=== PATIENT | female | born 1940 | race Caucasian/White ===

== ENCOUNTER → 2023-07-26 13:04 | Outpatient (REF) | payer MEDICARE, OTHER, MEDICAID, SELFPAY ==
[2023-07-26 14:52] LABS: Blood Urea Nitrogen 17 mg/dl (7-17); Carbon Dioxide 27 mmol/L (22-30); Chloride 105 mmol/L (98-107); Glucose 91 mg/dl (70-99); Sodium 137 mmol/L (135-145); eGFR > 60.00
[2023-07-26 15:08] LABS: NT-proBNP 627 pg/ml
== END ==
LOC: OLABN 13:04
PROVIDERS: ATTENDING PHYSICIAN Student in an Organized Health Care Education/Training Program
DX: R60.9 Edema, unspecified (principal)
CPT/HCPCS: 80048; 83880

== ENCOUNTER → 2023-09-15 10:25 | Outpatient (REF) | payer MEDICARE, OTHER, MEDICAID, SELFPAY ==
[2023-09-15 12:04] LABS: ALT (SGPT) 14 U/L (0-35); AST (SGOT) 19 U/L (14-36); Albumin 3.6 g/dl (3.5-5.0); Alkaline Phosphatase 85 U/L (38-126); Blood Urea Nitrogen 17 mg/dl (7-17); Calcium 9.3 mg/dl (8.4-10.2); Carbon Dioxide 33 mmol/L (22-30); Chloride 98 mmol/L (98-107); Glucose 92 mg/dl (70-99); Potassium 4.1 mmol/L (3.5-5.1); Sodium 139 mmol/L (135-145); Total Bilirubin 0.5 mg/dl (0.2-1.3); Total Protein 6.7 g/dl (6.3-8.2); eGFR > 60.00
[2023-09-15 12:12] LABS: NT-proBNP 361 pg/ml
== END ==
LOC: OLABN 10:25
PROVIDERS: ATTENDING PHYSICIAN Student in an Organized Health Care Education/Training Program
DX: J44.9 Chronic obstructive pulmonary disease, unspecified (principal); I10 Essential (primary) hypertension; E11.40 Type 2 diabetes mellitus with diabetic neuropathy, unspecified
CPT/HCPCS: 36415; 80053; 83880

== ENCOUNTER → 2023-09-28 11:20 | Outpatient (REF) | payer MEDICARE, OTHER, MEDICAID, SELFPAY ==
[2023-09-28 11:37] LABS: % Basophils 0.5 % (0-2); % Eosinophils 1.7 % (0-6); % Immature Granulocytes 0.5 % (0-0.5); % Lymphocytes 30.3 % (20.5-51.1); % Monocytes 8.6 % (1.7-9.3); % Neutrophils 58.4 % (42.2-75.2); Absolute Eosinophils 0.1 10^3/uL (0-0.7); Absolute Lymphocytes 2.5 10^3/uL (1.2-3.4); Absolute Monocytes 0.7 10^3/uL (0.1-0.6); Absolute Neutrophils 4.9 10^3/uL (1.4-6.5); Hemoglobin 11.3 g/dL (12.0-16.0); Mean Corp Hgb Conc. 32.3 g/dL (33.0-37.0); Mean Corpuscular Hgb 27.9 pg (27.0-31.0); Mean Corpuscular Volume 86.4 fL (81.0-99.0); Mean Platelet Volume 11.6 fL (7.4-10.4); Nucleated Red Blood Cells % 0 %; Platelet Count 253 10^3/uL (130-400); Red Blood Cell Count 4.05 10^6/uL (4.20-5.40); Red Cell Dist. Width 15.1 % (11.5-14.5); White Blood Cell Count 8.4 10^3/uL (4.8-10.8)
[2023-09-28 12:08] LABS: NT-proBNP 1390 pg/ml
[2023-09-28 12:09] LABS: ALT (SGPT) 15 U/L (0-35); AST (SGOT) 22 U/L (14-36); Albumin 3.4 g/dl (3.5-5.0); Alkaline Phosphatase 55 U/L (38-126); Blood Urea Nitrogen 18 mg/dl (7-17); Calcium 8.8 mg/dl (8.4-10.2); Carbon Dioxide 33 mmol/L (22-30); Chloride 100 mmol/L (98-107); Glucose 85 mg/dl (70-99); Magnesium 2.2 mg/dl (1.6-2.3); Potassium 4.4 mmol/L (3.5-5.1); Sodium 138 mmol/L (135-145); Total Bilirubin 0.3 mg/dl (0.2-1.3); Total Protein 6.1 g/dl (6.3-8.2); eGFR > 60.00
[2023-09-28 13:38] LABS: Urine Albumin Trace (Neg - Trace); Urine Bilirubin 1+ (Negative); Urine Character Very Cloudy (Clear); Urine Color Yellow; Urine Glucose Negative (Negative); Urine Ketone Trace (Negative); Urine Leukocyte 1+ (Negative); Urine Nitrite Negative (Negative); Urine Occult Blood 2+ (Negative); Urine Specific Gravity 1.015 (<1.030); Urine Urobilinogen Negative (Neg - 1+)
[2023-09-28 14:15] LABS: Urine Squamous Cell >30 /LPF (Few)
[2023-09-28 14:19] LABS: Urine Amorphous Seen; Urine Calcium Oxalate Crystals Present
[2023-09-28 14:20] LABS: Urine Bacteria Many (Negative); Urine Red Blood Cell 0-2 /HPF (0-2); Urine White Cell 30-40 /HPF (0-5)
== END ==
LOC: OLABN 11:20
PROVIDERS: ATTENDING PHYSICIAN Student in an Organized Health Care Education/Training Program
DX: J44.9 Chronic obstructive pulmonary disease, unspecified (principal); R35.0 Frequency of micturition
CPT/HCPCS: 36415; 80053; 81003; 81015; 83735; 83880; 85025; 87077; 87086; 87186

== ENCOUNTER → 2023-10-20 14:11 | Outpatient (REF) | payer MEDICARE, OTHER, MEDICAID, SELFPAY | LOC: OLABN 14:11 | PROVIDERS: ATTENDING PHYSICIAN Student in an Organized Health Care Education/Training Program | DX: Z87.01 Personal history of pneumonia (recurrent) (principal) | CPT/HCPCS: 87070; 87205 ==

== ENCOUNTER 2023-12-19 03:50 | Inpatient (IN) | payer MEDICARE, OTHER, SELFPAY ==
[2023-12-19] VITALS (14 sets, daily range): BP systolic 126–177; BP diastolic 61–85; PULSE 86–90; O2SAT 93–94; BMI 32.2; BMI 31.0; BMI 30.6
[2023-12-19 01:04] LABS: % Basophils 0.3 % (0-2); % Eosinophils 0.8 % (0-6); % Immature Granulocytes 0.3 % (0-0.5); % Lymphocytes 15.3 % (20.5-51.1); % Monocytes 9.1 % (1.7-9.3); % Neutrophils 74.2 % (42.2-75.2); Absolute Eosinophils 0.1 10^3/uL (0-0.7); Absolute Lymphocytes 1.2 10^3/uL (1.2-3.4); Absolute Monocytes 0.7 10^3/uL (0.1-0.6); Absolute Neutrophils 5.6 10^3/uL (1.4-6.5); Hematocrit 34.5 % (37.0-47.0); Hemoglobin 11.6 g/dL (12.0-16.0); Mean Corp Hgb Conc. 33.6 g/dL (33.0-37.0); Mean Corpuscular Hgb 28.5 pg (27.0-31.0); Mean Corpuscular Volume 84.8 fL (81.0-99.0); Mean Platelet Volume 10.1 fL (7.4-10.4); Nucleated Red Blood Cells % 0 %; Platelet Count 221 10^3/uL (130-400); Red Blood Cell Count 4.07 10^6/uL (4.20-5.40); Red Cell Dist. Width 15.3 % (11.5-14.5); White Blood Cell Count 7.5 10^3/uL (4.8-10.8)
--- NOTE | 2023-12-19 01:18 | ED.GENMED ---
History of Present Illness
<PRIYANKA Hayden - Last Filed: 12/19/23 03:07>
General
Chief Complaint: Breathing Problem
Time Seen by Provider: 12/19/23 01:17
History of Present Illness
History of Present Illness:
Patient is an 83 year old female with a PMH of COPD presenting to the ED with a productive cough x 2 days. She states the cough started on Wednesday after a nebulizer treatment and the [facility] did an xray on her which showed an apparent large left
pleural effusion. The cough produces a yellow colored mucous. Patient denies any hemoptysis. The cough is worse when laying down or with any sort of movement. Patient denies any sob chest pain palpitations fever headache light headedness nausea
vomiting abdominal pain.
Patient has a history of COPD HTN HLD controlled on medication but denies any history of clots or CHF. She is a former smoker but denies alcohol use.
Past History
<PRIYANKA Hayden - Last Filed: 12/19/23 03:07>
Past History
ED Past Medical History: Asthma, COPD, HTN, Hypercholesterolemia, NIDDM, Hypothyroidism, Psychiatric (anxiety/depression) and Other (frequent UTI)
ED Past Surgical History: Orthopedic
Social History
Tobacco: Former smoker
Alcohol: None
Drug: None
Personal:
Living: assisted living
Review of Systems
<PRIYANKA Hayden - Last Filed: 12/19/23 03:07>
Review of Systems
Constitutional: Reports no symptoms
Respiratory: Reports cough (productive yellow in color)
Cardiac: Reports no symptoms
ABD/GI: Reports no symptoms
Neurological: Reports no symptoms
Phy Exam
<PRIYANKA Hayden - Last Filed: 12/19/23 03:07>
General Physical Exam
General Presentation: mild distress
General age: appears stated age
General Habitus: elderly
General Mental: alert
Cardiovascular Exam
Cardiovascular Exam: regular rate/rhythm, no edema, no gallop, no JVD and no murmur
Pulmonary Exam
Cough: productive cough (yellow sputum)
Breath Sounds: Rhonchi: generalized (throughout lungs b/l)
Skin Exam
Skin Exam: other (pitting edema on lower legs )
Scores
<Mely Garcia DO - Last Filed: 12/19/23 03:10>
Heart Failure Risk
Heart Failure Risk Score: Yes
History of Stroke or TIA: No
History of intubation for respiratory distress: No
Heart rate on ED arrival >/= 110: No
SaO2 <90% on arrival on room air: Yes
HR >/=110 during 3min walk test (or too ill to perform test): Yes
ECG has acute ischemic changes: No
Urea >/=12mmol/L (BUN 33.6mg/dL): No
Serum CO2>/=35mmol/L: No
Troponin I or T elevated to MT Level (0.4mg/dL): No
NT-proBNP >/=5,000ng/L (5,000pg/ml): No
HF Risk Score: 3
Admission Status: HIGH RISK 15.9% Consider SNF treatment or admission to hospital
Course
<PRIYANKA Hayden - Last Filed: 12/19/23 03:07>
Orders/Labs/Results
Orders:
Orders
12/19/23 00:48
EKG [Electrocardiogram (*1)] Urgent
Reason for Study: Tachycardia
12/19/23 00:49
EKG- Treatment ONCE
12/19/23 00:56
Complete Blood Count/With Diff Urgent
Comprehensive Metabolic Panel Urgent
Pro-BNP [NT-proBNP] Urgent
Troponin I Urgent
Comment: ADD ON
12/19/23 01:47
CR Chest - 2 Views Urgent
Comment:
Reason For Exam: cough, SOB
12/19/23 01:50
Add On- LAB Urgent
Tests Added?: troponin
12/19/23 01:54
Ipratropium/Albuterol Sulfate [Duoneb] 3 ml INH R NOW STA
12/19/23 02:18
COVID-19 Antigen Urgent
Source: Nasal Swab
Abnormal Lab Results
12/19/23
00:56
RBC 4.07 L 10^6/uL
(4.20-5.40)
Hgb 11.6 L g/dL
(12.0-16.0)
Hct 34.5 L %
(37.0-47.0)
RDW 15.3 H %
(11.5-14.5)
Absolute Monos (auto) 0.7 H 10^3/uL
(0.1-0.6)
Lymphocytes % 15.3 L %
(20.5-51.1)
Carbon Dioxide 33 H mmol/L
(22-30)
Glucose 116 H mg/dl
(70-99)
12/19/23 00:56
12/19/23 00:56
Vital Signs
Initial and Last Documented VS:
Initial Vital Signs
Temp Pulse Resp BP Pulse Ox
98.2 F 69 19 153/77 98
12/19/23 00:37 12/19/23 00:37 12/19/23 00:37 12/19/23 00:37 12/19/23 00:37
Last Documented Vital Signs
Temp Pulse Resp BP Pulse Ox
98.2 F 70 16 163/78 95
12/19/23 02:54 12/19/23 03:00 12/19/23 03:00 12/19/23 03:00 12/19/23 03:00
<Mely Garcia, DO - Last Filed: 12/19/23 03:10>
Orders/Labs/Results
Orders:
Orders
12/19/23 00:48
EKG [Electrocardiogram (*1)] Urgent
Reason for Study: Tachycardia
12/19/23 00:49
EKG- Treatment ONCE
12/19/23 00:56
Complete Blood Count/With Diff Urgent
Comprehensive Metabolic Panel Urgent
Pro-BNP [NT-proBNP] Urgent
Troponin I Urgent
Comment: ADD ON
12/19/23 01:47
CR Chest - 2 Views Urgent
Comment:
Reason For Exam: cough, SOB
12/19/23 01:50
Add On- LAB Urgent
Tests Added?: troponin
12/19/23 01:54
Ipratropium/Albuterol Sulfate [Duoneb] 3 ml INH R NOW STA
12/19/23 02:18
COVID-19 Antigen Urgent
Source: Nasal Swab
Abnormal Lab Results
12/19/23
00:56
RBC 4.07 L 10^6/uL
(4.20-5.40)
Hgb 11.6 L g/dL
(12.0-16.0)
Hct 34.5 L %
(37.0-47.0)
RDW 15.3 H %
(11.5-14.5)
Absolute Monos (auto) 0.7 H 10^3/uL
(0.1-0.6)
Lymphocytes % 15.3 L %
(20.5-51.1)
Carbon Dioxide 33 H mmol/L
(22-30)
Glucose 116 H mg/dl
(70-99)
12/19/23 00:56
12/19/23 00:56
Vital Signs
Initial and Last Documented VS:
Initial Vital Signs
Temp Pulse Resp BP Pulse Ox
98.2 F 69 19 153/77 98
12/19/23 00:37 12/19/23 00:37 12/19/23 00:37 12/19/23 00:37 12/19/23 00:37
Last Documented Vital Signs
Temp Pulse Resp BP Pulse Ox
98.2 F 70 16 163/78 95
12/19/23 02:54 12/19/23 03:00 12/19/23 03:00 12/19/23 03:00 12/19/23 03:00
<PRIYANKA Hayden - Last Filed: 12/19/23 03:07>
MDM/Problems Addressed
Differential Diagnosis Includes:
CHF, pleural effusion, COPD exacerbation, bronchitis,
MDM/Problems Addressed:
order chest xray order bloodwork monitor 306a update xr shows pleural effusion give steroids and antibiotics, admit
<PRIYANKA Hayden - Last Filed: 12/19/23 03:07>
*Critical Care Note
Total Time (30-74mins, 75-104mins- exclusive of procedures): Not Applicable
<Mely Garcia DO - Last Filed: 12/19/23 03:10>
*Radiology
Radiology exam reviewed: preliminary read by ED provider (Chest x-ray shows a new left lower lobe infiltrate associated with small pleural effusion.)
*Pulse Oximetry
Patient hypoxic: yes
*EKG
Interpreted by ED Provider?: Yes
Comparison EKG: no changes (Unchanged from previous April 2022)
Rate: normal
Rhythm: sinus and PVC's
Industry: normal axis
Interval: normal interval
QRS Pattern: normal QRS
Ischemia: no ischemia
*Meat Loiner Interpretation
Rate: normal
Interpretation: normal
Rhythm: sinus
ED Attending Note
<PRIYANKA Hayden - Last Filed: 12/19/23 03:07>
-
Portions of this chart may have been created with voice recognition software.� Occasional wrong word or��sound alike� substitutions may have occurred due to the inherent limitations of voice recognition software.
<Mely Garcia DO - Last Filed: 12/19/23 03:10>
ED Attending Note
Patient seen and examined by attending physician: Yes
I performed the substantive portion of visit, reviewed & personally made and approve the management plan that is documented in note by myself or MIKE.: Yes
ED Attending Note:
This is an 83-year-old woman who resides at a local [facility]. History of paroxysmal atrial fibrillation, COPD, diet-controlled diabetes, Neuropathy, hypertension, chronic lymphedema who was sent to the ED by [facility] for evaluation of
increased cough over the past 2 days productive of whitish to yellow phlegm. Intermittent shortness of breath, dyspnea on exertion. She was evaluated by [facility] 2 days ago for the symptoms and started on Decadron 2 mg daily as well as Chloraseptic
lozenges. Thus far no improvement and an outpatient chest x-ray performed this evening shows left lower lobe pleural effusion that is new compared to previous.
She does not believe she has had a fever. She does note moderate hoarseness/loss of voice since yesterday but denies sore throat.
Maintained on nasal cannula oxygen 2 to 4 L.
No change in appetite. She denies chest pain. She does note chronic bilateral lower extremity edema, unchanged.
GENERAL: 83-year-old woman appears her stated age, awake and alert, very mild resting tachypnea noted and whispering/hoarse voice but no stridor. Rare dry cough is noted.
EYE: pupils equal and reactive. anicteric
NECK: Supple, nontender, no meningismus, no significant adenopathy.
ENT: posterior pharynx is clear, oral mucosa is moist. No rhinorrhea.
CARDIAC: Regular rate and rhythm. 2/6 holosystolic murmur.
LUNGS: Mild resting tachypnea. Coarse rhonchi throughout bilateral lung hirsch.
ABDOMEN: Soft, nondistended, without focal tenderness
NEUROLOGICAL: Alert and oriented x3, no focal neuro deficits.
SKIN: Warm and dry, normal color, skin intact. No rash.
MUSCULOSKELETAL: Moderately tense lymphedema bilateral lower extremities, nontender. Peripheral pulses are full and equal b/l. No palpable tenderness.
PSYCH: Normal and appropriate interaction.
Concern for exacerbation of COPD, acute CHF, pneumonia, symptomatic pleural effusion.
Labs thus far revealed normal white blood cell count, unremarkable chemistries save for mildly elevated CO2 of 33, stable and unchanged from previous.
Will add BNP, check COVID as well as chest x-ray.
Will give DuoNeb nebulizer.
12/19/2023 0300 AM
BNP is low at 400.
COVID is negative.
Chest x-ray concerning for dense infiltrate left lower lobe as well as left pleural effusion.
Patient reassessed, much more comfortable after nebulizer treatment. Marked improvement in rhonchi, increased air movement.
Due to concern for left lower lobe pneumonia, progressive shortness of breath and cough as well as significant generalized rhonchi concern for pneumonia as well as exacerbation of COPD.
Will initiate IV antibiotics, IV steroids, continue nebulizer treatments and admit to hospitalist service.
Discharge Plan
Departure
Patient Disposition: Admit
Date of Disposition: 12/19/23
Time of Disposition: 03:08
Admit to: Telemetry
Admit to doctor: Ahsan
Presentation/result/management discussed w/ accepting MD/DO: Hospitalist
Condition: Fair
Discharge Problem:
HCAP (healthcare-associated pneumonia), Acute exacerbation of chronic obstructive pulmonary disease
Prescriptions:
No Action
acetaminophen [Tylenol] 325 mg Tablet
650 mg PO Q4HPRN PRN (Reason: mild pain)
oxybutynin chloride 15 mg Tablet Extended Release 24hr
15 mg PO QPM
atorvastatin [Lipitor] 10 mg Tablet
10 mg PO QPM
levothyroxine 25 mcg Tablet
25 mcg PO DAILY
magnesium hydroxide [Milk of Magnesia] 400 mg/5 mL Suspension
2,400 mg PO HSPRN PRN (Reason: constipation)
vitamin B complex Capsule
1 cap PO DAILY
metoprolol tartrate 25 mg Tablet
12.5 mg PO BID
coQ10 (ubiquinol) 200 mg Capsule
200 mg PO DAILY
Eliquis 5 mg Tablet
5 mg PO BID
ergocalciferol (vitamin D2) 1,250 mcg (50,000 unit) Capsule
1,250 mcg PO QMONTH
estradiol 0.01 % (0.1 mg/gram) Cream
2 g VAGINAL TUFR@1830
diclofenac sodium 1 % Gel
2 g TOPICAL Q8H
calcium carbonate [Calcium 600] 600 mg calcium (1,500 mg) Tablet
600 mg PO DAILY
furosemide [Lasix] 20 mg Tablet
10 mg PO DAILY
guaifenesin [Mucinex] 600 mg tablet extended release 12hr
600 mg PO [id number] PRN (Reason: cough)
potassium chloride 10 mEq Capsule, Extended Release
10 meq PO DAILY
sodium chloride 1 gram Tablet
1,000 mg PO DAILY
budesonide 0.5 mg/2 mL Suspension For Nebulization
0.5 mg INHALATION BID
albuterol sulfate 2.5 mg/0.5 mL Solution For Nebulization
2.5 mg inhalation 2XD
pregabalin 50 mg Capsule
50 mg PO HS
pregabalin 75 mg Capsule
75 mg PO DAILY
dexamethasone 2 mg Tablet
2 mg PO DAILY
Chloraseptic (benzocaine) Lozenge
1 marilu 3XD
albuterol sulfate 90 mcg/actuation Aerosol Powdr Breath Activated
2 inh INHALATION 3XD PRN (Reason: atelectasis)
levalbuterol HCl 1.25 mg/3 mL Solution For Nebulization
1.25 mg INHALATION 4XD PRN (Reason: dyspnea)
Referrals:
Archie Mullen DO [Family Provider] -
Interventions
Interventions:
*Risk Screen - Suicide Last Done: 12/19/23 00:37
*General Assessment Last Done: 12/19/23 00:37
*Neglect/Abuse Screening Last Done: 12/19/23 00:37
ED- Fall Risk Assessment Last Done: 12/19/23 00:37
*ED COVID-19 Vaccine History Last Done: 12/19/23 00:37
ED- Cardiac Assessment Last Done: 12/19/23 00:48
ED- Pulmonary Assessment Last Done: 12/19/23 00:49
Discharge Date and Time
Print Language: EMIRATI
[2023-12-19 01:27] LABS: NT-proBNP 437 pg/ml
[2023-12-19 01:28] LABS: ALT (SGPT) 15 U/L (0-35); AST (SGOT) 18 U/L (14-36); Albumin 3.7 g/dl (3.5-5.0); Alkaline Phosphatase 70 U/L (38-126); Blood Urea Nitrogen 16 mg/dl (7-17); Calcium 9.3 mg/dl (8.4-10.2); Carbon Dioxide 33 mmol/L (22-30); Chloride 98 mmol/L (98-107); Estimated Creatinine Clearance 72 ml/min; Glucose 116 mg/dl (70-99); Potassium 4.6 mmol/L (3.5-5.1); Sodium 138 mmol/L (135-145); Total Protein 6.4 g/dl (6.3-8.2); eGFR > 60.00
[2023-12-19 02:11] LABS: Total Bilirubin 0.4 mg/dl (0.2-1.3)
[2023-12-19] MEDS: DUONEB 3 ML INH ×5 (02:21→19:35)
[2023-12-19 02:44] LABS: COVID-19 Antigen Negative (Negative)
[2023-12-19] MEDS: DECADRON 10 MG IV (03:18)
[2023-12-19] MEDS: LEVAQUIN 100 IV (03:19)
--- NOTE | 2023-12-19 03:40 | HPS.HSE ---
Family Physician
-
Family Physician: Archie Mullen DO
Chief Complaint
-
Cough, Hoarseness
History of Present Illness
Patient is an 83y F with PMH significant for A-Fib, COPD and DM-II who presents to ED complaining of loss of voice, cough and fatigue. Patient was evaluated at [facility] on 12/16 for these symptoms. She was started on dexamethasone 2mg daily at that
time and a CXR was ordered. CXR report returned today and showed L base opacity - ? large pleural effusion. Patient continued to complain of loss of voice and cough and was sent to the ED for further evaluation.
Patient denies any headache, sore throat, fevers or chills.
In the ED, she is noted to have weak voice with audible throat / upper airway congestion and weak / ineffectual cough or throat clearing ability.
Medical History
Past Medical History
Past Medical History: Reports Other
Additional Past Medical History:
COPD
Polyneuropathy
Atrial Fibrillation
Hypothyroidism
Dyslipidemia
Diet-Controlled DM-II
Past Surgical History: Reports Other
Social History
Tobacco: Former Smoker (Quit at age 48. Approx 30 pack years total use.)
Alcohol: None
Drug: None
Living: Intermediate
Family History
Family History: Not pertinent
Allergies / Home Medications
Allergies reflects when Allergies were last updated in [employer].
Home Medications with original date entered in [employer]
Allergy/Medication List:
Allergies
Allergy/AdvReac Type Severity Reaction Status Date / Time
cefuroxime Allergy Severe Anaphylaxis Verified 12/19/23 00:50
gabapentin Allergy Intermediate Itching Verified 12/19/23 00:50
Penicillins Allergy Intermediate Nausea / Verified 12/19/23 00:50
Vomiting
Sulfa (Sulfonamide Allergy Intermediate Hives Verified 12/19/23 00:50
Antibiotics)
tetanus toxoid, adsorbed Allergy Intermediate Hives Verified 12/19/23 00:50
meloxicam Allergy Mild Unknown Verified 12/19/23 00:50
Home Medications
acetaminophen 325 mg tablet (Tylenol) 650 mg PO Q4HPRN PRN mild pain 03/24/22
apixaban 5 mg tablet (Eliquis) 5 mg PO BID Blood Clot Prevention/Tx 03/24/22
atorvastatin 10 mg tablet (Lipitor) 10 mg PO QPM High Cholesterol 03/24/22
coQ10 (ubiquinol) 200 mg capsule 200 mg PO DAILY Supplement 03/24/22
diclofenac sodium 1 % topical gel 2 g topical Q8H both knees 03/24/22
ergocalciferol (vitamin D2) 1,250 mcg (50,000 unit) capsule 1,250 mcg PO QMONTH Wednesday of the month 03/24/22
estradiol 0.01% (0.1 mg/gram) vaginal cream 2 g vaginal TUFR@1830 Hormonal Agent 03/24/22
levothyroxine 25 mcg tablet 25 mcg PO DAILY Thyroid 03/24/22
magnesium hydroxide 400 mg/5 mL oral suspension (Milk of Magnesia) 2,400 mg PO HSPRN PRN constipation 03/24/22
metoprolol tartrate 25 mg tablet 12.5 mg PO BID Blood Pressure 03/24/22
oxybutynin chloride 15 mg tablet,extended release 24 hr 15 mg PO QPM Urinary Issue 03/24/22
vitamin B complex 1 cap PO DAILY Supplement 03/24/22
calcium carbonate (Calcium 600) 600 mg PO DAILY Supplement 05/22/22
furosemide 20 mg tablet (Lasix) 10 mg PO DAILY Fluid Retention/Swelling 05/22/22
guaifenesin 600 mg tablet, extended release 12 hr (Mucinex) 600 mg PO [id number] PRN cough 05/22/22
albuterol sulfate 2.5 mg/0.5 mL solution for nebulization 2.5 mg inhalation 2XD 12/19/23
albuterol sulfate 90 mcg/actuation breath activated powder inhaler 2 inh inhalation 3XD PRN atelectasis 12/19/23
benzocaine-menthol lozenges 1 marilu 3XD 12/19/23
budesonide 0.5 mg/2 mL suspension for nebulization 0.5 mg inhalation BID 12/19/23
dexamethasone 2 mg tablet 2 mg PO DAILY 12/19/23
levalbuterol HCl 1.25 mg/3 mL solution for nebulization 1.25 mg inhalation 4XD PRN dyspnea 12/19/23
potassium chloride 10 mEq capsule,extended release 10 meq PO DAILY 12/19/23
pregabalin 50 mg capsule 50 mg PO HS 12/19/23
pregabalin 75 mg capsule 75 mg PO DAILY 12/19/23
sodium chloride 1 gram tablet 1,000 mg PO DAILY 12/19/23
Review of Systems
-
History Source: Patient
A 12 point ROS was completed and negative except as noted: Yes
Constitutional: Reports Fatigue; Denies Fever or Chills
EENT: Reports Other (Hoarse); Denies Sore Throat
Respiratory: Reports Cough and Trouble Breathing; Denies Hemoptysis
Cardiac: Denies Chest Pain or Palpitations
Abdomen/GI: Denies Abdominal Pain, Nausea, Vomiting or Diarrhea
: Denies Dysuria or Frequency
Musculoskeletal: Reports Edema; Denies Joint Pain
Neurological: Denies Dizzy or Headache
Psych: Denies Depression or Anxiety
Physical Exam
Vital Signs
Vital Signs
Temp Pulse Resp BP Pulse Ox
98.2 F 70 16 163/78 95
12/19/23 02:54 12/19/23 03:00 12/19/23 03:00 12/19/23 03:00 12/19/23 03:00
Physical Exam
General: Other (83y F in no acute distress.)
HEENT: Moist mucous membranes, PERRLA and Other (No JVD. Audible throat congestion.)
Respiratory: Other (There are coarse breath sounds appreciated throughout - but likely transmitted from upper airway given apparent throat congestion. No wheezing.)
Cardiac: S1/S2 and Regular Rhythm; No Murmur
GI: Soft, Non Tender, Non Distended and Normal Bowel Sounds
Musculoskeletal: No Clubbing, No Cyanosis and Other (2+ pitting edema b/l LEs.)
Neuro: AO x 3 and Nonfocal/grossly intact
Laboratory Results
-
12/19/23 00:56
12/19/23 00:56
Laboratory Results
Total Bilirubin 0.4 mg/dl (0.2-1.3) 12/19/23 00:56
AST 18 U/L (14-36) 12/19/23 00:56
ALT 15 U/L (0-35) 12/19/23 00:56
Alkaline Phosphatase 70 U/L (38-126) 12/19/23 00:56
Troponin I Cancelled 12/19/23 01:50
Impression/Plan
-
A/P: Patient is an 83y F with PMH significant for COPD, A-Fib and DM-II who presents to ED complaining of cough and hoarseness.
Hoarseness
LLL Pneumonia
- Admit for further evaluation and treatment.
- Patient is afebrile, not toxic appearing with no leukocytosis.
- No change in chronic O2 requirements.
- CXR done shows L basilar opacity compared to prior imaging. ? effusion per outpatient report.
- Continue IV abx for now (Levaquin due to multiple allergies).
- Check procalcitonin and discontinue abx if appropriate.
- ? viral process given loss of voice / laryngitis / etc.
- Speech eval given weak / ineffectual cough and inability to clear throat congestion.
COPD without Acute Exacerbation
Chronic Hypoxemic Respiratory Insufficiency
- No wheezing appreciated during my exam.
- Hold further systemic steroids.
- Continue usual inhaled budesonide, DuoNebs, etc.
- Oxygen saturations acceptable on usual O2 supplementation.
Paroxysmal Atrial Fibrillation
- Stable.
�- Continue current CV med regimen including Eliquis for stroke risk reduction.
Diet-Controlled DM-II
�- Stable.� Recent A1C was 5.9%.
�- Not currently on any DM medications.
�- Cover with SSI as needed.
Polyneuropathy
�- Stable.� Continue Lyrica
DVT Prophylaxis:� On Eliquis
Code Status:� DNR
[2023-12-19 03:42] LABS: Troponin I < 0.012 ng/ml
[2023-12-19 05:02] LABS: Procalcitonin < 0.05 ng/ml (0.0-0.25)
--- NOTE | 2023-12-19 06:16 | PTCARENOTE ---
pt admitted to 324, o2 2 L NC connected on transfer. oriented pt to room, call santiago, TV operation and dietary. admission assessment complete, pt inst on POC all questions addressed.
[2023-12-19] MEDS: PULMICORT 0.5 MG INH ×2 (07:43→19:35)
[2023-12-19 08:12] LABS: Glucose - Point of Care 144 mg/dl (70-99)
[2023-12-19] MEDS: KCL 10 MEQ PO (09:00)
[2023-12-19] MEDS: LASIX 20 MG PO (09:01)
[2023-12-19] MEDS: SYNTHROID 25 MCG PO (09:01)
[2023-12-19] MEDS: LOPRESSOR 12.5 MG PO ×2 (09:02→20:43)
[2023-12-19] MEDS: ELIQUIS 5 MG PO ×2 (09:02→20:44)
[2023-12-19] MEDS: MUCINEX 1200 MG PO ×2 (09:04→20:44)
[2023-12-19] MEDS: SODIUM CHLORIDE 1 GRAM PO (09:04)
[2023-12-19] MEDS: LYRICA 75 MG PO (09:04)
[2023-12-19 09:30] LABS: Hematocrit 35.3 % (37.0-47.0); Hemoglobin 11.9 g/dL (12.0-16.0); Mean Corp Hgb Conc. 33.7 g/dL (33.0-37.0); Mean Corpuscular Hgb 29.4 pg (27.0-31.0); Mean Corpuscular Volume 87.2 fL (81.0-99.0); Mean Platelet Volume 11.1 fL (7.4-10.4); Platelet Count 221 10^3/uL (130-400); Red Blood Cell Count 4.05 10^6/uL (4.20-5.40); Red Cell Dist. Width 14.9 % (11.5-14.5); White Blood Cell Count 6.2 10^3/uL (4.8-10.8)
[2023-12-19 09:33] LABS: Blood Urea Nitrogen 13 mg/dl (7-17); Calcium 9.3 mg/dl (8.4-10.2); Carbon Dioxide 30 mmol/L (22-30); Chloride 96 mmol/L (98-107); Estimated Creatinine Clearance 74 ml/min; Glucose 149 mg/dl (70-99); Sodium 138 mmol/L (135-145); eGFR > 60.00
--- NOTE | 2023-12-19 11:10 | PTOTSP ---
SPEECH THERAPY SWALLOW EVALUATION:
Patient exhibits clinical signs of oropharyngeal dysphagia, likely chronic related to COPD and generalized weakness/deconditioning. Patient exhibiting signs of aspiration at bedside. Currently with Left lower lobe pneumonia. Recommend instrumental
assessment of swallowing (VSE) to further assess swallow physiology. Recommend patient to be NPO except for necessary medications crushed in applesauce and ARHP small single sips of water following oral with aspiration precautions in place until
VSE. Speech therapy to follow and provide further recommendations following VSE results. Discussed with patient, RN, Dr. Diane. Patient in agreement.
RECOMMEND:
1) Videofluoroscopic Swallowing Study
2) NPO until VSE
3) necessary medications crushed in applesauce
4) ARHP small single sips of water following oral with aspiration precautions in place
5) ST to follow
[2023-12-19 12:04] LABS: Glucose - Point of Care 154 mg/dl (70-99)
[2023-12-19 12:59] LABS: Glycohemoglobin (HgbA1c) 5.7 % (4.0-5.6)
[2023-12-19] MEDS: NSS 1000 IV (13:13)
--- NOTE | 2023-12-19 13:52 | W.PN.UPDATE ---
Update Note
Progress Note Update
Nonbillable note
Left-sided pleural effusion versus pneumonia -patient denies of having history of pleural effusion. Does have some lower extremity swelling denies of history of heart failure. Chest ultrasound ordered and possible diagnostic Thora centesis will be
required based on finding. Maintain on empiric levofloxacin.
Vocal cord dysfunction -patient have dysphonia for last few weeks, ENT evaluated and have some minimal vocal cord paresis. Patient have some dysphagia and VSE ordered as well
Chronic hypoxic respiratory failure -on 2 L oxygen through nasal cannula, oxygen requirement stable continue monitoring
[2023-12-19] MEDS: LIPITOR 10 MG PO (16:32)
[2023-12-19 18:20] LABS: Glucose - Point of Care 130 mg/dl (70-99)
[2023-12-19] MEDS: LYRICA 50 MG PO (20:43)
[2023-12-20 00:14] LABS: Glucose - Point of Care 118 mg/dl (70-99)
[2023-12-20] MEDS: LEVAQUIN 100 IV (04:34)
[2023-12-20 06:00] VITALS: BMI 30.4
[2023-12-20 06:26] LABS: Glucose - Point of Care 108 mg/dl (70-99)
[2023-12-20] MEDS: PULMICORT 0.5 MG INH ×2 (07:35→19:45)
[2023-12-20] MEDS: DUONEB 3 ML INH ×4 (07:35→19:45)
[2023-12-20] MEDS: MUCINEX 1200 MG PO ×2 (07:51→20:54)
[2023-12-20] MEDS: SYNTHROID 25 MCG PO (07:51)
[2023-12-20 07:52] VITALS: BP 157/97
[2023-12-20] MEDS: LOPRESSOR 12.5 MG PO ×2 (07:52→20:55)
[2023-12-20] MEDS: KCL 10 MEQ PO (07:52)
[2023-12-20] MEDS: LYRICA 75 MG PO (07:52)
[2023-12-20] MEDS: SODIUM CHLORIDE 1 GRAM PO (07:52)
[2023-12-20] MEDS: ELIQUIS 5 MG PO ×2 (07:52→20:56)
[2023-12-20] MEDS: NSS 1000 IV (10:25)
[2023-12-20 11:31] LABS: Glucose - Point of Care 98 mg/dl (70-99)
--- NOTE | 2023-12-20 12:22 | W.PN.HOSP.TC ---
Today's Communication/Plan
-
monitor off abx.
afebrile
start modified diet
Assessment / Plan
Assessment / Plan
A/P: Patient is an 83y F with PMH significant for COPD, A-Fib and DM-II who presents to ED complaining of cough and hoarseness.
left true vocal fold paresis
LLL Pneumonia likely viral.
Dysphagia
- No change in chronic O2 requirements.
- CXR done shows L basilar opacity compared to prior imaging. ? effusion per outpatient report.
- US chest with minimal left pleural effusion.
- procal negative and monitor off antibiotics.
- ? viral process given loss of voice / laryngitis / etc.
- started on modified diet. Will need to continue to follow with speech and OP ENT f/u.
COPD without Acute Exacerbation
Chronic Hypoxemic Respiratory Insufficiency
- No wheezing appreciated during my exam.
- Hold further systemic steroids.
- Continue usual inhaled budesonide, DuoNebs, etc.
- Oxygen saturations acceptable on usual O2 supplementation.
Paroxysmal Atrial Fibrillation
- Stable.
�- Continue current CV med regimen including Eliquis for stroke risk reduction.
Diet-Controlled DM-II
�- Stable.� Recent A1C was 5.9%.
�- Not currently on any DM medications.
�- Cover with SSI as needed.
Polyneuropathy
�- Stable.� Continue Lyrica
DVT Prophylaxis:� On Eliquis
Code Status:� DNR
PT/OT
Anticipated Discharge: Within 24 hours
Subjective/Interval History
-
Date of Service: December 20, 2023
sitting in chair
underwent VSe earlier today
Objective Data
-
Vital Signs:
Vital Signs
Temp Pulse Resp BP Pulse Ox
97.7 F 78 14 143/73 99
12/20/23 07:52 12/20/23 07:52 12/20/23 07:52 12/20/23 07:52 12/20/23 07:52
I&O
12/19/23 12/20/23 12/21/23
06:59 06:59 06:59
Intake Total 1659
Balance 1659
Physical Exam
-
General: No Apparent Distress
HEENT: Normocephalic, Atraumatic and Oxygen
Respiratory: Wheezes (R>L) and Non Labored Respirations
Cardiac: Regular Rhythm and S1/S2
Breast: Deferred by me
GI: Soft, Nontender and Nondistended
Rectal: Deferred by Provider
Genito-urinary: Deferred by me
Musculoskeletal: No Clubbing, No Cyanosis and No Edema
Skin: Warm
Neuro: Awake
Psych: Calm
Data Reviewed
-
Total Time Spent with Patient (in minutes): 56
--- NOTE | 2023-12-20 13:05 | PTOTSP ---
Addendum entered and electronically signed by ST Zoraida 12/20/23 13:09:
7. Aspiration Risk Hydration Protocol - ice chips/small sparing single cup sips of water
Original Note:
Video Swallow Study
Summary: Oral stage WFL-mild. Pharyngeal stage moderate. Patient aspirated thin (consecutive sips) and mildly thick liquids via straw. Esophageal sweep revealed retention and retrograde flow. See patient care note for details.
Recommend:
1. IDDSI Level 6 Soft/Bite Sized (to avoid granular textures), IDDSI Level 2 Mildly Thick liquids via CUP
2. Medications - whole in puree
3. Strategies: upright to 90 degrees, small single sips by cup, avoid straw, slow rate, stop if coughing as this is concerning for aspiration, reflux precautions
4. Oral care 3x daily
5. Dysphagia therapy at the acute care level.
6. Voice eval after D/C from acute care.
[2023-12-20 14:12] VITALS: BP 151/86
[2023-12-20 15:39] VITALS: BP 149/79
[2023-12-20 16:40] LABS: Glucose - Point of Care 93 mg/dl (70-99)
--- NOTE | 2023-12-20 17:04 | CM ---
Reviewed chart, spoke with Zechariah in admissions at [facility] who confirmed bed hold. Will confirm with family that they are in agreement for patient to return. Sending referral to [facility] so admissions has updated information.
Plan: Case management will continue to follow and assist with discharge planning. Back to [facility] upon medical clearance.
[2023-12-20] MEDS: LIPITOR 10 MG PO (17:55)
[2023-12-20] MEDS: LYRICA 50 MG PO (20:54)
[2023-12-20 21:19] VITALS: BP 146/78
[2023-12-20 22:25] LABS: Glucose - Point of Care 107 mg/dl (70-99)
[2023-12-20 23:27] VITALS: BP 171/89
--- NOTE | 2023-12-20 23:30 | PTCARENOTE ---
Pt complained of cough, requested medication. [employer] made aware, new order provided, see MAR. Will continue to monitor.
[2023-12-21] MEDS: TESSALON PERLES 100 MG PO (00:17)
[2023-12-21] MEDS: NSS 1000 IV (04:11)
[2023-12-21] MEDS: FLUSH (NSS) 1 FLUSH IV (04:12)
[2023-12-21 04:17] VITALS: BMI 30.3
[2023-12-21 07:00] VITALS: BP 150/82
[2023-12-21 07:21] LABS: % Basophils 0.8 % (0-2); % Immature Granulocytes 0.4 % (0-0.5); % Lymphocytes 26.4 % (20.5-51.1); % Monocytes 12.7 % (1.7-9.3); % Neutrophils 56.7 % (42.2-75.2); Absolute Basophils 0.1 10^3/uL (0-0.2); Absolute Eosinophils 0.3 10^3/uL (0-0.7); Absolute Lymphocytes 2.2 10^3/uL (1.2-3.4); Absolute Monocytes 1.1 10^3/uL (0.1-0.6); Absolute Neutrophils 4.7 10^3/uL (1.4-6.5); Hematocrit 35.6 % (37.0-47.0); Hemoglobin 11.6 g/dL (12.0-16.0); Mean Corp Hgb Conc. 32.6 g/dL (33.0-37.0); Mean Platelet Volume 10.3 fL (7.4-10.4); Nucleated Red Blood Cells % 0 %; Platelet Count 260 10^3/uL (130-400); Red Blood Cell Count 4.14 10^6/uL (4.20-5.40); Red Cell Dist. Width 15.1 % (11.5-14.5); White Blood Cell Count 8.3 10^3/uL (4.8-10.8)
[2023-12-21] MEDS: DUONEB 3 ML INH ×4 (07:36→20:16)
[2023-12-21] MEDS: PULMICORT 0.5 MG INH ×2 (07:36→20:16)
[2023-12-21 07:42] LABS: Blood Urea Nitrogen 18 mg/dl (7-17); Calcium 9.2 mg/dl (8.4-10.2); Carbon Dioxide 34 mmol/L (22-30); Chloride 98 mmol/L (98-107); Estimated Creatinine Clearance 55 ml/min; Glucose 85 mg/dl (70-99); Potassium 4.3 mmol/L (3.5-5.1); Sodium 140 mmol/L (135-145); eGFR > 60.00
[2023-12-21 08:23] LABS: Glucose - Point of Care 85 mg/dl (70-99)
[2023-12-21] MEDS: SODIUM CHLORIDE 1 GRAM PO (08:25)
[2023-12-21] MEDS: LYRICA 75 MG PO (08:25)
[2023-12-21] MEDS: MUCINEX 1200 MG PO ×2 (08:25→22:24)
[2023-12-21] MEDS: SYNTHROID 25 MCG PO (08:25)
[2023-12-21] MEDS: KCL 10 MEQ PO (08:25)
[2023-12-21] MEDS: ELIQUIS 5 MG PO ×2 (08:26→22:24)
[2023-12-21] MEDS: LOPRESSOR 12.5 MG PO ×2 (08:26→22:25)
--- NOTE | 2023-12-21 10:40 | W.PN.HOSP.TC ---
Today's Communication/Plan
-
IV steroids
Bronchodilators
monitor resp status
cont modified diet
Assessment / Plan
Assessment / Plan
A/P: Patient is an 83y F with PMH significant for COPD, A-Fib and DM-II who presents to ED complaining of cough and hoarseness.
left true vocal fold paresis
LLL Pneumonia likely viral.
Dysphagia
- No change in chronic O2 requirements.
- CXR done shows L basilar opacity compared to prior imaging.
- US chest with minimal left pleural effusion.
- procal negative and monitor off antibiotics. Remains afebrile.
- ? viral process given loss of voice / laryngitis / etc.
- started on modified diet. Will need to continue to follow with speech and OP ENT f/u.
COPD with mild Acute Exacerbation
Chronic Hypoxemic Respiratory Insufficiency
- started decadron 4mg q12h
- Continue usual inhaled budesonide, DuoNebs, etc.
- Oxygen saturations acceptable on usual O2 supplementation.
Paroxysmal Atrial Fibrillation
- Stable.
�- Continue current CV med regimen including Eliquis for stroke risk reduction.
Diet-Controlled DM-II
�- Stable.� Recent A1C was 5.9%.
�- Not currently on any DM medications.
�- Cover with SSI as needed. Watch sugars with steroids
Polyneuropathy
�- Stable.� Continue Lyrica
DVT Prophylaxis:� On Eliquis
Code Status:� DNR
PT/OT
Anticipated Discharge: Within 24 hours
Subjective/Interval History
-
Date of Service: December 21, 2023
intermittent cough
with mild exp wheezing with cough
Objective Data
-
Labs:
Laboratory Results
12/21/23
06:11
WBC 8.3
Hgb 11.6 L
Hct 35.6 L
Plt Count 260
Sodium 140
Potassium 4.3
Chloride 98
Carbon Dioxide 34 H
BUN 18 H
Creatinine 0.8
Glucose 85
Calcium 9.2
Vital Signs:
Vital Signs
Temp Pulse Resp BP Pulse Ox
97.6 F 73 16 150/82 96
12/21/23 07:00 12/21/23 08:26 12/21/23 07:40 12/21/23 08:26 12/21/23 07:40
I&O
12/20/23 12/21/23 12/22/23
06:59 06:59 06:59
Intake Total 1660 / 1660 1170 / 1170
Balance 1660 / 1660 1170 / 1170
Physical Exam
-
General: No Apparent Distress
HEENT: Normocephalic, Atraumatic and Oxygen
Respiratory: Wheezes and Non Labored Respirations
Cardiac: Regular Rhythm and S1/S2
Breast: Deferred by me
GI: Soft, Nontender and Nondistended
Rectal: Deferred by Provider
Genito-urinary: Deferred by me
Musculoskeletal: No Clubbing, No Cyanosis and No Edema
Skin: Warm
Neuro: Awake
Psych: Calm
Data Reviewed
-
Total Time Spent with Patient (in minutes): 53
[2023-12-21] MEDS: DECADRON 4 MG IV ×2 (11:52→22:28)
[2023-12-21 12:03] LABS: Glucose - Point of Care 136 mg/dl (70-99)
--- NOTE | 2023-12-21 12:41 | PN.CDI ---
CDI
- -
CDI:
Physician Documentation Request
Admit Date: 12/19/23 03:50
Dear Doctor Manan,
Please review the following and provide your response in the progress notes.
Clinical Indicators:
The diagnosis of was documented on 12/18 Update PN but is not consistently noted in subsequent documentation.
- 12/18 Update PN 'Chronic hypoxic respiratory failure -on 2 L oxygen'
- 12/20 PN 'Chronic Hypoxemic Respiratory Insufficiency'
- Documented 1-2L O2, pulse ox > 91%
Please clarify the following:
____ - Chronic hypoxic respiratory failure was present on admission and is now resolved.
____ - Chronic hypoxic respiratory failure was present on admission and is still being monitored, evaluated or treated
____ - Chronic hypoxic respiratory failure was ruled out
____ - Other
Use of terms such as suspected, likely, concern for, or probable (associated with a specific diagnosis that is being evaluated, monitored, or treated as if it exists) are acceptable and can be coded in the inpatient setting, when documented at the
time of discharge.
Thank you,
Allison Peterson RN
CDI Specialist
Please use your independent medical judgment in providing your response.
--- NOTE | 2023-12-21 12:54 | PTCARENOTE ---
patient with intermittent dry cough and expiratory wheezing, +Sob with exertion, tolerating diet, has been sitting oob in chair since this am, vss, will continue to monitor.
[2023-12-21 15:00] VITALS: BP 156/87
[2023-12-21 16:47] LABS: Glucose - Point of Care 131 mg/dl (70-99)
[2023-12-21] MEDS: LIPITOR 10 MG PO (17:11)
[2023-12-21 21:31] LABS: Glucose - Point of Care 154 mg/dl (70-99)
[2023-12-21] MEDS: LYRICA 50 MG PO (22:23)
[2023-12-21] MEDS: FLUSH (NSS) 2 FLUSH IV (22:29)
[2023-12-21 23:05] VITALS: BP 134/76
[2023-12-22 06:00] VITALS: BMI 30.1
[2023-12-22 07:20] LABS: Glucose - Point of Care 126 mg/dl (70-99)
[2023-12-22] MEDS: DUONEB 3 ML INH ×3 (07:29→15:27)
[2023-12-22] MEDS: PULMICORT 0.5 MG INH (07:30)
[2023-12-22 07:46] VITALS: BP 175/90
[2023-12-22] MEDS: LYRICA 75 MG PO (08:11)
[2023-12-22] MEDS: KCL 10 MEQ PO (08:11)
[2023-12-22] MEDS: MUCINEX 1200 MG PO (08:11)
[2023-12-22] MEDS: SODIUM CHLORIDE 1 GRAM PO (08:11)
[2023-12-22] MEDS: ELIQUIS 5 MG PO (08:11)
[2023-12-22] MEDS: LOPRESSOR 12.5 MG PO (08:12)
[2023-12-22] MEDS: SYNTHROID 25 MCG PO (08:12)
[2023-12-22] MEDS: DESENEX/MITRAZOL/ZEASORB 1 APPLIC TOPICAL (08:12)
[2023-12-22 11:36] VITALS: BP 114/73; PULSE 82; O2SAT 95
[2023-12-22 11:49] VITALS: BP 114/73; PULSE 84; O2SAT 95
[2023-12-22] MEDS: DECADRON 4 MG IV (11:52)
--- NOTE | 2023-12-22 11:59 | W.PN.HOSP.TC ---
Today's Communication/Plan
-
po steroids taper
afebrile off abx
modified diet
OP ENT
Assessment / Plan
Assessment / Plan
A/P: Patient is an 83y F with PMH significant for COPD, A-Fib and DM-II who presents to ED complaining of cough and hoarseness.
left true vocal fold paresis
LLL Pneumonia likely viral.
Dysphagia
- No change in chronic O2 requirements.
- CXR done shows L basilar opacity compared to prior imaging.
- US chest with minimal left pleural effusion.
- procal negative and monitor off antibiotics. Remains afebrile.
- ? viral process given loss of voice / laryngitis / etc.
- started on modified diet. Will need to continue to follow with speech and OP ENT f/u.
COPD with mild Acute Exacerbation
Chronic Hypoxemic Respiratory Insufficiency poa.
- started decadron 4mg q12h and switch to po taper regimen
- Continue usual inhaled budesonide, DuoNebs, etc.
- Oxygen saturations acceptable on usual O2 supplementation.
Paroxysmal Atrial Fibrillation
- Stable.
�- Continue current CV med regimen including Eliquis for stroke risk reduction.
Diet-Controlled DM-II
�- Stable.� Recent A1C was 5.9%.
�- Not currently on any DM medications.
�- Cover with SSI as needed. Watch sugars with steroids
Polyneuropathy
�- Stable.� Continue Lyrica
DVT Prophylaxis:� On Eliquis
Code Status:� DNR
PT/OT-back to [facility] on discharge.
More than 30 minutes spent in discharge including
Final examination of the patient
Summarizing hospital stay
Instructions for continuing care to all relevant caregivers
Preparation of discharge records, prescriptions, and referral forms
Total time spent (in minutes): 50
Anticipated Discharge: Today
Subjective/Interval History
-
Date of Service: December 22, 2023
states breathing has improved
Objective Data
-
Vital Signs:
Vital Signs
Temp Pulse Resp BP Pulse Ox
98.4 F 85 18 175/90 95
12/22/23 07:46 12/22/23 11:49 12/22/23 11:49 12/22/23 07:46 12/22/23 11:49
I&O
12/21/23 12/22/23 12/23/23
06:59 06:59 06:59
Intake Total 1170 / 1170 2053
Balance 1170 / 1170 2053
Physical Exam
-
General: No Apparent Distress
HEENT: Normocephalic, Atraumatic and Oxygen
Respiratory: Wheezes (improving ) and Non Labored Respirations
Cardiac: Regular Rhythm and S1/S2
Breast: Deferred by me
GI: Soft, Nontender and Nondistended
Rectal: Deferred by Provider
Genito-urinary: Deferred by me
Musculoskeletal: No Clubbing, No Cyanosis and No Edema
Skin: Warm
Neuro: Awake
Psych: Calm
--- NOTE | 2023-12-22 12:07 | W.DCSUMMARY ---
Discharge Summary
Discharge Data
Date of Admission: 12/19/23
Date of Discharge: 12/22/23
-
Pending Results: No
Hospital Course
83 female past medical history of COPD, atrial fibrillation, diabetes mellitus, polyneuropathy was presenting for of cough and hoarseness. Patient underwent chest x-ray which showed left basilar opacity compared to prior imaging. Ultrasound of the
chest with minimal left pleural effusion. Pro-Kevin was checked was found to be negative and antibiotics were discontinued. Patient was afebrile off antibiotics. Recommend Chest X-ray follow-up to assess for clearing of pneumonia and exclude
underlying mass/neoplasia in 4 weeks via primary doctor. Patient was evaluated by ENT and Flexible laryngoscopy was performed at the
bedside. Per ENT, the following findings were noted on laryngoscopy. The oropharynx and hypopharynx appear normal. The epiglottis is crisp. The left true vocal fold appears sluggish on phonation. There is about a slight 1 mm gap upon phonation.
Left vocal cord paralysis likely secondary to viral cause or could be a longstanding issue. Recommend to continue follow-up with speech as outpatient. The patient was also seen by speech and initially recommended modified diet which was upgraded
to regular food consistency with thick liquid on discharge. Patient also with mild expiratory wheezing and was started on IV steroid which was transitioned to p.o. prednisone taper on discharge.
Discharge Plan
-
Patient Disposition: [facility]
Discharge Diagnosis/Procedures: left true vocal fold paresis
LLL Pneumonia likely viral.
Dysphagia
COPD with mild Acute Exacerbation
Condition: Fair
Diet: Low Cholesterol and Other diet
Additional Diets:
regular food consistency with, mildly thick liquid diet
Others Tests: Recommend Chest X-ray follow-up to assess for clearing of pneumonia and exclude underlying mass/neoplasia in 4 weeks via primary doctor.
Other Services: PT and ST
Referrals:
Archie Mullen DO [Family Provider] - in less than 1 week
Emilie Villagomez MD [Active] - in one to two weeks
Prescriptions:
New
prednisone 10 mg Tablet
See Rx Instructions .ROUTE .COMPLEX Qty: 30 0RF
Rx Instructions:
Take By Mouth:
40 mg daily x3 days, 30 mg daily x3 days,
20 mg daily x3 days, 10 mg daily x3 days.
Continued
acetaminophen [Tylenol] 325 mg Tablet
650 mg PO Q4HPRN PRN (Reason: mild pain)
oxybutynin chloride 15 mg Tablet Extended Release 24hr
15 mg PO QPM
atorvastatin [Lipitor] 10 mg Tablet
10 mg PO QPM
levothyroxine 25 mcg Tablet
25 mcg PO DAILY
magnesium hydroxide [Milk of Magnesia] 400 mg/5 mL Suspension
2,400 mg PO HSPRN PRN (Reason: constipation)
vitamin B complex Capsule
1 cap PO DAILY
metoprolol tartrate 25 mg Tablet
12.5 mg PO BID
coQ10 (ubiquinol) 200 mg Capsule
200 mg PO DAILY
Eliquis 5 mg Tablet
5 mg PO BID
ergocalciferol (vitamin D2) 1,250 mcg (50,000 unit) Capsule
1,250 mcg PO QMONTH
estradiol 0.01 % (0.1 mg/gram) Cream
2 g VAGINAL TUFR@1830
diclofenac sodium 1 % Gel
2 g TOPICAL Q8H
calcium carbonate [Calcium 600] 600 mg calcium (1,500 mg) Tablet
600 mg PO DAILY
furosemide [Lasix] 20 mg Tablet
10 mg PO DAILY
guaifenesin [Mucinex] 600 mg tablet extended release 12hr
600 mg PO [id number] PRN (Reason: cough)
potassium chloride 10 mEq Capsule, Extended Release
10 meq PO DAILY
sodium chloride 1 gram Tablet
1,000 mg PO DAILY
budesonide 0.5 mg/2 mL Suspension For Nebulization
0.5 mg INHALATION BID
albuterol sulfate 2.5 mg/0.5 mL Solution For Nebulization
2.5 mg inhalation 2XD
pregabalin 50 mg Capsule
50 mg PO HS
pregabalin 75 mg Capsule
75 mg PO DAILY
benzocaine-menthol Lozenge
1 marilu PO TIDPRN PRN (Reason: SORE THROAT)
albuterol sulfate 90 mcg/actuation Aerosol Powdr Breath Activated
2 inh INHALATION 3XD PRN (Reason: atelectasis)
levalbuterol HCl 1.25 mg/3 mL Solution For Nebulization
1.25 mg INHALATION 4XD PRN (Reason: dyspnea)
Discontinued
dexamethasone 2 mg Tablet
2 mg PO DAILY
Discharge Orders:
Discharge Patient (As Directed); Ordered 12/22/23
Ordered By: Dashawn Hinkle
Discharge Date and Time
Print Language: TAJIK
[2023-12-22 12:13] LABS: Glucose - Point of Care 97 mg/dl (70-99)
--- NOTE | 2023-12-22 13:49 | CM ---
Reviewed chart, patient has been medically cleared for discharge. Placed a call to Zechariah at [facility] who confirmed bed availability for patient. Patient does not need auth for transfer. # For Report [phone] Met with
patient who was agreeable to discharge. She signed IMM. It was reviewed and is now on chart. Patient stated that she would like for Speech to see her again today before she goes. She was advised that CM will message attending. Patient stated that
her daughter will transport her home.
Placed a call to patient's daughter, Althea who confirmed that she can transport patient home. She also asked for Speech to again see patient. She stated that she did not want patient to leave until she gets another eval and she can be in this
afternoon.
Messaged attending who stated that patient can see speech. Messaged Speech and updated that patient wants to see her before she goes.
Plan: Case management will continue to follow and assist with discharge planning. Back to [facility]. Patient is medically cleared for discharge.
[2023-12-22 15:12] VITALS: BP 129/82
[2023-12-22 16:20] LABS: Glucose - Point of Care 222 mg/dl (70-99)
== END 2023-12-22 17:48 | DRG 194 ==
LOC: 3 WEST ACU 03:50
PROVIDERS: ADMITTING PHYSICIAN Hospitalist; ATTENDING PHYSICIAN Hospitalist; CONSULT PHYSICIAN Otolaryngology; EMERGENCY PHYSICIAN Emergency Medicine; FAMILY PHYSICIAN Student in an Organized Health Care Education/Training Program
DX: J12.9 Viral pneumonia, unspecified (principal); J44.1 Chronic obstructive pulmonary disease with (acute) exacerbation; J44.0 Chronic obstructive pulmonary disease with (acute) lower respiratory infection; J90 Pleural effusion, not elsewhere classified; E11.42 Type 2 diabetes mellitus with diabetic polyneuropathy; E03.9 Hypothyroidism, unspecified; F32.A Depression, unspecified; I10 Essential (primary) hypertension; Z66 Do not resuscitate; J38.01 Paralysis of vocal cords and larynx, unilateral; E78.00 Pure hypercholesterolemia, unspecified; F41.9 Anxiety disorder, unspecified; I48.0 Paroxysmal atrial fibrillation; I89.0 Lymphedema, not elsewhere classified; K59.00 Constipation, unspecified; R13.10 Dysphagia, unspecified; Y95 Nosocomial condition; Z79.01 Long term (current) use of anticoagulants; Z79.890 Hormone replacement therapy; Z87.440 Personal history of urinary (tract) infections; Z87.891 Personal history of nicotine dependence
CPT/HCPCS: 71046; 74230; 76604; 80048; 80053; 82962; 83036; 83880; 84145; 84484; 85025; 85027; 87070; 87811; 92526; 92610; 92611; 93005; 94640; 94667; 96365; 96375; 97163; 97166; 97530; 97535; 99285

== ENCOUNTER → 2024-03-15 10:17 | Outpatient (REF) | payer MEDICARE, OTHER, SELFPAY ==
[2024-03-15 11:28] LABS: Free T3 2.78 pg/ml (2.77-5.27)
[2024-03-15 11:42] LABS: TSH 0.51 uIU/ml (0.47-4.68)
== END ==
LOC: OLABN 10:17
PROVIDERS: ATTENDING PHYSICIAN Student in an Organized Health Care Education/Training Program
DX: E03.9 Hypothyroidism, unspecified (principal)
CPT/HCPCS: 36415; 84443; 84481

== ENCOUNTER → 2024-03-27 11:23 | Outpatient (REF) | payer MEDICARE, OTHER, SELFPAY ==
[2024-03-27 15:28] LABS: HDL Cholesterol 53 mg/dl; LDL Cholesterol, Calculated 75 mg/dl; Total Cholesterol 138 mg/dl (50-199); Triglyceride 52 mg/dl (10-149); Very Low Density Lipoprotein 10 mg/dl (0-30)
[2024-03-27 15:46] LABS: Free T4 0.95 ng/dl (0.78-2.19)
[2024-03-27 16:00] LABS: TSH 1.19 uIU/ml (0.47-4.68)
[2024-03-29 15:59] LABS: Thyroglobulin Antibodies <0.9 IU/mL (0.0-4.0); Thyroid Peroxidase Ab (TPO) <0.3 IU/mL (0.0-9.0)
== END ==
LOC: OLABN 11:23
PROVIDERS: ATTENDING PHYSICIAN Student in an Organized Health Care Education/Training Program
DX: E04.2 Nontoxic multinodular goiter (principal); E03.9 Hypothyroidism, unspecified
CPT/HCPCS: 36415; 80061; 84439; 84443; 86376; 86800

== ENCOUNTER → 2024-04-10 09:43 | Outpatient (REF) | payer MEDICARE, OTHER, SELFPAY ==
[2024-04-10 10:55] LABS: Free T4 0.98 ng/dl (0.78-2.19)
[2024-04-10 11:08] LABS: TSH 0.65 uIU/ml (0.47-4.68)
[2024-04-11 11:52] LABS: Thyroglobulin Antibodies <0.9 IU/mL (0.0-4.0); Thyroid Peroxidase Ab (TPO) <0.3 IU/mL (0.0-9.0)
== END ==
LOC: OLABN 09:43
PROVIDERS: ATTENDING PHYSICIAN Student in an Organized Health Care Education/Training Program
DX: E03.9 Hypothyroidism, unspecified (principal)
CPT/HCPCS: 36415; 84439; 84443; 86376; 86800

== ENCOUNTER → 2024-04-26 09:08 | Outpatient (REF) | payer MEDICARE, OTHER, SELFPAY ==
[2024-04-26 09:25] VITALS: BP 127/75; BP_SYST 69
== END ==
LOC: RADI 09:08
PROVIDERS: ATTENDING PHYSICIAN Physician Assistant; FAMILY PHYSICIAN Student in an Organized Health Care Education/Training Program
DX: E04.1 Nontoxic single thyroid nodule (principal); Z53.8 Procedure and treatment not carried out for other reasons
CPT/HCPCS: 76536

== ENCOUNTER 2024-07-02 13:06 | Inpatient (IN) | payer MEDICARE, OTHER, SELFPAY ==
[2024-07-02] VITALS (26 sets, daily range): BP systolic 66–136; BP diastolic 53–104; BMI 29.5; BMI 29.1
--- NOTE | 2024-07-02 10:02 | ED.GENMED ---
History of Present Illness
General
Chief Complaint: Heart Rate Problem
Time Seen by Provider: 07/02/24 09:46
History of Present Illness
History of Present Illness:
Patient is an 84-year-old female with history of atrial fibrillation on Eliquis who presents to the emergency department with left lower extremity pain. She was due to have a dental procedure a few days ago which was not done for unclear reasons.
She was off of her Eliquis in preparation for this. She reports that she has been taking Eliquis since however she did miss a couple of days. She developed left leg pain over the past day. She was found to be hypotensive for medics and in atrial
fibrillation. She has a history of COPD and is on chronic nasal cannula O2. She denies any shortness of breath or chest pain. She endorses chronic productive cough.
Past History
Past History
ED Past Medical History: Asthma, COPD, HTN, Hypercholesterolemia, NIDDM, Hypothyroidism, Psychiatric (anxiety/depression) and Other (frequent UTI)
ED Past Surgical History: Orthopedic
Social History
Tobacco: Former smoker
Alcohol: None
Drug: None
Personal:
Living: assisted living
Phy Exam
Physical Exam
Physical Exam:
GENERAL APPEARANCE: In distress from pain
EYES lids/conjunctiva normal
EARS/NOSE/THROAT Mucous membranes moist, uvula midline without oral pharyngeal erythema, exudate or swelling
HEAD/NECK normocephalic atraumatic, neck is supple.
RESPIRATORY on nasal cannula oxygen in no respiratory distress intermittent productive.
CARDIAC irregularly irregular, tachycardia
ABDOMINAL Soft, ND/NT. No pulsatile masses on exam, rebound tenderness, Whitmore sign or pain over Mcburney's point.
MUSCLES/EXTREMITIES No abnormal range of motion, no swelling. chronic appearing edema, legs normal in color. palpable strong pedal pulses bilaterally
SKIN Warm, pink and dry. No rashes
NEUROLOGICAL Speech is clear and appropriate. Normal level of consciousness. 5/5 strength in all extremities.
Course
Orders/Labs/Results
Orders:
Orders
07/02/24 09:49
EKG [Electrocardiogram (*1)] Urgent
Reason for Study: Tachycardia
EKG- Treatment ONCE
07/02/24 09:53
EKG [Electrocardiogram (*1)] Urgent
Reason for Study: Atrial Fibrillation
0.9% Sodium Chloride 1000 ml [Nss] 1,000 ml IV BOLUS
07/02/24 10:01
Hip, Left 2-3 Views [CR Hip - LT w/wo Pel 2-3 Vw*] Urgent
Comment:
Reason For Exam: L hip pain
Include a pelvis x-ray?: Yes
US Periph Venous LOWER Ext LT Urgent
Comment:
Reason For Exam: rule out DVT, missed eliquis, L pain
07/02/24 10:05
Complete Blood Count/With Diff Urgent
Comprehensive Metabolic Panel Urgent
Lactate Level [Lactic Acid] Urgent
PTT Urgent
Prothrombin Time Urgent
Troponin I Urgent
Blood Culture Q30M
MERCED Source: Blood/Venous
Specimen Description:
Blood Culture Q30M
MERCED Source: Blood/Venous
Specimen Description:
07/02/24 10:13
Acetaminophen 1000MG/100Ml [Ofirmev] 1,000 mg in 100 ml IV ONCE
Acetaminophen IV Indication:: ED Narcotic Naive Pt-ONCE
07/02/24 10:14
Acetaminophen 1000MG/100Ml [Ofirmev] 1,000 mg in 100 ml .ROUTE .STK-MED
07/02/24 10:54
Hydrocortisone Sod Succinate [Solu-Cortef] 100 mg IV NOW STA
07/02/24 11:01
COVID-19 Antigen Urgent
Source: Nasal Swab
INF RAPID [Influenza A+B Rapid Molecular] Urgent
MERCED Source: Nasal Swab
Specimen Description:
07/02/24 11:06
Chest [CR Chest - 2 Views ] Urgent
Comment:
Reason For Exam: cough
07/02/24 11:56
LevoFLOXacin 750 MG/150 ML [Levaquin] 750 mg in 150 ml IV NOW
07/02/24 12:32
0.9% Sodium Chloride 500 ml [Nss] 500 ml IV BOLUS
Metoprolol [Lopressor] 5 mg IV NOW STA
07/02/24 12:[address] Non Medication Order As Directed
Physician Order: please TT me when med rec complete
Above order entered?: Yes
07/02/24 12:38
Admit/Transfer Patient As Directed
Co-Sign Provider:
Level of Care: Inpatient admission
Assign to:: IMU- Intermediate Care
Physician / Group: Sonam Nur
Diagnosis: sepsis secondary to bilateral pneumonia
Reason for Hospitalization: sepsis secondary to bilateral pneumonia
Expected length of stay greater than two midnights?: Yes
ELOS- Estimated Length of Stay in days: 4
I certify the patient meets the requirements for IP care: Yes
PRN Pain Medication Management As Directed
May give lesser potent ordered pain med per pt: Yes
preference::
Protocol:: Medication orders for pain may be administered in a
manner that supports deferring to patient preference
when the pt is:
- Requesting an ordered lesser potent pain medication.
Least to most potent pain medications are defined
as: acetaminophen < NSAID < tramadol < opioids
(morphine, oxycodone, hydromorphone).
- Requesting a lesser dose of the same medication IF
ORDERED.
- Requesting a less intrusive route of administration
if both routes are prescribed by the provider (PO <
IV).
07/02/24 12:39
Code Status As Directed
Resuscitation Status: Do not resuscitate
Reached after discussion with pt or family/Healthcare POA: Yes
DNR Bracelet Application ONCE
07/02/24 12:58
Apixaban [Eliquis] 5 mg PO NOW STA
07/02/24 13:00
Levalbuterol [Xopenex 0.63 mg Inhalant Solution] 0.63 mg INH R NOW STA
07/02/24 13:01
Vancomycin [Vancocin] 2,000 mg 0.9% Sodium Chloride 500 ml [Nss] 500 ml IV NOW
Xopenex Reason for Use As Directed
Reason for ordering Xopenex instead of Albuterol: tachycardia
07/02/24 13:47
Consult Cardiology [CARDIOLOGY CONSULT] Routine
Consulting Provider: Meng Branch
Was physician already notified: Yes
Abnormal Lab Results
07/02/24
10:05
WBC 12.3 H 10^3/uL
(4.8-10.8)
MCHC 32.8 L g/dL
(33.0-37.0)
Abs Immat Gran (auto) 0.1 H 10^3/uL
(0-0.05)
Absolute Neuts (auto) 9.8 H 10^3/uL
(1.4-6.5)
Absolute Monos (auto) 1.0 H 10^3/uL
(0.1-0.6)
Neutrophils % 79.7 H %
(42.2-75.2)
Lymphocytes % 11.1 L %
(20.5-51.1)
PT 24.5 H Sec
(11.4-14.6)
APTT 44.2 H Sec
(23.4-35.0)
BUN 22 H mg/dl
(7-17)
Glucose 106 H mg/dl
(70-99)
Total Bilirubin 1.5 H mg/dl
(0.2-1.3)
Troponin I 0.071 H* ng/ml
Total Protein 6.1 L g/dl
(6.3-8.2)
Albumin 3.4 L g/dl
(3.5-5.0)
07/02/24 10:05
07/02/24 10:05
Vital Signs
Initial and Last Documented VS:
Initial Vital Signs
Temp Pulse Resp BP Pulse Ox
98 F 148 20 82/62 93
07/02/24 09:42 07/02/24 09:42 07/02/24 09:42 07/02/24 09:42 07/02/24 09:42
Last Documented Vital Signs
Temp Pulse Resp BP Pulse Ox
98.2 F 126 22 96/74 96
07/02/24 13:25 07/02/24 13:39 07/02/24 13:39 07/02/24 13:39 07/02/24 13:39
*Critical Care Note
Total Time (30-74mins, 75-104mins- exclusive of procedures): Not Applicable
ED Attending Note
ED Attending Note
ED Attending Note:
WILFREDO GARCIA. 84F BED 2
hx of copd on chronic prednisone has home O2, afib on eliquis, polyneuropathy
presented from [facility] with left leg pain
she was found to be in rapid afib, 150s-170s, BP was low 80s/60s. Afebrile
she has a normal mental status. Denies chest pain or shortness of breath.
WBC 12.3, lactate 2, troponin 0.071 (suspect demand)
CXR showing multifocal pneumonia
she was given IVF, hydrocortisone 100mg, levaquin (has cephalosporin anaphylaxis)
BP and heart rate have improved currently 100/76, HR around 130s
tachycardia likely compensatory so no rate control at this time
-
Portions of this chart may have been created with voice recognition software.� Occasional wrong word or��sound alike� substitutions may have occurred due to the inherent limitations of voice recognition software.
Discharge Plan
Departure
Patient Disposition: Admit
Date of Disposition: 07/02/24
Time of Disposition: 12:04
Presentation/result/management discussed w/ accepting MD/DO: Hospitalist
Discharge Problem:
Pneumonia, Sepsis, A-fib
Interventions
Interventions:
*Risk Screen - Suicide Last Done: 07/02/24 09:42
*General Assessment Last Done: 07/02/24 10:40
*Neglect/Abuse Screening Last Done: 07/02/24 09:42
*ED- Fall Risk Assessment Last Done: 07/02/24 10:40
*ED COVID-19 Vaccine History Last Done: 07/02/24 10:40
ED- Cardiac Assessment Last Done: 07/02/24 10:40
ED- Pulmonary Assessment Last Done: 07/02/24 10:40
[2024-07-02] MEDS: NSS 1000 IV ×2 (10:12→17:58)
[2024-07-02] MEDS: OFIRMEV 100 IV (10:15)
[2024-07-02 10:16] LABS: % Basophils 0.3 % (0-2); % Eosinophils 0.1 % (0-6); % Immature Granulocytes 0.4 % (0-0.5); % Lymphocytes 11.1 % (20.5-51.1); % Monocytes 8.4 % (1.7-9.3); % Neutrophils 79.7 % (42.2-75.2); Absolute Immature Granulocytes 0.1 10^3/uL (0-0.05); Absolute Lymphocytes 1.4 10^3/uL (1.2-3.4); Absolute Neutrophils 9.8 10^3/uL (1.4-6.5); Hematocrit 38.1 % (37.0-47.0); Hemoglobin 12.5 g/dL (12.0-16.0); Mean Corp Hgb Conc. 32.8 g/dL (33.0-37.0); Mean Corpuscular Hgb 28.9 pg (27.0-31.0); Mean Corpuscular Volume 88.2 fL (81.0-99.0); Mean Platelet Volume 10.2 fL (7.4-10.4); Nucleated Red Blood Cells % 0 %; Platelet Count 296 10^3/uL (130-400); Red Blood Cell Count 4.32 10^6/uL (4.20-5.40); Red Cell Dist. Width 14.3 % (11.5-14.5); White Blood Cell Count 12.3 10^3/uL (4.8-10.8)
[2024-07-02 10:24] LABS: PT 24.5 Sec (11.4-14.6)
[2024-07-02 10:25] LABS: APTT 44.2 Sec (23.4-35.0)
[2024-07-02 10:26] LABS: ALT (SGPT) 14 U/L (0-35); AST (SGOT) 15 U/L (14-36); Albumin 3.4 g/dl (3.5-5.0); Alkaline Phosphatase 93 U/L (38-126); Blood Urea Nitrogen 22 mg/dl (7-17); Calcium 9.5 mg/dl (8.4-10.2); Carbon Dioxide 30 mmol/L (22-30); Chloride 98 mmol/L (98-107); Estimated Creatinine Clearance 44 ml/min; Glucose 106 mg/dl (70-99); Sodium 140 mmol/L (135-145); Total Bilirubin 1.5 mg/dl (0.2-1.3); Total Protein 6.1 g/dl (6.3-8.2); eGFR 54.87
[2024-07-02] MEDS: SOLU-CORTEF 100 MG IV (10:57)
[2024-07-02 11:02] LABS: Troponin I 0.071 ng/ml
[2024-07-02 11:21] LABS: COVID-19 Antigen Negative (Negative)
[2024-07-02] MEDS: LEVAQUIN 150 IV (12:03)
--- NOTE | 2024-07-02 12:11 | HPS.HSE ---
Addendum entered and electronically signed by Sonam Nur MD 07/02/24 23:21:
start GI Ppx while giving stress dose steroids in setting of Eliquis
Original Note:
Family Physician
-
Family Physician: Archie Mullen DO
Chief Complaint
-
left leg pain
History of Present Illness
Ms. Blanca Rome is a 84 yo woman with hx COPD on chronic prednisone, atrial fibrillation on Eliquis, DM, polyneuropathy presents to the ER complaining of left leg pain. Patient was hypotensive for medics on arrival. History obtained from
patient and astrider on arrival. She states her left lateral thigh was aching today bringing her to the ER. She was given Tylenol by ER physician. Currently denies pain and flex and extend knee without issue, no pain on palpation. Per daughter,
she had one of her sons visit her at [facility] on Wednesday. She has had malaise, fatigue. She has a chronic cough but over past several days it has been more productive of darker phlegm.
No reported fevers. No chest pain. No nausea/vomiting/diarrhea. She has been eating and drinking okay but it is on a fluid restricted diet. No increased LE swelling; she wears compression stockings.
She lives at [facility].
She was off Eliquis for several days in preparation for a dental procedure, which was then resumed.
Medical History
Past Medical History
Past Medical History: Reports Other
Additional Past Medical History:
COPD
Polyneuropathy
Atrial Fibrillation
Hypothyroidism
Dyslipidemia
Diet-Controlled DM-II
Past Surgical History: Reports Other
Social History
Tobacco: Former Smoker (Quit at age 48. Approx 30 pack years total use.)
Alcohol: None
Drug: None
Living: [facility]
Family History
Family History: Not pertinent
Allergies / Home Medications
Allergies reflects when Allergies were last updated in [facility].
Home Medications with original date entered in [facility]
Allergy/Medication List:
*awaiting med rec
Review of Systems
-
History Source: Patient
A 12 point ROS was completed and negative except as noted: Yes
Physical Exam
Vital Signs
Vital Signs
Temp Pulse Resp BP Pulse Ox
98 F 136 29 98/70 97
07/02/24 09:42 07/02/24 11:53 07/02/24 11:53 07/02/24 11:56 07/02/24 11:56
Physical Exam
General: No Apparent Distress and Other (appears fatigued )
HEENT: PERRLA
Respiratory: Rhonchi; No Wheezes
Cardiac: Irregular Rhythm and Tachycardia
GI: Soft and Non Tender
Musculoskeletal: Other (trace bilateral edema; full range of motion LLE; no tenderness to palpation, no warmth or erythema )
Skin: Warm and Dry; No Rash
Neuro: AO x 3
Psych: Calm
Laboratory Results
-
07/02/24 10:05
07/02/24 10:05
Laboratory Results
PT 24.5 Sec (11.4-14.6) H 07/02/24 10:05
INR 2.20 07/02/24 10:05
APTT 44.2 Sec (23.4-35.0) H 07/02/24 10:05
Lactic Acid 2.0 mmol/L (0.7-2.0) 07/02/24 10:05
Total Bilirubin 1.5 mg/dl (0.2-1.3) H 07/02/24 10:05
AST 15 U/L (14-36) 07/02/24 10:05
ALT 14 U/L (0-35) 07/02/24 10:05
Alkaline Phosphatase 93 U/L (38-126) 07/02/24 10:05
Troponin I 0.071 ng/ml H* 07/02/24 10:05
Data Reviewed
-
Diagnostic Radiology: Report Reviewed by me
Lab Data: Labs Reviewed by me
Impression/Plan
-
Ms. Blanca Rome is a 84 yo woman with hx COPD on chronic prednisone, atrial fibrillation on Eliquis, DM, polyneuropathy presents to the ER complaining of left leg pain in setting of several days of malaise and increased productive cough. She
was hypotensive with afib with RVR on arrival.
Triage VS: T 98, P 148, RR 20, BP 82/62, SpO2 93%; BP --> 98/70 with fluids
LABS: WBC 12.3, Hg 12.5, PLT 296, Na 140, K+ 4.0, Cl 98, CO2 30, Cr 1.0, Glucose 106, T. Bili 1.5, AST 15, ALT 14, Alk Phos 93, Trop 0.071, Lactate 2.0
flu and covid negative
Hip X-Ray:
IMPRESSION:
1. Mild bilateral osteoarthritis of the hips.
2. Moderate to severe degenerative changes of the pubic symphysis.
3. Mild bilateral osteoarthritis of the sacroiliac joints.
4. Diffuse bone demineralization without radiographic evidence for acute fracture.
5. Diffuse enthesophyte formation throughout the iliac spines and ischial tuberosities.
LE US:
IMPRESSION:
No sonographic evidence for left lower extremity deep venous thrombosis.
CXR
IMPRESSION:
1. Large bilateral lower lobe airspace consolidations most suggestive of SEVERE BILATERAL LOWER LOBE PNEUMONIA. However, this bilateral lower lobe airspace disease could also be a combination of atelectasis and alveolar pulmonary edema.
2. Small bilateral pleural effusions.
3. Mild cardiomegaly.
4. Severe calcific atherosclerotic plaque in the thoracic aorta.
MAR Hydrocortisone 100mg IV x 1
Levaquin 750mg IV x 1
Normal saline bolus
Bilateral lower lobe pneumonia
Sepsis 2/2 Above
Chronic Hypoxic Respiratory Failure - intermittently requires 2L
Acute on chronic hypoxic respiratory insufficiency
Daily steroid use
-admit to IMU
-patient has allergies to penicillin and cephalosporins - will continue treatment with Levaquin (q48 hours for renal adjustment)
-IV Vanc, F/U MRSA screen
-F/U sputum culture, Legionella and Strep Ag
-F/U Blood Cultures
-additional 500cc fluid bolus with gentle fluids overnight, stop after 1L
-continue stress dose steroids - 50mg q 8 hours x 24 hours then reduce with eventual taper back to home steroid dosing (5mg daily)
Chronic COPD
-continue home inhalers
-change to Levalbuterol in setting of RVR
Paroxysmal Atrial Fibrillation
Atrial Fibrillation with RVR
-fluids and treat infection as above
-Metoprolol 5mg IV x 1 now
-awaiting med rec; did not see AV paul blockers on list
-patient did not take AM medications - Eliquis x 1 now then continue home dosing BID
-Cardiology consult
-will repeat Echo as do not see recent one in chart
Non ischemic myocardial injury 2/2 sepsis above and paroxysmal afib with RVR
-Trend Troponins
Chronic lower extremity swelling
-hold [employer] Lasix in setting of sepsis
-close eye on volume status
HLD
-[employer] Statin
Hypothyroidism
-[employer] Synthroid
-F/U TSH
awaiting remainder of med rec
DVT PPx Home Eliquis
DNR - confirmed on admission, in paper work from [place]
Total Critical Care Time 60 minutes. I was immediately available to the patient and staff. I personally examined, reviewed labs, diagnostic images/reports, interpretations, treatment plans, discussed patient care with other providers and family
or caregivers (if patient is unable to make decisions), entered orders as appropriate and documented the medical record.
[2024-07-02] MEDS: NSS 500 IV (12:50)
[2024-07-02] MEDS: LOPRESSOR 5 MG IV ×2 (12:54→14:03)
--- NOTE | 2024-07-02 13:05 | PHA.VAN.IN ---
Assessment
- Assessment
Renal Function: Appears elevated from baseline (1.0 ( baseline appears to be ~ 0.6-0.7))
AUC Dosing Plan
- Dosing Variables
Dosing Weight (kg): 83
Dosing CrCl (ml/min): 44
Vd coefficient (L/kg): 0.7
- Empiric Dosing
Initial / Loading Dose: 2000 mg x 1 dose - adm pending as of this writing
Maintenance Regimen: 1000 mg IV q24h
Estimated AUC (mcg*h/mL): 429
Estimated Peak (mcg*h/mL): 27.5
Estimated Trough (mcg/ml): 10.7
Estimated Half Life (H): 16.9
- Monitoring
No levels ordered at this time: consider levels when pt reaches steady state
Pharmacokinetics Vancomycin I
- -
Patient Age: 84
Patient Sex: Female
Vancomycin Day #: 1
Indication: Pulmonary/Respiratory
Requesting Provider: Boom
Pertinent Antimicrobial Allergies:
cefuroxime(anaphylaxis), penicillins (n/v), sulfa (hives)
Height / Weight:
Height 5 ft 6 in
Actual Weight 83 kg
Pertinent Past Medical History: COPD on chronic prednisone
- Vital Signs / Lab Results
Temp Pulse Resp BP Pulse Ox
98 F 136 29 104/64 97
07/02/24 09:42 07/02/24 11:53 07/02/24 11:53 07/02/24 12:54 07/02/24 11:56
Lab Results - Hematology
07/02/24
10:05
WBC 12.3 H
Lab Results - Chemistry
07/02/24
10:05
BUN 22 H
Creatinine 1.0
Estimated Creat Clear 44
Albumin 3.4 L
07/02/24
10:05
Lactic Acid 2.0
Microbiology Results
07/02/24 11:01 Influenza Types A & B (RU) - Final
Nasal Swab Negative for Influenza A & B, NAAT
Negative results must be combined with clinical observations
and patient history.
Nucleic Acid Amplification test (NAAT)performed on the
[employer] platform.
[2024-07-02] MEDS: XOPENEX 0.63 MG INHALANT SOLUTION INH (13:27)
[2024-07-02] MEDS: ELIQUIS 5 MG PO ×2 (13:27→23:46)
[2024-07-02] MEDS: VANCOCIN 540 MG IV (13:33)
--- NOTE | 2024-07-02 13:37 | CON.CAR ---
Consultation
Consultation Request
Date/Time Consultation Requested: 07/02/24 13: 00
Date/Time Consultation Performed: 07/02/2024 13: 30
Requesting Provider: audi
Performing Provider: augustine
Reason for Consultation: Atrial fibrillation
Medical History
-
Chief Complaint: Left lower extremity pain
History of Present Illness:
Blanca has history of atrial fibrillation on chronic Eliquis, asthma/COPD, GERD, hypertension, hyperglycemia, diabetes, hypothyroidism, anxiety/depression, frequent UTIs. She presented with complaint of left lower extremity pain. Nursing at the
[facility] noted rapid heartbeat. In ER she had rapid A-fib. She denies any palpitations, chest pain, or shortness of breath. Cardiology is consulted for rapid A-fib.
Past Medical History
Past Medical History: Other (See HPI, also spinal stenosis, lymphedema, pseudoarthrosis, hypocalcemia, vitamin D deficiency, recurrent UTI, history of healed traumatic fracture, polyneuropathy, obesity, nontoxic single thyroid nodule)
Past Surgical History: Other (Bilateral vein stripping 50 years ago, carpal tunnel, eye lens replacement)
Social History
Tobacco: Former Smoker
Alcohol: None
Drug: None
Personal:
Living: Assisted Living
Employment: Retired
Family History
Family History: Other (No family history of premature coronary artery disease)
Allergies / Home Medications
Allergy/AdvReac Type Severity Reaction Status Date / Time
cefuroxime Allergy Anaphylaxis Verified 07/02/24 12:02
gabapentin Allergy Itching Verified 07/02/24 12:02
meloxicam Allergy Unknown Verified 07/02/24 12:02
Penicillins Allergy Nausea / Verified 07/02/24 12:02
Vomiting
Sulfa (Sulfonamide Allergy Hives Verified 07/02/24 12:02
Antibiotics)
tetanus toxoid, adsorbed Allergy Hives Verified 07/02/24 12:02
�Medication �Instructions �Recorded �Confirmed �Type
acetaminophen 325 mg tablet 650 mg PO Q4HPRN PRN mild 03/24/22 07/02/24 History
(Tylenol) pain/fever>100.4
apixaban 5 mg tablet (Eliquis) 5 mg PO BID@0830,1830 Blood Clot 03/24/22 07/02/24 History
Prevention/Tx
atorvastatin 10 mg tablet (Lipitor) 10 mg PO QPM High Cholesterol 03/24/22 07/02/24 History
coQ10 (ubiquinol) 200 mg capsule 200 mg PO DAILY Supplement 03/24/22 07/02/24 History
diclofenac sodium 1 % topical gel 2 g topical Q8H both knees 03/24/22 07/02/24 History
estradiol 0.01% (0.1 mg/gram) 2 g vaginal TUFR@1830 Hormonal 03/24/22 07/02/24 History
vaginal cream Agent
levothyroxine 25 mcg tablet 25 mcg PO DAILY Thyroid 03/24/22 07/02/24 History
magnesium hydroxide 400 mg/5 mL 2,400 mg PO HSPRN PRN constipation 03/24/22 07/02/24 History
oral suspension (Milk of Magnesia)
oxybutynin chloride 15 mg 15 mg PO QPM Urinary Issue 03/24/22 07/02/24 History
tablet,extended release 24 hr
furosemide 20 mg tablet (Lasix) 10 mg PO DAILY Fluid 05/22/22 07/02/24 History
Retention/Swelling
guaifenesin 600 mg tablet, 600 mg PO [id number] PRN cough 05/22/22 07/02/24 History
extended release 12 hr (Mucinex)
budesonide 0.5 mg/2 mL suspension 0.5 mg inhalation R BID@0630,2030 12/19/23 07/02/24 History
for nebulization Lung/Breathing Issues
potassium chloride 10 mEq 10 meq PO DAILY Electrolyte 12/19/23 07/02/24 History
capsule,extended release Repletion
pregabalin 50 mg capsule 50 mg PO HS neuro pain 12/19/23 07/02/24 History
pregabalin 75 mg capsule 75 mg PO DAILY neuro pain 12/19/23 07/02/24 History
albuterol sulfate 90 mcg/actuation 2 puff inhalation R TIDPRN PRN sob 07/02/24 07/02/24 History
aerosol inhaler
calcium carbonate 600 mg PO DAILY 07/02/24 07/02/24 History
cholecalciferol (vitamin D3) 1,250 1,250 mcg PO QMONTH 07/02/24 07/02/24 History
mcg (50,000 unit) tablet
ipratropium 0.5 mg-albuterol 3 mg 3 ml inhalation R 07/02/24 07/02/24 History
(2.5 mg base)/3 mL nebulization QID@0830,1230,1630
soln
prednisone 5 mg tablet 5 mg PO DAILY 07/02/24 07/02/24 History
sodium chloride 1,000 mg soluble 1,000 mg PO DAILY 07/02/24 07/02/24 History
tablet
vitamin B complex 1 tab PO DAILY 07/02/24 07/02/24 History
Review of Systems
-
History Source: Patient
All other systems: Negative unless noted
Constitutional: No Symptoms
EENT: No Symptoms
Respiratory: No Symptoms
Cardiac: No Symptoms
Abdomen/GI: No Symptoms
: No Symptoms
Musculoskeletal: Edema (Chronic lower extremity edema) and Other (Left lower extremity pain)
Skin: No Symptoms
Neurological: No Symptoms
Endocrine: No Symptoms
Hematologic/Lymphatic: No Symptoms
Physical Exam
Vital Signs
Temp Pulse Resp BP Pulse Ox
98.2 F 131 24 93/67 97
07/02/24 13:25 07/02/24 13:25 07/02/24 13:25 07/02/24 13:25 07/02/24 13:25
General: Well developed, well nourished in NAD.
Neck: Supple, no JVD, HJR, carotids +2 B/L, no bruits bilaterally.
Heart: Non displaced PMI, irregular, no murmurs, No S3, S4, no rubs.
Lungs: Scattered rhonchi at the bases
Abdomen: Normal bowel sounds, soft, non-tender, non-distended.
Extremities: Mild lower extremity edema bilaterally
Neuro: Grossly nonfocal, awake, alert and oriented x3.
Lab Results
07/02/24 10:05
07/02/24 10:05
Troponin I 0.071 ng/ml H* 07/02/24 10:05
Impression / Plan
-
Impression:
Rapid A-fib with history of paroxysmal atrial fibrillation
Pneumonia
Left lower extremity pain of unclear etiology
History of asthma/COPD
GERD
Hypercholesterolemia
Hypothyroidism
Plan:
Patient presents with rapid A-fib which appears to be asymptomatic. Daughter notes that she has been on Eliquis for A-fib in the past which is occurred during illnesses/hospitalizations.
Heart rate is rapid at present and blood pressure is borderline at 93 systolic
May need to consider adding amiodarone for heart rate control if remains in A-fib with borderline blood pressure and rapid rates
Will check echocardiogram
May opt for rate control as it is likely she is in and out of A-fib at nursing facility and appears to be asymptomatic
Continue to treat for pneumonia
There are small pleural effusions and will check proBNP. She has chronic edema per daughter.
Data Reviewed
-
EKG: Tracing Personally Visualized and interpreted
Radiology: Report Reviewed by me
Medical Tests (Nuc Med, Echo etc): Report Reviewed by me
Labs: Labs Reviewed by me
Old Records: Reviewed
--- NOTE | 2024-07-02 14:05 | CHAP ---
Called by ED staff for Blanca. She was resting, with daughter Airam Bolaños bedside. Blanca asked about receiving Holy Communion, which unfortunately is only distributed Wednesday by [facility] E[facility]. I assured Blanca that
God is always present with her, and we offered prayers asking His special blessing on Blanca and her dear ones. Emotional and spiritual support provided.
--- NOTE | 2024-07-02 15:38 | EDRN ---
Vital signs increased to every 30 minutes as BP low.
--- NOTE | 2024-07-02 15:53 | EDRN ---
Pt c/o buttock pain and was tilteed to the R w/ waffle chair cushion at this time.
--- NOTE | 2024-07-02 16:04 | EDRN ---
Attempting to call report to Ofe GE in IMU at this.
[2024-07-02 17:00] LABS: Troponin I 0.398 ng/ml
--- NOTE | 2024-07-02 17:29 | PTCARENOTE ---
Pt received from ED via stretcher. Admission completed. NSR on tele monitor. Assessment as documented. Awaiting verification of meds by pharmacy.
[2024-07-02 17:43] LABS: Glucose - Point of Care 119 mg/dl (70-99)
[2024-07-02] MEDS: LIPITOR 10 MG PO (17:59)
[2024-07-02] MEDS: DICLOFENAC 1% TOPICAL GEL 2 GRAM TOPICAL ×2 (18:04→22:05)
[2024-07-02] MEDS: NOVOLOG FLEXPEN-LOW RESISTANCE SC (18:06)
[2024-07-02] MEDS: ATROVENT NEBULES INH (18:09)
[2024-07-02] MEDS: PULMICORT 0.5 MG INH (19:08)
[2024-07-02] MEDS: ATROVENT NEBULES 0.5 MG INH (19:08)
[2024-07-02] MEDS: MUCINEX 600 MG PO (21:36)
[2024-07-02] MEDS: DITROPAN 7.5 MG PO (21:36)
[2024-07-02] MEDS: SOLU-CORTEF 50 MG IV (21:40)
[2024-07-02 22:41] LABS: Glucose - Point of Care 113 mg/dl (70-99)
[2024-07-02] MEDS: LYRICA 50 MG PO (23:01)
[2024-07-02 23:09] LABS: Troponin I 0.428 ng/ml
[2024-07-03] VITALS (13 sets, daily range): BP systolic 133–173; BP diastolic 71–94; PULSE 77; O2SAT 97; BMI 29.1
--- NOTE | 2024-07-03 00:17 | PTCARENOTE ---
Pt received from previous RN. Pt awake and alert, using call light as needed. NSR on monitor HR 73. Assessment as documented. Call light in reach.
[2024-07-03] MEDS: SOLU-CORTEF 50 MG IV ×2 (04:15→12:48)
[2024-07-03 04:27] LABS: Hematocrit 33.5 % (37.0-47.0); Hemoglobin 11.6 g/dL (12.0-16.0); Mean Corp Hgb Conc. 34.6 g/dL (33.0-37.0); Mean Corpuscular Volume 83.8 fL (81.0-99.0); Mean Platelet Volume 9.6 fL (7.4-10.4); Platelet Count 256 10^3/uL (130-400); Red Cell Dist. Width 14.2 % (11.5-14.5); White Blood Cell Count 8.7 10^3/uL (4.8-10.8)
[2024-07-03 04:45] LABS: Blood Urea Nitrogen 26 mg/dl (7-17); Calcium 8.8 mg/dl (8.4-10.2); Carbon Dioxide 28 mmol/L (22-30); Chloride 104 mmol/L (98-107); Estimated Creatinine Clearance 62 ml/min; Glucose 120 mg/dl (70-99); Magnesium 2.1 mg/dl (1.6-2.3); Potassium 4.5 mmol/L (3.5-5.1); Sodium 139 mmol/L (135-145); eGFR > 60.00
[2024-07-03] MEDS: SYNTHROID 25 MCG PO (04:55)
[2024-07-03 04:59] LABS: NT-proBNP 3750 pg/ml; Troponin I 0.363 ng/ml
[2024-07-03 05:43] LABS: Free T4 1.29 ng/dl (0.78-2.19)
[2024-07-03 05:51] LABS: % Basophils 0.5 % (0-2); % Eosinophils 0.3 % (0-6); % Immature Granulocytes 0.5 % (0-0.5); % Lymphocytes 7.9 % (20.5-51.1); % Monocytes 4.3 % (1.7-9.3); % Neutrophils 86.5 % (42.2-75.2); Absolute Lymphocytes 0.7 10^3/uL (1.2-3.4); Absolute Monocytes 0.4 10^3/uL (0.1-0.6); Absolute Neutrophils 7.5 10^3/uL (1.4-6.5); Nucleated Red Blood Cells % 0 %
[2024-07-03] MEDS: VANCOCIN 200 IV (05:54)
[2024-07-03] MEDS: PULMICORT 0.5 MG INH ×2 (07:40→20:02)
[2024-07-03] MEDS: ATROVENT NEBULES 0.5 MG INH ×3 (07:40→20:02)
[2024-07-03 07:46] LABS: Glucose - Point of Care 133 mg/dl (70-99)
[2024-07-03] MEDS: DICLOFENAC 1% TOPICAL GEL 2 GRAM TOPICAL ×3 (08:25→21:22)
[2024-07-03] MEDS: NOVOLOG FLEXPEN-LOW RESISTANCE SC ×3 (08:25→18:37)
[2024-07-03] MEDS: SODIUM CHLORIDE 1 GRAM PO (08:26)
[2024-07-03] MEDS: DITROPAN 7.5 MG PO ×2 (08:26→20:31)
[2024-07-03] MEDS: MUCINEX 600 MG PO ×2 (08:26→20:31)
[2024-07-03] MEDS: PROTONIX 40 MG PO (08:26)
[2024-07-03] MEDS: LYRICA 75 MG PO (08:26)
[2024-07-03] MEDS: ELIQUIS 5 MG PO ×2 (08:30→20:31)
--- NOTE | 2024-07-03 09:10 | W.PN.CARDCBS ---
Addendum entered and electronically signed by Adrienne Simpson DO 07/03/24 10:17:
I saw and examined the patient.
The Venture Capital Analyst's note was reviewed and I agree with the note.
Comment: Patient seen and examined with daughter at bedside and reviewed presenting symptoms as well as past medical history and diagnosis of atrial fibrillation. Overall she feels better with resolved leg pain. She denies chest pain or pressure
or palpitations. She continues to have a productive cough on nasal cannula O2.
General: No acute distress, AAOX3
Heart: Regular. Positive S1/S2, No murmur
Lungs: Bronchovesicular breath sounds with coarse rhonchi bilaterally
Abd: Positive BS, NT/ND, neg rebound/rigidity/guarding
Ext: History of lymphedema; trace pedal edema
Neuro: nonfocal
Plan:
Presented 07/02/2024 left leg pain, worsening cough and generalized malaise found to have bilateral lower lobe pneumonia
-Nasal cannula supplementation. Patient uses nc O2 as needed at [facility]
-Started on IV antibiotics as well as steroids
-Wean oxygen as tolerated, encouraged incentive spirometry
Atrial fibrillation with rapid ventricular response on presentation 07/02/2024, currently in sinus rhythm
-Atrial fibrillation was asymptomatic with probable history of prior atrial fibrillation although patient and daughter deny prior cardiac care. She did present on Eliquis
-Per review of telemetry currently in sinus rhythm.
-Check 2D echocardiogram
- TSH 0.2, free T4 1.29 (compensated)
Abnormal troponin, peaked at 0.428.
-Denies chest pain and EKG without ischemic changes in sinus rhythm.
-Suspect nonischemic myocardial injury secondary to pneumonia and atrial fibrillation with rapid ventricular response
-Continue Eliquis
-echocardiogram pending
-Check lipid profile
Elevated proBNP of 3750. Chest x-ray with small bilateral pleural effusions and bilateral pneumonia.
-Patient did receive IV fluid resuscitation secondary to hypotension on arrival.
-Does not appear to be acutely volume overloaded.
-Lasix 40 mg IV x 1; patient on Lasix 10 mg daily per chart as an outpatient
Will attempt to get records from PCP and correction
Will follow with you
Original Note:
Today's Communication / Plan
-
Back in sinus rhythm
Echo today
Consider addition of diltiazem for blood pressure and rate/rhythm control for PAF
Consider gentle diuresis
Continue Eliquis
Continue treatment of pneumonia with IV antibiotics and steroids
Impression / Plan
-
Family Physician: rAchie Mullen,
Insurance Sales Professional: None prior to admission, initial consultation with Dr. Meng Branch
Impression:
Presents 07/02/2024 left leg pain, worsening cough and generalized malaise
Rapid A-fib with history of paroxysmal atrial fibrillation
Acute hypoxic respiratory insufficiency
Bilateral pneumonia
Abnormal troponin, suspect nonischemic myocardial injury secondary to pneumonia and atrial fibrillation with rapid ventricular response
Left lower extremity pain of unclear etiology
Paroxysmal atrial fibrillation
Chronic anticoagulation on Eliquis
History of asthma/COPD
Hypertension
Hyperlipidemia
Type 2 diabetes
History of UTIs
GERD
Hypothyroidism
Spinal stenosis
Lymphedema
Polyneuropathy
Echocardiogram 07/03/2024: Ordered
Plan:
Presented 07/02/2024 left leg pain, worsening cough and generalized malaise
-Chest x-ray concerning for bilateral lower lobe pneumonia
-Started on IV antibiotics as well as steroids
-Wean oxygen as tolerated, encouraged incentive spirometry
Atrial fibrillation with rapid ventricular response on presentation 07/02/2024
-Relatively asymptomatic
-Per review of telemetry currently in sinus rhythm. Appears to have paroxysms of atrial fibrillation. Hopefully this will improve with treatment of her pneumonia
-Continue Eliquis, patient was on prior to admission. (Daughter notes that she has been on Eliquis for A-fib in the past which is occurred during illnesses/hospitalizations).
-Would consider addition of diltiazem to help with rate and rhythm control. Beta-slava not ideal agent as patient has asthma and COPD
-Will check echocardiogram
- TSH 0.2, free T4 1.29 (compensated)
Abnormal troponin, peaked at 0.428. Denies chest pain and EKG without ischemic changes in sinus rhythm. Suspect nonischemic myocardial injury secondary to pneumonia and atrial fibrillation with rapid ventricular response
- Check echo
Elevated proBNP of 3750. Chest x-ray with small bilateral pleural effusions.
-Patient did receive IV fluid resuscitation secondary to hypotension on arrival.
-Does not appear to be acutely volume overloaded.
-Could consider gentle diuresis with Lasix 40 mg orally. Continue to monitor volume status closely
-She has chronic edema per daughter.
Unclear if patient has ever seen cardiology as she does not think she has. Will attempt to get records from PCP and correction
History of Present Illness 07/02/2024:
Blanca has history of atrial fibrillation on chronic Eliquis, asthma/COPD, GERD, hypertension, hyperglycemia, diabetes, hypothyroidism, anxiety/depression, frequent UTIs. She presented with complaint of left lower extremity pain. Nursing at the
[facility] noted rapid heartbeat. In ER she had rapid A-fib. She denies any palpitations, chest pain, or shortness of breath. Cardiology is consulted for rapid A-fib.
Progress Note - Insurance Sales Professional
Subjective
Date of Service: July 03, 2024
Patient seen and examined. Patient resting comfortably in bed with daughter at bedside. Leg pain better.
Objective
Labs:
07/03/24 04:12
07/03/24 04:12
Labs
Hgb 11.6 g/dL (12.0-16.0) L 07/03/24 04:12
Hct 33.5 % (37.0-47.0) L 07/03/24 04:12
Plt Count 256 10^3/uL (130-400) 07/03/24 04:12
PT 24.5 Sec (11.4-14.6) H 07/02/24 10:05
INR 2.20 07/02/24 10:05
APTT 44.2 Sec (23.4-35.0) H 07/02/24 10:05
Sodium 139 mmol/L (135-145) 07/03/24 04:12
Potassium 4.5 mmol/L (3.5-5.1) 07/03/24 04:12
BUN 26 mg/dl (7-17) H 07/03/24 04:12
Creatinine 0.7 mg/dL (0.6-1.0) 07/03/24 04:12
Glucose 120 mg/dl (70-99) H 07/03/24 04:12
Troponins
07/02/24 07/02/24 07/02/24
10:05 16:20 22:30
Troponin I 0.071 H* 0.398 H* D 0.428 H*
07/03/24
04:12
Troponin I 0.363 H*
Vital Signs and I&O:
Vital Signs
Temp Pulse Resp BP Pulse Ox
97.5 F 76 21 173/90 97
07/03/24 07:16 07/03/24 08:00 07/03/24 08:00 07/03/24 08:00 07/03/24 08:00
Vital Signs
Temp Pulse Resp BP Pulse Ox
97.5 F 76 21 173/90 97
07/03/24 07:16 07/03/24 08:00 07/03/24 08:00 07/03/24 08:00 07/03/24 08:00
Physical Exam
Physical Exam
GEN: No distress, awake, Ox3, lying in bed wearing oxygen
HEENT: supple, anicteric, mmm
LUNGS: Decreased breath sounds at bilateral bases right greater than left CTA, few faint expiratory wheezes; wearing oxygen 2 L per nasal cannula
CV: Reg with some ectopy noted, S1/S2, 1/6 syst murmur, no rub or gallop
ABD: soft, BS+, NT/ND
EXT: Trace bilateral lower extremity edema
NEURO: Gross non-focal
SKIN: No rash,, warm, dry, pink
[2024-07-03 09:40] LABS: Glycohemoglobin (HgbA1c) 6.2 % (4.0-5.6)
[2024-07-03] MEDS: LASIX 40 MG IV (10:48)
[2024-07-03 11:01] LABS: Troponin I 0.284 ng/ml
--- NOTE | 2024-07-03 11:10 | PTCARENOTE ---
Acupella using q1 WA
[2024-07-03 12:02] LABS: Glucose - Point of Care 126 mg/dl (70-99)
--- NOTE | 2024-07-03 12:06 | PHA.VAN.FU ---
Vancomycin Assessment / Plan
- Assessment
Renal Function: Stable (0.7)
WBC's are: WNL (8.7)
In the past 24 hrs, patient has been: Afebrile
Concomitant Antimicrobials: Levofloxacin
- Dosing Plan
Continue: Vanco 1000mg Q24H
- Monitoring Plan
No level(s) ordered at this time: Consider in the next few days
- Follow Up
Pharmacy will continue to follow.
Vancomycin Follow UP
- -
Patient Age: 84
Patient Sex: Female
Vancomycin Day #: 2
Indication: Pulmonary/Respiratory
Requesting Provider: Boom
Pertinent Antimicrobial Allergies:
cefuroxime(anaphylaxis), penicillins (n/v), sulfa (hives)
Height / Weight:
Height 5 ft 6 in
Actual Weight 81.7 kg
Pertinent Past Medical History: COPD on chronic prednisone
- Vital Signs / Lab Results
Temp Pulse Resp BP Pulse Ox
97.5 F 75 26 140/71 97
07/03/24 07:16 07/03/24 11:24 07/03/24 11:24 07/03/24 10:00 07/03/24 11:24
Lab Results - Hematology
07/02/24 07/03/24
10:05 04:12
WBC 12.3 H 8.7
Lab Results - Chemistry
07/02/24 07/03/24
10:05 04:12
BUN 22 H 26 H
Creatinine 1.0 0.7
Estimated Creat Clear 44 62
Albumin 3.4 L
07/02/24
10:05
Lactic Acid 2.0
Microbiology Results
07/02/24 10:05 Blood Culture - Preliminary
Blood/Venous No Growth in 24 hours- Final report to follow
07/02/24 10:05 Blood Culture - Preliminary
Blood/Venous Positive culture in progress
Gram Stain - Preliminary
07/02/24 11:01 Influenza Types A & B (RU) - Final
Nasal Swab Negative for Influenza A & B, NAAT
Negative results must be combined with clinical observations
and patient history.
Nucleic Acid Amplification test (NAAT)performed on the
[employer] platform.
--- NOTE | 2024-07-03 15:49 | W.PN.HOSP.TC ---
Today's Communication/Plan
-
wean o2
cont abx
duonebs
back to 5mg pred
repeat blood cultures
Assessment / Plan
Assessment / Plan
Physical Exam
General: No Apparent Distress
HEENT: PERRLA
Respiratory: Rhonchi; No Wheezes
Cardiac: Irregular Rhythm and Tachycardia
GI: Soft and Non Tender
Musculoskeletal: Other (trace bilateral edema; full range of motion LLE; no tenderness to palpation, no warmth or erythema )
Skin: Warm and Dry; No Rash
Neuro: AO x 3
Psych: Calm
Bilateral lower lobe pneumonia
Bacteremia
Sepsis 2/2 Above
Acute on Chronic Hypoxic Respiratory Failure - intermittently requires 2L
Daily steroid use
-admit to IMU
-patient has allergies to penicillin and cephalosporins - will continue treatment with Levaquin (q48 hours for renal adjustment)
-IV Vanc, F/U MRSA screen
-F/U sputum culture, Legionella and Strep Ag
-F/U final Blood Cultures, repeat blood cultures
-IVF PRN
-not hypotensive , switch back to home steroid dosing (5mg daily)
Chronic COPD
-continue home inhalers
-change to Levalbuterol in setting of RVR
Paroxysmal Atrial Fibrillation
-fluids and treat infection as above
-ECHO
-Eliquis
-TFTs ok
-Cardiology consult
Non ischemic myocardial injury 2/2 sepsis above and paroxysmal afib with RVR
-Trend Troponins
-no
Chronic lower extremity swelling
B/l Pleural Effusions
-IV lasix x 1
-resume diuretics
restart po lasix tomorrow
HLD
-FOREST SCIENTIST Statin
Hypothyroidism
-FOREST SCIENTIST Synthroid
DVT PPx Home Eliquis
DNR
Total time spent on today's encounter was 50 minutes which included time spent in counseling the patient/family regarding diagnosis and treatment plan as listed above, goals of care, and symptom management. Case was discussed with nursing staff,
specialists, and care coordinators/case management. All labs and imaging personally reviewed by me. Remainder the time spent in detailed review of previous records, lab data, imaging, and other medical provider documentation.
Anticipated Discharge: > 48 hours
Subjective/Interval History
-
Date of Service: July 03, 2024
feels better
Objective Data
-
Labs:
Laboratory Results
07/03/24
04:12
WBC 8.7
Hgb 11.6 L
Hct 33.5 L
Plt Count 256
Sodium 139
Potassium 4.5
Chloride 104
Carbon Dioxide 28
BUN 26 H
Creatinine 0.7
Glucose 120 H
Calcium 8.8
Vital Signs:
Vital Signs
Temp Pulse Resp BP Pulse Ox
97.5 F 75 26 140/71 97
07/03/24 11:36 07/03/24 11:24 07/03/24 11:24 07/03/24 10:00 07/03/24 11:24
Review of Systems
-
History Source: Patient
All other systems: Not reviewed unless documented
Physical Exam
-
General: No Apparent Distress
HEENT: Normocephalic, Atraumatic and Oxygen
Respiratory: Wheezes (improving ) and Non Labored Respirations
Cardiac: Regular Rhythm and S1/S2
Breast: Deferred by me
GI: Soft, Nontender and Nondistended
Rectal: Deferred by Provider
Genito-urinary: Deferred by me
Musculoskeletal: No Clubbing, No Cyanosis and No Edema
Skin: Warm
Neuro: Awake
Psych: Calm
Data Reviewed
-
Diagnostic Radiology: Report Reviewed by me
Ultrasound: Report Reviewed by me
Labs: Labs Reviewed by me
[2024-07-03 16:29] LABS: Glucose - Point of Care 156 mg/dl (70-99)
--- NOTE | 2024-07-03 17:00 | CM ---
Patient from [facility] with Dx Sepsis, PNA. O2 2L. Receiving IV & PO Abx. PT recommends skilled rehab.
Spoke with [facility];
the patient resides there in LTC on an [place] bed hold.
The ph for report to [address] , fax [phone].
Spoke with Keturah Nurse Unit [address], [facility];
the patient was A/O, required assist of 1 for transfers and was w/c bound.
The patient was receiving PT/OT.
Her within the last 6 months.
The patient has supportive family.
Plan return to [facility] when medically ready.
[2024-07-03] MEDS: LIPITOR 10 MG PO (18:37)
--- NOTE | 2024-07-03 18:45 | PTCARENOTE ---
OOB x 1 hour today- encouraging Acupella device. Family assists and encourages. Urine output 1300 after IV Lasix this am. Remains on 2L NC - states she wears PRN at [place]. Nadirwick in place- exchanged this pm.
[2024-07-03] MEDS: NOVOLOG FLEXPEN-LOW RESISTANCE 1 UNITS SC (19:03)
[2024-07-03 19:17] LABS: Glucose - Point of Care 151 mg/dl (70-99)
[2024-07-03 21:18] LABS: Glucose - Point of Care 225 mg/dl (70-99)
[2024-07-03] MEDS: LYRICA 50 MG PO (21:22)
--- NOTE | 2024-07-03 21:43 | PTCARENOTE ---
Pt received from [facility]. Pt aaox3, daughter at bedside visiting. pt took hs pills whole with water. satting 97% on 2L. dry cough remains. oral care provided. inc of urine, using purwick. Assessment as documented. call light in reach.
[2024-07-04] VITALS (10 sets, daily range): BP systolic 110–149; BP diastolic 63–101; BMI 28.6
[2024-07-04] MEDS: VANCOCIN 200 IV (04:59)
[2024-07-04] MEDS: SYNTHROID 25 MCG PO (04:59)
[2024-07-04 05:28] LABS: Hematocrit 35.8 % (37.0-47.0); Hemoglobin 11.8 g/dL (12.0-16.0); Mean Corpuscular Hgb 28.5 pg (27.0-31.0); Mean Corpuscular Volume 86.5 fL (81.0-99.0); Mean Platelet Volume 9.8 fL (7.4-10.4); Platelet Count 291 10^3/uL (130-400); Red Blood Cell Count 4.14 10^6/uL (4.20-5.40); Red Cell Dist. Width 13.9 % (11.5-14.5); White Blood Cell Count 9.1 10^3/uL (4.8-10.8)
[2024-07-04 05:55] LABS: ALT (SGPT) 19 U/L (0-35); AST (SGOT) 26 U/L (14-36); Albumin 2.7 g/dl (3.5-5.0); Alkaline Phosphatase 80 U/L (38-126); Blood Urea Nitrogen 22 mg/dl (7-17); Calcium 8.6 mg/dl (8.4-10.2); Carbon Dioxide 31 mmol/L (22-30); Chloride 102 mmol/L (98-107); Estimated Creatinine Clearance 72 ml/min; Glucose 96 mg/dl (70-99); HDL Cholesterol 26 mg/dl; LDL Cholesterol, Calculated 57 mg/dl; Potassium 3.8 mmol/L (3.5-5.1); Sodium 139 mmol/L (135-145); Total Bilirubin 0.6 mg/dl (0.2-1.3); Total Cholesterol 101 mg/dl (50-199); Total Protein 5.4 g/dl (6.3-8.2); Triglyceride 94 mg/dl (10-149); Very Low Density Lipoprotein 18 mg/dl (0-30); eGFR > 60.00
[2024-07-04] MEDS: ATROVENT NEBULES 0.5 MG INH ×3 (07:26→19:35)
[2024-07-04] MEDS: PULMICORT 0.5 MG INH ×2 (07:26→19:35)
[2024-07-04 07:46] LABS: Glucose - Point of Care 103 mg/dl (70-99)
[2024-07-04] MEDS: LASIX 10 MG PO (08:01)
[2024-07-04] MEDS: SODIUM CHLORIDE 1 GRAM PO (08:02)
[2024-07-04] MEDS: LEVAQUIN 750 MG PO (08:02)
[2024-07-04] MEDS: MUCINEX 600 MG PO ×2 (08:02→20:14)
[2024-07-04] MEDS: DELTASONE 5 MG PO (08:02)
[2024-07-04] MEDS: PROTONIX 40 MG PO (08:02)
[2024-07-04] MEDS: ELIQUIS 5 MG PO ×2 (08:02→20:14)
[2024-07-04] MEDS: LYRICA 75 MG PO (08:03)
[2024-07-04] MEDS: DICLOFENAC 1% TOPICAL GEL 2 GRAM TOPICAL ×3 (08:03→20:14)
[2024-07-04] MEDS: DITROPAN 7.5 MG PO ×2 (08:03→20:13)
[2024-07-04 09:47] LABS: Glucose - Point of Care 90 mg/dl (70-99)
[2024-07-04] MEDS: NOVOLOG FLEXPEN-LOW RESISTANCE SC ×3 (10:49→19:12)
--- NOTE | 2024-07-04 12:27 | W.PN.CARDCBS ---
Today's Communication / Plan
-
Spontaneously converted to sinus rhythm
Continue treatment for pneumonia might consider IV Lasix if continues to be difficult to get off oxygen but she has had oxygen at home
Impression / Plan
-
Family Physician: Archie Mullen DO
Ceramics Technician: None prior to admission, initial consultation with Dr. Meng Branch
Impression:
Presents 07/02/2024 left leg pain, worsening cough and generalized malaise
Rapid A-fib with history of paroxysmal atrial fibrillation, spontaneously converted to sinus rhythm
Acute hypoxic respiratory insufficiency
Bilateral pneumonia
Nonischemic myocardial injury secondary to pneumonia and atrial fibrillation with rapid ventricular response
Left lower extremity pain of unclear etiology
Paroxysmal atrial fibrillation
Chronic anticoagulation on Eliquis
History of asthma/COPD
Hypertension
Hyperlipidemia
Type 2 diabetes
History of UTIs
GERD
Hypothyroidism
Spinal stenosis
Lymphedema
Polyneuropathy
Echocardiogram 07/03/2024: Ejection fraction 55 to 60%, mild to moderate MR, mild to moderate TR, aortic sclerosis, PA systolic 54 mmHg, pleural effusion
Plan:
She has spontaneously converted to sinus rhythm
Continue Eliquis, patient was on prior to admission. (Daughter notes that she has been on Eliquis for A-fib in the past which is occurred during illnesses/hospitalizations).
Treated for pneumonia rather than CHF at present. Could consider giving IV Lasix if remains on oxygen but she has had oxygen at home. She has chronic lower extremity edema
History of Present Illness 07/02/2024:
Blanca has history of atrial fibrillation on chronic Eliquis, asthma/COPD, GERD, hypertension, hyperglycemia, diabetes, hypothyroidism, anxiety/depression, frequent UTIs. She presented with complaint of left lower extremity pain. Nursing at the
[facility] noted rapid heartbeat. In ER she had rapid A-fib. She denies any palpitations, chest pain, or shortness of breath. Cardiology is consulted for rapid A-fib.
Progress Note - Ceramics Technician
Subjective
Date of Service: July 04, 2024
No complaints
Objective
Labs:
07/04/24 05:10
07/04/24 05:10
Labs
Hgb 11.8 g/dL (12.0-16.0) L 07/04/24 05:10
Hct 35.8 % (37.0-47.0) L 07/04/24 05:10
Plt Count 291 10^3/uL (130-400) 07/04/24 05:10
PT 24.5 Sec (11.4-14.6) H 07/02/24 10:05
INR 2.20 07/02/24 10:05
APTT 44.2 Sec (23.4-35.0) H 07/02/24 10:05
Sodium 139 mmol/L (135-145) 07/04/24 05:10
Potassium 3.8 mmol/L (3.5-5.1) 07/04/24 05:10
BUN 22 mg/dl (7-17) H 07/04/24 05:10
Creatinine 0.6 mg/dL (0.6-1.0) 07/04/24 05:10
Glucose 96 mg/dl (70-99) 07/04/24 05:10
Troponins
07/02/24 07/02/24 07/02/24
10:05 16:20 22:30
Troponin I 0.071 H* 0.398 H* D 0.428 H*
07/03/24 07/03/24
04:12 10:23
Troponin I 0.363 H* 0.284 H*
Vital Signs and I&O:
Vital Signs
Temp Pulse Resp BP Pulse Ox
98.2 F 87 16 149/80 99
07/04/24 07:05 07/04/24 07:28 07/04/24 07:28 07/04/24 06:00 07/04/24 07:28
Vital Signs
Temp Pulse Resp BP Pulse Ox
98.2 F 87 16 149/80 99
07/04/24 07:05 07/04/24 07:28 07/04/24 07:28 07/04/24 06:00 07/04/24 07:28
Intake & Output
07/02/24 07/03/24 07/04/24 07/05/24
06:59 06:59 06:59 06:59
Intake Total 980 / 980
Output Total 1850 / 1850
Balance -870 / -870
Physical Exam
Physical Exam
General: Well developed, well nourished in NAD.
Neck: Supple, no JVD, HJR, carotids +2 B/L, no bruits bilaterally.
Heart: Non displaced PMI, RRR, no murmurs, No S3, S4, no rubs.
Lungs: Scattered rhonchi
Extremities: No clubbing, cyanosis or edema bilaterally.
Neuro: Grossly nonfocal, awake, alert and oriented x3.
[2024-07-04] MEDS: TYLENOL 650 MG PO (12:34)
[2024-07-04] MEDS: TESSALON PERLES 200 MG PO ×2 (12:34→20:13)
[2024-07-04 14:08] LABS: Glucose - Point of Care 100 mg/dl (70-99)
--- NOTE | 2024-07-04 14:14 | W.PN.HOSP.TC ---
Today's Communication/Plan
-
iv abx
incentive flavio
acapella
IV lasix if needed
Assessment / Plan
Assessment / Plan
Physical Exam
General: No Apparent Distress
HEENT: PERRLA
Respiratory: Rhonchi; No Wheezes
Cardiac: Irregular Rhythm and Tachycardia
GI: Soft and Non Tender
Musculoskeletal: Other (trace bilateral edema; full range of motion LLE; no tenderness to palpation, no warmth or erythema )
Skin: Warm and Dry; No Rash
Neuro: AO x 3
Psych: Calm
Bilateral lower lobe pneumonia
Sepsis 2/2 Above
Acute on Chronic Hypoxic Respiratory Failure - intermittently requires 2L
Daily steroid use
-admit to IMU
-patient has allergies to penicillin and cephalosporins - will continue treatment with Levaquin (q48 hours for renal adjustment)
-Discontinue vancomycin, MRSA swab negative
-Wean o2 as tolerated
-F/U sputum culture, Legionella and Strep Ag negative
-F/U final Blood Cultures, repeat blood cultures, coag negative staph, most likely contaminant
-IVF PRN
-not hypotensive , switch back to home steroid dosing (5mg daily)
-Incentive flavio and acapella
�Can consider IV Lasix if remains on oxygen
Chronic COPD
-continue home inhalers
-change to Levalbuterol in setting of RVR
Paroxysmal Atrial Fibrillation
Spontaneously converted to sinus rhythm
-fluids and treat infection as above
-ECHO�EF 55 to 60%, mild to moderate MR, mild to moderate TR, aortic sclerosis, pleural effusion
-Eliquis
-TFTs ok
-Cardiology consult
Non ischemic myocardial injury 2/2 sepsis above and paroxysmal afib with RVR
-Trend Troponins
-no
Chronic lower extremity swelling
B/l Pleural Effusions
-IV lasix x 1
-resume diuretics
restart po lasix tomorrow
HLD
-METAL BONDING PRESS OPERATOR Statin
Hypothyroidism
-METAL BONDING PRESS OPERATOR Synthroid
DVT PPx Home Eliquis
DNR
Anticipated Discharge: 24 - 48 hours
Subjective/Interval History
-
Date of Service: July 04, 2024
In chair, feels better although still coughing
Objective Data
-
Labs:
Laboratory Results
07/04/24
05:10
WBC 9.1
Hgb 11.8 L
Hct 35.8 L
Plt Count 291
Sodium 139
Potassium 3.8
Chloride 102
Carbon Dioxide 31 H
BUN 22 H
Creatinine 0.6
Glucose 96
Calcium 8.6
Total Bilirubin 0.6
AST 26
ALT 19
Alkaline Phosphatase 80
Vital Signs:
Vital Signs
Temp Pulse Resp BP Pulse Ox
97.9 F 77 27 114/64 92
07/04/24 11:05 07/04/24 14:00 07/04/24 14:00 07/04/24 12:00 07/04/24 13:57
I&O
07/03/24 07/04/24 07/05/24
06:59 06:59 06:59
Intake Total 980 / 980
Output Total 1850 / 1850
Balance -870 / -870
Review of Systems
-
History Source: Patient
All other systems: Not reviewed unless documented
Physical Exam
-
General: No Apparent Distress
HEENT: Normocephalic, Atraumatic and Oxygen
Respiratory: Wheezes (improving ) and Non Labored Respirations
Cardiac: Regular Rhythm and S1/S2
Breast: Deferred by me
GI: Soft, Nontender and Nondistended
Rectal: Deferred by Provider
Genito-urinary: Deferred by me
Musculoskeletal: No Clubbing, No Cyanosis and No Edema
Skin: Warm
Neuro: Awake
Psych: Calm
Data Reviewed
-
Diagnostic Radiology: Report Reviewed by me
Ultrasound: Report Reviewed by me
Labs: Labs Reviewed by me
[2024-07-04] MEDS: LIPITOR 10 MG PO (17:40)
[2024-07-04 18:41] LABS: Glucose - Point of Care 122 mg/dl (70-99)
--- NOTE | 2024-07-04 19:43 | PTCARENOTE ---
OOB all day today- ambulated her into the bathroom this pm. O2 at 3L NC. Continues to have very harsh deep persistent cough- wheezing/ rhonchi/ loud/ - tessalon perles given today with some improvement- nebs also given by RT. Using Acupella on
own. Grossly incontinent- utilizes purewick at times.
[2024-07-04] MEDS: LYRICA 50 MG PO (20:14)
[2024-07-04] MEDS: SENOKOT-S 1 TABLET PO (20:14)
--- NOTE | 2024-07-04 21:09 | PTCARENOTE ---
Patient ate dinner up in chair. Took HS meds with applesauce; no s/s of aspiration. Assisted back into bed w/ FWW. Purewick replaced. coccyx red, intact and blanching, encouraged to reposition self while in bed. 3L NC, +DICKSON, coarse non-prod cough.
PRN tessalon perles given. Encouraged acapella. Pt reports chronic pain to left hip/leg and knees. NSR on tele. Bed alarm set for safety. Call santiago and tray table within reach.
[2024-07-04 21:40] LABS: Glucose - Point of Care 125 mg/dl (70-99)
[2024-07-05] VITALS (14 sets, daily range): BP systolic 101–142; BP diastolic 53–106; BMI 28.7
[2024-07-05] MEDS: ProAIR HFA INHALER 2 PUFF INH (02:31)
--- NOTE | 2024-07-05 02:34 | PTCARENOTE ---
Addendum entered by Rissa Gustafson RN 07/05/24 03:56:
DONNA Anthony at bedside to assess as pt is still having trouble with her cough and breathing.
Order for IV Lasix received. Labs drawn and sent.
Original Note:
Patient woke up with coughing episode and SOB. Sp02 88-90% on 3L. Sat up in bed, increased 02 to 4L NC. Encouraged slow breaths. RT at bedside for treatment. Sp02 94-95% on 4L NC. Encouraged pt to use Acapella once able to catch her breath. Suction
at bedside.
[2024-07-05] MEDS: TESSALON PERLES 200 MG PO ×3 (03:05→22:01)
--- NOTE | 2024-07-05 04:01 | W.PN.UPDATE ---
Update Note
Progress Note Update
-Patient is desatting Spo2 86% on 3 L of O2, coughing and complaining of SOB, neb treatment and cough meds received with no relief. Patient still with SOB on 4L of o2.
-Will give one time dose of 20 mg IV lasix now and hold po morning dose.
-Morning dose of prednisone received as well.
-Stat chest x-ray ordered.
-Patient continue to desatting Spo2 80s%, placed non rebreather SPO2 up to 90s around 30 mins later patient SPo2 dropped down to 70s while on NRB.
-Abg ordered and will repeat covid and flu.
-Patient placed on HFNC SPo2 up to 90s
[2024-07-05] MEDS: LASIX 20 MG IV ×2 (04:03→10:00)
[2024-07-05] MEDS: SYNTHROID 25 MCG PO (04:12)
[2024-07-05] MEDS: DELTASONE 5 MG PO (04:12)
[2024-07-05 04:18] LABS: Hemoglobin 12.4 g/dL (12.0-16.0); Mean Corp Hgb Conc. 33.5 g/dL (33.0-37.0); Mean Corpuscular Hgb 28.6 pg (27.0-31.0); Mean Corpuscular Volume 85.5 fL (81.0-99.0); Mean Platelet Volume 9.9 fL (7.4-10.4); Platelet Count 301 10^3/uL (130-400); Red Blood Cell Count 4.33 10^6/uL (4.20-5.40); Red Cell Dist. Width 13.9 % (11.5-14.5); White Blood Cell Count 10.6 10^3/uL (4.8-10.8)
[2024-07-05] MEDS: MORPHINE SULFATE 0.5 MG IV (04:25)
--- NOTE | 2024-07-05 04:36 | PTCARENOTE ---
Patient yelling out 'I can't breathe don't leave me' Pt visibly anxious. Sp02 dropped to 70% on 4L NC. 15L NRB placed. Sp02 95%. CXR done. 20mg IV Lasix and 0.5mg IV morphine administered. DONNA Anthony at bedside. Order to give AM predisone now. Bipap
order PRN if pt needs. Emotional support given.
--- NOTE | 2024-07-05 05:17 | PTCARENOTE ---
Patient yelling out for help again. Sp02 dropping to 70s / RR 30s on 15L NRB. Pt continues to have a difficult time to breathe. Pt stating 'I am dying' DONNA Anthony made aware. STAT Flu/COVID test & ABG. RT Charles at bedside for HFNC. HFNC in place
50L/93% Fi02, Sp02 increased to 95-97%. Work of breathing improved.
[2024-07-05 05:45] LABS: B.E. 10.7 mmol/L; HCO3 36.3 mmol/L (21-28); O2 Saturation % 98.4 % (94-98); PCO2 51 mmHg (32-35); PO2 84 mmHg (83-108); pH 7.46 (7.35-7.45)
[2024-07-05 05:47] LABS: O2 Therapy NRB
[2024-07-05 06:09] LABS: COVID-19 Antigen Negative (Negative)
[2024-07-05 06:15] LABS: ALT (SGPT) 21 U/L (0-35); AST (SGOT) 23 U/L (14-36); Albumin 3.2 g/dl (3.5-5.0); Alkaline Phosphatase 80 U/L (38-126); Blood Urea Nitrogen 16 mg/dl (7-17); Calcium 9.1 mg/dl (8.4-10.2); Carbon Dioxide 31 mmol/L (22-30); Chloride 100 mmol/L (98-107); Estimated Creatinine Clearance 62 ml/min; Glucose 91 mg/dl (70-99); Potassium 3.5 mmol/L (3.5-5.1); Sodium 139 mmol/L (135-145); Total Bilirubin 0.7 mg/dl (0.2-1.3); Total Protein 5.9 g/dl (6.3-8.2); eGFR > 60.00
[2024-07-05] MEDS: PULMICORT 0.5 MG INH ×2 (07:40→19:53)
[2024-07-05] MEDS: ATROVENT NEBULES 0.5 MG INH ×2 (07:40→14:34)
[2024-07-05 07:42] LABS: Glucose - Point of Care 83 mg/dl (70-99)
[2024-07-05] MEDS: DICLOFENAC 1% TOPICAL GEL 2 GRAM TOPICAL ×3 (08:05→22:01)
[2024-07-05] MEDS: DITROPAN 7.5 MG PO ×2 (08:06→22:01)
[2024-07-05] MEDS: SODIUM CHLORIDE 1 GRAM PO (08:06)
[2024-07-05] MEDS: PROTONIX 40 MG PO (08:06)
[2024-07-05] MEDS: LYRICA 75 MG PO (08:06)
[2024-07-05] MEDS: ELIQUIS 5 MG PO ×2 (08:06→22:00)
[2024-07-05] MEDS: MUCINEX 600 MG PO ×2 (08:06→22:01)
[2024-07-05] MEDS: NOVOLOG FLEXPEN-LOW RESISTANCE SC ×3 (08:22→17:51)
[2024-07-05 10:17] LABS: Troponin I 0.124 ng/ml
--- NOTE | 2024-07-05 10:32 | W.PN.CARDCBS ---
Addendum entered and electronically signed by Jorge Mcnair DO 07/05/24 12:18:
I saw and examined the patient.
The Pbx Wire Chief's note was reviewed and I agree with the note.
Comment:
Plan:
Patient was seen this morning complaining of chest discomfort. Urgent EKG done that was unchanged from her last EKG.
Troponin was also checked and continues to trend down.
Cont med tx of nonMI trop
She also received additional Lasix 20 mg IV x 1.
She had received Lasix 20 mg IV at 4 AM and placed on high flow with improvement in symptoms.
She is getting a CT scan of the chest to rule out PE.
Her symptoms may be more related to pulmonary.
Recent echo reviewed and EF is preserved.
Discussed with nursing.
Original Note:
Today's Communication / Plan
-
CT chest pending, might benefit from Lasix IV, will order pending results
Remains in SR on ECG
Impression / Plan
-
Family Physician: Archie Mullen DO
Marketing Program Coordinator: None prior to admission, initial consultation with Dr. Meng Branch
Impression:
Presents left leg pain, worsening cough and generalized malaise 07/02/2024
Afib with RVR
Paroxysmal atrial fibrillation, spontaneously converted to sinus rhythm
Chronic Eliquis OAC
Acute hypoxic respiratory insufficiency
Bilateral pneumonia
Nonischemic myocardial injury secondary to pneumonia and atrial fibrillation with rapid ventricular response
Left lower extremity pain of unclear etiology
History of asthma/COPD
Hypertension
Hyperlipidemia
Type 2 diabetes
History of UTIs
GERD
Hypothyroidism
Spinal stenosis
Lymphedema
Polyneuropathy
Echo 07/03/2024: Ejection fraction 55 to 60%, mild to moderate MR, mild to moderate TR, aortic sclerosis, PA systolic 54 mmHg, pleural effusion
Plan:
-Patient with rapid Afib on admission and then spontaneously converted to SR 07/03/24. Remains in SR on tele review by me 07/05/24. ECG 07/05/24 reviewed by me shows SR with PACs and QTc 449 ms.
-Patient was not taking AV paul blockers prior to admission. EF preserved on echo.
-Outpatient dose of Eliquis 5 mg BID (age 84, Cre 0.7, wt 80.5 kg) has been continued.
-pro-BNP 3750 on admission. Outpatient dose of Lasix 10 mg PO daily has been continued. Continues on high flow oxygen. CT chest pending 07/05/24. Might need a dose of Lasix IV pending CT.
-EF preserved on echo, mild to mod MR
-Patient was not following with cardiology prior to admission although it sounds like patient has had Afib associated with acute illness and hospitalization in the past. Will arrange for outpatient follow up.
-Initial troponin 0.071 and peaked at 0.428. No WMA on echo and no acute ischemic changes on ECG. Will manage as a nonischemic myocardial injury troponin elevation
HPI07/02/2024: Blanca has history of atrial fibrillation on chronic Eliquis, asthma/COPD, GERD, hypertension, hyperglycemia, diabetes, hypothyroidism, anxiety/depression, frequent UTIs. She presented with complaint of left lower extremity pain.
Nursing at the [facility] noted rapid heartbeat. In ER she had rapid A-fib. She denies any palpitations, chest pain, or shortness of breath. Cardiology is consulted for rapid A-fib.
Progress Note - Marketing Program Coordinator
Subjective
Date of Service: July 05, 2024
Still SOB
Objective
Labs:
07/05/24 03:52
07/05/24 05:24
Labs
Hgb 12.4 g/dL (12.0-16.0) 07/05/24 03:52
Hct 37.0 % (37.0-47.0) 07/05/24 03:52
Plt Count 301 10^3/uL (130-400) 07/05/24 03:52
PT 24.5 Sec (11.4-14.6) H 07/02/24 10:05
INR 2.20 07/02/24 10:05
APTT 44.2 Sec (23.4-35.0) H 07/02/24 10:05
Sodium 139 mmol/L (135-145) 07/05/24 05:24
Potassium 3.5 mmol/L (3.5-5.1) 07/05/24 05:24
BUN 16 mg/dl (7-17) 07/05/24 05:24
Creatinine 0.7 mg/dL (0.6-1.0) 07/05/24 05:24
Glucose 91 mg/dl (70-99) 07/05/24 05:24
Troponins
07/02/24 07/02/24 07/02/24
10:05 16:20 22:30
Troponin I 0.071 H* 0.398 H* D 0.428 H*
07/03/24 07/03/24 07/05/24
04:12 10:23 09:32
Troponin I 0.363 H* 0.284 H* 0.124 H*
Vital Signs and I&O:
Vital Signs
Temp Pulse Resp BP Pulse Ox
97.7 F 76 24 123/66 92
07/05/24 07:28 07/05/24 07:45 07/05/24 07:45 07/05/24 07:28 07/05/24 08:08
Vital Signs
Temp Pulse Resp BP Pulse Ox
97.7 F 76 24 123/66 92
07/05/24 07:28 07/05/24 07:45 07/05/24 07:45 07/05/24 07:28 07/05/24 08:08
Intake & Output
07/03/24 07/04/24 07/05/24 07/06/24
06:59 06:59 06:59 06:59
Intake Total 980 / 980 1180 / 1180
Output Total 1850 / 1850 1900 / 1900
Balance -870 / -870 -720 / -720
Physical Exam
Physical Exam
General: NAD.
HEENT: EOMI
Heart: SR on tele
Lungs: High flow oxygen
Extremities: Trace B/L LE edema
[2024-07-05 12:28] LABS: Glucose - Point of Care 105 mg/dl (70-99)
--- NOTE | 2024-07-05 14:26 | PTCARENOTE ---
Pt's assessment as documented. Aox3. NSR on tele monitor. Sating low to mid 90's on HFNC, settings adjusted by RT. To and from CT via stretcher with this RN. Care as documented. Ringing appropriately, call santiago within reach.
[2024-07-05] MEDS: STERILE WATER FOR INJECTION 10 ML IV (14:45)
[2024-07-05] MEDS: AZACTAM 2000 MG IV (14:45)
--- NOTE | 2024-07-05 15:09 | CM ---
Addendum entered by Elza Lopez RN 07/05/24 15:59:
Met with patient and daughter Candida; patient alert and conversant. Daughter says she was updated by nurse on patient's status.
Original Note:
Patient from [facility] with Dx Sepsis, PNA. CT Chest & CXR today. HFNC. Receiving IV Abx, nebulizer Txs.
Phone call to [facility]; left message with clinical update as requested.
[facility]: The ph for report to [address] , fax [phone].
Plan return to [facility] when medically ready.
--- NOTE | 2024-07-05 16:29 | W.PN.HOSP.TC ---
Today's Communication/Plan
-
wean o2
incentive flavio, acapella
solumedrol
duonebs - HR improved
Switch abx to Unasyn and Azithromycin and monitor - if worsening o2 then switch to cefepime
Assessment / Plan
Assessment / Plan
Physical Exam
General: No Apparent Distress
HEENT: PERRLA
Respiratory: Rhonchi; No Wheezes
Cardiac: Irregular Rhythm and Tachycardia
GI: Soft and Non Tender
Musculoskeletal: Other (trace bilateral edema; full range of motion LLE; no tenderness to palpation, no warmth or erythema )
Skin: Warm and Dry; No Rash
Neuro: AO x 3
Psych: Calm
Bilateral lower lobe pneumonia
Sepsis 2/2 Above
Acute on Chronic Hypoxic Respiratory Failure -required HFNC today
Daily steroid use
-admit to IMU
-patient has allergies to penicillin and cephalosporins - will continue treatment with Levaquin (q48 hours for renal adjustment)
-Discontinue vancomycin, MRSA swab negative
-Switch to Unasyn, stop Levaquin; start azithromycin
-Start IV steroids
-Wean o2 as tolerated
-F/U sputum culture, Legionella and Strep Ag negative
-F/U final Blood Cultures, repeat blood cultures, coag negative staph, most likely contaminant
-IVF PRN
-Incentive flavio and acapella
Acute on Chronic COPD
-continue home inhalers
-change to Levalbuterol in setting of RVR
-start solumedrol
Paroxysmal Atrial Fibrillation
Spontaneously converted to sinus rhythm
-fluids and treat infection as above
-ECHO�EF 55 to 60%, mild to moderate MR, mild to moderate TR, aortic sclerosis, pleural effusion
-Eliquis
-TFTs ok
-Cardiology consult
Non ischemic myocardial injury 2/2 sepsis above and paroxysmal afib with RVR
-Trend Troponins
-no chest pain
Chronic lower extremity swelling
B/l Pleural Effusions
-IV lasix x 2
-resume diuretics
-resume po lasix
# 1.7 cm hypodense nodule within the right hemithyroid.
-f/u outpt
HLD
-HEADING UP MACHINE OPERATOR Statin
Hypothyroidism
-HEADING UP MACHINE OPERATOR Synthroid
DVT PPx Home Eliquis
DNR
Total time spent on today's encounter was 50 minutes which included time spent in counseling the patient/family regarding diagnosis and treatment plan as listed above, goals of care, and symptom management. Case was discussed with nursing staff,
specialists, and care coordinators/case management. All labs and imaging personally reviewed by me. Remainder the time spent in detailed review of previous records, lab data, imaging, and other medical provider documentation.
Anticipated Discharge: > 48 hours
Subjective/Interval History
-
Date of Service: July 05, 2024
worsening o2, requiring HFNC
Objective Data
-
Labs:
Laboratory Results
07/05/24 07/05/24 07/05/24
03:52 05:24 05:36
HCO3 36.3 H
Sodium Cancelled 139
Potassium Cancelled 3.5
Chloride Cancelled 100
Carbon Dioxide Cancelled 31 H
BUN Cancelled 16
Creatinine Cancelled 0.7
Glucose Cancelled 91
Calcium Cancelled 9.1
Total Bilirubin Cancelled 0.7
AST Cancelled 23
ALT Cancelled 21
Alkaline Phosphatase Cancelled 80
Vital Signs:
Vital Signs
Temp Pulse Resp BP Pulse Ox
98 F 83 20 117/98 97
07/05/24 15:15 07/05/24 14:36 07/05/24 15:15 07/05/24 14:00 07/05/24 15:58
I&O
07/04/24 07/05/24 07/06/24
06:59 06:59 06:59
Intake Total 980 / 980 1180 / 1180
Output Total 1850 / 1850 1900 / 1900 1600 / 1600
Balance -870 / -870 -720 / -720 -1600 / -1600
Review of Systems
-
History Source: Patient
All other systems: Not reviewed unless documented
Data Reviewed
-
Diagnostic Radiology: Report Reviewed by me
Ultrasound: Report Reviewed by me
Labs: Labs Reviewed by me
[2024-07-05] MEDS: ZITHROMAX INFUSION 250 IV (17:07)
[2024-07-05] MEDS: LIPITOR 10 MG PO (17:16)
[2024-07-05] MEDS: SOLU-MEDROL PF 60 MG IV (17:16)
[2024-07-05 17:49] LABS: Glucose - Point of Care 135 mg/dl (70-99)
[2024-07-05] MEDS: UNASYN IV (18:24)
[2024-07-05] MEDS: DUONEB 3 ML INH (19:52)
[2024-07-05] MEDS: MELATONIN 5 MG PO (22:00)
[2024-07-05] MEDS: LYRICA 50 MG PO (22:01)
[2024-07-05 23:33] LABS: Glucose - Point of Care 198 mg/dl (70-99)
[2024-07-06] VITALS (14 sets, daily range): BP systolic 97–149; BP diastolic 49–90; PULSE 78; O2SAT 95; BMI 28.4
[2024-07-06] MEDS: UNASYN IV ×5 (00:16→23:41)
[2024-07-06] MEDS: SOLU-MEDROL PF 60 MG IV ×5 (00:17→23:41)
[2024-07-06] MEDS: SYNTHROID 25 MCG PO (05:29)
[2024-07-06 06:37] LABS: Hematocrit 36.4 % (37.0-47.0); Hemoglobin 11.9 g/dL (12.0-16.0); Mean Corp Hgb Conc. 32.7 g/dL (33.0-37.0); Mean Corpuscular Hgb 28.5 pg (27.0-31.0); Mean Corpuscular Volume 87.3 fL (81.0-99.0); Platelet Count 322 10^3/uL (130-400); Red Blood Cell Count 4.17 10^6/uL (4.20-5.40); Red Cell Dist. Width 13.9 % (11.5-14.5); White Blood Cell Count 9.5 10^3/uL (4.8-10.8)
--- NOTE | 2024-07-06 06:41 | PTCARENOTE ---
Patient was able to sleep overnight. Less anxious. HFNC remains in place. Sp02 WNL. Denies any pain or SOB. Coughing has decreased significantly. Swallowing pillows whole w/ applesauce w/o issues. Repositioned throughout the night. Purewick in
place. Melatonin provided for sleep aid. NSR/SB on tele. Pt hoping to get out of bed today. Call santiago and tray table within reach. Pt calls appropriately for assistance.
[2024-07-06 06:46] LABS: ALT (SGPT) 18 U/L (0-35); AST (SGOT) 15 U/L (14-36); Albumin 2.9 g/dl (3.5-5.0); Alkaline Phosphatase 69 U/L (38-126); Blood Urea Nitrogen 13 mg/dl (7-17); Calcium 8.6 mg/dl (8.4-10.2); Carbon Dioxide 36 mmol/L (22-30); Chloride 98 mmol/L (98-107); Estimated Creatinine Clearance 72 ml/min; Glucose 177 mg/dl (70-99); Sodium 140 mmol/L (135-145); Total Bilirubin 0.5 mg/dl (0.2-1.3); Total Protein 5.5 g/dl (6.3-8.2); eGFR > 60.00
[2024-07-06] MEDS: DUONEB 3 ML INH ×4 (07:17→20:26)
[2024-07-06] MEDS: PULMICORT 0.5 MG INH (07:17)
[2024-07-06] MEDS: NOVOLOG FLEXPEN-LOW RESISTANCE SC (08:00)
[2024-07-06 08:03] LABS: Glucose - Point of Care 146 mg/dl (70-99)
[2024-07-06] MEDS: DICLOFENAC 1% TOPICAL GEL 2 GRAM TOPICAL ×3 (08:59→21:31)
[2024-07-06] MEDS: LYRICA 75 MG PO (09:00)
[2024-07-06] MEDS: DITROPAN 7.5 MG PO ×2 (09:00→21:28)
[2024-07-06] MEDS: LASIX 10 MG PO (09:02)
[2024-07-06] MEDS: MUCINEX 600 MG PO ×2 (09:02→21:28)
[2024-07-06] MEDS: PROTONIX 40 MG PO (09:02)
[2024-07-06] MEDS: ELIQUIS 5 MG PO ×2 (09:03→21:30)
[2024-07-06] MEDS: TESSALON PERLES 200 MG PO ×3 (09:03→21:29)
[2024-07-06] MEDS: MIRALAX 17 GRAMS PO (09:03)
[2024-07-06] MEDS: SODIUM CHLORIDE 1 GRAM PO (09:03)
--- NOTE | 2024-07-06 10:15 | PN.CDI ---
CDI
- -
CDI:
Physician Documentation Request
Admit Date: 07/02/24 13:06
Dear Doctor Derek,
Please review the following and provide your response in the progress notes.
Clinical Indicators:
Pt admitted with Sepsis 2/2 PNA /Acute on Chronic Hypoxic Respiratory Failure
Chest CT 07/05, ' There is partial opacification of the right middle and lower lobe bronchi with associated right middle and lower lobe consolidation and a likely trace effusion. Additionally there is a left basilar consolidation with air
bronchograms and surrounding nodular opacities. Findings likely represent multifocal pneumonia with a small right parapneumonic effusion, possibly the setting of aspiration.'
Progress note 07/05, ' -Bilateral lower lobe pneumonia ...Switch to Unasyn, stop Levaquin; start azithromycin...'
Based on the above, could you clarify in the Progress Notes further specificity regarding the known, suspected or likely type of pneumonia you are treating (recognizing the specific organism may not be known)?
Aspiration Pneumonia - indicate substance such as food or vomitus, oils or other solids or liquids
Gram negative Pneumonia - indicate if Pseudomonas, Klebsiella or other
Other organism - specify known or suspected type
Other type ( please specify)
Use of terms such as suspected, likely, concern for, or probable (associated with a specific diagnosis that is being evaluated, monitored, or treated as if it exists) are acceptable and can be coded in the inpatient setting, when documented at the
time of discharge.
Thank you,
Liz Vicente RN
CDI Specialist
[place] [facility]
Please use your independent medical judgment in providing your response.
--- NOTE | 2024-07-06 10:19 | PN.CDI ---
CDI
- -
CDI:
Physician Documentation Request
Admit Date: 07/02/24 13:06
Dear Doctor Derek,
Please review the following and provide your response in the progress notes.
Clinical Indicators:
Pt admitted with Sepsis 2/2 PNA /Acute on Chronic Hypoxic Respiratory Failure
Progress notes 07/05, ' B/l Pleural Effusions -IV lasix x 2...'
Cardiology progress note 07/05, ' She also received additional Lasix 20 mg IV x 1.She had received Lasix 20 mg IV at 4 AM and placed on high flow with improvement in symptoms....Recent echo reviewed and EF is preserved....Echo 07/03/2024: Ejection
fraction 55 to 60%.....-pro-BNP 3750 on admission. Outpatient dose of Lasix 10 mg PO daily has been continued. Continues on high flow oxygen. CT chest pending 07/05/24. Might need a dose of Lasix IV pending CT.....'
CXR 07/02 , ' Large bilateral lower lobe airspace consolidations most suggestive of SEVERE BILATERAL LOWER LOBE PNEUMONIA. However, this bilateral lower lobe airspace disease could also be a combination of atelectasis and alveolar pulmonary edema.'
Per MAR did get IV Lasix 20 mg IV x 2 on 07/05 and 40 mg IV 07/03
Please provide a diagnosis for the above findings /IV Lasix use :
Acute noncardiogenic pulmonary edema
Acute diastolic CHF
Other ( please specify)
Use of terms such as suspected, likely, concern for, or probable (associated with a specific diagnosis that is being evaluated, monitored, or treated as if it exists) are acceptable and can be coded in the inpatient setting, when documented at the
time of discharge.
Thank you,
Liz Vicente RN
CDI Specialist
[place] [facility]
Please use your independent medical judgment in providing your response.
[2024-07-06 12:25] LABS: Glucose - Point of Care 189 mg/dl (70-99)
[2024-07-06] MEDS: NOVOLOG FLEXPEN-LOW RESISTANCE 1 UNITS SC (12:28)
--- NOTE | 2024-07-06 13:49 | W.PN.HOSP.TC ---
Today's Communication/Plan
-
wean o2 as tolerated
duonebs
IC and acapella
Abx
Steroids
Assessment / Plan
Assessment / Plan
Physical Exam
General: No Apparent Distress
HEENT: PERRLA
Respiratory: Rhonchi; No Wheezes
Cardiac: Irregular Rhythm and Tachycardia
GI: Soft and Non Tender
Musculoskeletal: Other (trace bilateral edema; full range of motion LLE; no tenderness to palpation, no warmth or erythema )
Skin: Warm and Dry; No Rash
Neuro: AO x 3
Psych: Calm
Bilateral lower lobe pneumonia
Sepsis 2/2 Above
Acute on Chronic Hypoxic Respiratory Failure -required HFNC - wean as tolerated
Daily steroid use - started IV steroids 07/05
-admit to IMU
-patient has allergies to penicillin and cephalosporins - will continue treatment with Levaquin (q48 hours for renal adjustment)
-Discontinue vancomycin, MRSA swab negative
-Switch to Unasyn, stop Levaquin; start azithromycin
-Start IV steroids - 07/05
-Wean o2 as tolerated
-F/U sputum culture, Legionella and Strep Ag negative
-F/U final Blood Cultures, repeat blood cultures, coag negative staph, most likely contaminant
-IVF PRN
-Incentive flavio and acapella
Acute on Chronic COPD
-continue home inhalers
-Duonebs
-start solumedrol 07/05 - start weaning tomorrow if can wean off HFNC
Paroxysmal Atrial Fibrillation
Spontaneously converted to sinus rhythm
-fluids and treat infection as above
-ECHO�EF 55 to 60%, mild to moderate MR, mild to moderate TR, aortic sclerosis, pleural effusion
-Eliquis
-TFTs ok
-Cardiology consult
Non ischemic myocardial injury 2/2 sepsis above and paroxysmal afib with RVR
-Trend Troponins
-no chest pain
#Chronic lower extremity swelling
B/l Pleural Effusions
-IV lasix x 2
-resume diuretics
-resume po lasix
# 1.7 cm hypodense nodule within the right hemithyroid.
-f/u outpt
HLD
-STAGE BUILDER Statin
Hypothyroidism
-STAGE BUILDER Synthroid
DVT PPx Home Eliquis
DNR
Total time spent on today's encounter was 51 minutes which included time spent in counseling the patient/family regarding diagnosis and treatment plan as listed above, goals of care, and symptom management. Case was discussed with nursing staff,
specialists, and care coordinators/case management. All labs and imaging personally reviewed by me. Remainder the time spent in detailed review of previous records, lab data, imaging, and other medical provider documentation.
Anticipated Discharge: > 48 hours
Subjective/Interval History
-
Date of Service: July 06, 2024
coughing has decreased
Objective Data
-
Labs:
Laboratory Results
07/06/24
05:40
WBC 9.5
Hgb 11.9 L
Hct 36.4 L
Plt Count 322
Sodium 140
Potassium 4.0
Chloride 98
Carbon Dioxide 36 H
BUN 13
Creatinine 0.6
Glucose 177 H
Calcium 8.6
Total Bilirubin 0.5
AST 15
ALT 18
Alkaline Phosphatase 69
Vital Signs:
Vital Signs
Temp Pulse Resp BP Pulse Ox
98.4 F 68 26 133/63 93
07/06/24 11:57 07/06/24 10:58 07/06/24 10:58 07/06/24 10:00 07/06/24 11:57
I&O
07/05/24 07/06/24 07/07/24
06:59 06:59 06:59
Intake Total 1180 / 1180
Output Total 1899 / 1899
Balance -720 / -720 -1999
Review of Systems
-
History Source: Patient
All other systems: Not reviewed unless documented
Physical Exam
-
General: No Apparent Distress
HEENT: Normocephalic, Atraumatic and Oxygen
Respiratory: Wheezes (improving ) and Non Labored Respirations
Cardiac: Regular Rhythm and S1/S2
Breast: Deferred by me
GI: Soft, Nontender and Nondistended
Rectal: Deferred by Provider
Genito-urinary: Deferred by me
Musculoskeletal: No Clubbing, No Cyanosis and No Edema
Skin: Warm
Neuro: Awake
Psych: Calm
Data Reviewed
-
Diagnostic Radiology: Report Reviewed by me
Ultrasound: Report Reviewed by me
Labs: Labs Reviewed by me
--- NOTE | 2024-07-06 14:35 | W.PN.CARDCBS ---
Addendum entered and electronically signed by Eric Asif MD 07/06/24 15:26:
I saw and examined the patient.
The Splicer Apprentice's note was reviewed and I agree with the note.
Comment:
GEN: No distress, awake, Ox3
HEENT: supple, anicteric, mmm
LUNGS: CTA, no wheezes/rales
CV: Reg, S1/S2, 1/6 syst LSB, no gallop
ABD: soft, BS+, NT/ND
EXT: No edema
NEURO: Gross non-focal
SKIN: No rash
Plan:
Remains hypoxic but slowly improving. Will continue low-dose diuresis. Remains in sinus rhythm.
Cont Eliquis. Blood pressure remains marginal. If it improves would consider low-dose diltiazem to help maintain sinus rhythm.
Cont Abx/SoluMedrol and Nebs
Original Note:
Today's Communication / Plan
-
Cont Lasix 10 mg PO daily
Impression / Plan
-
Family Physician: Archie Mullen DO at [facility]
Network Relations Consultant: None prior to admission, initial consultation with Dr. Meng Branch
Impression:
Presents left leg pain, worsening cough and generalized malaise 07/02/2024
Afib with RVR, spontaneously converted to sinus rhythm
Paroxysmal atrial fibrillation
Chronic Eliquis OAC
Acute hypoxic respiratory insufficiency
Bilateral pneumonia
Nonischemic myocardial injury secondary to pneumonia and atrial fibrillation with rapid ventricular response
Left lower extremity pain of unclear etiology
History of asthma/COPD
Hypertension
Hyperlipidemia
Type 2 diabetes
History of UTIs
GERD
Hypothyroidism
Spinal stenosis
Lymphedema
Polyneuropathy
Echo 07/03/24: Ejection fraction 55 to 60%, mild to moderate MR, mild to moderate TR, aortic sclerosis, PA systolic 54 mmHg, pleural effusion
Plan:
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
-Remains on high flow at 40 L on 07/06/2024
-Patient was given Lasix 40 mg IV on 07/03/2024, 20 mg IV x2 on 07/05/24 and then restarted on her outpatient dose of Lasix 10 mg PO daily on 07/06/2024, but no appreciable improvement and would not consider this to be acute HF.
-EF preserved on echo, mild to mod MR
-Tele reviewed by me 07/06/24, remains in SR. Patient with rapid Afib on admission and then spontaneously converted to SR 07/03/24.
-Patient was not taking AV paul blockers prior to admission. EF preserved on echo.
-Outpatient dose of Eliquis 5 mg BID (age 84, Cre 0.7, wt 80.5 kg) has been continued.
-Patient was not following with cardiology prior to admission although it sounds like patient has had Afib associated with acute illness and hospitalization in the past. Will arrange for outpatient follow up.
-Initial troponin 0.071 and peaked at 0.428. No WMA on echo and no acute ischemic changes on ECG. Will manage as a nonischemic myocardial injury troponin elevation
-Will arrange for cardiology f/u appt. Patient lives at [facility].
HPI07/02/2024: Blanca has history of atrial fibrillation on chronic Eliquis, asthma/COPD, GERD, hypertension, hyperglycemia, diabetes, hypothyroidism, anxiety/depression, frequent UTIs. She presented with complaint of left lower extremity pain.
Nursing at the [facility] noted rapid heartbeat. In ER she had rapid A-fib. She denies any palpitations, chest pain, or shortness of breath. Cardiology is consulted for rapid A-fib.
Progress Note - Network Relations Consultant
Subjective
Date of Service: July 06, 2024
Tired, coughing less
Objective
Labs:
07/06/24 05:40
07/06/24 05:40
Labs
Hgb 11.9 g/dL (12.0-16.0) L 07/06/24 05:40
Hct 36.4 % (37.0-47.0) L 07/06/24 05:40
Plt Count 322 10^3/uL (130-400) 07/06/24 05:40
PT 24.5 Sec (11.4-14.6) H 07/02/24 10:05
INR 2.20 07/02/24 10:05
APTT 44.2 Sec (23.4-35.0) H 07/02/24 10:05
Sodium 140 mmol/L (135-145) 07/06/24 05:40
Potassium 4.0 mmol/L (3.5-5.1) 07/06/24 05:40
BUN 13 mg/dl (7-17) 07/06/24 05:40
Creatinine 0.6 mg/dL (0.6-1.0) 07/06/24 05:40
Glucose 177 mg/dl (70-99) H 07/06/24 05:40
Troponins
07/05/24
09:32
Troponin I 0.124 H*
Vital Signs and I&O:
Vital Signs
Temp Pulse Resp BP Pulse Ox
98.4 F 75 18 133/63 97
07/06/24 11:57 07/06/24 14:22 07/06/24 14:22 07/06/24 10:00 07/06/24 14:22
Vital Signs
Temp Pulse Resp BP Pulse Ox
98.4 F 75 18 133/63 97
07/06/24 11:57 07/06/24 14:22 07/06/24 14:22 07/06/24 10:00 07/06/24 14:22
Intake & Output
07/04/24 07/05/24 07/06/24 07/07/24
06:59 06:59 06:59 06:59
Intake Total 980 / 980 1180 / 1180
Output Total 1850 / 1850 1900 / 1900 1999
Balance -870 / -870 -720 / -720 -1999
Physical Exam
Physical Exam
General: NAD.
HEENT: EOMI
Heart: SR on tele
Lungs: High flow oxygen
Extremities: Trace B/L LE edema
--- NOTE | 2024-07-06 15:28 | PTCARENOTE ---
Patient was found to have stage 1 pressure injury to sacrum approx 1145. Foam applied and patient placed on waffle cushion. Since then, patient was pulled up and turned for lunch and patient now up in the chair with waffle cushion and chair alarm
under her. Pt still remains on high flow, RT weaning patient as able. Assessment, care and VS as charted. Daughter at the bedside.
[2024-07-06] MEDS: OCEAN, SALINE MIST 1 SPRAYS NASAL (16:25)
[2024-07-06 16:34] LABS: Glucose - Point of Care 211 mg/dl (70-99)
[2024-07-06] MEDS: LIPITOR 10 MG PO (17:20)
[2024-07-06] MEDS: NOVOLOG FLEXPEN-LOW RESISTANCE 2 UNITS SC (17:21)
[2024-07-06] MEDS: TYLENOL 650 MG PO ×2 (17:25→23:48)
[2024-07-06] MEDS: ZITHROMAX INFUSION 250 IV (19:12)
[2024-07-06 20:46] LABS: Glucose - Point of Care 210 mg/dl (70-99)
[2024-07-06] MEDS: SENOKOT-S 1 TABLET PO (21:29)
[2024-07-06] MEDS: MELATONIN 5 MG PO (21:29)
[2024-07-06] MEDS: LYRICA 50 MG PO (21:30)
[2024-07-07] VITALS (12 sets, daily range): BP systolic 116–152; BP diastolic 61–101; PULSE 87; O2SAT 94; BMI 28.9
[2024-07-07] MEDS: SYNTHROID 25 MCG PO (06:09)
[2024-07-07] MEDS: UNASYN IV ×4 (06:10→23:45)
[2024-07-07] MEDS: SOLU-MEDROL PF 60 MG IV ×3 (06:11→21:12)
[2024-07-07 06:33] LABS: Hematocrit 33.8 % (37.0-47.0); Hemoglobin 11.3 g/dL (12.0-16.0); Mean Corp Hgb Conc. 33.4 g/dL (33.0-37.0); Mean Corpuscular Hgb 28.9 pg (27.0-31.0); Mean Corpuscular Volume 86.4 fL (81.0-99.0); Mean Platelet Volume 9.7 fL (7.4-10.4); Platelet Count 331 10^3/uL (130-400); Red Blood Cell Count 3.91 10^6/uL (4.20-5.40); Red Cell Dist. Width 13.9 % (11.5-14.5); White Blood Cell Count 14.2 10^3/uL (4.8-10.8)
--- NOTE | 2024-07-07 06:36 | PTCARENOTE ---
Assisted from chair to bed for sleep w/ FWW; slow and steady gait. PRN Tylenol / melatonin / Tessalon Perles given for bedtime. Pt able to sleep. HFNC remain in place; 40L/40%. Sp02 94-98%. NSR/SB on compliance monitor. Repositioning throughout the
night; pt cannot turn on left hip d/t pain. Foam in place to sacrum. Voiding via purewick. No BM. Able to swallow pills with applesauce w/o issues. Call santiago within reach.
[2024-07-07 06:49] LABS: ALT (SGPT) 19 U/L (0-35); AST (SGOT) 16 U/L (14-36); Albumin 3.3 g/dl (3.5-5.0); Alkaline Phosphatase 63 U/L (38-126); Blood Urea Nitrogen 17 mg/dl (7-17); Calcium 8.7 mg/dl (8.4-10.2); Carbon Dioxide 35 mmol/L (22-30); Chloride 98 mmol/L (98-107); Estimated Creatinine Clearance 72 ml/min; Glucose 163 mg/dl (70-99); Potassium 3.9 mmol/L (3.5-5.1); Sodium 139 mmol/L (135-145); Total Bilirubin 0.5 mg/dl (0.2-1.3); eGFR > 60.00
[2024-07-07] MEDS: DUONEB 3 ML INH ×4 (07:27→20:52)
[2024-07-07] MEDS: TESSALON PERLES 200 MG PO ×2 (07:55→14:32)
[2024-07-07 07:56] LABS: Glucose - Point of Care 162 mg/dl (70-99)
[2024-07-07] MEDS: ELIQUIS 5 MG PO ×2 (07:56→21:10)
[2024-07-07] MEDS: OCEAN, SALINE MIST 1 SPRAYS NASAL (07:56)
[2024-07-07] MEDS: DITROPAN 7.5 MG PO ×2 (07:56→21:10)
[2024-07-07] MEDS: DICLOFENAC 1% TOPICAL GEL 2 GRAM TOPICAL (07:56)
[2024-07-07] MEDS: MUCINEX 600 MG PO ×2 (07:57→21:10)
[2024-07-07] MEDS: SODIUM CHLORIDE 1 GRAM PO (07:58)
[2024-07-07] MEDS: LYRICA 75 MG PO (07:58)
[2024-07-07] MEDS: PROTONIX 40 MG PO (07:58)
[2024-07-07] MEDS: NOVOLOG FLEXPEN-LOW RESISTANCE 1 UNITS SC ×2 (07:58→12:18)
[2024-07-07] MEDS: LASIX 10 MG PO (07:59)
--- NOTE | 2024-07-07 08:56 | CM ---
Addendum entered by Elza Lopez RN 07/07/24 12:35:
[facility] [place] [facility].
Original Note:
Patient from [facility] with Dx Sepsis, PNA. HFNC. Receiving IV Abx, IV Solumedrol, nebulizer Txs. Per nursing 07/06, flat affect, withdrawn, OOB chair. PT recommends skilled rehab.
[facility]: The ph for report to [address] , fax [phone].
Plan return to [facility] when medically ready.
[2024-07-07 12:03] LABS: Glucose - Point of Care 166 mg/dl (70-99)
[2024-07-07] MEDS: TYLENOL 650 MG PO (12:19)
--- NOTE | 2024-07-07 14:40 | W.PN.CARDCBS ---
Addendum entered and electronically signed by Eric Asif MD 07/07/24 15:19:
I saw and examined the patient.
The Motor Overhauler's note was reviewed and I agree with the note.
Comment:
GEN: No distress, awake, Ox3
HEENT: supple, anicteric, mmm
LUNGS: bilat rhonchi
CV: Reg, S1/S2, 04/03 syst LSB, no gallop
ABD: soft, BS+, NT/ND
EXT: No edema
NEURO: Gross non-focal
SKIN: No rash
Plan:
Lungs remain rhonchorous requiring high flow oxygen.
Remains in sinus rhythm. Will start Cardizem 120 mg daily. Continue Eliquis.
Continue treatment of COPD and pneumonia.
Would repeat proBNP. Weight is creeping up and may need to increase Lasix.
I suspect most of her symptoms though are from her lung issues.
Original Note:
Today's Communication / Plan
-
add cardizem cd 120mg daily
eliquis 5mg BID
lasix 10mg daily
continue treatment of PNA
will arrange OP cardiac follow up
Impression / Plan
-
Family Physician: Archie Mullen, at [facility]
Sys Dir: None prior to admission, initial consultation with Dr. Meng Branch
Impression:
Presents left leg pain, worsening cough and generalized malaise 07/02/2024
Afib with RVR, spontaneously converted to sinus rhythm
Paroxysmal atrial fibrillation
Chronic Eliquis OAC
Acute hypoxic respiratory insufficiency
Bilateral pneumonia
Nonischemic myocardial injury secondary to pneumonia and atrial fibrillation with rapid ventricular response
Left lower extremity pain of unclear etiology
History of asthma/COPD
Hypertension
Hyperlipidemia
Type 2 diabetes
History of UTIs
GERD
Hypothyroidism with thyroid nodule by imaging
Spinal stenosis
Lymphedema
Polyneuropathy
Echo 07/03/24: Ejection fraction 55 to 60%, mild to moderate MR, mild to moderate TR, aortic sclerosis, PA systolic 54 mmHg, pleural effusion
Plan:
-continue treatment of PNA, possible aspiration as etiology of hypoxia.
-remains on high flow at 40L, wean as able
-Patient was given Lasix 40 mg IV on 07/03/2024, 20 mg IV x2 on 07/05/24 and then restarted on her outpatient dose of Lasix 10 mg PO daily on 07/06/2024. due to no appreciable improvement, would not consider this to be acute HF.
-echo with preserved EF, mild to mod MR
-Tele reviewed by me 07/06/24, remains in SR with PVCs at times in pattern of bigeminy. Patient with rapid Afib on admission s/p spontaneous conversion to SR 07/03/24.
-Outpatient dose of Eliquis 5 mg BID (age 84, Cre 0.7, wt 80.5 kg) has been continued.
-as BPs improved, will add cardizem cd 120mg daily.
-Initial troponin 0.071 and peaked at 0.428. no acute ischemic changes on ECG. suspected nonischemic myocardial injury
-Will arrange OP cardiology f/u appt. Patient lives at [facility].
HPI07/02/2024: Blanca has history of atrial fibrillation on chronic Eliquis, asthma/COPD, GERD, hypertension, hyperglycemia, diabetes, hypothyroidism, anxiety/depression, frequent UTIs. She presented with complaint of left lower extremity pain.
Nursing at the [facility] noted rapid heartbeat. In ER she had rapid A-fib. She denies any palpitations, chest pain, or shortness of breath. Cardiology is consulted for rapid A-fib.
Progress Note - Sys Dir
Subjective
Date of Service: July 07, 2024
c/o L hip pain
Objective
Labs:
07/07/24 06:27
07/07/24 06:27
Labs
Hgb 11.3 g/dL (12.0-16.0) L 07/07/24 06:27
Hct 33.8 % (37.0-47.0) L 07/07/24 06:27
Plt Count 331 10^3/uL (130-400) 07/07/24 06:27
PT 24.5 Sec (11.4-14.6) H 07/02/24 10:05
INR 2.20 07/02/24 10:05
APTT 44.2 Sec (23.4-35.0) H 07/02/24 10:05
Sodium 139 mmol/L (135-145) 07/07/24 06:27
Potassium 3.9 mmol/L (3.5-5.1) 07/07/24 06:27
BUN 17 mg/dl (7-17) 07/07/24 06:27
Creatinine 0.6 mg/dL (0.6-1.0) 07/07/24 06:27
Glucose 163 mg/dl (70-99) H 07/07/24 06:27
Troponins
07/05/24
09:32
Troponin I 0.124 H*
Vital Signs and I&O:
Vital Signs
Temp Pulse Resp BP Pulse Ox
97.3 F 76 18 140/68 96
07/07/24 07:46 07/07/24 11:20 07/07/24 11:20 07/07/24 07:59 07/07/24 11:20
Vital Signs
Temp Pulse Resp BP Pulse Ox
97.3 F 76 18 140/68 96
07/07/24 07:46 07/07/24 11:20 07/07/24 11:20 07/07/24 07:59 07/07/24 11:20
Intake & Output
07/05/24 07/06/24 07/07/24 07/08/24
07:59 07:59 07:59 07:59
Intake Total 1180 / 1180 970 / 970
Output Total 1900 / 1900 1999 1200 / 1200
Balance -720 / -720 -1999 / -1999 -230 / -230
--- NOTE | 2024-07-07 14:49 | PTCARENOTE ---
Assumed care of patient this morning. Patient c/o of her cough and asking for PRN tessalon Perles, see MAR. Patient up into the chair approx 10:30. RT able to wean HF to midflow, currently on 7L. Pt has tubigrips on LE's. Daughter at bedside and
updated. Pt given Tylenol for L hip pain, see MAY. Assessment, care and VS as charted.
--- NOTE | 2024-07-07 15:45 | W.PN.HOSP.TC ---
Addendum entered and electronically signed by Get Reed MD 07/07/24 16:04:
Acute noncardiogenic pulmonary edema
Multifocal Pneumonia; on evidence of aspiration here - although will get speech eval
Original Note:
Today's Communication/Plan
-
Wean steroids
Wean O2
Continue antibiotics
Gentle diuresis as needed
Assessment / Plan
Assessment / Plan
Physical Exam
General: No Apparent Distress
HEENT: PERRLA
Respiratory: Rhonchi; No Wheezes
Cardiac: Irregular Rhythm and Tachycardia
GI: Soft and Non Tender
Musculoskeletal: Other (trace bilateral edema; full range of motion LLE; no tenderness to palpation, no warmth or erythema )
Skin: Warm and Dry; No Rash
Neuro: AO x 3
Psych: Calm
Bilateral lower lobe pneumonia
Sepsis 2/2 Above
Acute on Chronic Hypoxic Respiratory Failure -required HFNC - wean as tolerated, now mid flow
Daily steroid use - started IV steroids 07/05�wean to 60 mg every 8h
-admit to IMU
-patient has allergies to penicillin and cephalosporins - will continue treatment with Levaquin (q48 hours for renal adjustment)
-Discontinue vancomycin, MRSA swab negative
-Switch to Unasyn, stop Levaquin; start azithromycin
-Wean o2 as tolerated
-F/U sputum culture, Legionella and Strep Ag negative
-F/U final Blood Cultures, repeat blood cultures, coag negative staph, most likely contaminant
-IVF PRN
-Incentive flavio and acapella
Acute on Chronic COPD
-continue home inhalers
-Duonebs
-start solumedrol 07/05�weaning initiated to 60 mg Q8h today
�Off high flow today, now on nasal cannula
Paroxysmal Atrial Fibrillation
Spontaneously converted to sinus rhythm
-fluids and treat infection as above
-ECHO�EF 55 to 60%, mild to moderate MR, mild to moderate TR, aortic sclerosis, pleural effusion
-Eliquis
-TFTs ok
-Cardiology consult
#Leukocytosis
� Likely secondary steroids
� Monitor fever curve, white count
� Broad antibiotics if becomes hemodynamically unstable
Non ischemic myocardial injury 2/2 sepsis above and paroxysmal afib with RVR
-Trend Troponins
-no chest pain
#Chronic lower extremity swelling
B/l Pleural Effusions
-IV lasix x 2
-resume diuretics
-resume po lasix
# 1.7 cm hypodense nodule within the right hemithyroid.
-f/u outpt
HLD
-LICENSED PRACTICAL NURSE INSTRUCTOR Statin
Hypothyroidism
-LICENSED PRACTICAL NURSE INSTRUCTOR Synthroid
DVT PPx Home Eliquis
DNR
Total time spent on today's encounter was 55 minutes which included time spent in counseling the patient/family regarding diagnosis and treatment plan as listed above, goals of care, and symptom management. Case was discussed with nursing staff,
specialists, and care coordinators/case management. All labs and imaging personally reviewed by me. Remainder the time spent in detailed review of previous records, lab data, imaging, and other medical provider documentation.
Anticipated Discharge: > 48 hours
Subjective/Interval History
-
Date of Service: July 07, 2024
Resp status improving, now on mid flow
Objective Data
-
Labs:
Laboratory Results
07/07/24
06:27
WBC 14.2 H
Hgb 11.3 L
Hct 33.8 L
Plt Count 331
Sodium 139
Potassium 3.9
Chloride 98
Carbon Dioxide 35 H
BUN 17
Creatinine 0.6
Glucose 163 H
Calcium 8.7
Total Bilirubin 0.5
AST 16
ALT 19
Alkaline Phosphatase 63
Vital Signs:
Vital Signs
Temp Pulse Resp BP Pulse Ox
97.3 F 73 18 124/81 96
07/07/24 07:46 07/07/24 15:23 07/07/24 15:23 07/07/24 14:04 07/07/24 15:23
I&O
07/06/24 07/07/24 07/08/24
06:59 06:59 06:59
Intake Total 970 / 970
Output Total 1999 1200 / 1200
Balance -2000 / -2000 -230 / -230
Review of Systems
-
History Source: Patient
All other systems: Not reviewed unless documented
Data Reviewed
-
Diagnostic Radiology: Report Reviewed by me
Ultrasound: Report Reviewed by me
Labs: Labs Reviewed by me
[2024-07-07] MEDS: DICLOFENAC 1% TOPICAL GEL TOPICAL ×2 (15:49→23:46)
[2024-07-07] MEDS: CARDIZEM CD 120 MG PO (15:49)
[2024-07-07 16:17] LABS: NT-proBNP 3240 pg/ml
--- NOTE | 2024-07-07 16:48 | PN.CDI ---
CDI
- -
CDI:
Physician Documentation Request
Admit Date: 07/02/24 13:06
Dear Doctor Derek,
Please review the following and provide your response in the progress notes.
Clinical Indicators:
Pt admitted with Sepsis 2/2 PNA /Acute on Chronic Hypoxic Respiratory Failure
Progress note 07/05-07/07.' Acute on Chronic COPD continue home inhaler-Duonebs start solumedrol 07/05 ...'
Progress note 07/07,' -start solumedrol 07/05�weaning initiated to 60 mg Q8h today Off high flow today, now on nasal cannula...'
Please provide a diagnosis for the above use of IV steriods:
COPD exacerbation
COPD - stable chronic disease
Other ( please specify)
Use of terms such as suspected, likely, concern for, or probable (associated with a specific diagnosis that is being evaluated, monitored, or treated as if it exists) are acceptable and can be coded in the inpatient setting, when documented at the
time of discharge.
Thank you,
Liz Vicente RN
CDI Specialist
[place] [facility]
Please use your independent medical judgment in providing your response.
[2024-07-07] MEDS: LIPITOR 10 MG PO (17:25)
[2024-07-07] MEDS: ZITHROMAX INFUSION 250 IV (17:26)
[2024-07-07] MEDS: NOVOLOG FLEXPEN-LOW RESISTANCE SC (17:30)
[2024-07-07 17:40] LABS: Glucose - Point of Care 145 mg/dl (70-99)
[2024-07-07] MEDS: MELATONIN 5 MG PO (21:10)
[2024-07-07] MEDS: LYRICA 50 MG PO (21:11)
[2024-07-07 21:50] LABS: Glucose - Point of Care 191 mg/dl (70-99)
[2024-07-07] MEDS: FLUSH (NSS) 2 FLUSH IV (23:46)
[2024-07-08] VITALS (10 sets, daily range): BP systolic 119–154; BP diastolic 59–102
--- NOTE | 2024-07-08 03:07 | PTCARENOTE ---
Pt AAOx3, flat affect at times. SR to SB on CM, PVC bigeminy seen briefly. Pt continues with harsh TIN ASSORTER cough. O2 weaned to 3L. Call santiago within reach.
[2024-07-08] MEDS: UNASYN IV ×3 (05:04→18:04)
[2024-07-08] MEDS: SYNTHROID 25 MCG PO (05:05)
[2024-07-08] MEDS: SOLU-MEDROL PF 60 MG IV ×2 (05:05→19:02)
[2024-07-08 05:40] LABS: Hematocrit 34.3 % (37.0-47.0); Hemoglobin 11.5 g/dL (12.0-16.0); Mean Corp Hgb Conc. 33.5 g/dL (33.0-37.0); Mean Corpuscular Hgb 28.7 pg (27.0-31.0); Mean Corpuscular Volume 85.5 fL (81.0-99.0); Mean Platelet Volume 9.4 fL (7.4-10.4); Platelet Count 348 10^3/uL (130-400); Red Blood Cell Count 4.01 10^6/uL (4.20-5.40); Red Cell Dist. Width 13.9 % (11.5-14.5); White Blood Cell Count 11.8 10^3/uL (4.8-10.8)
[2024-07-08 05:59] LABS: ALT (SGPT) 19 U/L (0-35); AST (SGOT) 17 U/L (14-36); Albumin 3.1 g/dl (3.5-5.0); Alkaline Phosphatase 60 U/L (38-126); Blood Urea Nitrogen 18 mg/dl (7-17); Calcium 8.7 mg/dl (8.4-10.2); Carbon Dioxide 31 mmol/L (22-30); Chloride 99 mmol/L (98-107); Estimated Creatinine Clearance 72 ml/min; Glucose 169 mg/dl (70-99); Potassium 3.7 mmol/L (3.5-5.1); Sodium 139 mmol/L (135-145); Total Bilirubin 0.5 mg/dl (0.2-1.3); Total Protein 5.7 g/dl (6.3-8.2); eGFR > 60.00
[2024-07-08] MEDS: DUONEB 3 ML INH ×4 (07:22→19:35)
[2024-07-08 07:58] LABS: Glucose - Point of Care 149 mg/dl (70-99)
[2024-07-08] MEDS: NOVOLOG FLEXPEN-LOW RESISTANCE SC ×2 (08:07→18:02)
[2024-07-08] MEDS: LASIX 10 MG PO (08:08)
[2024-07-08] MEDS: CARDIZEM CD 120 MG PO (08:11)
[2024-07-08] MEDS: MUCINEX 600 MG PO ×2 (08:13→19:02)
[2024-07-08] MEDS: PROTONIX 40 MG PO (08:13)
[2024-07-08] MEDS: DITROPAN 7.5 MG PO ×2 (08:13→19:02)
[2024-07-08] MEDS: SODIUM CHLORIDE 1 GRAM PO (08:14)
[2024-07-08] MEDS: LYRICA 75 MG PO (08:14)
[2024-07-08] MEDS: DICLOFENAC 1% TOPICAL GEL 2 GRAM TOPICAL ×3 (08:14→21:00)
[2024-07-08] MEDS: ELIQUIS 5 MG PO ×2 (08:14→19:02)
--- NOTE | 2024-07-08 10:33 | PTOTSP ---
Speech Therapy
Presentation: Patient was oriented and followed commands. Patient's vocal quality appeared to be weak (hx of vocal diffculty and treated for voice complaints in past). Patient's speech and language was WNL during conversation.
12/20/23 VSE: recommended L6 and mildly thick liquids (see note)
12/22/23 FREIGHT AGENT recommended upgrade to regular consistency solids and mildly thick diet from L6 and mildly thick liquids
Swallowing complaints: Patient stated that she has been drinking thin liquids and has been coughing. Per chart, patient has been on regular solids and mildly thick liquids. Patient mixed thin liquids with mildly thick liquids during breakfast this
AM which resulted in coughing.
Swallowing Function: FREIGHT AGENT observed patient with ice chips, thin liquids (cup), mildly thick liquid (cup), and regular consistency solids in which patient appeared to tolerate ice chips, mildly thick liquids and regular consistency solids (with small,
single bites and sips) as she did not exhibit any overt clinical s/sx of aspiration. Noted prolonged mastication of regular consistency solids which addtional time and thin liquid wash assisted with manipulation. Patient did demonstrate immediate
wet, harsh coughing with thin liquid trial which resulted in FREIGHT AGENT oral suctioning and cuing to use compensatory strategies (cough, throat clear, re-swallow) to manage overt aspiration s/sx. Patient verbalized that she felt as though the thin liquid
'went down the wrong pipe'.
FREIGHT AGENT reviewed recommendations and stressed the importance of implementing mildly thick liquids at this time with regular consistency solids and ARHP of ice chips to assist with swallowing maintenance
Recommendations:
1) Regular consistency solids and mildly thick liquids
2) PO only when alert
3) ARHP of ice chips after oral care
4) Consideration of VSE
5) Medications as tolerated (adrienne GE, in adrienne)
Plan: FREIGHT AGENT will continue to follow to ensure tolerance of PO; pending hospitalization. and hydration.
--- NOTE | 2024-07-08 11:11 | W.PN.CARDCBS ---
Addendum entered and electronically signed by Ghanshyam Kang MD 07/08/24 11:45:
Patient seen, interviewed and examined by me.
Well-appearing, no acute distress
Regular rate and rhythm with normal S1 and S2, no S3 no S4. There is a grade 1/6 apical holosystolic murmur and no rubs. PMI is normally placed.
Lungs are clear to auscultation bilaterally without wheezes rales or rhonchi.
Abdomen soft nontender nondistended with normoactive bowel sounds
Extremities show trace pretibial edema bilaterally no clubbing or cyanosis.
Neurologic exam is grossly nonfocal.
Symptomatically/clinically improved.
Stop IV Lasix, initiate oral Lasix at 20 mg daily which should be her outpatient dose.
Maintaining sinus rhythm. Continue Cardizem CD which provides rate control for paroxysmal atrial fibrillation.
Maintain Eliquis 5 mg twice daily for atrial fibrillation related thromboembolic risk reduction
Management of pneumonia as per primary service.
Not adding much else from a cardiology standpoint. Will sign off.
Original Note:
Today's Communication / Plan
-
po lasix 20mg daily
K repleted
cardizem cd 120mg daily
eliquis 5mg BID
wean supp O2 as able
continue treatment of pna, possibly aspiration
OP cardiac follow up arranged
Impression / Plan
-
Family Physician: Archie Mullen DO at [facility]
Solar Sales Advisor: None prior to admission, initial consultation with Dr. Meng Branch
Impression:
Presents left leg pain, worsening cough and generalized malaise 07/02/2024
Afib with RVR, spontaneously converted to sinus rhythm
Paroxysmal atrial fibrillation
Chronic Eliquis OAC
Acute hypoxic respiratory insufficiency
Bilateral pneumonia
Nonischemic myocardial injury secondary to pneumonia and atrial fibrillation with rapid ventricular response
Left lower extremity pain of unclear etiology
History of asthma/COPD
Hypertension
Hyperlipidemia
Type 2 diabetes
History of UTIs
GERD
Hypothyroidism with thyroid nodule by imaging
Spinal stenosis
Lymphedema
Polyneuropathy
Echo 07/03/24: Ejection fraction 55 to 60%, mild to moderate MR, mild to moderate TR, aortic sclerosis, PA systolic 54 mmHg, pleural effusion
Plan:
- Continue treatment of pneumonia. Able to be weaned to 3 L nasal cannula overnight, continue to wean as able
- She was given several doses of IV Lasix without significant improvement. Would not consider this to be acute heart failure. She was on 10 mg of p.o. Lasix prior to admission, have increased to 20 mg p.o. daily to continue at this time
- echo with preserved EF, mild to mod MR
- She presented in rapid A-fib on admission and spontaneously converted to sinus rhythm 07/03. Remains in sinus rhythm on review of telemetry overnight with PVCs at times in pattern of bigeminy. don Ceja cardizem cd 120mg daily added this admission
- continue OP eliquis 5mg BID
- Initial troponin 0.071 and peaked at 0.428. no acute ischemic changes on ECG. suspected nonischemic myocardial injury
- OP cardiology f/u arranged. Patient lives at [facility].
HPI07/02/2024: Blanca has history of atrial fibrillation on chronic Eliquis, asthma/COPD, GERD, hypertension, hyperglycemia, diabetes, hypothyroidism, anxiety/depression, frequent UTIs. She presented with complaint of left lower extremity pain.
Nursing at the [facility] noted rapid heartbeat. In ER she had rapid A-fib. She denies any palpitations, chest pain, or shortness of breath. Cardiology is consulted for rapid A-fib.
Progress Note - Solar Sales Advisor
Subjective
Date of Service: July 08, 2024
reports 'rattling' in her chest.
Objective
Labs:
07/08/24 05:13
07/08/24 05:13
Labs
Hgb 11.5 g/dL (12.0-16.0) L 07/08/24 05:13
Hct 34.3 % (37.0-47.0) L 07/08/24 05:13
Plt Count 348 10^3/uL (130-400) 07/08/24 05:13
PT 24.5 Sec (11.4-14.6) H 07/02/24 10:05
INR 2.20 07/02/24 10:05
APTT 44.2 Sec (23.4-35.0) H 07/02/24 10:05
Sodium 139 mmol/L (135-145) 07/08/24 05:13
Potassium 3.7 mmol/L (3.5-5.1) 07/08/24 05:13
BUN 18 mg/dl (7-17) H 07/08/24 05:13
Creatinine 0.5 mg/dL (0.6-1.0) L 07/08/24 05:13
Glucose 169 mg/dl (70-99) H 07/08/24 05:13
Vital Signs and I&O:
Vital Signs
Temp Pulse Resp BP Pulse Ox
97.6 F 69 16 154/75 98
07/08/24 07:00 07/08/24 08:08 07/08/24 07:23 07/08/24 04:00 07/08/24 10:51
Vital Signs
Temp Pulse Resp BP Pulse Ox
97.6 F 69 16 154/75 98
07/08/24 07:00 07/08/24 08:08 07/08/24 07:23 07/08/24 04:00 07/08/24 10:51
Intake & Output
07/06/24 07/07/24 07/08/24 07/09/24
07:59 07:59 07:59 07:59
Intake Total 970 / 970 1450 / 1450
Output Total 1999 / 1999 1200 / 1200 600 / 600
Balance -2000 / -2000 -230 / -230 850 / 850
Physical Exam
Physical Exam
GEN: No distress, awake, alert, oriented x3. on supp O2
HEENT: supple, anicteric, mmm, eomi
LUNGS: rhonchorous B/L, no wheezes
CV: Reg, S1/S2, 1/6 apical murmur
ABD: soft, BS+, NT/ND
EXT: No cyanosis, clubbing, edema
NEURO: Gross non-focal
SKIN: Warm, pink, dry. No rash
[2024-07-08] MEDS: KCL 20 MEQ PO (12:01)
[2024-07-08 12:33] LABS: Glucose - Point of Care 153 mg/dl (70-99)
[2024-07-08] MEDS: NOVOLOG FLEXPEN-LOW RESISTANCE 1 UNITS SC (12:44)
--- NOTE | 2024-07-08 14:05 | W.PN.HOSP.TC ---
Today's Communication/Plan
-
wean steroids
cont abx
wean o2
PT/OT
DG to tele
Assessment / Plan
Assessment / Plan
Physical Exam
General: No Apparent Distress
HEENT: PERRLA
Respiratory: Rhonchi�improved; No Wheezes
Cardiac: Irregular Rhythm and Tachycardia
GI: Soft and Non Tender
Musculoskeletal: Other (trace bilateral edema; full range of motion LLE; no tenderness to palpation, no warmth or erythema )
Skin: Warm and Dry; No Rash
Neuro: AO x 3
Psych: Calm
Bilateral lower lobe pneumonia
Sepsis 2/2 Above
Acute on Chronic Hypoxic Respiratory Failure -
-suspect aspiration, was taking thin liquids and [place]
� Continue regular diet, thick liquids; obvious patient aspirates on thin liquids
� Required HFNC - wean as tolerated, now mid flow
Daily steroid use - started IV steroids 07/05�wean to 60 mg every q12h
-patient has allergies to penicillin and cephalosporins - will continue treatment with Levaquin (q48 hours for renal adjustment)
-Discontinue vancomycin, MRSA swab negative
-Switch to Unasyn, stop Levaquin; start azithromycin - complete 10 day course
-Wean o2 as tolerated
-F/U sputum culture, Legionella and Strep Ag negative
-F/U final Blood Cultures, repeat blood cultures, coag negative staph, most likely contaminant
-IVF PRN
-Incentive flavio and acapella
Acute on Chronic COPD
-worsened with penumonia
-continue home inhalers
-Duonebs
-start solumedrol 07/05�weaning initiated to 60 mg Q12h today
-on 3L, is on o2 (unknown requirement) at home
- Abx
Paroxysmal Atrial Fibrillation
Spontaneously converted to sinus rhythm
-fluids and treat infection as above
-ECHO�EF 55 to 60%, mild to moderate MR, mild to moderate TR, aortic sclerosis, pleural effusion
-Eliquis
-TFTs ok
-Cardiology consult
#Leukocytosis
� Likely secondary steroids +sepsis
� Monitor fever curve, white count
� Broad antibiotics if becomes hemodynamically unstable
Non ischemic myocardial injury 2/2 sepsis above and paroxysmal afib with RVR
-Trend Troponins
-no chest pain
#B/l Pleural Effusions
#Chronic lower extremity swelling
-IV lasix x 2
-resume diuretics
-resume po lasix - 20mg daily
# 1.7 cm hypodense nodule within the right hemithyroid.
-f/u outpt
HLD
-STILL RUNNER Statin
Hypothyroidism
-STILL RUNNER Synthroid
DVT PPx Home Eliquis
DNR
Anticipated Discharge: 24 - 48 hours
Subjective/Interval History
-
Date of Service: July 08, 2024
On 3 L today, respiratory status improved
Objective Data
-
Labs:
Laboratory Results
07/08/24
05:13
WBC 11.8 H
Hgb 11.5 L
Hct 34.3 L
Plt Count 348
Sodium 139
Potassium 3.7
Chloride 99
Carbon Dioxide 31 H
BUN 18 H
Creatinine 0.5 L
Glucose 169 H
Calcium 8.7
Total Bilirubin 0.5
AST 17
ALT 19
Alkaline Phosphatase 60
Vital Signs:
Vital Signs
Temp Pulse Resp BP Pulse Ox
98.2 F 75 16 154/75 95
07/08/24 11:00 07/08/24 11:36 07/08/24 11:36 07/08/24 04:00 07/08/24 11:36
I&O
07/07/24 07/08/24 07/09/24
06:59 06:59 06:59
Intake Total 970 / 970 1450 / 1450
Output Total 1200 / 1200 600 / 600 1000 / 1000
Balance -230 / -230 850 / 850 -1000 / -1000
Review of Systems
-
History Source: Patient
All other systems: Not reviewed unless documented
Data Reviewed
-
Diagnostic Radiology: Report Reviewed by me
Ultrasound: Report Reviewed by me
Labs: Labs Reviewed by me
[2024-07-08] MEDS: SOLU-MEDROL PF IV (15:46)
[2024-07-08] MEDS: LIPITOR 10 MG PO (18:02)
[2024-07-08] MEDS: ZITHROMAX 500 MG PO (18:03)
[2024-07-08 18:13] LABS: Glucose - Point of Care 140 mg/dl (70-99)
[2024-07-08] MEDS: TESSALON PERLES 200 MG PO (19:02)
--- NOTE | 2024-07-08 19:39 | PTCARENOTE ---
This RN cannot verify accuracy of VS taken prior to 19:00. Pt AAOx3, PRN tessalon perles given per MAR for persistent cough. Pt denies additional complaints at this time. Call santiago within reach.
[2024-07-08] MEDS: MELATONIN 5 MG PO (21:00)
[2024-07-08] MEDS: LYRICA 50 MG PO (21:00)
[2024-07-08 21:44] LABS: Glucose - Point of Care 195 mg/dl (70-99)
[2024-07-09] VITALS (8 sets, daily range): BP systolic 126–151; BP diastolic 65–125; BMI 29.6
[2024-07-09] MEDS: UNASYN IV ×4 (00:05→18:41)
[2024-07-09 04:23] LABS: Hematocrit 34.6 % (37.0-47.0); Hemoglobin 11.4 g/dL (12.0-16.0); Mean Corp Hgb Conc. 32.9 g/dL (33.0-37.0); Mean Corpuscular Hgb 28.4 pg (27.0-31.0); Mean Corpuscular Volume 86.3 fL (81.0-99.0); Mean Platelet Volume 9.9 fL (7.4-10.4); Platelet Count 364 10^3/uL (130-400); Red Blood Cell Count 4.01 10^6/uL (4.20-5.40); Red Cell Dist. Width 14.1 % (11.5-14.5); White Blood Cell Count 11.2 10^3/uL (4.8-10.8)
[2024-07-09 04:37] LABS: ALT (SGPT) 22 U/L (0-35); AST (SGOT) 17 U/L (14-36); Albumin 3.3 g/dl (3.5-5.0); Alkaline Phosphatase 57 U/L (38-126); Blood Urea Nitrogen 19 mg/dl (7-17); Calcium 8.9 mg/dl (8.4-10.2); Carbon Dioxide 35 mmol/L (22-30); Chloride 97 mmol/L (98-107); Estimated Creatinine Clearance 73 ml/min; Glucose 174 mg/dl (70-99); Potassium 3.9 mmol/L (3.5-5.1); Sodium 140 mmol/L (135-145); Total Bilirubin 0.4 mg/dl (0.2-1.3); Total Protein 5.8 g/dl (6.3-8.2); eGFR > 60.00
[2024-07-09] MEDS: SYNTHROID 25 MCG PO (05:03)
[2024-07-09] MEDS: DUONEB 3 ML INH ×2 (07:29→11:09)
[2024-07-09 08:06] LABS: Glucose - Point of Care 149 mg/dl (70-99)
[2024-07-09] MEDS: NOVOLOG FLEXPEN-LOW RESISTANCE SC ×2 (08:27→13:16)
[2024-07-09] MEDS: LASIX 20 MG PO (08:27)
[2024-07-09] MEDS: LYRICA 75 MG PO (08:28)
[2024-07-09] MEDS: DITROPAN 7.5 MG PO ×2 (08:28→19:39)
[2024-07-09] MEDS: ELIQUIS 5 MG PO ×2 (08:28→19:39)
[2024-07-09] MEDS: SODIUM CHLORIDE 1 GRAM PO (08:28)
[2024-07-09] MEDS: CARDIZEM CD 120 MG PO (08:28)
[2024-07-09] MEDS: PROTONIX 40 MG PO (08:28)
[2024-07-09] MEDS: MUCINEX 600 MG PO ×2 (08:28→19:39)
[2024-07-09] MEDS: SOLU-MEDROL PF 60 MG IV (08:30)
[2024-07-09] MEDS: DICLOFENAC 1% TOPICAL GEL 2 GRAM TOPICAL ×2 (08:31→17:58)
--- NOTE | 2024-07-09 12:20 | W.PN.HOSP.TC ---
Addendum entered and electronically signed by Get Reed MD 07/09/24 16:12:
[id number]
Original Note:
Today's Communication/Plan
-
complete abx course
steroid taper until back on home dose prednisone
lasix 20mg daily
cbc and bmp outpt
f/u pulmonary, cardiology, pcp outpt
repeat chest imaging in 4-6 weeks
thyroid US
Assessment / Plan
Assessment / Plan
Physical Exam
General: No Apparent Distress
HEENT: PERRLA
Respiratory: Rhonchi�improved; No Wheezes
Cardiac: Irregular Rhythm and Tachycardia
GI: Soft and Non Tender
Musculoskeletal: Other (trace bilateral edema; full range of motion LLE; no tenderness to palpation, no warmth or erythema )
Skin: Warm and Dry; No Rash
Neuro: AO x 3
Psych: Calm
Bilateral lower lobe pneumonia
Sepsis 2/2 Above
Acute on Chronic Hypoxic Respiratory Failure -
-suspect aspiration, was taking thin liquids and Neshaminy [place]
� Continue regular diet, thick liquids; obvious patient aspirates on thin liquids
� Required HFNC - wean as tolerated, now mid flow
Daily steroid use - started IV steroids 07/05�wean to 60 mg every q12h
-patient has allergies to penicillin and cephalosporins - will continue treatment with Levaquin (q48 hours for renal adjustment)
-Discontinue vancomycin, MRSA swab negative
-Switch to Unasyn, stop Levaquin; start azithromycin - complete 10 day course; Can dc on augmentin to complete total 10 day course along; 5 day course of azithro
-Wean o2 as tolerated
-F/U sputum culture, Legionella and Strep Ag negative
-F/U final Blood Cultures, repeat blood cultures, coag negative staph, most likely contaminant
-IVF PRN
-Incentive flavio and acapella
-F/u repeat imaging outpt for resolution
Acute on Chronic COPD
-worsened with penumonia
-continue home inhalers
-Duonebs
-start solumedrol 07/05�weaning initiated to 60 mg Q12h - transition to prednisone; taper by 10mg every 72 hours, until back on 5mg daily; 40mg x 3 days, then 30mg x 3 days, then 20mg x 3 days, then 10 mg x 3 days, then back on 5mg daily as home dose
-on 3L, is on o2 (unknown requirement) at home- is intermittently using at home;
- Abx
Paroxysmal Atrial Fibrillation
Spontaneously converted to sinus rhythm
-fluids and treat infection as above
-ECHO�EF 55 to 60%, mild to moderate MR, mild to moderate TR, aortic sclerosis, pleural effusion
-Eliquis
-TFTs ok
-Cardiology consulted -
#Leukocytosis
� Likely secondary steroids +sepsis
� Monitor fever curve, white count
� Broad antibiotics if becomes hemodynamically unstable
- f/u cbc outpt
Non ischemic myocardial injury 2/2 sepsis above and paroxysmal afib with RVR
-Trend Troponins
-no chest pain
#There is a possible 1.7 cm hypodense nodule within the right hemithyroid.
-f/u outpt
#B/l Pleural Effusions
#Chronic lower extremity swelling
-IV lasix x 2
-resume diuretics
-resume po lasix - 20mg daily
# 1.7 cm hypodense nodule within the right hemithyroid.
-f/u outpt
HLD
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
Hypothyroidism
-PHOTOGRAPHER APPRENTICE Synthroid
DVT PPx Home Eliquis
DNR
More than 30 minutes spent in discharge including
Final examination of the patient
Summarizing hospital stay
Instructions for continuing care to all relevant caregivers
Preparation of discharge records, prescriptions, and referral forms
Total time spent (36 in minutes):
Anticipated Discharge: Today
Subjective/Interval History
-
Date of Service: July 09, 2024
doing much better
Objective Data
-
Labs:
Laboratory Results
07/09/24
04:08
WBC 11.2 H
Hgb 11.4 L
Hct 34.6 L
Plt Count 364
Sodium 140
Potassium 3.9
Chloride 97 L
Carbon Dioxide 35 H
BUN 19 H
Creatinine 0.6
Glucose 174 H
Calcium 8.9
Total Bilirubin 0.4
AST 17
ALT 22
Alkaline Phosphatase 57
Vital Signs:
Vital Signs
Temp Pulse Resp BP Pulse Ox
98.3 F 78 18 149/125 87
07/09/24 07:25 07/09/24 11:10 07/09/24 11:10 07/09/24 10:00 07/09/24 11:21
I&O
07/08/24 07/09/24 07/10/24
06:59 06:59 06:59
Intake Total 1450 / 1450
Output Total 600 / 600 1300 / 1300 950 / 950
Balance 850 / 850 -1300 / -1300 -950 / -950
Review of Systems
-
History Source: Patient
All other systems: Not reviewed unless documented
Physical Exam
-
General: No Apparent Distress
HEENT: Normocephalic, Atraumatic and Oxygen
Respiratory: Wheezes (improving ) and Non Labored Respirations
Cardiac: Regular Rhythm and S1/S2
Breast: Deferred by me
GI: Soft, Nontender and Nondistended
Rectal: Deferred by Provider
Genito-urinary: Deferred by me
Musculoskeletal: No Clubbing, No Cyanosis and No Edema
Skin: Warm
Neuro: Awake
Psych: Calm
--- NOTE | 2024-07-09 12:31 | CHAP ---
Blanca was in good spirits. She shared thoughts and feelings about the situation she is facing. Emotional and spiritual support provided.
[2024-07-09 12:34] LABS: Glucose - Point of Care 177 mg/dl (70-99)
--- NOTE | 2024-07-09 13:15 | W.DS.TRANS ---
DC Summary - [employer]
-
Discharge Instructions:
Discharge Diagnosis/Procedures Pneumonia
COPD exacerbation
#B/l Pleural Effusions
#Chronic lower extremity swelling
Diet Restrict fluids to 48 oz
Activity As tolerated
Blood Work cbc and cmp in 1 week with pcp
Others Tests repeat chest imaging in 4-6 weeks
1.7 cm hypodense nodule within the right
hemithyroid. - thyroid US outpatient
Instructions:
Stand-Alone Forms:
Changes to Home Medications: Yes
Discharge Medications:
DC Medications w/original date entered in spotflux
acetaminophen 325 mg tablet (Tylenol) 650 mg PO Q4HPRN PRN mild pain/fever>100.4 03/24/22
apixaban 5 mg tablet (Eliquis) 5 mg PO BID@0830,1830 Blood Clot Prevention/Tx 03/24/22
atorvastatin 10 mg tablet (Lipitor) 10 mg PO QPM High Cholesterol 03/24/22
coQ10 (ubiquinol) 200 mg capsule 200 mg PO DAILY Supplement 03/24/22
diclofenac sodium 1 % topical gel 2 g topical Q8H both knees 03/24/22
estradiol 0.01% (0.1 mg/gram) vaginal cream 2 g vaginal TUFR@1830 Hormonal Agent 03/24/22
levothyroxine 25 mcg tablet 25 mcg PO DAILY Thyroid 03/24/22
magnesium hydroxide 400 mg/5 mL oral suspension (Milk of Magnesia) 2,400 mg PO HSPRN PRN constipation 03/24/22
guaifenesin 600 mg tablet, extended release 12 hr (Mucinex) 600 mg PO [id number] PRN cough 05/22/22
budesonide 0.5 mg/2 mL suspension for nebulization 0.5 mg inhalation R BID@0630,2030 Lung/Breathing Issues 12/19/23
potassium chloride 10 mEq capsule,extended release 10 meq PO DAILY Electrolyte Repletion 12/19/23
pregabalin 50 mg capsule 50 mg PO HS neuro pain 12/19/23
pregabalin 75 mg capsule 75 mg PO DAILY neuro pain 12/19/23
albuterol sulfate 90 mcg/actuation aerosol inhaler 2 puff inhalation R TIDPRN PRN sob 07/02/24
calcium carbonate 600 mg PO DAILY Supplement 07/02/24
cholecalciferol (vitamin D3) 1,250 mcg (50,000 unit) tablet 1,250 mcg PO QMONTH Supplement 07/02/24
ipratropium 0.5 mg-albuterol 3 mg (2.5 mg base)/3 mL nebulization soln 3 ml inhalation R QID@0830,1230,1630 Lung/Breathing Issues 07/02/24
prednisone 5 mg tablet 5 mg PO DAILY Anti-Inflammatory 07/02/24
sodium chloride 1,000 mg soluble tablet 1,000 mg PO DAILY Electrolyte Repletion 07/02/24
vitamin B complex 1 tab PO DAILY Supplement 07/02/24
amoxicillin 875 mg-potassium clavulanate 125 mg tablet 1 tab PO Q12H 5 days #10 tabs 07/09/24
azithromycin 500 mg tablet 500 mg PO DAILY 1 day #1 tab 07/09/24
diltiazem HCl 120 mg capsule,extended release 24 hr 120 mg PO DAILY #0 caps 07/09/24
furosemide 20 mg tablet 20 mg PO DAILY #0 tabs 07/09/24
oxybutynin chloride 5 mg tablet 7.5 mg (1.5 x 5 mg) PO BID #0 tabs 07/09/24
prednisone 10 mg tablet See Rx Instructions .Route .COMPLEX #30 tabs 07/09/24
Home Medication Changes
amoxicillin 875 mg-potassium clavulanate 125 mg tablet 1 tab PO Q12H 5 days #10 tabs 07/09/24
azithromycin 500 mg tablet 500 mg PO DAILY 1 day #1 tab 07/09/24
diltiazem HCl 120 mg capsule,extended release 24 hr 120 mg PO DAILY #0 caps 07/09/24
furosemide 20 mg tablet 20 mg PO DAILY #0 tabs 07/09/24
oxybutynin chloride 5 mg tablet 7.5 mg (1.5 x 5 mg) PO BID #0 tabs 04/13/25
prednisone 10 mg tablet See Rx Instructions .Route .COMPLEX #30 tabs 07/09/24
Pending Results: No
[2024-07-09] MEDS: NOVOLOG FLEXPEN-LOW RESISTANCE 1 UNITS SC ×2 (14:03→18:02)
--- NOTE | 2024-07-09 14:04 | CM ---
DC to [facility] Today
6:30 transport
IMM issued verbally to son, Willy. Daughter at bedside and also aware of dc plans.
Report to [facility]
fax [phone].
[2024-07-09] MEDS: DUONEB INH (15:04)
[2024-07-09 15:22] LABS: Glucose - Point of Care 185 mg/dl (70-99)
--- NOTE | 2024-07-09 16:31 | PTCARENOTE ---
Rec'd pt from IMU. Pt requesting purewick despite education regarding same, pt insistent. Pt placed on tele running nsr. Pt call santiago placed within reach, pt instructed to ring for assistance. will cont to monitor.
[2024-07-09] MEDS: ZITHROMAX 500 MG PO (18:02)
[2024-07-09] MEDS: LIPITOR 10 MG PO (18:03)
--- NOTE | 2024-07-09 18:25 | PTCARENOTE ---
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 Report called to Stephane.
== END 2024-07-09 21:56 | DRG 871 ==
LOC: 4 WEST ACU 13:06
PROVIDERS: Internal Medicine Cardiovascular Disease; Nurse Practitioner Family; Physician Assistant; ADMITTING PHYSICIAN Student in an Organized Health Care Education/Training Program; ATTENDING PHYSICIAN Internal Medicine; CONSULT PHYSICIAN Internal Medicine Cardiovascular Disease; EMERGENCY PHYSICIAN Emergency Medicine; FAMILY PHYSICIAN Student in an Organized Health Care Education/Training Program
DX: A41.9 Sepsis, unspecified organism (principal); J18.9 Pneumonia, unspecified organism; J96.21 Acute and chronic respiratory failure with hypoxia; J81.0 Acute pulmonary edema; J90 Pleural effusion, not elsewhere classified; J44.1 Chronic obstructive pulmonary disease with (acute) exacerbation; J44.0 Chronic obstructive pulmonary disease with (acute) lower respiratory infection; I5A Non-ischemic myocardial injury (non-traumatic); I48.0 Paroxysmal atrial fibrillation; I10 Essential (primary) hypertension
CPT/HCPCS: 36600; 71045; 71046; 71275; 73502; 80048; 80053; 80061; 82805; 82962; 83036; 83605; 83735; 83880; 84439; 84443; 84484; 85025; 85027; 85610; 85730; 87040; 87070; 87147; 87150; 87205; 87449; 87502; 87641; 87811; 87899; 92610; 93005; 93306; 93971; 94640; 96361; 96365; 96375; 97163; 97530; 99285; Q9967

== ENCOUNTER → 2024-07-17 09:39 | Outpatient (REF) | payer OTHER, SELFPAY ==
[2024-07-17 10:14] LABS: % Basophils 0.1 % (0-2); % Immature Granulocytes 0.8 % (0-0.5); % Lymphocytes 20.9 % (20.5-51.1); % Neutrophils 68.2 % (42.2-75.2); Absolute Eosinophils 0.1 10^3/uL (0-0.7); Absolute Immature Granulocytes 0.1 10^3/uL (0-0.05); Absolute Lymphocytes 2.3 10^3/uL (1.2-3.4); Absolute Neutrophils 7.5 10^3/uL (1.4-6.5); Hematocrit 35.4 % (37.0-47.0); Hemoglobin 11.5 g/dL (12.0-16.0); Mean Corp Hgb Conc. 32.5 g/dL (33.0-37.0); Mean Corpuscular Volume 89.2 fL (81.0-99.0); Mean Platelet Volume 10.9 fL (7.4-10.4); Nucleated Red Blood Cells % 0 %; Platelet Count 297 10^3/uL (130-400); Red Blood Cell Count 3.97 10^6/uL (4.20-5.40)
[2024-07-17 10:25] LABS: ALT (SGPT) 23 U/L (0-35); AST (SGOT) 16 U/L (14-36); Albumin 3.2 g/dl (3.5-5.0); Alkaline Phosphatase 59 U/L (38-126); Blood Urea Nitrogen 18 mg/dl (7-17); Calcium 9.1 mg/dl (8.4-10.2); Carbon Dioxide 33 mmol/L (22-30); Chloride 99 mmol/L (98-107); Glucose 99 mg/dl (70-99); Potassium 4.2 mmol/L (3.5-5.1); Sodium 139 mmol/L (135-145); Total Bilirubin 0.5 mg/dl (0.2-1.3); Total Protein 5.4 g/dl (6.3-8.2); eGFR > 60.00
== END ==
LOC: OLABN 09:39
PROVIDERS: ATTENDING PHYSICIAN Student in an Organized Health Care Education/Training Program
DX: J44.9 Chronic obstructive pulmonary disease, unspecified (principal)
CPT/HCPCS: 36415; 80053; 85025

== ENCOUNTER 2024-10-02 08:28 | Inpatient (IN) | payer MEDICARE, OTHER, SELFPAY ==
[2024-10-02] VITALS (15 sets, daily range): BP systolic 117–164; BP diastolic 66–101; BMI 28.7
[2024-10-02] MEDS: TYLENOL 650 MG PO (05:44)
[2024-10-02] MEDS: DUONEB 3 ML INH ×3 (05:45→16:02)
[2024-10-02 05:47] LABS: Hematocrit 40.4 % (37.0-47.0); Hemoglobin 12.9 g/dL (12.0-16.0); Mean Corp Hgb Conc. 31.9 g/dL (33.0-37.0); Mean Corpuscular Volume 92.4 fL (81.0-99.0); Nucleated Red Blood Cells % 0 %; Platelet Count 221 10^3/uL (130-400); Red Cell Dist. Width 15.1 % (11.5-14.5)
[2024-10-02 06:04] LABS: COVID-19 Antigen Negative (Negative)
[2024-10-02 06:07] LABS: ALT (SGPT) 27 U/L (0-35); AST (SGOT) 30 U/L (14-36); Albumin 4.0 g/dl (3.5-5.0); Alkaline Phosphatase 67 U/L (38-126); Blood Urea Nitrogen 16 mg/dl (7-17); Calcium 9.0 mg/dl (8.4-10.2); Carbon Dioxide 30 mmol/L (22-30); Chloride 102 mmol/L (98-107); Estimated Creatinine Clearance 54 ml/min; Glucose 105 mg/dl (70-99); Potassium 4.2 mmol/L (3.5-5.1); Sodium 139 mmol/L (135-145); Total Protein 6.5 g/dl (6.3-8.2); eGFR > 60.00
[2024-10-02] MEDS: DECADRON 6 MG IV (06:13)
[2024-10-02] MEDS: LASIX 20 MG IV (06:13)
[2024-10-02 06:20] LABS: Troponin I 0.055 ng/ml
--- NOTE | 2024-10-02 06:42 | ED.GENMED ---
History of Present Illness
General
Chief Complaint: Breathing Problem
Source: patient
Exam Limitations: none
Time Seen by Provider: 10/02/24 06:10
Nursing documentation reviewed up to this point in time: agreed with
History of Present Illness
History of Present Illness:
Patient with history of COPD on oxygen (2 L via nasal cannula), atrial fibrillation on Eliquis, and congestive heart failure on Lasix, presents to ED from half-way secondary to hypoxia along with increased work of breathing, which started 3 to 4
days ago. Pt does report coughing. Upon arrival, patient is found to be febrile, which she was unaware of. Denies headache. Denies chest pain. Denies abdominal pain. Denies vomiting or diarrhea. Denies loss of appetite. Patient has chronic
leg swelling. Patient at baseline, utilizes wheelchair. Denies recent change in medications or diet.
Past History
Past History
ED Past Medical History: Asthma, COPD, HTN, Hypercholesterolemia, NIDDM, Hypothyroidism, Psychiatric (anxiety/depression) and Other (frequent UTI)
ED Past Surgical History: Orthopedic
Social History
Tobacco: Former smoker
Alcohol: None
Drug: None
Personal:
Living: assisted living
Review of Systems
Review of Systems
Allergies reviewed?: Yes
All Other Systems: ROS reviewed and negative except as documented in HPI and ROS
Constitutional: Reports no symptoms; Denies fever or chills
EENT: Reports no symptoms
Respiratory: Reports cough and trouble breathing
Cardiac: Reports no symptoms; Denies chest pain
ABD/GI: Reports no symptoms; Denies vomiting or diarrhea
Musculoskeletal: Reports edema
Skin: Reports no symptoms
Neurological: Reports no symptoms
Phy Exam
Physical Exam
Physical Exam:
Physical Exam
General: moderate respiratory distress, acutely ill. febrile.
Head: nc/at. eomi
Neck: supple. no meningeal signs.
Heart: s1/s2 regular rate and rhythm
Lungs: mild respiratory distress. crackles/rhonchi bilaterally
Abdomen: normal bowel sounds. not tender.
Neuro: alert and oriented x 3. no focal neurological deficits
Skin: no rash
Psychiatric: well kept. interactive and cooperative
Extremities: no edema. no calf tenderness.
Scores
Heart Failure Risk
Heart Failure Risk Score: Yes
History of Stroke or TIA: No
History of intubation for respiratory distress: No
Heart rate on ED arrival >/= 110: No
SaO2 <90% on arrival on room air: Yes
HR >/=110 during 3min walk test (or too ill to perform test): No
ECG has acute ischemic changes: No
Urea >/=12mmol/L (BUN 33.6mg/dL): No
Serum CO2>/=35mmol/L: No
Troponin I or T elevated to UT Level (0.4mg/dL): No
NT-proBNP >/=5,000ng/L (5,000pg/ml): No
HF Risk Score: 1
Admission Status: MEDIUM RISK 5.1% Consider observation or discharge to home with homecare & f/u visit to PCP/Curriculum And Assessment Coordinator, or SNF for treatment
Sepsis
Sepsis Screening
Sepsis Assessment: Sepsis Ruled Out
Sepsis Screen
Sepsis Screen: Sepsis Ruled Out
Date: 10/02/24
Time: 14:30
Course
Orders/Labs/Results
Orders:
Orders
10/02/24 05:25
Electrocardiogram (*1) Urgent
Reason for Study: Other
Other Reason for Exam: Possible Sepsis
Cardiac Monitoring- Treatment ONCE
EKG- Treatment ONCE
IV Insert/Care/Rem.- Treatment PRN
CR Chest Portable - 1 View Urgent
Comment:
Reason For Exam: shortness of breath
Reason Study Needs to be Portable: Patient Unstable
O2 Therapy [RESP] Urgent
Titrate/Wean O2 to maintain O2 sat greater than (%): 93
Special Instructions: TO MAINTAIN CONTINUOUS O2 SATS > OR = 93%
Pulse Ox/cont/shift [RESP] Urgent
Quantity: 1
Special Instructions: CONTINUOUS
10/02/24 05:31
Complete Blood Count/With Diff Urgent
Comprehensive Metabolic Panel Urgent
Glycohemoglobin (HgbA1c) Urgent
Lactic Acid Q4H
Comment: ON ICE, CANCEL 2ND ORDER IF FIRST LACTIC ACID LEVEL <2
NT-proBNP Urgent
Troponin I Urgent
Blood Culture Q20M
MERCED Source: Blood/Venous
Specimen Description:
Comment: Urgent from separate sites. If patient screens positive for possible sepsis
10/02/24 05:38
COVID-19 Antigen Urgent
Source: Nasal Swab
Blood Culture Q20M
MERCED Source: Blood/Venous
Specimen Description:
Comment: Urgent from separate sites. If patient screens positive for possible sepsis
INF RAPID [Influenza A+B Rapid Molecular] Urgent
MERCED Source: Nasal Swab
Specimen Description:
10/02/24 05:41
Acetaminophen [Tylenol] 650 mg PO NOW STA
10/02/24 05:42
Ipratropium/Albuterol Sulfate [Duoneb] 3 ml INH R NOW ONE
10/02/24 Breakfast
Regular
At Your Request: Limited, Launch Leader Required
10/02/24 06:07
Dexamethasone Sod Phosphate [Decadron] 6 mg IV NOW STA
10/02/24 06:08
Furosemide [Lasix] 20 mg IV NOW STA
10/02/24 07:36
LevoFLOXacin 500 MG/100 ML [Levaquin] 500 mg in 100 ml IV NOW
MetroNIDAZOLE 500 MG/100 ML [Flagyl 500 mg] 100 ml IV NOW
10/02/24 08:13
Admit/Transfer Patient As Directed
Co-Sign Provider:
Level of Care: Inpatient admission
Assign to:: Telemetry
Physician / Group: Hospitalist
Diagnosis: Fever, Hypoxia
Reason for Telemetry: Other
Other Reason for Telemetry: trop
Date to Stop Telemetry: 10/04/24
Time to Stop Telemetry: 11:00
Reason for Hospitalization: Fever, Hypoxia
Expected length of stay greater than two midnights?: Yes
ELOS- Estimated Length of Stay in days: 3
I certify the patient meets the requirements for IP care: Yes
Respiratory Culture/Gram Stain Urgent
MERCED Source: Sputum
Specimen Description:
10/02/24 08:14
PRN Pain Medication Management As Directed
May give lesser potent ordered pain med per pt: Yes
preference::
Protocol:: Medication orders for pain may be administered in a
manner that supports deferring to patient preference
when the pt is:
- Requesting an ordered lesser potent pain medication.
Least to most potent pain medications are defined
as: acetaminophen < NSAID < tramadol < opioids
(morphine, oxycodone, hydromorphone).
- Requesting a lesser dose of the same medication IF
ORDERED.
- Requesting a less intrusive route of administration
if both routes are prescribed by the provider (PO <
IV).
10/02/24 08:25
Apixaban [Eliquis] 5 mg PO NOW STA
10/02/24 08:26
Diltiazem Extended Release [Cardizem Cd] 120 mg PO NOW STA
Guaifenesin [Mucinex] 600 mg PO NOW STA
10/02/24 08:27
Levothyroxine [Synthroid] 25 mcg PO NOW STA
10/02/24 08:28
Pregabalin [Lyrica] 75 mg PO NOW STA
10/02/24 08:29
Pantoprazole [Protonix IV] 40 mg IV NOW STA
10/02/24 09:49
Troponin I Q6H
10/02/24 11:24
Rx Pep / Acapela [RESP] Routine
Speech Therapy Eval & Treat Routine
10/02/24 12:00
Dexamethasone Sod Phosphate [Decadron] 4 mg IV Q6H
10/02/24 12:47
Albuterol [ProAIR HFA INHALER] 2 puff INH R TIDPRN PRN sob
Atorvastatin [Lipitor] 10 mg PO QPM
Diclofenac 1% Topical Gel 2 gram TOPICAL Q8H
Apply 2 or 4 grams as per protocol to the following joints:: Left Knee
Right Knee
Ipratropium/Albuterol Sulfate [Duoneb] 3 ml INH R QID@0830,1230,1630
10/02/24 12:47
Add On- LAB Routine
Tests Added?: HbA1C
Activity As Directed
Activity Level: Encourage Progressive Amb
Intake/ Output As Directed
Frequency: Per unit guidelines
Vital Signs As Directed
Frequency: Per unit guidelines
Copd Education [RESP] Routine
10/02/24 16:00
Troponin I Q6H
10/02/24 18:30
Apixaban [Eliquis] 5 mg PO BID@0830,1830
10/02/24 20:00
Guaifenesin [Mucinex] 600 mg PO Q12
Oxybutynin Chloride [Ditropan] 7.5 mg PO BID
10/02/24 20:30
Budesonide [Pulmicort] 0.5 mg INH R BID@0630,2029
10/02/24 22:00
Pregabalin [Lyrica] 50 mg PO HS
10/03/24 06:00
Basic Metabolic Panel IN AM
10/03/24 08:00
Diltiazem Extended Release [Cardizem Cd] 120 mg PO DAILY
Levothyroxine [Synthroid] 25 mcg PO DAILY
Pantoprazole [Protonix] 40 mg PO DAILY
Pregabalin [Lyrica] 75 mg PO DAILY
Sodium Chloride 1 gram PO DAILY
10/03/24 18:30
Estradiol Vaginal [Estrace 0.01% Vaginal Cream] DOSE applic VAG TUFR@1830
10/04/24 11:00
DC Protocol for Telemetry ONCE
Abnormal Lab Results
10/02/24
05:31
MCHC 31.9 L g/dL
(33.0-37.0)
RDW 15.1 H %
(11.5-14.5)
Absolute Monos (auto) 1.1 H 10^3/uL
(0.1-0.6)
Lymphocytes % 17.2 L %
(20.5-51.1)
Monocytes % 13.5 H %
(1.7-9.3)
Glucose 105 H mg/dl
(70-99)
Hemoglobin A1c 5.8 H %
(4.0-5.6)
Troponin I 0.055 H* ng/ml
10/02/24 05:31
10/02/24 05:31
Vital Signs
Initial and Last Documented VS:
Initial Vital Signs
Temp Pulse Resp BP Pulse Ox
101.8 F H 84 25 164/91 85
10/02/24 05:17 10/02/24 05:17 10/02/24 05:17 10/02/24 05:17 10/02/24 05:17
Last Documented Vital Signs
Temp Pulse Resp BP Pulse Ox
98.8 F 62 21 131/86 89
10/02/24 07:04 10/02/24 13:00 10/02/24 13:00 10/02/24 13:00 10/02/24 13:00
MDM/Problems Addressed
MDM/Problems Addressed:
History and exam concerning for hypoxia, likely secondary to aspiration pneumonia versus bronchitis, along with component of congestive heart failure. As such, patient will be admitted for further evaluation and treatment, as she is requiring
increased oxygen support. Patient will be started on empiric antibiotics along with Decadron and nebulizer treatment.
*Pulse Oximetry
SaO2: 97
Nasal Cannula flow liters per minute: 6
Oxygen Mode of Delivery: Aerosol mask
Patient hypoxic: yes
*Critical Care Note
Total Time (30-74mins, 75-104mins- exclusive of procedures): Not Applicable
ED Attending Note
-
Portions of this chart may have been created with voice recognition software.� Occasional wrong word or��sound alike� substitutions may have occurred due to the inherent limitations of voice recognition software.
Discharge Plan
Departure
Patient Disposition: Admit
Date of Disposition: 10/02/24
Time of Disposition: 07:38
Admit to: Telemetry
Presentation/result/management discussed w/ accepting MD/DO: Hospitalist
Discharge Problem:
Fever, Hypoxia
Interventions
Interventions:
*Risk Screen - Suicide Last Done: 10/02/24 05:17
*General Assessment Last Done: 10/02/24 05:17
*Neglect/Abuse Screening Last Done: 10/02/24 05:17
*ED- Fall Risk Assessment Last Done: 10/02/24 05:17
*ED COVID-19 Vaccine History Last Done: 10/02/24 05:17
ED- Cardiac Assessment Last Done: 10/02/24 07:06
ED- Pulmonary Assessment Last Done: 10/02/24 07:06
[2024-10-02] MEDS: LEVAQUIN 100 IV (07:48)
--- NOTE | 2024-10-02 07:53 | HPS.HSE ---
Family Physician
-
Family Physician: Archie Mullen DO
Chief Complaint
-
84-year-old female with shortness of breath
History of Present Illness
84-year-old female presented to the hospital with shortness of breath. She also had cough. She was found to be febrile in the ER patient was not aware of this.
Medical History
Past Medical History
Past Medical History: Reports Other
Additional Past Medical History:
Chronic back pain, polyneuropathy neuropathy, asthma, COPD, atrial fibrillation, hypertension, hyperlipidemia, chronic dysphagia, spinal stenosis, hypothyroidism, diabetes, anxiety and depression, lymphedema, peripheral vascular
Past Surgical History: Reports Other
Additional Past Surgical History:
Surgery for varicose veins , carpal tunnel, cataracts, appendectomy, tonsillectomy
Social History
Tobacco: Former Smoker
Alcohol: None
Drug: None
Living: [facility]
Family History
Family History: Not pertinent
Allergies / Home Medications
Allergies reflects when Allergies were last updated in [facility].
Home Medications with original date entered in [facility]
Allergy/Medication List:
Allergies
Allergy/AdvReac Type Severity Reaction Status Date / Time
cefuroxime Allergy Anaphylaxis Verified 10/02/24 05:16
gabapentin Allergy Itching Verified 10/02/24 05:16
meloxicam Allergy Unknown Verified 10/02/24 05:16
Penicillins Allergy Nausea / Verified 10/02/24 05:16
Vomiting
Sulfa (Sulfonamide Allergy Hives Verified 10/02/24 05:16
Antibiotics)
tetanus toxoid, adsorbed Allergy Hives Verified 10/02/24 05:16
Home Medications
acetaminophen 325 mg tablet (Tylenol) 650 mg PO Q4HPRN PRN mild pain/fever>100.4 03/24/22
apixaban 5 mg tablet (Eliquis) 5 mg PO BID@0830,1830 Blood Clot Prevention/Tx 03/24/22
atorvastatin 10 mg tablet (Lipitor) 10 mg PO QPM High Cholesterol 03/24/22
coQ10 (ubiquinol) 200 mg capsule 200 mg PO DAILY Supplement 03/24/22
diclofenac sodium 1 % topical gel 2 g topical Q8H both knees 03/24/22
estradiol 0.01% (0.1 mg/gram) vaginal cream 2 g vaginal TUFR@1830 Hormonal Agent 03/24/22
levothyroxine 25 mcg tablet 25 mcg PO DAILY Thyroid 03/24/22
magnesium hydroxide 400 mg/5 mL oral suspension (Milk of Magnesia) 2,400 mg PO HSPRN PRN constipation 03/24/22
guaifenesin 600 mg tablet, extended release 12 hr (Mucinex) 600 mg PO [id number] PRN cough 05/22/22
budesonide 0.5 mg/2 mL suspension for nebulization 0.5 mg inhalation R BID@0630,2030 Lung/Breathing Issues 12/19/23
potassium chloride 10 mEq capsule,extended release 10 meq PO DAILY Electrolyte Repletion 12/19/23
pregabalin 50 mg capsule 50 mg PO HS neuro pain 12/19/23
pregabalin 75 mg capsule 75 mg PO DAILY neuro pain 12/19/23
albuterol sulfate 90 mcg/actuation aerosol inhaler 2 puff inhalation R TIDPRN PRN sob 07/02/24
calcium carbonate 600 mg PO DAILY Supplement 07/02/24
cholecalciferol (vitamin D3) 1,250 mcg (50,000 unit) tablet 1,250 mcg PO QMONTH Supplement 07/02/24
ipratropium 0.5 mg-albuterol 3 mg (2.5 mg base)/3 mL nebulization soln 3 ml inhalation R QID@0830,1230,1630 Lung/Breathing Issues 07/02/24
prednisone 5 mg tablet 5 mg PO DAILY Anti-Inflammatory 07/02/24
Held on 07/09/24. Instructions: Resume on 07/26/24. hold until steroid taper completed
sodium chloride 1,000 mg soluble tablet 1,000 mg PO DAILY Electrolyte Repletion 07/02/24
vitamin B complex 1 tab PO DAILY Supplement 07/02/24
diltiazem HCl 120 mg capsule,extended release 24 hr 120 mg PO DAILY #0 caps 07/09/24
oxybutynin chloride 5 mg tablet 7.5 mg (1.5 x 5 mg) PO BID #0 tabs 07/09/24
furosemide 20 mg tablet 20 mg PO DAILY 10/02/24
furosemide 20 mg tablet (Lasix) 20 mg PO DAILY PRN edema 10/02/24
Review of Systems
-
A 12 point ROS was completed and negative except as noted: Yes
Respiratory: Reports Cough and Trouble Breathing
Abdomen/GI: Reports Abdominal Pain (Patient had abdominal pain yesterday none today.)
Physical Exam
Vital Signs
Vital Signs
Temp Pulse Resp BP Pulse Ox
98.8 F 78 22 127/66 94
10/02/24 07:04 10/02/24 07:04 10/02/24 07:04 10/02/24 07:04 10/02/24 07:04
Physical Exam
General: Conversant and Respiratory Distress (mild)
Respiratory: Wheezes and Rhonchi
Cardiac: S1/S2 and Regular Rhythm
GI: Soft, Non Tender and Normal Bowel Sounds
Musculoskeletal: Other (trace edema)
Skin: Warm
Neuro: Awake, Alert, No Motor Deficits and Nonfocal/grossly intact
Psych: Calm
Laboratory Results
-
10/02/24 05:31
10/02/24 05:31
Laboratory Results
Lactic Acid Cancelled 10/02/24 09:30
Total Bilirubin 0.7 mg/dl (0.2-1.3) 10/02/24 05:31
AST 30 U/L (14-36) 10/02/24 05:31
ALT 27 U/L (0-35) 10/02/24 05:31
Alkaline Phosphatase 67 U/L (38-126) 10/02/24 05:31
Troponin I 0.055 ng/ml H* 10/02/24 05:31
Impression/Plan
-
IMPRESSION/PLAN:
Chest [id number] by me- mild left lower lobe infiltrate
EKG reviewed by me-sinus rhythm with PACs, nonspecific ST-T changes
# Acute hypoxic respiratory failure
Likely secondary to COPD exacerbation and pneumonia
Chronic steroid-dependent COPD
X-ray as above
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
Started on Levaquin and Flagyl-continue
Decadron 4 mg every 6 hours for COPD exacerbation
DuoNebs 4 times daily and as needed
Mucolytic's
Acapella
# Abdominal discomfort-poor p.o. intake likely secondary to fever. Patient does not have eminently abdominal pain or tenderness on exam today. Advised to let me know if she has more symptoms coming up. Add PPI as patient is on chronic steroids
and also on Eliquis.
# Atrial obwyduqscsrj-dudosibrwm-dqkwinwh diltiazem and Eliquis
# Hypertension-continue diltiazem
# Hypothyroidism-continue levothyroxine patient has COPD
# Hyperlipidemia-continue atorvastatin
# Prediabetes with hemoglobin A1c 6.2 on 07/03/2024. Need to watch sugars while on steroids
# Spinal stenosis polyneuropathy-continue Lyrica
# 1.7 cm hypodense nodule in the right hemithyroid-Needs outpatient workup
# Chronic lymphedema lower extremity bilaterally on Lasix
# History of hyponatremia on sodium chloride tablets
# Ex-smoker quit at age 48
# DVT Prophylaxis- Eliquis
# DNR per D/W daughter at bed side
75 min
Part of this note was created using voice recognition system. Occasional wrong word or��sound alike� substitutions may have inadvertently occurred due to the inherent limitations of voice recognition software. If noted kindly bring it to my
attention for correction.
[2024-10-02] MEDS: LYRICA 75 MG PO (08:34)
[2024-10-02] MEDS: CARDIZEM CD 120 MG PO (08:34)
[2024-10-02] MEDS: ELIQUIS 5 MG PO ×2 (08:34→18:19)
[2024-10-02] MEDS: SYNTHROID 25 MCG PO (08:35)
[2024-10-02] MEDS: MUCINEX 600 MG PO ×2 (08:35→22:15)
[2024-10-02] MEDS: FLAGYL 500 MG 100 IV (08:38)
[2024-10-02] MEDS: PROTONIX IV 40 MG IV (08:44)
[2024-10-02] MEDS: NSS (PRESERVATIVE FREE) 10 ML IV (08:44)
[2024-10-02 10:33] LABS: Troponin I 0.072 ng/ml
--- NOTE | 2024-10-02 10:39 | CM ---
CM reviewed chart and met pt and daughter bedside in ED.
Pt is LTC resident at [facility], [place] bed hold.
Is wheelchair bound, needs assistance with ADLs and personal care.
Over past several days has needed O2 2L NC continuously, previously using O2 PRN.
PCP: Archie Mullen
Discharge plan: Return to [facility], watch for needs
[2024-10-02] MEDS: DECADRON 4 MG IV ×3 (11:47→23:57)
--- NOTE | 2024-10-02 12:43 | PTOTSP ---
Dysphagia Evaluation
Patient with a known history of moderate pharyngeal dysphagia with variable sensory response to aspiration of thin liquids and a cough response to aspiration of mildly thick liquids via straw (see videofluoroscopic swallow study note 12/20/2023).
She is currently admitted with acute respiratory failure due to COPD exacerbation and PNA, which elevates acute dysphagia/aspiration risk and raises concern for possible aspiration complications. Chronic dysphagia risk factors include COPD and left
vocal fold paresis. Patient has had recurrent admissions with PNA (11/2023, 06/2024, and now 09/2024).
Repeat video swallow study and temporary diet modifications recommended. Patient declined both, but appeared confused during evaluation. Physician to discuss with family further.
Recommend:
1. IDDSI 4 (Puree), IDDSI 2 Mildly Thick liquids via cup - pending further discussions with family
2. Medications: in puree
3. Strategies: 1:1 supervision/assist, small single sips/bites, slow rate, reflux precautions, stop if coughing noted
4. Oral care 3x daily
5. Videofluoroscopic swallow study pending patient/family goals of care
[2024-10-02] MEDS: LIPITOR PO (13:24)
[2024-10-02 13:33] LABS: Glycohemoglobin (HgbA1c) 5.8 % (4.0-5.6)
--- NOTE | 2024-10-02 16:33 | EDRN ---
Troponin hemolyzed: 1600 troponin giorgio by ED RN. Patient transported to floor bed in 317 by [employer]. Lab called to report troponin specimen hemolyzed after patient left ED. ED RN called floor of bed 317-02 and spoke to floor staff, Zechariah, to notify
of hemolyzed troponin. Troponin re-ordered
[2024-10-02] MEDS: LIPITOR 10 MG PO (18:19)
[2024-10-02 18:28] LABS: Troponin I 0.052 ng/ml
[2024-10-02] MEDS: PULMICORT 0.5 MG INH (19:08)
[2024-10-02] MEDS: LYRICA 50 MG PO (21:59)
[2024-10-02] MEDS: DICLOFENAC 1% TOPICAL GEL 2 GRAM TOPICAL (22:13)
[2024-10-02] MEDS: DITROPAN 7.5 MG PO (22:15)
[2024-10-03 03:05] VITALS: BP 167/93
[2024-10-03] MEDS: SYNTHROID 25 MCG PO (05:45)
[2024-10-03] MEDS: DECADRON 4 MG IV ×3 (05:45→20:07)
[2024-10-03] MEDS: DICLOFENAC 1% TOPICAL GEL 2 GRAM TOPICAL ×3 (05:47→20:15)
[2024-10-03 07:20] VITALS: BP 148/84
[2024-10-03] MEDS: PULMICORT 0.5 MG INH ×2 (07:51→19:30)
[2024-10-03] MEDS: DUONEB 3 ML INH ×3 (07:52→15:19)
[2024-10-03 08:42] LABS: Blood Urea Nitrogen 20 mg/dl (7-17); Calcium 8.6 mg/dl (8.4-10.2); Carbon Dioxide 28 mmol/L (22-30); Chloride 102 mmol/L (98-107); Estimated Creatinine Clearance 72 ml/min; Glucose 130 mg/dl (70-99); Potassium 4.4 mmol/L (3.5-5.1); Sodium 137 mmol/L (135-145); eGFR > 60.00
[2024-10-03] MEDS: DITROPAN 7.5 MG PO ×2 (08:45→20:14)
[2024-10-03] MEDS: CARDIZEM CD 120 MG PO (08:45)
[2024-10-03] MEDS: ELIQUIS 5 MG PO ×2 (08:46→17:16)
[2024-10-03] MEDS: MUCINEX 600 MG PO ×2 (08:46→20:06)
[2024-10-03] MEDS: SODIUM CHLORIDE 1 GRAM PO (08:47)
[2024-10-03] MEDS: PROTONIX 40 MG PO (08:47)
[2024-10-03] MEDS: LEVAQUIN 150 IV (09:27)
[2024-10-03] MEDS: LYRICA 75 MG PO (09:28)
[2024-10-03 11:18] VITALS: BP 138/73
--- NOTE | 2024-10-03 12:33 | CM ---
Patient chart reviewed
spoke with Faye at [facility]
Pt is LTC resident at [facility], [place]
Referral entered in [facility] to return when stable
PLAN: [facility] LTC when stable
Report #: [phone]
Fax #: [phone]
--- NOTE | 2024-10-03 13:36 | W.PN.HOSP.TC ---
Today's Communication/Plan
-
Patient wants to think about diet
Diet changed back to regular diet
Wean steroids
Wean oxygen as tolerated
Encourage out of bed
Assessment / Plan
Assessment / Plan
Chest n-zzf-iqqtsgxx by me- mild left lower lobe infiltrate
EKG reviewed by me-sinus rhythm with PACs, nonspecific ST-T changes
Awake alert and oriented not in any acute distress
Cardiovascular system S1-S2 appreciated
Chest no wheezes today.
Abdomen soft and nontender
No pedal edema
# Acute hypoxic respiratory failure
She is down to 4 L from 6 L yesterday
Likely secondary to COPD exacerbation and pneumonia ,likely aspiration pneumonia
Chronic steroid-dependent COPD
X-ray as above
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
Speech therapy evaluated the patient. Recommended pur�ed diet with mildly thickened liquids.
Patient does not want to have this diet. Reviewed extensively regarding risks of aspiration and it could lead up to pneumonias and recurrent hospitalizations.
Patient wants to think about it further and let me know. Daughter was at bedside for this discussion.
If she does want to follow speech directions we will get video swallow test.
Started on Levaquin -continue
Decadron 4 mg every 6 hours for COPD exacerbation-changed to every 8
DuoNebs 4 times daily and as needed
Mucolytic's
Acapella
# Abdominal discomfort-poor p.o. intake likely secondary to fever. Patient does not have eminently abdominal pain or tenderness on exam today. Advised to let me know if she has more symptoms coming up. Added PPI as patient is on chronic steroids
and also on Eliquis.
# Atrial tzdbexqwaznh-fyuqiunhas-jaquasmj diltiazem and Eliquis
# Hypertension-continue diltiazem
# Hypothyroidism-continue levothyroxine patient has COPD
# Hyperlipidemia-continue atorvastatin
# Prediabetes with hemoglobin A1c 6.2 on 07/03/2024. Need to watch sugars while on steroids
# Spinal stenosis polyneuropathy-continue Lyrica
# 1.7 cm hypodense nodule in the right hemithyroid-Needs outpatient workup
# Chronic lymphedema lower extremity bilaterally -on Lasix
# History of hyponatremia on sodium chloride tablets
# Ex-smoker quit at age 48
# DVT Prophylaxis- Eliquis
# DNR per D/W daughter at bed side
Discussed with nursing
Discussed with daughter at bedside
Discussed with speech therapy
Part of this note was created using voice recognition system. Occasional wrong word or��sound alike� substitutions may have inadvertently occurred due to the inherent limitations of voice recognition software. If noted kindly bring it to my
attention for correction.
Anticipated Discharge: 24 - 48 hours
Subjective/Interval History
-
Date of Service: October 03, 2024
Objective Data
-
Labs:
Laboratory Results
10/03/24
06:45
Sodium 137
Potassium 4.4
Chloride 102
Carbon Dioxide 28
BUN 20 H
Creatinine 0.6
Glucose 130 H
Calcium 8.6
Vital Signs:
Vital Signs
Temp Pulse Resp BP Pulse Ox
98.7 F 77 18 138/73 97
10/03/24 11:18 10/03/24 11:18 10/03/24 11:18 10/03/24 11:18 10/03/24 11:18
I&O
10/02/24 10/03/24 10/04/24
06:59 06:59 06:59
Intake Total 960 / 960
Balance 960 / 960
[2024-10-03 15:00] VITALS: BP 120/69
[2024-10-03] MEDS: KCL 10 MEQ PO (15:26)
[2024-10-03] MEDS: LASIX 20 MG PO (15:26)
[2024-10-03] MEDS: LIPITOR 10 MG PO (17:16)
[2024-10-03] MEDS: ESTRACE 0.01% VAGINAL CREAM 1 APPLIC VAG (17:16)
[2024-10-03 19:00] VITALS: BP 136/74
[2024-10-03] MEDS: LYRICA 50 MG PO (20:07)
[2024-10-03 23:00] VITALS: BP 143/81
[2024-10-04 03:00] VITALS: BP 102/54
[2024-10-04] MEDS: SYNTHROID 25 MCG PO (03:34)
[2024-10-04] MEDS: DECADRON 4 MG IV ×2 (03:35→12:38)
[2024-10-04] MEDS: DICLOFENAC 1% TOPICAL GEL 2 GRAM TOPICAL ×3 (03:36→21:05)
[2024-10-04] MEDS: PULMICORT 0.5 MG INH ×2 (06:26→19:12)
[2024-10-04] MEDS: DUONEB 3 ML INH ×2 (06:26→16:30)
[2024-10-04 08:11] VITALS: BP 139/66
[2024-10-04] MEDS: SODIUM CHLORIDE 1 GRAM PO (08:12)
[2024-10-04] MEDS: DITROPAN 7.5 MG PO ×2 (08:12→21:44)
[2024-10-04] MEDS: PROTONIX 40 MG PO (08:12)
[2024-10-04] MEDS: KCL 10 MEQ PO (08:13)
[2024-10-04] MEDS: MUCINEX 600 MG PO ×2 (08:13→21:04)
[2024-10-04] MEDS: LYRICA 75 MG PO (08:13)
[2024-10-04] MEDS: CARDIZEM CD 120 MG PO (08:13)
[2024-10-04] MEDS: LEVAQUIN 150 IV (08:13)
[2024-10-04] MEDS: ELIQUIS 5 MG PO ×2 (08:13→17:47)
[2024-10-04] MEDS: LASIX 20 MG PO (08:13)
--- NOTE | 2024-10-04 08:34 | PN.CDI ---
CDI
- -
CDI:
Physician Documentation Request
Admit Date: 10/02/24 08:28
Dear Doctor,
Please review the following and provide your response in the progress notes.
Clinical Indicators:
Pt admitted with Acute hypoxic respiratory failure Likely secondary to COPD exacerbation and pneumonia ,likely aspiration pneumonia.
ER Note: ' Patient with history of COPD on oxygen (2 L via nasal cannula)..'
Clarify which of the following accurately represents the patient's respiratory status:
Acute on chronic respiratory failure
Acute respiratory failure Only
Other
Use of terms such as suspected, likely, concern for, or probable (associated with a specific diagnosis that is being evaluated, monitored, or treated as if it exists) are acceptable and can be coded in the inpatient setting, when documented at the
time of discharge.
Thank you,
Kathy Atkinson RN, BSN
CDI Specialist
[employer]
Please use your independent medical judgment in providing your response.
[2024-10-04 08:55] VITALS: BMI 28.7
[2024-10-04 10:10] LABS: Blood Urea Nitrogen 21 mg/dl (7-17); Calcium 8.6 mg/dl (8.4-10.2); Carbon Dioxide 30 mmol/L (22-30); Chloride 102 mmol/L (98-107); Estimated Creatinine Clearance 62 ml/min; Glucose 243 mg/dl (70-99); Potassium 3.8 mmol/L (3.5-5.1); Sodium 137 mmol/L (135-145); eGFR > 60.00
[2024-10-04 10:30] VITALS: BP 123/69; PULSE 78; O2SAT 97
[2024-10-04] MEDS: DUONEB INH (11:30)
--- NOTE | 2024-10-04 12:13 | PTOTSP ---
Videofluoroscopic swallow study
Patient presents with WFL-mild oral/pharyngeal dysphagia. Esophageal sweep with retrograde flow of conrast between the pharyngoesophageal segment and bottom up aspiration risk may be elevated.
Recommend:
1. IDDSI Level 7 Regular, Thin liquids
2. Medications as best tolerated
3. Strategies: upright to 90 degrees, no straws, alternate bites with sips of liquid to assist with pharyngeal clearance, remain upright for 30 minutes after PO intake as a reflux precaution
4. Oral care 3x daily
5. GI consult as appropriate
6. Brief dysphagia f/u for education re: compensations.
[2024-10-04 12:22] VITALS: BP 124/103
[2024-10-04] MEDS: FLUSH (NSS) 2 FLUSH IV (12:39)
--- NOTE | 2024-10-04 13:10 | CM ---
chart reviewed
spoke with Zechariah at [facility]
PT rec therapy when she returns to facility
PLAN: [facility] LTC when stable
Report #: [phone]
Fax #: [phone]
--- NOTE | 2024-10-04 16:07 | W.PN.HOSP.TC ---
Today's Communication/Plan
-
Wean steroids
Wean oxygen as tolerated
Encourage out of bed and mobility
Possible discharge in the next 48 hours.
Assessment / Plan
Assessment / Plan
Chest e-ppj-hmhzmnvf by me- mild left lower lobe infiltrate
EKG reviewed by me-sinus rhythm with PACs, nonspecific ST-T changes
Awake alert and oriented not in any acute distress
Cardiovascular system S1-S2 appreciated
Chest no wheezes today.
Abdomen soft and nontender
No pedal edema
# Acute hypoxic respiratory failure
She is down to 3 L from 6 L on admission
Likely secondary to COPD exacerbation and pneumonia ,likely aspiration pneumonia
Chronic steroid-dependent COPD
X-ray as above
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
Speech therapy evaluated the patient. Video swallow noted. Patient is okay for regular diet
Started on Levaquin -continue
Decadron 2 mg every 8 hours for COPD exacerbation
DuoNebs 4 times daily and as needed
Mucolytic's
Acapella
Outpatient GI consult
# Abdominal discomfort-None since admission
# Atrial cjzgwqlkggrm-iyvervfwfj-jcnpwiok diltiazem and Eliquis
# Hypertension-continue diltiazem
# Hypothyroidism-continue levothyroxine patient has COPD
# Hyperlipidemia-continue atorvastatin
# Prediabetes with hemoglobin A1c 6.2 on 07/03/2024. Added SSI
# Spinal stenosis polyneuropathy-continue Lyrica
# 1.7 cm hypodense nodule in the right hemithyroid-Needs outpatient workup
# Chronic lymphedema lower extremity bilaterally -on Lasix
# History of hyponatremia on sodium chloride tablets
# Ex-smoker quit at age 48
# DVT Prophylaxis- Eliquis
# DNR per D/W daughter at bed side
Discussed with nursing
Discussed with speech therapy, video swallow noted
Part of this note was created using voice recognition system. Occasional wrong word or��sound alike� substitutions may have inadvertently occurred due to the inherent limitations of voice recognition software. If noted kindly bring it to my
attention for correction.
Anticipated Discharge: 24 - 48 hours
Subjective/Interval History
-
Date of Service: October 04, 2024
Objective Data
-
Labs:
Laboratory Results
10/04/24
09:08
Sodium 137
Potassium 3.8
Chloride 102
Carbon Dioxide 30
BUN 21 H
Creatinine 0.7
Glucose 243 H
Calcium 8.6
Vital Signs:
Vital Signs
Temp Pulse Resp BP Pulse Ox
97.5 F 75 14 124/103 92
10/04/24 12:22 10/04/24 12:22 10/04/24 12:22 10/04/24 12:22 10/04/24 12:36
I&O
10/03/24 10/04/24 10/05/24
06:59 06:59 06:59
Intake Total 960 / 960 240 / 240
Output Total 500 / 500
Balance 960 / 960 -260 / -260
[2024-10-04 16:38] VITALS: BP 133/79
[2024-10-04 17:40] LABS: Glucose - Point of Care 202 mg/dl (70-99)
[2024-10-04] MEDS: NOVOLOG FLEXPEN-LOW RESISTANCE 2 UNITS SC (17:45)
[2024-10-04] MEDS: LIPITOR 10 MG PO (17:47)
[2024-10-04] MEDS: DECADRON 2 MG IV (21:03)
[2024-10-04] MEDS: LYRICA 50 MG PO (21:08)
[2024-10-04 23:35] VITALS: BP 147/93
[2024-10-05] MEDS: DECADRON 2 MG IV ×3 (05:47→21:37)
[2024-10-05] MEDS: SYNTHROID 25 MCG PO (05:48)
[2024-10-05] MEDS: DICLOFENAC 1% TOPICAL GEL TOPICAL (05:48)
[2024-10-05 07:30] VITALS: BP 147/79
[2024-10-05] MEDS: DUONEB 3 ML INH ×3 (07:33→15:00)
[2024-10-05] MEDS: PULMICORT 0.5 MG INH ×2 (07:33→19:39)
[2024-10-05 08:10] LABS: Glucose - Point of Care 146 mg/dl (70-99)
[2024-10-05] MEDS: NOVOLOG FLEXPEN-LOW RESISTANCE SC (08:22)
[2024-10-05] MEDS: CARDIZEM CD 120 MG PO (08:35)
[2024-10-05] MEDS: PROTONIX 40 MG PO (08:35)
[2024-10-05] MEDS: LEVAQUIN 150 IV (08:35)
[2024-10-05] MEDS: MUCINEX 600 MG PO ×2 (08:36→21:38)
[2024-10-05] MEDS: DITROPAN 7.5 MG PO ×2 (08:36→21:57)
[2024-10-05] MEDS: KCL 10 MEQ PO (08:36)
[2024-10-05] MEDS: LASIX 20 MG PO (08:36)
[2024-10-05] MEDS: ELIQUIS 5 MG PO ×2 (08:36→18:03)
[2024-10-05] MEDS: LYRICA 75 MG PO (08:36)
[2024-10-05] MEDS: SODIUM CHLORIDE 1 GRAM PO (08:36)
--- NOTE | 2024-10-05 10:36 | CM ---
Patient seen at bedside with daughter Yoselin
Patient from [facility]
PT rec skilled rehab once she returns
PLAN: [facility] when stable
Report #: [phone]
Fax #: [phone]
--- NOTE | 2024-10-05 11:03 | W.PN.HOSP.TC ---
Today's Communication/Plan
-
Decadron to be changed to Prednisone
Levaquin to change to oral
Assessment / Plan
Assessment / Plan
Chest x-ray-Mild left lower lobe retrocardiac parenchymal opacity noted, which has been seen previously. This could represent chronic parenchymal scarring versus persistent and/or recurrent parenchymal consolidation.
EKG -SINUS RHYTHM WITH PREMATURE ATRIAL COMPLEXES
NONSPECIFIC ST ABNORMALITY
ABNORMAL ECG
WHEN COMPARED WITH ECG OF 05-JUL-2024 09:24,
NO SIGNIFICANT CHANGE WAS FOUND
# Acute hypoxic respiratory failure
She is down to room air from 6 L on admission, with SaO2 of 92%
Likely secondary to COPD exacerbation and pneumonia ,likely aspiration pneumonia
Chronic steroid-dependent COPD
X-ray as above
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
Speech therapy evaluated the patient. Video swallow noted. Patient is okay for regular diet
Started on Levaquin -continue. but change to oral
Decadron has been 2 mg every 8 hours for COPD exacerbation, with change to Prednisone
DuoNebs 4 times daily and as needed
Mucolytic's
Acapella
Outpatient GI consult
# Abdominal discomfort-None since admission
# Atrial zdcepbcaiqav-qmasfvrlct-lgyeudwg diltiazem and Eliquis
# Hypertension-continue diltiazem
# Hypothyroidism-continue levothyroxine patient has COPD
# Hyperlipidemia-continue atorvastatin
# Prediabetes with hemoglobin A1c 6.2 on 07/03/2024. Added SSI
# Spinal stenosis polyneuropathy-continue Lyrica
# 1.7 cm hypodense nodule in the right hemithyroid-Needs outpatient workup
was noted on dc instructions from last hospitalization, unclear if this was followed up. Dgt will check with her sister and will discuss further
# Chronic lymphedema lower extremity bilaterally -on Lasix
# History of hyponatremia on sodium chloride tablets
# Ex-smoker quit at age 48
# DVT Prophylaxis- Eliquis
# DNR per D/W daughter at bed side
Discussed with nursing
Discussed with speech therapy, video swallow noted
Anticipated Discharge: 24 - 48 hours
Subjective/Interval History
-
Date of Service: October 05, 2024
believes she is breathing better
Objective Data
-
Vital Signs:
Vital Signs
Temp Pulse Resp BP Pulse Ox
98.0 F 57 18 147/93 92
10/05/24 07:30 10/05/24 08:35 10/05/24 07:36 10/05/24 08:35 10/05/24 07:36
I&O
10/04/24 10/05/24 10/06/24
06:59 06:59 06:59
Intake Total 240 / 240 1480 / 1480
Output Total 500 / 500
Balance -260 / -260 1480 / 1480
Review of Systems
-
History Source: Patient and Family (dgt)
Constitutional: Denies Fever
EENT: Reports No Symptoms Reported
Respiratory: Reports Cough and Trouble Breathing (better)
Cardiac: Reports No Symptoms
Abdomen/GI: Reports No Symptoms
Genitourinary: Reports No Symptoms
Neuro: Reports No Symptoms
Physical Exam
-
General: Well Developed and Well Nourished
HEENT: Normocephalic, Atraumatic and Moist Mucous Membranes
Respiratory: Wheezes (coarse wheeze on forced expiration, with good air movement); Negative Rhonchi
Cardiac: Regular Rhythm and S1/S2
GI: Soft, Nontender and Nondistended
Musculoskeletal: No Clubbing, No Cyanosis and No Edema
Neuro: Awake, Alert and Oriented
[2024-10-05 12:15] LABS: Glucose - Point of Care 169 mg/dl (70-99)
[2024-10-05] MEDS: DICLOFENAC 1% TOPICAL GEL 2 GRAM TOPICAL ×2 (12:23→21:38)
[2024-10-05] MEDS: NOVOLOG FLEXPEN-LOW RESISTANCE 1 UNITS SC ×2 (12:23→18:01)
[2024-10-05] MEDS: FLUSH (NSS) 2 FLUSH IV (12:26)
--- NOTE | 2024-10-05 12:51 | PN.CDI ---
CDI
- -
CDI:
Physician Documentation Request
Admit Date: 10/02/24 08:28
Dear Doctor,
Please review the following and provide your response in the progress notes.
Clinical Indicators:
Pt admitted for Acute hypoxic respiratory failure Likely secondary to COPD exacerbation and pneumonia ,likely aspiration pneumonia.
Laboratory Tests
10/02/24 10/02/24 10/02/24
05:31 09:49 17:53
Troponin I 0.055 H* 0.072 H* D 0.052 H*
Based on the above, could you clarify in the progress notes, the appropriate diagnosis, if significant, that supports the above Lab abnormalities and additional evaluation, monitoring and/or treatment rendered:
Non-ischemic myocardial injury
Insignificant abnormal lab values
Other
Use of terms such as suspected, likely, concern for, or probable (associated with a specific diagnosis that is being evaluated, monitored, or treated as if it exists) are acceptable and can be coded in the inpatient setting, when documented at the
time of discharge.
Thank you,
Kathy Atkinson RN, BSN
CDI Specialist
[place] [facility]
Please use your independent medical judgment in providing your response.
[2024-10-05 16:00] VITALS: BP 112/69
[2024-10-05 17:59] LABS: Glucose - Point of Care 156 mg/dl (70-99)
[2024-10-05] MEDS: LIPITOR 10 MG PO (18:08)
[2024-10-05 20:31] LABS: Glucose - Point of Care 230 mg/dl (70-99)
[2024-10-05] MEDS: LYRICA 50 MG PO (21:46)
[2024-10-05 23:42] VITALS: BP 141/90
[2024-10-06] MEDS: SYNTHROID 25 MCG PO (05:57)
[2024-10-06] MEDS: DICLOFENAC 1% TOPICAL GEL 2 GRAM TOPICAL ×3 (05:58→21:48)
[2024-10-06] MEDS: PULMICORT 0.5 MG INH ×2 (07:12→19:28)
[2024-10-06] MEDS: DUONEB 3 ML INH ×3 (07:12→15:28)
[2024-10-06 07:30] VITALS: BP 139/82
[2024-10-06] MEDS: SODIUM CHLORIDE 1 GRAM PO (08:16)
[2024-10-06] MEDS: DITROPAN 7.5 MG PO ×2 (08:16→21:46)
[2024-10-06] MEDS: ELIQUIS 5 MG PO ×2 (08:16→18:11)
[2024-10-06] MEDS: PROTONIX 40 MG PO (08:16)
[2024-10-06] MEDS: MUCINEX 600 MG PO ×2 (08:16→21:46)
[2024-10-06] MEDS: DELTASONE 40 MG PO (08:16)
[2024-10-06] MEDS: CARDIZEM CD 120 MG PO (08:17)
[2024-10-06] MEDS: LASIX 20 MG PO (08:17)
[2024-10-06] MEDS: LEVAQUIN 500 MG PO (08:17)
[2024-10-06] MEDS: LYRICA 75 MG PO (08:17)
[2024-10-06] MEDS: KCL 10 MEQ PO (08:17)
[2024-10-06 08:18] LABS: Glucose - Point of Care 199 mg/dl (70-99)
[2024-10-06] MEDS: NOVOLOG FLEXPEN-LOW RESISTANCE 300 UNITS SC (08:18)
--- NOTE | 2024-10-06 10:45 | CM ---
Patient seen at bedside
IMM explained & signed. In chart
Spoke with Zechariah & updated, tentative dc Sat
PLAN: [facility] when stable
Report #: [phone]
Fax #: [phone]
[2024-10-06 12:27] LABS: Glucose - Point of Care 120 mg/dl (70-99)
[2024-10-06] MEDS: NOVOLOG FLEXPEN-LOW RESISTANCE SC ×2 (13:34→18:57)
[2024-10-06 16:00] VITALS: BP 130/69
--- NOTE | 2024-10-06 17:22 | W.PN.HOSP.TC ---
Today's Communication/Plan
-
Would dc on chopped diet
Assessment / Plan
Assessment / Plan
Chest x-ray-Mild left lower lobe retrocardiac parenchymal opacity noted, which has been seen previously. This could represent chronic parenchymal scarring versus persistent and/or recurrent parenchymal consolidation.
EKG -SINUS RHYTHM WITH PREMATURE ATRIAL COMPLEXES
NONSPECIFIC ST ABNORMALITY
ABNORMAL ECG
WHEN COMPARED WITH ECG OF 05-JUL-2024 09:24,
NO SIGNIFICANT CHANGE WAS FOUND
# Acute hypoxic respiratory failure
She is down to room air from 6 L on admission, with SaO2 of 92-95%
Acute process most likely secondary to aspiration PNA on top of baseline COPD, pt has definitely improved and is probably back to baseline status
Chronic steroid-dependent COPD, currently on 40 mg Prednisone daily. Was on 5 mg daily prior to her acute episode, would cautiously taper back to baseline
X-ray as above
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
Speech therapy evaluated the patient. Nursing believes patient is aspirating at times, especially when not paying attention to eating. This was reviewed with pt and dgts at bedside.
We discussed consideration for PEG feeding tube, which pt and dgts do not want. At this point in time patient should be discharged on a chopped diet to [facility], hopefully tomorrow
Started on Levaquin -continue. but change to oral
Decadron has been 2 mg every 8 hours for COPD exacerbation, with change to Prednisone 40 mg as of today
DuoNebs 4 times daily and as needed
Mucolytic's
Acapella
Mild Troponin elevation, peaked at 0.072
consistent with Non-ischemic myocardial injury
# Abdominal discomfort-None since admission
# Atrial qcrtrouvzbji-ungduisosy-yanesyhm diltiazem and Eliquis
# Hypertension-continue diltiazem
# Hypothyroidism-continue levothyroxine patient has COPD
# Hyperlipidemia-continue atorvastatin
# Prediabetes with hemoglobin A1c 6.2 on 07/03/2024. Added SSI
# Spinal stenosis polyneuropathy-continue Lyrica
# 1.7 cm hypodense nodule in the right hemithyroid-Needs outpatient workup
was noted on dc instructions from last hospitalization, unclear if this was followed up. As per dgt, pt was seen by Dr. Boothe (?ENT) in March and was told the small nodule had not changed in over 2 yrs and should not affect her
# Chronic lymphedema lower extremity bilaterally -on Lasix
# History of hyponatremia on sodium chloride tablets
# Ex-smoker quit at age 48
# DVT Prophylaxis- Eliquis
# DNR per D/W daughter at bed side
Discussed with nursing
Discussed with dgts, Candida and Cary in room
Anticipated Discharge: Within 24 hours
Subjective/Interval History
-
Date of Service: October 06, 2024
Awake, alert, sitting in chair
Objective Data
-
Vital Signs:
Vital Signs
Temp Pulse Resp BP Pulse Ox
98.1 F 90 18 130/69 92
10/06/24 16:00 10/06/24 16:00 10/06/24 16:00 10/06/24 16:00 10/06/24 16:00
I&O
10/05/24 10/06/24 10/07/24
06:59 06:59 06:59
Intake Total 1480 / 1480 1350 / 1350
Balance 1480 / 1480 1350 / 1350
Review of Systems
-
History Source: Patient and Family (2 daughters in room)
Constitutional: Reports No Symptoms; Denies Fever
EENT: Reports No Symptoms Reported
Respiratory: Reports Cough; Denies Trouble Breathing (much better)
Cardiac: Reports No Symptoms
Abdomen/GI: Reports No Symptoms
Skin: Reports No Symptoms
Neuro: Reports No Symptoms
Physical Exam
-
General: Well Developed and Well Nourished
HEENT: Normocephalic, Atraumatic and Moist Mucous Membranes
Respiratory: Wheezes (coarse upper airway wheeze on forced expiration, with good air movement); Negative Rhonchi
Cardiac: Regular Rhythm and S1/S2
GI: Soft, Nontender and Nondistended
Musculoskeletal: No Clubbing, No Cyanosis and No Edema
Neuro: Awake, Alert and Oriented
[2024-10-06] MEDS: LIPITOR 10 MG PO (18:11)
[2024-10-06] MEDS: ESTRACE 0.01% VAGINAL CREAM 1 APPLIC VAG (18:11)
[2024-10-06 18:56] LABS: Glucose - Point of Care 142 mg/dl (70-99)
[2024-10-06] MEDS: LYRICA 50 MG PO (21:50)
[2024-10-06 22:10] LABS: Glucose - Point of Care 156 mg/dl (70-99)
[2024-10-06 22:50] VITALS: BMI 28.7
[2024-10-06 23:16] VITALS: BP 133/80
[2024-10-07] MEDS: SYNTHROID 25 MCG PO (05:58)
[2024-10-07] MEDS: DICLOFENAC 1% TOPICAL GEL 2 GRAM TOPICAL (05:58)
[2024-10-07 07:46] LABS: Glucose - Point of Care 97 mg/dl (70-99)
[2024-10-07 07:47] VITALS: BP 106/73
[2024-10-07] MEDS: DUONEB INH (08:12)
[2024-10-07] MEDS: PULMICORT INH (08:12)
[2024-10-07] MEDS: NOVOLOG FLEXPEN-LOW RESISTANCE SC ×2 (08:58→11:30)
[2024-10-07] MEDS: LYRICA 75 MG PO (09:06)
[2024-10-07] MEDS: ELIQUIS 5 MG PO (09:06)
[2024-10-07] MEDS: DELTASONE 40 MG PO (09:06)
[2024-10-07] MEDS: PROTONIX 40 MG PO (09:06)
[2024-10-07] MEDS: CARDIZEM CD 120 MG PO (09:06)
[2024-10-07] MEDS: MUCINEX 600 MG PO (09:06)
[2024-10-07] MEDS: LASIX 20 MG PO (09:06)
[2024-10-07] MEDS: SODIUM CHLORIDE 1 GRAM PO (09:07)
[2024-10-07] MEDS: DITROPAN 7.5 MG PO (09:09)
[2024-10-07] MEDS: KCL 10 MEQ PO (09:10)
[2024-10-07] MEDS: LEVAQUIN 500 MG PO (09:10)
--- NOTE | 2024-10-07 10:31 | W.PN.HOSP.TC ---
Today's Communication/Plan
-
DC
Assessment / Plan
Assessment / Plan
84yo F with PMHx of COPD on chronic prednisone, hypothyroidism, neuropathy, hyponatremia, urinary urgency, afib on eliquis came with SOB and fever, found hypoxic and with concern for LLL pneumonia. Weanerd off O2 improved on steroids. Patient with
Hx of dysphagia and concern for recurrent aspiration - attending discussed with LOOPING MACHINE OPERATOR, family and patient on 10/06/24 for possible PEG - they declined. Recommended chopped diet. Levaquin started with patient allergy to cephalosporin. QTC WNL. Medcially
stable for d/c back to [facility]
A/P:
#LLL pneumonia with unspecified organism
#COPD exacerbation
#Iatrogenic adrenal insufficiency
#Acute hypoxic respiratory failure on admission
Weaned off O2
COVID-19 and Influenza neg
Levaquin and taper down sterodis
cont bronchodilators
#Non-ischemic myocardial injury
2/2 hypoxia
no chest pain
no further trop elevation and no sign of ACS on EKG
#Dysphagia
chopped diet
declined PEG eval
#Paroxysmal Afib
#Essential HTN
#Spinal stenosis with neuropathy
#Known R thyroid nodule
#Chronic hyponatremia
#HLD
#GERD
#Urinary urgency
#Hypothyroidism
cont home meds
DVT ppx Eliquis
DNR/DNI
I have spent at least 56min reviewing chart, test results, and providing direct patient care
Anticipated Discharge: Today
Subjective/Interval History
-
Date of Service: October 07, 2024
Objective Data
-
Vital Signs:
Vital Signs
Temp Pulse Resp BP Pulse Ox
97.7 F 92 18 106/73 91
10/07/24 07:47 10/07/24 07:47 10/07/24 07:47 10/07/24 07:47 10/07/24 07:47
I&O
10/06/24 10/07/24 10/08/24
06:59 06:59 06:59
Intake Total 1350 / 1350 1200 / 1200
Balance 1350 / 1350 1200 / 1200
Review of Systems
-
History Source: Patient
All other systems: Reviewed and negative
Physical Exam
-
General: No Apparent Distress
HEENT: Normocephalic and Atraumatic
Respiratory: Wheezes and Rales
Cardiac: Regular Rhythm
GI: Soft, Nontender and Nondistended
Musculoskeletal: No Clubbing and No Cyanosis
Neuro: Awake, Alert, Oriented and AO x 3
Psych: Calm
--- NOTE | 2024-10-07 10:36 | W.DCSUMMARY ---
Discharge Summary
Discharge Data
Date of Admission: 10/02/24
Date of Discharge: 10/07/24
-
Pending Results: No
Hospital Course
84yo F with PMHx of COPD on chronic prednisone, hypothyroidism, neuropathy, hyponatremia, urinary urgency, afib on eliquis came with SOB and fever, found hypoxic and with concern for LLL pneumonia. Weanerd off O2 improved on steroids. Patient with
Hx of dysphagia and concern for recurrent aspiration - attending discussed with COTTON STOMPER, family and patient on 10/06/24 for possible PEG - they declined. Recommended chopped diet. Levaquin started with patient allergy to cephalosporin. QTC WNL. Medcially
stable for d/c back to [facility]
I have spent at least 56min reviewing chart, test results, and providing direct patient care
Patient was mnaged for:
#LLL pneumonia with unspecified organism
#COPD exacerbation
#Iatrogenic adrenal insufficiency
#Acute hypoxic respiratory failure on admission
#Non-ischemic myocardial injury
#Dysphagia
#Paroxysmal Afib
#Essential HTN
#Spinal stenosis with neuropathy
#Known R thyroid nodule
#Chronic hyponatremia
#HLD
#GERD
#Urinary urgency
#Hypothyroidism
Discharge Plan
-
Patient Disposition: Senior Care/SNF
Discharge Diagnosis/Procedures: COPD exacerbation
Diet: Other diet
Additional Diets: CHopped food
Activity: As tolerated
Referrals:
Archie Mullen DO [Family Provider, Family Practice]
Prescriptions:
New
prednisone 10 mg Tablet
See Rx Instructions .ROUTE .COMPLEX Qty: 30 0RF
Rx Instructions:
Take By Mouth:
40 mg daily x3 days, 30 mg daily x3 days,
20 mg daily x3 days, 10 mg daily x3 days.
levofloxacin 750 mg Tablet
750 mg PO DAILY Qty: 4 0RF
Continued
acetaminophen [Tylenol] 325 mg Tablet
650 mg PO Q4HPRN PRN (Reason: mild pain/fever>100.4)
atorvastatin [Lipitor] 10 mg Tablet
10 mg PO GENAO@1829
levothyroxine 25 mcg Tablet
25 mcg PO DAILY
magnesium hydroxide [Milk of Magnesia] 400 mg/5 mL Suspension
2,400 mg PO HSPRN PRN (Reason: constipation)
coQ10 (ubiquinol) 200 mg Capsule
200 mg PO DAILY
Eliquis 5 mg Tablet
5 mg PO BID
estradiol 0.01 % (0.1 mg/gram) Cream
2 g VAGINAL TUFR@1829
diclofenac sodium 1 % Gel
2 g TOPICAL Q8H
guaifenesin [Mucinex] 600 mg tablet extended release 12hr
600 mg PO [id number] PRN (Reason: cough)
potassium chloride 10 mEq Capsule, Extended Release
10 meq PO DAILY
budesonide 0.5 mg/2 mL Suspension For Nebulization
0.5 mg INHALATION R BID
pregabalin 50 mg Capsule
50 mg PO HS
pregabalin 75 mg Capsule
75 mg PO DAILY
cholecalciferol (vitamin D3) 1,250 mcg (50,000 unit) Tablet
1,250 mcg PO QMONTH
Rx Instructions:
Wednesday of each month
vitamin B complex Tablet
1 tab PO DAILY
ipratropium-albuterol 0.5 mg-3 mg(2.5 mg base)/3 mL Solution For Nebulization
3 ml INHALATION R QID
albuterol sulfate 90 mcg/actuation Hfa Aerosol Inhaler
2 puff INHALATION R TIDPRN PRN (Reason: sob)
calcium carbonate 600 mg calcium (1,500 mg) Tablet
600 mg PO DAILY
sodium chloride 1,000 mg Tablet,Soluble
1,000 mg PO DAILY
diltiazem HCl 120 mg Capsule,Extended Release 24hr
120 mg PO DAILY Qty: 0 0RF
oxybutynin chloride 5 mg Tablet
7.5 mg PO BID Qty: 0 0RF
furosemide [Lasix] 20 mg Tablet
20 mg PO DAILY
furosemide 20 mg tablet
20 mg PO DAILYPRN PRN (Reason: weight gain greater then 5pds)
Held
prednisone 5 mg Tablet
5 mg PO DAILY
Hold Instructions: restart after completing prednisone titration
Discharge Orders:
Discharge Patient (As Directed); Ordered 10/07/24
Ordered By: López Villegas
Discharge Date and Time
Print Language: UPPER SORBIAN
[2024-10-07] MEDS: DUONEB 3 ML INH (11:09)
[2024-10-07 11:23] LABS: Glucose - Point of Care 95 mg/dl (70-99)
--- NOTE | 2024-10-07 12:57 | CM ---
Addendum entered by Dona Gross 10/07/24 14:20:
CM spoke with Faye at [facility] who advised that pt can return today. Family plans to transport back.
IMM signed by daughter and placed in chart.
Report: [phone]

Original Note:
Pt cleared for discharge today, returning to [facility]. ERNIE left for Zechariah at [facility] to coordinate transport time.
[2024-10-07 14:25] VITALS: BP 103/63
== END 2024-10-07 14:48 | DRG 177 ==
LOC: 3 WEST ACU 08:28
PROVIDERS: Student in an Organized Health Care Education/Training Program; ADMITTING PHYSICIAN Hospitalist; ATTENDING PHYSICIAN Internal Medicine; EMERGENCY PHYSICIAN Emergency Medicine; FAMILY PHYSICIAN Student in an Organized Health Care Education/Training Program
DX: J69.0 Pneumonitis due to inhalation of food and vomit (principal); J96.01 Acute respiratory failure with hypoxia; J44.1 Chronic obstructive pulmonary disease with (acute) exacerbation; I5A Non-ischemic myocardial injury (non-traumatic); E27.3 Drug-induced adrenocortical insufficiency; E87.1 Hypo-osmolality and hyponatremia; J44.0 Chronic obstructive pulmonary disease with (acute) lower respiratory infection; Z87.891 Personal history of nicotine dependence; I48.0 Paroxysmal atrial fibrillation; I50.9 Heart failure, unspecified; I11.0 Hypertensive heart disease with heart failure; E03.9 Hypothyroidism, unspecified; Z66 Do not resuscitate; Z11.52 Encounter for screening for COVID-19; Z79.01 Long term (current) use of anticoagulants; Z79.899 Other long term (current) drug therapy
CPT/HCPCS: 71045; 74230; 80048; 80053; 82962; 83036; 83605; 83880; 84484; 85025; 87040; 87502; 87811; 92526; 92610; 92611; 93005; 94640; 96365; 96375; 97116; 97162; 97530; 99285

== ENCOUNTER 2024-10-10 13:34 | Inpatient (IN) | payer MEDICARE, OTHER, SELFPAY ==
[2024-10-10] VITALS (21 sets, daily range): BP systolic 75–107; BP diastolic 49–85; BMI 31.3; BMI 27.8
--- NOTE | 2024-10-10 10:42 | ED.GENMED ---
History of Present Illness
General
Chief Complaint: Abdominal Symptoms
Source: patient
Exam Limitations: none
Time Seen by Provider: 10/10/24 10:35
History of Present Illness
History of Present Illness:
See MDM
Past History
Past History
ED Past Medical History: Asthma, COPD, HTN, Hypercholesterolemia, NIDDM, Hypothyroidism, Psychiatric (anxiety/depression) and Other (frequent UTI)
ED Past Surgical History: Orthopedic
Social History
Tobacco: Former smoker
Alcohol: None
Drug: None
Personal:
Living: assisted living
Phy Exam
Physical Exam
Physical Exam:
See MDM
Course
Orders/Labs/Results
Orders:
Orders
10/10/24 10:39
CT Abd/pelvis W Iv Cont Urgent
Comment:
Reason For Exam: general abd pain and diarrhea
Urinalysis Reflex To Culture Urgent
10/10/24 10:53
EKG [Electrocardiogram (*1)] Urgent
Reason for Study: Tachycardia
EKG- Treatment ONCE
10/10/24 11:07
Complete Blood Count/With Diff Urgent
Comprehensive Metabolic Panel Urgent
Lactic Acid Q4H
Comment: CANCEL 2nd LACTIC ACID IF 1st LACTIC ACID IS LESS THAN 2
0.9% Sodium Chloride 1000 ml [Nss] 1,000 ml IV BOLUS
10/10/24 11:11
Blood Culture Q30M
MERCED Source: Blood/Venous
Specimen Description:
Blood Culture Q30M
MERCED Source: Blood/Venous
Specimen Description:
STOOL [C difficile Antigen & Toxins] Urgent
MERCED Source: Feces/Stool
Specimen Description:
Date Specimen was Collected: 10/10/24
Time Specimen was Collected: 11:09
Stool Culture Urgent
MERCED Source: Feces/Stool
Specimen Description:
Date Specimen was Collected: 10/10/24
Time Specimen was Collected: 11:09
10/10/24 11:54
Diltiazem HCl [Cardizem] 10 mg IV NOW STA
10/10/24 11:58
Vancomycin HCl [Firvanq] 125 mg PO NOW STA
Abnormal Lab Results
10/10/24
11:07
WBC 17.6 H 10^3/uL
(4.8-10.8)
RDW 14.8 H %
(11.5-14.5)
MPV 11.0 H fL
(7.4-10.4)
Abs Immat Gran (auto) 0.2 H 10^3/uL
(0-0.05)
Absolute Neuts (auto) 15.1 H 10^3/uL
(1.4-6.5)
Absolute Lymphs (auto) 1.0 L 10^3/uL
(1.2-3.4)
Absolute Monos (auto) 1.2 H 10^3/uL
(0.1-0.6)
Immature Gran % 1.1 H %
(0-0.5)
Neutrophils % 85.6 H %
(42.2-75.2)
Lymphocytes % 5.6 L %
(20.5-51.1)
10/10/24 11:07
Vital Signs
Initial and Last Documented VS:
Initial Vital Signs
Temp Pulse Resp Pulse Ox
98.4 F 140 20 93
10/10/24 10:56 10/10/24 10:56 10/10/24 10:56 10/10/24 10:56
Last Documented Vital Signs
Temp Pulse Resp BP Pulse Ox
98.4 F 140 9 99/85 93
10/10/24 10:56 10/10/24 11:45 10/10/24 11:45 10/10/24 11:45 10/10/24 11:15
MDM/Problems Addressed
Differential Diagnosis Includes:
HPI and MDM Narrative:
84-year-old female presenting for evaluation of diarrhea and abdominal pain. Patient was recently admitted for pneumonia and prescribed Levaquin. On arrival, patient tachycardic and hypotensive. Patient found to be in A-fib. Concerned that this
could be sepsis. Patient started on IV fluids. Given recent antibiotics and diarrhea, will obtain stool with concern for C. difficile. Will obtain CT abdomen/pelvis. Patient will ultimately require admission
Physical exam
General: Uncomfortable
HEENT: protecting airway. Dry mucous membranes
Neck: appears supple
CV: No evidence of cyanosis. Tachycardic and irregular
Resp: No accessory muscle use
Abd: Diffuse tenderness throughout without rebound
Extremities: No deformities
Neuro: alert
Psych: Normal affect
Skin: Intact
Problems Addressed including Acute and Chronic Conditions affecting care:
1. Abdominal pain and diarrhea
Acuity: acute
Prognosis: stable
Details: Given recent antibiotic use, will obtain stool with concern for C. difficile. Will obtain CT abdomen/pelvis
2. Hypotension
Acuity: acute
Prognosis: unstable
Details: Concern for sepsis. Patient started on IV fluids. This could be A-fib related. Will consider Cardizem
3. [ ]
Acuity: acute
Prognosis: stable
Details:
4. [ ]
Acuity: acute
Prognosis: stable
Details:
5. [ ]
Acuity:
Prognosis:
Details:
Updates
11:54 AM blood pressure improving somewhat with IV fluids but heart rate consistently in the 130s. Will give dose of IV Cardizem and attempt to rate control and increase cardiac preload
12 PM patient found to be C. difficile positive. Will give dose of oral vancomycin
Differential Diagnosis (but not limited to): C. difficile colitis, sepsis, colitis
Testing considered: Repeat chest x-ray
Drug therapy (if applicable): OTC meds, please see d/c instruction regarding Rx drugs
Amount and/or Complexity of Data Reviewed
Clinical info obtained from: Patient
External data reviewed: Recent admission where she was treated with IV antibiotics for pneumonia
Labs I independently reviewed (but not limited to): Leukocytosis, C. difficile positive
Radiology: N/A
Pulse Ox: not hypoxic
EKG independently reviewed: A-fib with RVR, normal axis, no STEMI, ST depressions laterally
Solutions Development Analyst: A-fib
Critical Care: N/A
Risk of Complication:
Social Determinants of health: Good social support
Discussed with other providers: Hospitalist
Escalation of Care includes Admit/Obs: Given the C. difficile colitis and her dehydration and A-fib, will admit
Occasional wrong word or 'sound a like' substitutions may have occurred due to the inherent limitations of voice recognition software. Read the chart carefully and recognize, using context, where substitutions have occurred.
*Pulse Oximetry
Patient hypoxic: no
*Critical Care Note
Total Time (30-74mins, 75-104mins- exclusive of procedures): Not Applicable
ED Attending Note
-
Portions of this chart may have been created with voice recognition software.� Occasional wrong word or��sound alike� substitutions may have occurred due to the inherent limitations of voice recognition software.
Discharge Plan
Departure
Patient Disposition: Admit
Date of Disposition: 10/10/24
Time of Disposition: 12:05
Admit to: Med/Surg
Presentation/result/management discussed w/ accepting MD/DO: Hospitalist
Discharge Problem:
A-fib, C. difficile colitis, Dehydration
Prescriptions:
No Action
acetaminophen [Tylenol] 325 mg Tablet
650 mg PO Q4HPRN PRN (Reason: mild pain/fever>100.4)
atorvastatin [Lipitor] 10 mg Tablet
10 mg PO GENAO@1830
levothyroxine 25 mcg Tablet
25 mcg PO DAILY
magnesium hydroxide [Milk of Magnesia] 400 mg/5 mL Suspension
2,400 mg PO HSPRN PRN (Reason: constipation)
coQ10 (ubiquinol) 200 mg Capsule
200 mg PO DAILY
Eliquis 5 mg Tablet
5 mg PO BID
estradiol 0.01 % (0.1 mg/gram) Cream
2 g VAGINAL TUFR@1830
diclofenac sodium 1 % Gel
2 g TOPICAL Q8H
guaifenesin [Mucinex] 600 mg tablet extended release 12hr
600 mg PO [id number] PRN (Reason: cough)
potassium chloride 10 mEq Capsule, Extended Release
10 meq PO DAILY
budesonide 0.5 mg/2 mL Suspension For Nebulization
0.5 mg INHALATION R BID
pregabalin 50 mg Capsule
50 mg PO HS
pregabalin 75 mg Capsule
75 mg PO DAILY
cholecalciferol (vitamin D3) 1,250 mcg (50,000 unit) Tablet
1,250 mcg PO QMONTH
Rx Instructions:
Wednesday of each month
vitamin B complex Tablet
1 tab PO DAILY
ipratropium-albuterol 0.5 mg-3 mg(2.5 mg base)/3 mL Solution For Nebulization
3 ml INHALATION R QID
albuterol sulfate 90 mcg/actuation Hfa Aerosol Inhaler
2 puff INHALATION R TIDPRN PRN (Reason: sob)
calcium carbonate 600 mg calcium (1,500 mg) Tablet
600 mg PO DAILY
sodium chloride 1,000 mg Tablet,Soluble
1,000 mg PO DAILY
diltiazem HCl 120 mg Capsule,Extended Release 24hr
120 mg PO DAILY Qty: 0 0RF
oxybutynin chloride 5 mg Tablet
7.5 mg PO BID Qty: 0 0RF
furosemide [Lasix] 20 mg Tablet
20 mg PO DAILY
furosemide 20 mg tablet
20 mg PO DAILYPRN PRN (Reason: weight gain greater then 5pds)
prednisone 5 mg Tablet
5 mg PO DAILY
prednisone 10 mg Tablet
See Rx Instructions .ROUTE .COMPLEX Qty: 30 0RF
Rx Instructions:
Take By Mouth:
40 mg daily x3 days, 30 mg daily x3 days,
20 mg daily x3 days, 10 mg daily x3 days.
levofloxacin 750 mg Tablet
750 mg PO DAILY Qty: 4 0RF
Referrals:
Archie Mullen DO [Family Provider, Family Practice]
Interventions
Interventions:
*Risk Screen - Suicide Last Done: 10/10/24 10:56
*General Assessment Last Done: 10/10/24 10:56
*Neglect/Abuse Screening Last Done: 10/10/24 10:56
*ED- Fall Risk Assessment Last Done: 10/10/24 10:56
*ED COVID-19 Vaccine History Last Done: 10/10/24 10:56
BJ-Tsaqyv-Tjjlxkxpup Assessment Last Done: 10/10/24 11:00
Discharge Date and Time
Print Language: CAY[place] ISLANDER
[2024-10-10] MEDS: NSS 1000 IV ×3 (11:10→23:10)
[2024-10-10 11:23] LABS: Hematocrit 39.6 % (37.0-47.0); Hemoglobin 13.1 g/dL (12.0-16.0); Mean Corp Hgb Conc. 33.1 g/dL (33.0-37.0); Mean Corpuscular Volume 88.4 fL (81.0-99.0); Platelet Count 287 10^3/uL (130-400); Red Cell Dist. Width 14.8 % (11.5-14.5)
[2024-10-10 11:50] LABS: Nucleated Red Blood Cells % 0 %
[2024-10-10 12:03] LABS: ALT (SGPT) 20 U/L (0-35); AST (SGOT) 17 U/L (14-36); Albumin 3.0 g/dl (3.5-5.0); Alkaline Phosphatase 78 U/L (38-126); Blood Urea Nitrogen 26 mg/dl (7-17); Calcium 8.9 mg/dl (8.4-10.2); Carbon Dioxide 27 mmol/L (22-30); Chloride 104 mmol/L (98-107); Estimated Creatinine Clearance 51 ml/min; Glucose 102 mg/dl (70-99); Potassium 3.8 mmol/L (3.5-5.1); Sodium 137 mmol/L (135-145); Total Protein 5.4 g/dl (6.3-8.2); eGFR > 60.00
--- NOTE | 2024-10-10 12:49 | HPS.HSE ---
Family Physician
-
Family Physician: Archie Mullen DO
Chief Complaint
-
Watery diarrhea current pneumonia
History of Present Illness
84-year-old female from [facility] complaining of watery diarrhea along with abdominal pain she recently starting Levaquin for left lower lobe pneumonia pneumonia on 10/02/2024. She had low-grade temperature of 100 F yesterday per daughter at
half-way. Her stool was positive for C. difficile in the ER today. On arrival she was noted to be in rapid A-fib with hypotension. She presented with heart rate 140s and hypotensive. Initial IV Cardizem bolus was planned but patient systolic
93. Will give 1 L IV NSS then IV NSS 80 cc an hour monitor heart rate along with oral vancomycin was started. She denies fever, chills, chest pain, palpitations, cough, shortness of breath, nausea, vomiting, urinary symptoms. She has past medical
history of A-fib, hypothyroidism/chronic right thyroid nodule, HLD, COPD, dysphagia with concern for recurrent aspiration with PEG tube declined. GERD, DM2 diet-controlled, spinal stenosis/polyneuropathy, former smoker quit age 48 prior
[id number] total use, adrenal insufficiency, chronic hyponatremia, urinary urgency
Medical History
Past Medical History
Past Medical History: Reports Other
Additional Past Medical History:
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
lymphedema, peripheral vascular
Past Surgical History: Reports Other
Additional Past Surgical History:
Surgery for varicose veins , carpal tunnel, cataracts, appendectomy, tonsillectomy
Social History
Tobacco: Former Smoker
Alcohol: None
Drug: None
Personal: Single
Living: [facility]
Employment: Retired
Family History
Family History: Not pertinent
Allergies / Home Medications
Allergies reflects when Allergies were last updated in [facility]
Home Medications with original date entered in [facility]
Allergy/Medication List:
Allergies
Allergy/AdvReac Type Severity Reaction Status Date / Time
cefuroxime Allergy Anaphylaxis Verified 10/10/24 11:02
gabapentin Allergy Itching Verified 10/10/24 11:02
meloxicam Allergy Unknown Verified 10/10/24 11:02
Penicillins Allergy Nausea / Verified 10/10/24 11:02
Vomiting
Sulfa (Sulfonamide Allergy Hives Verified 10/10/24 11:02
Antibiotics)
tetanus toxoid, adsorbed Allergy Hives Verified 10/10/24 11:02
Home Medications
acetaminophen 325 mg tablet (Tylenol) 650 mg PO Q4HPRN PRN mild pain/fever>100.4 03/24/22
apixaban 5 mg tablet (Eliquis) 5 mg PO BID Blood Clot Prevention/Tx 03/24/22
atorvastatin 10 mg tablet (Lipitor) 10 mg PO GENAO@1830 High Cholesterol 03/24/22
coQ10 (ubiquinol) 200 mg capsule 200 mg PO DAILY Supplement 03/24/22
diclofenac sodium 1 % topical gel 2 g topical Q8H both knees 03/24/22
levothyroxine 25 mcg tablet 25 mcg PO DAILY Thyroid 03/24/22
magnesium hydroxide 400 mg/5 mL oral suspension (Milk of Magnesia) 2,400 mg PO HSPRN PRN constipation 03/24/22
guaifenesin 600 mg tablet, extended release 12 hr (Mucinex) 600 mg PO [id number] PRN cough 05/22/22
budesonide 0.5 mg/2 mL suspension for nebulization 0.5 mg inhalation R BID Lung/Breathing Issues 12/19/23
potassium chloride 10 mEq capsule,extended release 10 meq PO DAILY Electrolyte Repletion 12/19/23
pregabalin 50 mg capsule 50 mg PO HS neuropathic pain 12/19/23
pregabalin 75 mg capsule 75 mg PO DAILY neuropathic pain 12/19/23
albuterol sulfate 90 mcg/actuation aerosol inhaler 2 puff inhalation R TIDPRN PRN sob 07/02/24
calcium carbonate 600 mg PO DAILY Supplement 07/02/24
cholecalciferol (vitamin D3) 1,250 mcg (50,000 unit) tablet 1,250 mcg PO QMONTH Supplement 07/02/24
ipratropium 0.5 mg-albuterol 3 mg (2.5 mg base)/3 mL nebulization soln 3 ml inhalation R QID Lung/Breathing Issues 07/02/24
sodium chloride 1,000 mg soluble tablet 1,000 mg PO DAILY Electrolyte Repletion 07/02/24
vitamin B complex 1 tab PO DAILY Supplement 07/02/24
diltiazem HCl 120 mg capsule,extended release 24 hr 120 mg PO DAILY #0 caps 07/09/24
oxybutynin chloride 5 mg tablet 7.5 mg (1.5 x 5 mg) PO BID #0 tabs 07/09/24
furosemide 20 mg tablet 20 mg PO DAILYPRN PRN weight gain greater then 5pds 10/02/24
furosemide 20 mg tablet (Lasix) 20 mg PO DAILY edema 10/02/24
levofloxacin 750 mg tablet 750 mg PO DAILY #4 tabs 10/07/24
prednisone 10 mg tablet See Rx Instructions .Route .COMPLEX #30 tabs 10/07/24
bisacodyl 10 mg rectal suppository (Dulcolax (bisacodyl)) 10 mg SC [id number] PRN IF NO BM AFTR MOM 10/10/24
Review of Systems
-
History Source: Patient and Family (Daughter at bedside)
A 12 point ROS was completed and negative except as noted: Yes
Constitutional: Reports Fever (100 F yesterday); Denies Fatigue
EENT: Denies Sore Throat or Runny Nose
Respiratory: Reports Cough and Trouble Breathing (Rhonchi/Rales throughout both lung hirsch)
Cardiac: Denies Chest Pain, Diaphoresis, Palpitations or Syncope
Abdomen/GI: Reports Abdominal Pain (Generalized) and Diarrhea (Watery); Denies Nausea or Vomiting
: Denies Dysuria, Frequency, Flank Pain, Incontinence or Difficulty Voiding
Musculoskeletal: Denies Joint Pain or Edema
Skin: Denies Itching or Rash
Neurological: Denies Dizzy, Headache or Weakness
Endocrine: Reports No Symptoms
Hematologic/Lymphatic: Reports No Symptoms
Psych: Reports Calm
Physical Exam
Vital Signs
Vital Signs
Temp Pulse Resp BP Pulse Ox
98.4 F 124 22 91/63 96
10/10/24 10:56 10/10/24 12:30 10/10/24 12:30 10/10/24 12:30 10/10/24 12:30
Physical Exam
General: Comfortable and Conversant; No Fever or Chills
HEENT: NormoCephalic, Anicteric, Moist mucous membranes, PERRLA, Hagerman Conjunctivae, No Ptosis and Oxygen (4 L nasal cannula)
Respiratory: Rales (Throughout both upper lung hirsch) and Rhonchi (Throughout both upper lung hirsch)
Cardiac: S1/S2 and Irregular Rhythm (A-fib 111-126 bpm currently on monitor); No Murmur, Rub, Gallop or Peripheral Edema
Breast: Deferred by me
GI: Soft, Non Tender, Non Distended and Normal Bowel Sounds
Rectal: Other (Watery foul-smelling diarrhea changed by nurses in room)
Genito-urinary: Deferred by me
Musculoskeletal: No Clubbing, No Cyanosis and No Edema
Skin: Warm and Dry; No Rash
Neuro: AO x 3, No Motor Deficits, Nonfocal/grossly intact, Cranial Nerves Intact and No Sensory Deficits; No Slurred Speech, Facial Droop, Tremors or Sedated
Psych: Calm
Laboratory Results
-
10/10/24 11:07
10/10/24 11:07
Laboratory Results
Lactic Acid Cancelled 10/10/24 14:45
Total Bilirubin 1.1 mg/dl (0.2-1.3) 10/10/24 11:07
AST 17 U/L (14-36) 10/10/24 11:07
ALT 20 U/L (0-35) 10/10/24 11:07
Alkaline Phosphatase 78 U/L (38-126) 10/10/24 11:07
Data Reviewed
-
CT Scan: Report Reviewed by me
Lab Data: Labs Reviewed by me
Impression/Plan
-
Impression/plan:
Admit to IMU
#Sepsis 2/2 C. difficile pancolitis
Recent antibiotics-Levaquin for left lower lobe pneumonia starting 10/02/2024
WBC 17.6 with left shift, HR 140 A-fib, 99/85, 98.4F
-Oral vancomycin 125 mg p.o. every 6 hours
- C. difficile precautions
- IV NSS 60 cc/h
- Follow CBC, CMP, blood cultures x 2, UA CHIP WASHER
- Brat diet
CT abdomen pelvis with IV contrast:
1. Findings consistent with severe reese colitis. No evidence of pneumatosis intestinalis or extraluminal air.
2. Bibasilar airspace consolidation with air bronchograms, which may represent subsegmental atelectasis or pneumonia.
3. 5 mm cystic lesion within the body/tail of the pancreas, nonaggressive appearance. Consider evaluation with elective outpatient contrast enhanced
MRI of the abdomen.
#Rapid A-fib with RVR/ Atrial fibrillation-paroxysmal
Patient heart rate 140 likely secondary to sepsis from C. difficile
BP 99/85 will hold current Cardizem as heart rate is 115�126
-IV Cardizem 5 mg as needed HR>140 with SBP> 100
-Hold diltiazem 120 mg p.o. daily
-Continue Eliquis
-IV NSS bolus
#Hypotension secondary to volume depletion/sepsis
BP 99/85 hold current IV Cardizem bolus due to hypotension
-IV NSS 1 L continue IV NSS 80 cc an hour
#Recent left lower lobe pneumonia with hypoxia treated with oral Levaquin and oxygen
#Chronic steroid-dependent COPD chronic 4 L nasal cannula dependent
-Completed 8 out of 10-day course of Levaquin will hold further Levaquin given pancolitis C. difficile
-- Check CXR
-Continue nebulizers
- Continue chronic 4 L nasal cannula
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
Speech therapy evaluated the patient recent admission. Video swallow noted. Patient is okay for regular diet she has been eating regular diet at [facility] sitting upright for 30 minutes after chewing slowly
-Brat diet
# Hypothyroidism-continue levothyroxine
# Hyperlipidemia-continue atorvastatin
# Prediabetes with hemoglobin A1c 6.2 on 07/03/2024.
# Spinal stenosis polyneuropathy-continue Lyrica
# 1.7 cm hypodense nodule in the right hemithyroid-Needs outpatient workup
was noted on dc instructions from last hospitalization, unclear if this was followed up. Dgt will check with her sister and will discuss further
# Chronic lymphedema lower extremity bilaterally
No current edema to lower legs
HOLd Lasix
# History of hyponatremia on sodium chloride tablets
NA 137 stable
# Ex-smoker quit at age 48
# DVT Prophylaxis- Eliquis
# DNR per D/W daughter at bed side
[2024-10-10] MEDS: FIRVANQ 125 MG PO ×3 (13:08→23:10)
--- NOTE | 2024-10-10 14:30 | PTCARENOTE ---
Cannot verify VS captured from prior to 14:30.
--- NOTE | 2024-10-10 14:31 | W.PN.UPDATE ---
Update Note
Progress Note Update
Seen and examined and discussed with nurse practitioner in detail I am in agreement with plan and management mentioned by nurse practitioner.
Daughter at the bedside, patient recently discharged from the hospital for pneumonia the [facility] presented complaining of generalized weakness and recurrent diarrhea and workup showed see definite acute sepsis.
Admit poor appetite and nausea but no vomit
Vital signs reviewed
Physical exam:
General: Awake, alert and oriented x3, lethargic but not in distress and holds appropriate conversation.
HEENT: No active discharge, ecchymosis or bruising, moist lips, tongue and mucous membrane.
Eyes: No discharge or red conjunctiva, no nystagmus, pupils are reactive and equal
Neck:Supple, no JVD no bruit no goiter.
Respiratory: Normal AP contour and diameter, normal chest wall movement, normal respiratory effort, no respiratory distress,
Lungs: Good air entry bilaterally, no wheezing or rhonchi, no rales or crackles
Heart: S1, S2 regular, normal rate, no added sound.
Gastrointestinal: Positive bowel sounds, soft, nontender, no guarding or rigidity or organomegaly
Musculoskeletal: , no chest wall abnormality or tenderness. All joints and extremities have good range of motion, no muscle tenderness or any joint swelling or tenderness.
Extremities: No pitting edema, good peripheral pulses, good range of motion
Workup including labs, imaging, EKG and archive reviewed.
Assessment and plan:
Acute sepsis, with tachycardia, white cell count 17.6 blood pressure 99/85 likely secondary to C. difficile colitis.
Start vancomycin orally
Probiotic
Avoid sugary drink
P.o. oral hydration.
C. difficile: Manage as above.
A-fib with RVR, with known history of A-fib
Heart rate is improving likely secondary to dehydration
Continue home medication.
Continue Eliquis.
Monitor vital sign.
The rest of the assessment and management according to history and physical
All discussed with the patient and the family
Discussed with nurse practitioner
[2024-10-10] MEDS: DUONEB 3 ML INH ×2 (15:28→19:47)
--- NOTE | 2024-10-10 16:03 | PTCARENOTE ---
Pt received from ED via stretcher. Aox3, drowsy and flat. Pt in afib on tele monitor with rates in the 130's and bp in the 80's-90's systolic. Maps over 65. Dr. Rivera notified, awaiting further orders.
--- NOTE | 2024-10-10 16:20 | W.PN.UPDATE ---
Update Note
Progress Note Update
Rapid A-fib with RVR
Received message from nurse taking care of patient heart rate 130-140s sustained with systolic BP 80s post IV fluid
- Will give amiodarone bolus 150 then amiodarone drip
- Consult [facility] cardiology Dr. Barrios made aware
- Stop as needed Cardizem
- Continue IV NSS
--- NOTE | 2024-10-10 16:26 | CON.CAR ---
Addendum entered and electronically signed by Alton James MD 10/10/24 17:15:
patient seen and examined
seen in ICU with presence of daughter
rates are rapid but asymptomatic largely. she appears volume deplete and has fever, hypotension and weight is as noted
had AF in June in setting of fever
severe pancolitis noted
echo from 06/2024 noted
exam:
heent ncat
jvp 6
cor irregularly irregular
lungs ctab
abd soft nt nd
no ext edema
aao x3
non focal neurologically
ecg reviewed and as noted
cxr/abd/pelvis CT as noted.
Assessment:
Presents 10/10/2024 with abdominal pain, diarrhea, low-grade fever and tachycardia
Diarrhea
C diff positive 10/10/2024 in ED
Sepsis
Afib with RVR
Hypotension
Recent admission to [facility] for PNA 10/02-10/07/24
Admission in June 2024 for aspiration pneumonia
Paroxysmal atrial fibrillation
Chronic Eliquis OAC
History of asthma/COPD
Hypertension
Hyperlipidemia
Type 2 diabetes
History of UTIs
GERD
Hypothyroidism with thyroid nodule by imaging
Spinal stenosis
Lymphedema
Polyneuropathy
Echo 07/03/2024: TDS, EF 55 to 60%, mild concentric LVH, MAC, mild to moderate MR, mild to moderate TR, aortic sclerosis, PAP 54 mmHg, IVC dilated and does not collapse, pleural effusion present
Plan:
- Patient presents back to [facility] after recent admission for pneumonia 10/02 - 10/07/2024 now with low-grade fever, diarrhea, lethargy and testing C. difficile positive. In the setting of this, noted to be in A-fib with RVR with associated hypotension.
Suspected component of dehydration contributing in setting of C. difficile.
-She was given IV fluid, however remained hypotensive and tachycardic therefore ordered IV Amio bolus followed by drip. Hopefully heart rates and hypotension will improve with amiodarone
-Follow daily EKGs for QT monitoring while on amiodarone drip. She cantolerate more hydration
-Patient's weight is down at least 5 pounds since admission 1 week ago. Okay with ongoing gentle IV hydration/fluid resuscitation
- On p.o. Cardizem 120 mg daily as an outpatient, would hold for now with ongoing hypotension.
- Recent echo with results as above, EF preserved. No need to repeat at this time while patient is in A-fib with rapid ventricular response
- Continue Eliquis 5mg BID
- Follow electrolytes and replete as needed, would keep K greater than 4, mag greater than 2
- Continue treatment of C. difficile per primary service. On antibiotics
- Chest x-ray does show bibasilar pneumonia. Also seen on CT. Patient previously found to have concern for aspiration and patient/family has declined PEG tube on prior admission. May need to readdress.
Plan was discussed with patient's daughter who was at bedside, nursing
Original Note:
Consultation
Consultation Request
Date/Time Consultation Requested: 10/10/2024
Date/Time Consultation Performed: 10/10/2024
Requesting Provider: DONNA Gomez
Performing Provider: Desiree Potts PA-C for Dr. James
Reason for Consultation: Atrial fibrillation with rapid ventricular response
Medical History
-
Chief Complaint: Atrial fibrillation with rapid ventricular response
History of Present Illness:
Blanca has history of atrial fibrillation on chronic Eliquis, asthma/COPD, GERD, hypertension, hyperglycemia, diabetes, hypothyroidism, anxiety/depression, frequent UTIs. She who was hospitalized in June 2024 with respiratory failure secondary
to bilateral pneumonia and developed atrial fibrillation with rapid ventricular response. Recent admission 10/02/2024 to 10/07/2024 with shortness of breath and fever and found to be hypoxic with concern for left lower lobe pneumonia and once again
treated with antibiotics. There was concern for aspiration but family and patient declined PEG tube. She now presents back from [facility] with watery diarrhea, abdominal pain and low-grade fever. She was noted to be in atrial
fibrillation with rapid ventricular response and hypotensive on arrival. She was provided IV diltiazem bolus as well as IV fluid bolus. Patient hypotensive and heart rate virginia elevated. Of note she was C. difficile positive in emergency
department today and has been started on vancomycin.
PMH:
Recent admission to [facility] for PNA 10/02-10/07/24
Paroxysmal atrial fibrillation
Chronic Eliquis OAC
History of asthma/COPD
Hypertension
Hyperlipidemia
Type 2 diabetes
History of UTIs
GERD
Hypothyroidism with thyroid nodule by imaging
Spinal stenosis
Lymphedema
Polyneuropathy
Past Medical History
Past Medical History: Other (see hpi)
Past Surgical History: Other (Bilateral vein stripping 50 years ago, carpal tunnel, eye lens replacement)
Social History
Tobacco: Former Smoker
Alcohol: None
Drug: None
Personal:
Living: Assisted Living
Employment: Retired
Family History
Family History: Other (No family history of premature coronary artery disease)
Allergies / Home Medications
Allergy/AdvReac Type Severity Reaction Status Date / Time
cefuroxime Allergy Anaphylaxis Verified 10/10/24 11:02
gabapentin Allergy Itching Verified 10/10/24 11:02
meloxicam Allergy Unknown Verified 10/10/24 11:02
Penicillins Allergy Nausea / Verified 10/10/24 11:02
Vomiting
Sulfa (Sulfonamide Allergy Hives Verified 10/10/24 11:02
Antibiotics)
tetanus toxoid, adsorbed Allergy Hives Verified 10/10/24 11:02
�Medication �Instructions �Recorded �Confirmed �Type
acetaminophen 325 mg tablet 650 mg PO Q4HPRN PRN mild 03/24/22 10/10/24 History
(Tylenol) pain/fever>100.4
apixaban 5 mg tablet (Eliquis) 5 mg PO BID Blood Clot 03/24/22 10/10/24 History
Prevention/Tx
atorvastatin 10 mg tablet (Lipitor) 10 mg PO [id number]@1830 High Cholesterol 03/24/22 10/10/24 History
coQ10 (ubiquinol) 200 mg capsule 200 mg PO DAILY Supplement 03/24/22 10/10/24 History
diclofenac sodium 1 % topical gel 2 g topical Q8H both knees 03/24/22 10/10/24 History
levothyroxine 25 mcg tablet 25 mcg PO DAILY Thyroid 03/24/22 10/10/24 History
magnesium hydroxide 400 mg/5 mL 2,400 mg PO HSPRN PRN constipation 03/24/22 10/10/24 History
oral suspension (Milk of Magnesia)
guaifenesin 600 mg tablet, 600 mg PO [id number] PRN cough 05/22/22 10/10/24 History
extended release 12 hr (Mucinex)
budesonide 0.5 mg/2 mL suspension 0.5 mg inhalation R BID 12/19/23 10/10/24 History
for nebulization Lung/Breathing Issues
potassium chloride 10 mEq 10 meq PO DAILY Electrolyte 12/19/23 10/10/24 History
capsule,extended release Repletion
pregabalin 50 mg capsule 50 mg PO HS neuropathic pain 12/19/23 10/10/24 History
pregabalin 75 mg capsule 75 mg PO DAILY neuropathic pain 12/19/23 10/10/24 History
albuterol sulfate 90 mcg/actuation 2 puff inhalation R TIDPRN PRN sob 07/02/24 10/10/24 History
aerosol inhaler
calcium carbonate 600 mg PO DAILY Supplement 07/02/24 10/10/24 History
cholecalciferol (vitamin D3) 1,250 1,250 mcg PO QMONTH Supplement 07/02/24 10/10/24 History
mcg (50,000 unit) tablet
ipratropium 0.5 mg-albuterol 3 mg 3 ml inhalation R QID 07/02/24 10/10/24 History
(2.5 mg base)/3 mL nebulization Lung/Breathing Issues
soln
sodium chloride 1,000 mg soluble 1,000 mg PO DAILY Electrolyte 07/02/24 10/10/24 History
tablet Repletion
vitamin B complex 1 tab PO DAILY Supplement 07/02/24 10/10/24 History
diltiazem HCl 120 mg 120 mg PO DAILY #0 caps 07/09/24 10/10/24 Rx
capsule,extended release 24 hr
oxybutynin chloride 5 mg tablet 7.5 mg (1.5 x 5 mg) PO BID #0 tabs 07/09/24 10/10/24 Rx
furosemide 20 mg tablet 20 mg PO DAILYPRN PRN weight gain 10/02/24 10/10/24 History
greater then 5pds
furosemide 20 mg tablet (Lasix) 20 mg PO DAILY edema 10/02/24 10/10/24 History
levofloxacin 750 mg tablet 750 mg PO DAILY #4 tabs 10/07/24 10/10/24 Rx
prednisone 10 mg tablet See Rx Instructions .Route 10/07/24 10/10/24 Rx
.COMPLEX #30 tabs
bisacodyl 10 mg rectal suppository 10 mg MA [id number] PRN IF NO BM AFTR 10/10/24 10/10/24 History
(Dulcolax (bisacodyl)) MOM
Review of Systems
-
History Source: Patient and Family (Daughter who is at bedside)
All other systems: Negative unless noted
Physical Exam
Vital Signs
Temp Pulse Resp BP Pulse Ox
98.3 F 136 24 93/69 95
10/10/24 14:33 10/10/24 16:00 10/10/24 16:00 10/10/24 15:05 10/10/24 16:00
GEN: Patient appears lethargic lying in bed on oxygen
HEENT: supple, anicteric, mmm
LUNGS: Crackles bilaterally with reduced breath sounds bilaterally
CV: Irregularly irregular, tachycardic, S1/S2, 1/6 syst murmur, no rub or gallop
ABD: soft, BS+, mild abdominal tenderness, nondistended
EXT: No edema, clubbing or cyanosis
NEURO: Gross non-focal
SKIN: No rash, warm, dry, pink
Lab Results
10/10/24 11:07
10/10/24 11:07
Impression / Plan
-
Family Physician: Archie Mullen, DO
Primary Appeals Analyst: Dr. Branch
Assessment:
Presents 10/10/2024 with abdominal pain, diarrhea, low-grade fever and tachycardia
Diarrhea
C diff positive 10/10/2024 in ED
Sepsis
Afib with RVR
Hypotension
Recent admission to [facility] for PNA 10/02-10/07/24
Admission in June 2024 for aspiration pneumonia
Paroxysmal atrial fibrillation
Chronic Eliquis OAC
History of asthma/COPD
Hypertension
Hyperlipidemia
Type 2 diabetes
History of UTIs
GERD
Hypothyroidism with thyroid nodule by imaging
Spinal stenosis
Lymphedema
Polyneuropathy
Echo 07/03/2024: TDS, EF 55 to 60%, mild concentric LVH, MAC, mild to moderate MR, mild to moderate TR, aortic sclerosis, PAP 54 mmHg, IVC dilated and does not collapse, pleural effusion present
Plan:
- Patient presents back to [facility] after recent admission for pneumonia 10/02 - 10/07/2024 now with low-grade fever, diarrhea, lethargy and testing C. difficile positive. In the setting of this, noted to be in A-fib with RVR with associated hypotension.
Suspected component of dehydration contributing in setting of C. difficile.
- She was given IV fluid, however remained hypotensive and tachycardic therefore ordered IV Amio bolus followed by drip. Hopefully heart rates and hypotension will improve with amiodarone
-Follow daily EKGs for QT monitoring while on amiodarone drip
-Patient's weight is down at least 5 pounds since admission 1 week ago. Okay with ongoing gentle IV hydration/fluid resuscitation
- On p.o. Cardizem 120 mg daily as an outpatient, would hold for now with ongoing hypotension.
- Recent echo with results as above, EF preserved. No need to repeat at this time while patient is in A-fib with rapid ventricular response
- Continue Eliquis 5mg BID
- Follow electrolytes and replete as needed, would keep K greater than 4, mag greater than 2
- Continue treatment of C. difficile per primary service. On antibiotics
- Chest x-ray does show bibasilar pneumonia. Also seen on CT. Patient previously found to have concern for aspiration and patient/family has declined PEG tube on prior admission. May need to readdress.
Plan was discussed with patient's daughter who was at bedside, nursing
HPI 10/10/2024:
Blanca has history of atrial fibrillation on chronic Eliquis, asthma/COPD, GERD, hypertension, hyperglycemia, diabetes, hypothyroidism, anxiety/depression, frequent UTIs. She who was hospitalized in June 2024 with respiratory failure secondary
to bilateral pneumonia and developed atrial fibrillation with rapid ventricular response. Recent admission 10/02/2024 to 10/07/2024 with shortness of breath and fever and found to be hypoxic with concern for left lower lobe pneumonia and once again
treated with antibiotics. There was concern for aspiration but family and patient declined PEG tube. She now presents back from [facility] with watery diarrhea, abdominal pain and low-grade fever. She was noted to be in atrial
fibrillation with rapid ventricular response and hypotensive on arrival. She was provided IV diltiazem bolus as well as IV fluid bolus. Patient hypotensive and heart rate virginia elevated. Of note she was C. difficile positive in emergency
department today and has been started on vancomycin.
Data Reviewed
-
EKG: Report Reviewed by me, Discussed with Physician, Discussed with Nurse, Discussed with Patient and Discussed with Family
Radiology: Report Reviewed by me, Discussed with Physician, Discussed with Nurse, Discussed with Patient and Discussed with Family
Labs: Labs Reviewed by me, Discussed with Physician, Discussed with Nurse, Discussed with Patient and Discussed with Family
Old Records: Reviewed
[2024-10-10] MEDS: CORDARONE 103 MG IV (16:50)
--- NOTE | 2024-10-10 17:08 | PTCARENOTE ---
Order for IV amio bolus and gtt received. Initiated per orders, see MAY.
[2024-10-10] MEDS: CORDARONE 518 MG IV (17:14)
[2024-10-10] MEDS: TYLENOL 650 MG PO ×2 (17:16→23:11)
[2024-10-10] MEDS: PULMICORT 0.5 MG INH (19:50)
[2024-10-10] MEDS: DITROPAN 7.5 MG PO (20:37)
[2024-10-10] MEDS: FLORASTOR 250 MG PO (20:38)
[2024-10-10] MEDS: LYRICA 50 MG PO (20:38)
[2024-10-10] MEDS: ELIQUIS 5 MG PO (20:38)
--- NOTE | 2024-10-10 22:21 | PTCARENOTE ---
Received patient at start of shift. Patient lethargic, aao x3, dtr at bedside. Verbalizes discomfort however unable to rate on scale. PM Lyrica administered per order, patient asleep at this time. Dtr at bedside, RN reviewed hygiene and educated on
C. diff and instructed on hand washing, limiting physical contact with patient, and use of bleach on objects to clean. Understanding verbalized. Patient continues on Amio gtt at 1mg/hr, will decreased to 0.5mg at 6 hours per order. Continues with NS
at 80ml/hr. B/L heels boggy, blanchable. B/L heel foams applied, heels elevated off bed with pillow. Patient repositioned for pressure relief and comfort. Call santiago within reach, will continue to monitor patient closely.
[2024-10-11] VITALS (14 sets, daily range): BP systolic 99–111; BP diastolic 43–86; PULSE 113; O2SAT 96; BMI 28.0
[2024-10-11] MEDS: FIRVANQ 125 MG PO ×2 (05:03→11:51)
[2024-10-11 05:42] LABS: Hematocrit 36.4 % (37.0-47.0); Hemoglobin 12.0 g/dL (12.0-16.0); Mean Corp Hgb Conc. 33.0 g/dL (33.0-37.0); Mean Corpuscular Volume 87.7 fL (81.0-99.0); Platelet Count 271 10^3/uL (130-400); Red Cell Dist. Width 14.9 % (11.5-14.5)
[2024-10-11 06:04] LABS: ALT (SGPT) 18 U/L (0-35); AST (SGOT) 16 U/L (14-36); Albumin 2.7 g/dl (3.5-5.0); Alkaline Phosphatase 70 U/L (38-126); Blood Urea Nitrogen 25 mg/dl (7-17); Calcium 8.2 mg/dl (8.4-10.2); Carbon Dioxide 28 mmol/L (22-30); Chloride 106 mmol/L (98-107); Estimated Creatinine Clearance 61 ml/min; Glucose 97 mg/dl (70-99); Potassium 4.1 mmol/L (3.5-5.1); Sodium 138 mmol/L (135-145); Total Protein 4.9 g/dl (6.3-8.2); eGFR > 60.00
[2024-10-11 06:09] LABS: Absolute Neutrophils -Man Diff 16.7 10^3/uL (1.4-6.5); Anisocytosis 1+; Normal RBC Morphology No; Platelets Checked Yes; Total Cells Counted 100
[2024-10-11] MEDS: DUONEB 3 ML INH ×4 (07:40→19:45)
[2024-10-11] MEDS: PULMICORT 0.5 MG INH ×2 (07:40→19:45)
[2024-10-11] MEDS: LYRICA 75 MG PO (08:15)
[2024-10-11] MEDS: ELIQUIS 5 MG PO ×2 (08:15→21:32)
[2024-10-11] MEDS: SYNTHROID 25 MCG PO (08:16)
[2024-10-11] MEDS: OSCAL CAL 500 500 MG PO (08:16)
[2024-10-11] MEDS: DELTASONE 30 MG PO (08:16)
[2024-10-11] MEDS: DITROPAN 7.5 MG PO ×2 (08:16→21:32)
[2024-10-11] MEDS: FLORASTOR 250 MG PO ×2 (08:16→21:32)
[2024-10-11] MEDS: B COMPLEX w/VITAMIN C 1 CAPLET PO (08:16)
[2024-10-11] MEDS: SODIUM CHLORIDE 1 GRAM PO (08:16)
--- NOTE | 2024-10-11 09:40 | CM ---
Patient readmitted from [facility] with Dx Sepsis, C-diff pancolitis, Rapid A-fib w RVR, recent PNA. O2 2L. BRAT diet. Receiving IVF, IV Amio, PO Abx. Per nurse; A/O. PT held today.
Spoke with [facility];
the patient resides there in LTC on an [place] bed hold.
the patient was A/O, goes to [employer].
She required assist for ADLs, was ambulatory with her RW, and self propels her w/c for longer distances.
The patient was receiving PT/OT.
The patient has supportive family.
PCP - Archie Mullen
Pharmacy - [facility]
The ph for report to [address] , fax [phone].
Plan return to [facility] when medically ready.
--- NOTE | 2024-10-11 09:45 | W.PN.CARDCBS ---
Addendum entered and electronically signed by Eric Asif MD 10/11/24 09:50:
EKG reviewed today with A-fib with stable QT interval
Original Note:
Today's Communication / Plan
-
Remains in A-fib with modestly controlled rates. Start amiodarone 200 mg p.o. 3 times daily.
Continue Eliquis.
Continue vancomycin for C. difficile.
Recent echo with preserved LVEF.
Impression / Plan
-
Family Physician: Archie Mullen DO
Primary Assembly Line Brazer: Dr. Branch
Assessment:
Presents 10/10/2024 with abdominal pain, diarrhea, low-grade fever and tachycardia
Diarrhea
C diff positive 10/10/2024 in ED
Sepsis
Afib with RVR
Hypotension
Recent admission to [facility] for PNA 10/02-10/07/24
Admission in June 2024 for aspiration pneumonia
Paroxysmal atrial fibrillation
Chronic Eliquis OAC
History of asthma/COPD
Hypertension
Hyperlipidemia
Type 2 diabetes
History of UTIs
GERD
Hypothyroidism with thyroid nodule by imaging
Spinal stenosis
Lymphedema
Polyneuropathy
Echo 07/03/2024: TDS, EF 55 to 60%, mild concentric LVH, MAC, mild to moderate MR, mild to moderate TR, aortic sclerosis, PAP 54 mmHg, IVC dilated and does not collapse, pleural effusion present
Plan:
- Patient presents back to [facility] after recent admission for pneumonia 10/02 - 10/07/2024 now with low-grade fever, diarrhea, lethargy and testing C. difficile positive. In the setting of this, noted to be in A-fib with RVR with associated hypotension.
Suspected component of dehydration contributing in setting of C. difficile.
-Ventricular rates are stable for now. Will switch over to oral amiodarone 400 mg p.o. 3 times daily.
- On p.o. Cardizem 120 mg daily as an outpatient, would hold for now with ongoing hypotension. Would consider restarting over next 24 hours.
- Recent echo with results as above, EF preserved. No need to repeat at this time while patient is in A-fib with rapid ventricular response
- Continue Eliquis 5mg BID
- Follow electrolytes and replete as needed, would keep K greater than 4, mag greater than 2
- Continue treatment of C. difficile per primary service. On antibiotics
- Chest x-ray does show bibasilar pneumonia. Also seen on CT. Patient previously found to have concern for aspiration and patient/family has declined PEG tube on prior admission.
Plan was discussed with patient's daughter who was at bedside, nursing
[facility] 10/10/2024:
Blanca has history of atrial fibrillation on chronic Eliquis, asthma/COPD, GERD, hypertension, hyperglycemia, diabetes, hypothyroidism, anxiety/depression, frequent UTIs. She who was hospitalized in June 2024 with respiratory failure secondary
to bilateral pneumonia and developed atrial fibrillation with rapid ventricular response. Recent admission 10/02/2024 to 10/07/2024 with shortness of breath and fever and found to be hypoxic with concern for left lower lobe pneumonia and once again
treated with antibiotics. There was concern for aspiration but family and patient declined PEG tube. She now presents back from [facility] with watery diarrhea, abdominal pain and low-grade fever. She was noted to be in atrial
fibrillation with rapid ventricular response and hypotensive on arrival. She was provided IV diltiazem bolus as well as IV fluid bolus. Patient hypotensive and heart rate virginia elevated. Of note she was C. difficile positive in emergency
department today and has been started on vancomycin.
Progress Note - Assembly Line Brazer
Subjective
Date of Service: October 11, 2024
Remains in A-fib with ventricular rates are modestly controlled. She denies any dizziness or lightheadedness. She is tolerating her diet. Denies chest pain
Objective
Labs:
10/11/24 05:13
10/11/24 05:13
Labs
Hgb 12.0 g/dL (12.0-16.0) 10/11/24 05:13
Hct 36.4 % (37.0-47.0) L 10/11/24 05:13
Plt Count 271 10^3/uL (130-400) 10/11/24 05:13
Sodium 138 mmol/L (135-145) 10/11/24 05:13
Potassium 4.1 mmol/L (3.5-5.1) 10/11/24 05:13
BUN 25 mg/dl (7-17) H 10/11/24 05:13
Creatinine 0.7 mg/dL (0.6-1.0) 10/11/24 05:13
Glucose 97 mg/dl (70-99) 10/11/24 05:13
Vital Signs and I&O:
Vital Signs
Temp Pulse Resp BP Pulse Ox
97.8 F 112 24 107/67 95
10/11/24 07:10 10/11/24 07:42 10/11/24 07:42 10/11/24 06:00 10/11/24 07:42
Vital Signs
Temp Pulse Resp BP Pulse Ox
97.8 F 112 24 107/67 95
10/11/24 07:10 10/11/24 07:42 10/11/24 07:42 10/11/24 06:00 10/11/24 07:42
Intake & Output
10/09/24 10/10/24 10/11/24 10/12/24
06:59 06:59 06:59 06:59
Intake Total 1600 / 1600
Balance 1600 / 1600
Physical Exam
Physical Exam
GEN: No distress, awake, Ox3
HEENT: supple, anicteric, mmm
LUNGS: scatt rhonchi
CV: Irreg, S1/S2, 1/6 syst LSB, no gallop
ABD: soft, BS+, NT/ND
EXT: No edema
NEURO: Gross non-focal
SKIN: No rash
[2024-10-11] MEDS: PACERONE 200 MG PO ×3 (11:51→21:32)
--- NOTE | 2024-10-11 12:11 | W.PN.HOSP.TC ---
Today's Communication/Plan
-
See plan
Assessment / Plan
Assessment / Plan
Impression
Severe C. difficile colitis/pancolitis
Sepsis present on admission.
Septic shock with hypotension responding to IV fluids
Atrial fibrillation with rapid ventricular response
Protein calorie malnutrition with mild hypoalbuminemia
Conditions prior to admission
Aspiration syndrome
Recent hospitalization with recurrent aspiration pneumonia 10/02 - 10/07/2024
Paroxysmal atrial fibrillation
Anticoagulation with Eliquis
History of asthma/COPD
Hypertension
Dyslipidemia
Steroid-induced diabetes
Hypothyroidism on replacement
Iatrogenic adrenal insufficiency on steroid maintenance prednisone 5 mg
Polyneuropathy, chronic pain
Lymphedema
Plan
C. difficile pancolitis.
Sepsis present on admission
CT scan confirming pancolitis
intermediate resident with recent hospitalization and treatment for recurrent aspiration pneumonia
Initiated on oral vancomycin.
Transition to [facility] to complete 10-day course of therapy (first episode)
Continue brat diet
Add Ensure
Hold Lasix
Monitor for recurrent hypotension
Atrial fibrillation with rapid ventricular response.
Echo 07/03/2024: TDS, EF 55 to 60%, mild concentric LVH, MAC, mild to moderate MR, mild to moderate TR, aortic sclerosis, PAP 54 mmHg, IVC dilated and does not collapse, pleural effusion present
Resume preadmission diltiazem ER 120 mg
Initiated on oral amiodarone by cardiology
Continue Eliquis
Aspiration syndrome
Recurrent aspiration pneumonia. On levofloxacin [employer] BR[employer]ER
Stable respiratory status
Imaging reviewed with bibasilar consolidation likely atelectasis.
Observe off systemic antibiotics.
Speech and swallow evaluation
Iatrogenic adrenal insufficiency.
Steroid maintenance prednisone 5 mg daily
Dose increased to 30 mg on admission. Will monitor hemodynamics and electrolytes. Started taper when appropriate
Neuropathy pain/chronic pain.
Continue Lyrica
Anticipated Discharge: > 48 hours
Subjective/Interval History
-
Date of Service: October 11, 2024
Objective Data
-
Labs:
Laboratory Results
10/11/24
05:13
WBC 19.5 H
Hgb 12.0
Hct 36.4 L
Plt Count 271
Sodium 138
Potassium 4.1
Chloride 106
Carbon Dioxide 28
BUN 25 H
Creatinine 0.7
Glucose 97
Calcium 8.2 L
Total Bilirubin 0.8
AST 16
ALT 18
Alkaline Phosphatase 70
Vital Signs:
Vital Signs
Temp Pulse Resp BP Pulse Ox
97.8 F 124 20 99/86 94
10/11/24 07:10 10/11/24 11:51 10/11/24 11:05 10/11/24 11:51 10/11/24 11:29
I&O
10/10/24 10/11/24 10/12/24
06:59 06:59 06:59
Intake Total 1600 / 1600
Balance 1600 / 1600
Physical Exam
-
General: Well Developed and No Apparent Distress
HEENT: Normocephalic, Atraumatic and Moist Mucous Membranes
Respiratory: Clear to Auscultation
Cardiac: Regular Rhythm and S1/S2; Negative Murmur, Rub or Gallop
GI: Soft, Nontender, Nondistended and Normal Bowel Sounds; Negative Organomegaly
Rectal: Deferred by Provider
Musculoskeletal: No Clubbing, No Cyanosis and No Edema
Skin: Negative Rash
Neuro: Nonfocal/Grossly Intact
--- NOTE | 2024-10-11 13:05 | PTCARENOTE ---
Assumed care of patient this morning. Pt is aaox3 but flat. Daughter stayed overnight and was in room. Pt remain in A-fib, HR elevated, up to 130s at times. BP stable. Amio gtt discontinued and started on PO. Patient unhappy with diet, voiced to
today, to remain on diet at least for today, ensure added for nutrition. Patient still incontinent of bowel and having diarrhea. Pt has MASD to perianal. Pt's daughter requesting speech eval so patient feels more confident with
swallowing, consult put in by . PT worked with patient and she is sitting in the chair. She is an assist x2 with RW. Pt fatigues very quickly. Assessment, care and VS as charted.
[2024-10-11] MEDS: DIFICID 200 MG PO ×2 (14:12→21:32)
[2024-10-11] MEDS: CARDIZEM CD 120 MG PO (14:13)
[2024-10-11] MEDS: NSS 1000 IV (14:13)
--- NOTE | 2024-10-11 15:45 | PTOTSP ---
Dysphagia Evaluation
Patient with history of WFL-mild oral/pharyngeal dysphagia per video swallow study 10/04/2024. Suspect patient is at her current baseline level of function. Continue plan of care outlined below:
Recommend:
1. IDDSI Level 7 Regular, Thin liquids
2. Medications in puree
3. Strategies: upright to 90 degrees, no straws, alternate bites with sips of liquid to assist with pharyngeal clearance, remain upright for 30 minutes after PO intake as a reflux precaution
4. Oral care 3x daily
5. Brief f/u at the acute care level given risk for fluctuation in dysphagia severity with acute illness
[2024-10-11] MEDS: DICLOFENAC 1% TOPICAL GEL 2 GRAM TOPICAL (17:10)
[2024-10-11] MEDS: LYRICA 50 MG PO (21:32)
[2024-10-11] MEDS: DICLOFENAC 1% TOPICAL GEL TOPICAL (23:29)
[2024-10-12] VITALS (11 sets, daily range): BP systolic 104–136; BP diastolic 53–79; BMI 28.3; BMI 28.8
[2024-10-12] MEDS: SYNTHROID 25 MCG PO (05:31)
[2024-10-12 05:45] LABS: Hematocrit 35.3 % (37.0-47.0); Hemoglobin 11.7 g/dL (12.0-16.0); Mean Corp Hgb Conc. 33.1 g/dL (33.0-37.0); Mean Corpuscular Volume 87.4 fL (81.0-99.0); Nucleated Red Blood Cells % 0 %; Platelet Count 275 10^3/uL (130-400); Red Cell Dist. Width 15.0 % (11.5-14.5)
[2024-10-12 06:08] LABS: ALT (SGPT) 23 U/L (0-35); AST (SGOT) 24 U/L (14-36); Albumin 2.7 g/dl (3.5-5.0); Alkaline Phosphatase 64 U/L (38-126); Blood Urea Nitrogen 22 mg/dl (7-17); Calcium 8.5 mg/dl (8.4-10.2); Carbon Dioxide 26 mmol/L (22-30); Chloride 108 mmol/L (98-107); Estimated Creatinine Clearance 72 ml/min; Glucose 93 mg/dl (70-99); Potassium 4.2 mmol/L (3.5-5.1); Sodium 138 mmol/L (135-145); Total Protein 5.0 g/dl (6.3-8.2); eGFR > 60.00
--- NOTE | 2024-10-12 06:25 | PTCARENOTE ---
Patient with flat affect. Heavy assist from the chair into bed for sleep. Gait unsteady. Pt swallows large pills in applesauce, small pills whole with water. HR controlled. Incont of B&B. Barrier cream applied generously. Sacrum red and intact;
excoriated from incontinence. Encouraged pt to reposition self while in bed. Heels floated on pillows. Pt with harsh cough present. Encouraged slow controlled breathing during coughing episodes. C.Diff precautions in place. Call santiago within reach.
Calls appropriately for assistance.
[2024-10-12] MEDS: DUONEB 3 ML INH ×4 (07:39→19:56)
[2024-10-12] MEDS: PULMICORT 0.5 MG INH ×2 (07:39→19:56)
[2024-10-12] MEDS: DELTASONE 30 MG PO (08:45)
[2024-10-12] MEDS: SODIUM CHLORIDE 1 GRAM PO (08:46)
[2024-10-12] MEDS: LYRICA 75 MG PO (08:46)
[2024-10-12] MEDS: OSCAL CAL 500 500 MG PO (08:46)
[2024-10-12] MEDS: DITROPAN 7.5 MG PO ×2 (08:46→19:51)
[2024-10-12] MEDS: PACERONE 200 MG PO ×3 (08:46→21:19)
[2024-10-12] MEDS: ELIQUIS 5 MG PO ×2 (08:46→19:52)
[2024-10-12] MEDS: CARDIZEM CD 120 MG PO (08:47)
[2024-10-12] MEDS: DIFICID 200 MG PO ×2 (08:48→20:06)
[2024-10-12] MEDS: B COMPLEX w/VITAMIN C 1 CAPLET PO (08:48)
[2024-10-12] MEDS: FLORASTOR 250 MG PO ×2 (08:48→19:53)
[2024-10-12] MEDS: DICLOFENAC 1% TOPICAL GEL 2 GRAM TOPICAL (08:48)
--- NOTE | 2024-10-12 12:46 | W.PN.HOSP.TC ---
Today's Communication/Plan
-
Advance diet.
Continue antibiotics
Continue rate control with amiodarone and Cardizem
Continue Eliquis
Physical therapy assessment
Assessment / Plan
Assessment / Plan
Impression
Severe C. difficile colitis/pancolitis
Sepsis present on admission.
Septic shock with hypotension responding to IV fluids
Atrial fibrillation with rapid ventricular response
Protein calorie malnutrition with mild hypoalbuminemia
Conditions prior to admission
Aspiration syndrome
Recent hospitalization with recurrent aspiration pneumonia 10/02 - 10/07/2024
Paroxysmal atrial fibrillation
Anticoagulation with Eliquis
History of asthma/COPD
Hypertension
Dyslipidemia
Steroid-induced diabetes
Hypothyroidism on replacement
Iatrogenic adrenal insufficiency on steroid maintenance prednisone 5 mg
Polyneuropathy, chronic pain
Lymphedema
Plan
C. difficile pancolitis.
Sepsis present on admission
CT scan confirming pancolitis
snf resident with recent hospitalization and treatment for recurrent aspiration pneumonia
Initiated on oral vancomycin.
Transition to Dificid to complete 10-day course of therapy (first episode)
Abdominal pain and diarrhea improved
Advance to low residue diet
Add Ensure
Hold Lasix
Monitor for recurrent hypotension
Atrial fibrillation with rapid ventricular response.
Echo 07/03/2024: TDS, EF 55 to 60%, mild concentric LVH, MAC, mild to moderate MR, mild to moderate TR, aortic sclerosis, PAP 54 mmHg, IVC dilated and does not collapse, pleural effusion present
Resume preadmission diltiazem ER 120 mg
Initiated on oral amiodarone by cardiology
Continue Eliquis
Aspiration syndrome
Recurrent aspiration pneumonia. 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
Stable respiratory status
Imaging reviewed with bibasilar consolidation likely atelectasis.
Observe off systemic antibiotics.
Speech and swallow evaluation
Iatrogenic adrenal insufficiency.
Steroid maintenance prednisone 5 mg daily
Dose increased to 30 mg on admission. Will monitor hemodynamics and electrolytes. Start taper.
Neuropathy pain/chronic pain.
Continue Lyrica
Anticipated Discharge: 24 - 48 hours
Subjective/Interval History
-
Date of Service: October 12, 2024
Objective Data
-
Labs:
Laboratory Results
10/12/24
05:29
WBC 14.0 H
Hgb 11.7 L
Hct 35.3 L
Plt Count 275
Sodium 138
Potassium 4.2
Chloride 108 H
Carbon Dioxide 26
BUN 22 H
Creatinine 0.6
Glucose 93
Calcium 8.5
Total Bilirubin 0.7
AST 24
ALT 23
Alkaline Phosphatase 64
Vital Signs:
Vital Signs
Temp Pulse Resp BP Pulse Ox
98.5 F 75 20 104/72 93
10/12/24 11:00 10/12/24 11:45 10/12/24 11:45 10/12/24 08:47 10/12/24 11:45
I&O
10/11/24 10/12/24 10/13/24
06:59 06:59 06:59
Intake Total 1600 / 1600 1440 / 1440
Balance 1600 / 1600 1440 / 1440
Physical Exam
-
General: Well Developed and No Apparent Distress
HEENT: Normocephalic, Atraumatic and Moist Mucous Membranes
Respiratory: Clear to Auscultation
Cardiac: Regular Rhythm and S1/S2; Negative Murmur, Rub or Gallop
GI: Soft, Nontender, Nondistended and Normal Bowel Sounds; Negative Organomegaly
Rectal: Deferred by Provider
Musculoskeletal: No Clubbing, No Cyanosis and No Edema
Skin: Negative Rash
Neuro: Nonfocal/Grossly Intact
--- NOTE | 2024-10-12 13:09 | PN.CDI ---
CDI
- -
CDI:
Physician Documentation Request
Admit Date: 10/10/24 13:34
Dear Doctor Usha,
10/11 hospitalist progress note includes a diagnosis of Protein calorie malnutrition
To ensure the quality of the medical record, based on the above information and the recognized standards for malnutrition , could you please verify in your progress notes which of the following responses best reflects the patient's nutritional
status:
(Specify severity) Malnutrition is/was present and is a clinical diagnosis (please provide additional support in the medical record)
No nutritional deficiency
Other (please specify)
Bitely Criteria ([facility] Hospitalist 2017)
2 or more criteria must be present for either
non severe or severe malnutrition
Note that the criteria differs related to the
presence of an acute or chronic illness
Acute Illness Chronic Illness
Energy Intake Non Severe: <75% for >7 days Non Severe: <75% for >1 month
Severe: <50% for >5 days Severe: <75% for >1 month
Weight Loss Non Severe: 1-2% over 1 week Non Severe: 5% over 1 month
5% over 1 month 7.5% over 3 months
7.5% over 3 months 10% over 6 months
1 year N/A 20% over 1 year
Severe: >2% over 1 week Severe: >5% over 1 month
>5% over 1 month >7.5% over 3 months
>7.5% over 3 months >10% over 6 months
1 year N/A >20% over 1 year
Body Fat Non Severe: Mild Decrease Non Severe: Mild Loss
Severe: Moderate Decrease Severe: Severe Loss
Muscle Mass Non Severe: Mild Decrease Non Severe: Mild Loss
Severe: Moderate Decrease Severe: Severe Loss
Fluid Accumulation Non Severe: Mild Accumulation Non Severe: Mild Accumulation
Severe: Moderate to severe Severe: Moderate to severe
accumulation accumulation
Reduced Swimmer Strength Non Severe: N/A Non Severe: N/A
Severe: Measurably reduced Severe: Measurably reduced
Use of terms such as suspected, likely, concern for, or probable (associated with a specific diagnosis that is being evaluated, monitored, or treated as if it exists) are acceptable and can be coded in the inpatient setting, when documented at the
time of discharge.
Thank you,
Keturah Sparks RN, BSN
CDI Specialist
tiger text
Please use your independent medical judgment in providing your response.
--- NOTE | 2024-10-12 13:11 | PN.CDI ---
CDI
- -
CDI:
Physician Documentation Request
Admit Date: 10/10/24 13:34
Dear Doctor Usha,
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
Please clarify which of the following accurately represents the patient's respiratory status:
Chronic respiratory failure- please indicate type
Hypoxia
Other
Additional information for Respiratory Failure:
Recognized criteria for Respiratory Failure (Source: Renetta Santana. 2019 February 15.
Documentation tips: Acute Respiratory Failure, The Hospitalist.)
Please indicate type if known
Hypoxic
Hypercapnic
Hypoxic and Hypercapnic
Use of terms such as suspected, likely, concern for, or probable (associated with a specific diagnosis that is being evaluated, monitored, or treated as if it exists) are acceptable and can be coded in the inpatient setting, when documented at the
time of discharge.
Thank you,
Keturah Sparks RN, BSN
CDI Specialist
tiger text
Please use your independent medical judgment in providing your response.
--- NOTE | 2024-10-12 15:41 | W.PN.CARDCBS ---
Today's Communication / Plan
-
Remains in sinus rhythm
Continue amiodarone 200 mg p.o. 3 times daily started on 10/11
QT interval okay on ECG
Continue Eliquis
Kidney changes amiodarone 200 mg p.o. twice daily at any time if patient is to be discharged
Remains on 1 L of oxygen likely due to pneumonia, pro BNP was 559 on 10/02
Impression / Plan
-
Family Physician: Archie Mullen, DO
Primary Household Appliances Salesperson: Dr. Branch
Assessment:
Presents 10/10/2024 with abdominal pain, diarrhea, low-grade fever and tachycardia
Diarrhea
C diff positive 10/10/2024 in ED
Sepsis
Afib with RVR
Hypotension
Recent admission to [facility] for PNA 10/02-10/07/24
Admission in June 2024 for aspiration pneumonia
Paroxysmal atrial fibrillation
Chronic Eliquis OAC
History of asthma/COPD
Hypertension
Hyperlipidemia
Type 2 diabetes
History of UTIs
GERD
Hypothyroidism with thyroid nodule by imaging
Spinal stenosis
Lymphedema
Polyneuropathy
Echo 07/03/2024: TDS, EF 55 to 60%, mild concentric LVH, MAC, mild to moderate MR, mild to moderate TR, aortic sclerosis, PAP 54 mmHg, IVC dilated and does not collapse, pleural effusion present
Plan:
She is in sinus rhythm at present. Amiodarone 200 mg p.o. 3 times daily load was started on 10/11. QT interval okay on ECG today.
Will load with amiodarone while admitted but can be changed to p.o. twice daily and anytime if patient to be discharged
Continue Eliquis
Continue treatment of C. difficile per primary service. On antibiotics
Chest x-ray does show bibasilar pneumonia. Also seen on CT. Patient previously found to have concern for aspiration and patient/family has declined PEG tube on prior admission. Remains on 1 L of oxygen which is thought to be due to pneumonia.
Pro BNP was 559 on 10/02
HPI 10/10/2024:
Blanca has history of atrial fibrillation on chronic Eliquis, asthma/COPD, GERD, hypertension, hyperglycemia, diabetes, hypothyroidism, anxiety/depression, frequent UTIs. She who was hospitalized in June 2024 with respiratory failure secondary
to bilateral pneumonia and developed atrial fibrillation with rapid ventricular response. Recent admission 10/02/2024 to 10/07/2024 with shortness of breath and fever and found to be hypoxic with concern for left lower lobe pneumonia and once again
treated with antibiotics. There was concern for aspiration but family and patient declined PEG tube. She now presents back from [facility] with watery diarrhea, abdominal pain and low-grade fever. She was noted to be in atrial
fibrillation with rapid ventricular response and hypotensive on arrival. She was provided IV diltiazem bolus as well as IV fluid bolus. Patient hypotensive and heart rate [place] elevated. Of note she was C. difficile positive in emergency
department today and has been started on vancomycin.
Progress Note - Household Appliances Salesperson
Subjective
Date of Service: October 12, 2024
No complaints. In sinus rhythm.
Objective
Labs:
10/12/24 05:29
10/12/24 05:29
Labs
Hgb 11.7 g/dL (12.0-16.0) L 10/12/24 05:29
Hct 35.3 % (37.0-47.0) L 10/12/24 05:29
Plt Count 275 10^3/uL (130-400) 10/12/24 05:29
Sodium 138 mmol/L (135-145) 10/12/24 05:
Potassium 4.2 mmol/L (3.5-5.1) 10/12/24 05:29
BUN 22 mg/dl (7-17) H 10/12/24 05:
Creatinine 0.6 mg/dL (0.6-1.0) 10/12/24 05:29
Glucose 93 mg/dl (70-99) 10/12/24 05:29
Vital Signs and I&O:
Vital Signs
Temp Pulse Resp BP Pulse Ox
97.9 F 72 16 109/53 93
10/12/24 15:35 10/12/24 15:35 10/12/24 15:35 10/12/24 15:35 10/12/24 15:35
Vital Signs
Temp Pulse Resp BP Pulse Ox
97.9 F 72 16 109/53 93
10/12/24 15:35 10/12/24 15:35 10/12/24 15:35 10/12/24 15:35 10/12/24 15:35
Intake & Output
10/10/24 10/11/24 10/12/24 10/13/24
06:59 06:59 06:59 06:59
Intake Total 1600 / 1600 1440 / 1440
Balance 1600 / 1600 1440 / 1440
Physical Exam
Physical Exam
General: Well developed, well nourished in NAD.
Neck: Supple, no JVD, HJR, carotids +2 B/L, no bruits bilaterally.
Heart: Non displaced PMI, RRR, no murmurs, No S3, S4, no rubs.
Lungs: Scattered rhonchi
Extremities: No clubbing, cyanosis or edema bilaterally.
Neuro: Grossly nonfocal, awake, alert and oriented x3.
[2024-10-12] MEDS: DICLOFENAC 1% TOPICAL GEL TOPICAL ×2 (17:04→21:30)
[2024-10-12] MEDS: LYRICA 50 MG PO (21:18)
[2024-10-13 03:58] VITALS: BP 136/73
[2024-10-13] MEDS: SYNTHROID 25 MCG PO (05:41)
[2024-10-13 06:33] VITALS: BMI 29.1
[2024-10-13 07:05] VITALS: BP 151/71
[2024-10-13] MEDS: DUONEB 3 ML INH ×3 (07:51→15:00)
[2024-10-13] MEDS: PULMICORT 0.5 MG INH (07:51)
[2024-10-13 08:38] LABS: Hematocrit 34.6 % (37.0-47.0); Hemoglobin 11.5 g/dL (12.0-16.0); Mean Corp Hgb Conc. 33.2 g/dL (33.0-37.0); Mean Corpuscular Volume 87.8 fL (81.0-99.0); Nucleated Red Blood Cells % 0 %; Platelet Count 289 10^3/uL (130-400); Red Cell Dist. Width 14.9 % (11.5-14.5)
[2024-10-13 09:10] LABS: ALT (SGPT) 22 U/L (0-35); AST (SGOT) 15 U/L (14-36); Albumin 2.8 g/dl (3.5-5.0); Alkaline Phosphatase 58 U/L (38-126); Blood Urea Nitrogen 19 mg/dl (7-17); Calcium 8.9 mg/dl (8.4-10.2); Carbon Dioxide 28 mmol/L (22-30); Chloride 110 mmol/L (98-107); Estimated Creatinine Clearance 62 ml/min; Glucose 79 mg/dl (70-99); Potassium 3.8 mmol/L (3.5-5.1); Sodium 138 mmol/L (135-145); Total Protein 5.0 g/dl (6.3-8.2); eGFR > 60.00
[2024-10-13] MEDS: OSCAL CAL 500 500 MG PO (10:11)
[2024-10-13] MEDS: ELIQUIS 5 MG PO (10:11)
[2024-10-13] MEDS: DITROPAN 7.5 MG PO (10:18)
[2024-10-13] MEDS: DIFICID 200 MG PO (10:19)
[2024-10-13] MEDS: DELTASONE 20 MG PO (10:20)
[2024-10-13] MEDS: SODIUM CHLORIDE 1 GRAM PO (10:20)
[2024-10-13] MEDS: CARDIZEM CD 120 MG PO (10:20)
[2024-10-13] MEDS: PACERONE 200 MG PO ×2 (10:20→17:23)
[2024-10-13] MEDS: LYRICA 75 MG PO (10:21)
[2024-10-13] MEDS: B COMPLEX w/VITAMIN C 1 CAPLET PO (10:21)
[2024-10-13] MEDS: FLORASTOR 250 MG PO (10:21)
[2024-10-13 11:44] VITALS: BP 114/76; O2SAT 91
--- NOTE | 2024-10-13 12:39 | CM ---
Chart reviewed. Patient is LTC resident at [facility].
Therapy rec skilled rehab at d/c, [facility] admissions made aware, agreeable to accept today
Per hospitalist, patient can d/c today
Updated patient bedside, agreeable to d/c
Left message w/ daughter
Ambulance transport forms on chart
IMM verbally reviewed, copy provided, copy on chart
[facility]
Report: [phone]

Plan: D/c to [facility] today
[2024-10-13] MEDS: DICLOFENAC 1% TOPICAL GEL TOPICAL ×2 (14:23→17:01)
[2024-10-13 15:10] VITALS: BP 112/64
--- NOTE | 2024-10-13 15:44 | W.PN.CARDCBS ---
Addendum entered and electronically signed by Isaac Rubio MD 10/13/24 17:03:
I saw and examined the patient.
The Building Services Technician's note was reviewed and I agree with the note.
Comment: Briefly, 84-year-old woman presenting with sepsis secondary to C. difficile colitis and developed rapid atrial fibrillation for which cardiology was consulted
Maintaining sinus rhythm today by my review of telemetry
Continue amiodarone 200 mg twice daily for 2 weeks and then decrease to 200 mg once daily
New to Eliquis for risk reduction of cardioembolic stroke
Stable cardiac status, we will sign off
Outpatient follow-up has been arranged
Original Note:
Today's Communication / Plan
-
Check EKG in a.m. for QT monitoring if not discharged home
Replete potassium
Continue amiodarone 200 mg twice a day x 2 weeks at discharge then once a day thereafter
Continue Eliquis
Outpatient cardiology follow-up has been arranged
Impression / Plan
-
Family Physician: Archie Mullen DO
Primary Oral And Maxillofacial Surgeon: Dr. Branch
Assessment:
Presents 10/10/2024 with abdominal pain, diarrhea, low-grade fever and tachycardia
Diarrhea
C diff positive 10/10/2024 in ED
Sepsis
Afib with RVR
Hypotension
Recent admission to [facility] for PNA 10/02-10/07/24
Admission in June 2024 for aspiration pneumonia
Paroxysmal atrial fibrillation
Chronic Eliquis OAC
History of asthma/COPD
Hypertension
Hyperlipidemia
Type 2 diabetes
History of UTIs
GERD
Hypothyroidism with thyroid nodule by imaging
Spinal stenosis
Lymphedema
Polyneuropathy
Echo 07/03/2024: TDS, EF 55 to 60%, mild concentric LVH, MAC, mild to moderate MR, mild to moderate TR, aortic sclerosis, PAP 54 mmHg, IVC dilated and does not collapse, pleural effusion present
Plan:
Patient presented back to [facility] 10/10/2024 after recent admission for pneumonia (10/02 - 10/07/2024) now with low-grade fever, diarrhea, lethargy and testing C. difficile positive. In the setting of this, noted to be in A-fib with RVR with associated
hypotension. Suspected component of dehydration contributing in setting of C. difficile.
Patient was started on Amiodarone 200 mg p.o. 3 times daily load was started on 10/11.
Patient spontaneously converted to sinus rhythm with stable QT interval 462 ms on 10/12/2024. Patient has received 1400 mg load as of 10/13/2024. Would discharge home on amiodarone 200 mg twice a day x 2 weeks then once a day thereafter.
Check EKG in am for QTc monitoring.
Continue Eliquis 5 mg twice a day, hemoglobin stable at 11.5
Continue diltiazem 120 mg daily which patient was taken prior to admission. However if patient should have hypotension would discontinue diltiazem.
Continue treatment of C. difficile per primary service. On antibiotics
Pleat potassium with 40 mEq x 1
Chest x-ray does show bibasilar pneumonia. Also seen on CT. Patient previously found to have concern for aspiration and patient/family has declined PEG tube on prior admission. Remains on 1-2 L of oxygen which is thought to be due to pneumonia
but daughter reports patient does have oxygen in her room at [facility]. Pro BNP was 559 on 10/02
Outpatient cardiology follow-up has been arranged
HPI 10/10/2024:
Blanca has history of atrial fibrillation on chronic Eliquis, asthma/COPD, GERD, hypertension, hyperglycemia, diabetes, hypothyroidism, anxiety/depression, frequent UTIs. She who was hospitalized in June 2024 with respiratory failure secondary
to bilateral pneumonia and developed atrial fibrillation with rapid ventricular response. Recent admission 10/02/2024 to 10/07/2024 with shortness of breath and fever and found to be hypoxic with concern for left lower lobe pneumonia and once again
treated with antibiotics. There was concern for aspiration but family and patient declined PEG tube. She now presents back from [facility] with watery diarrhea, abdominal pain and low-grade fever. She was noted to be in atrial
fibrillation with rapid ventricular response and hypotensive on arrival. She was provided IV diltiazem bolus as well as IV fluid bolus. Patient hypotensive and heart rate [place] elevated. Of note she was C. difficile positive in emergency
department today and has been started on vancomycin.
Progress Note - Oral And Maxillofacial Surgeon
Subjective
Date of Service: October 13, 2024
Patient seen and examined. Patient's daughter at bedside. Patient reports she is feeling better. Still having some diarrhea but significantly improved. Denies palpitations, chest pain, dizziness or lightheadedness, still on some oxygen via nasal
cannula
Objective
Labs:
10/13/24 08:10
10/13/24 08:10
Labs
Hgb 11.5 g/dL (12.0-16.0) L 10/13/24 08:10
Hct 34.6 % (37.0-47.0) L 10/13/24 08:10
Plt Count 289 10^3/uL (130-400) 10/13/24 08:10
Sodium 138 mmol/L (135-145) 10/13/24 08:10
Potassium 3.8 mmol/L (3.5-5.1) 10/13/24 08:10
BUN 19 mg/dl (7-17) H 10/13/24 08:10
Creatinine 0.7 mg/dL (0.6-1.0) 10/13/24 08:10
Glucose 79 mg/dl (70-99) 10/13/24 08:10
Vital Signs and I&O:
Vital Signs
Temp Pulse Resp BP Pulse Ox
97.8 F 70 15 125/66 95
10/13/24 11:15 10/13/24 15:03 10/13/24 15:03 10/13/24 10:20 10/13/24 15:03
Vital Signs
Temp Pulse Resp BP Pulse Ox
97.8 F 70 15 125/66 95
10/13/24 11:15 10/13/24 15:03 10/13/24 15:03 10/13/24 10:20 10/13/24 15:03
Intake & Output
10/11/24 10/12/24 10/13/24 10/14/24
06:59 06:59 06:59 06:59
Intake Total 1600 / 1600 1440 / 1440 240 / 240
Output Total 0 / 0
Balance 1600 / 1600 1440 / 1440 240 / 240
Physical Exam
Physical Exam
GEN: No distress, awake, Ox3, sitting in chair
HEENT: supple, anicteric, mmm
LUNGS: Faint squeak at bases otherwise CTA, no wheezes/rales, still on 2 L oxygen via nasal cannula
CV: Reg, S1/S2, 1/6 syst murmur, no rub or gallop
ABD: Obese, soft, BS+, NT/ND
EXT: No edema, clubbing or cyanosis
NEURO: Gross non-focal
SKIN: No rash, warm, dry, pink
--- NOTE | 2024-10-13 17:15 | W.DS.TRANS ---
DC Summary - Nitro Man
-
Discharge Instructions:
Discharge Diagnosis/Procedures Impression
Severe C. difficile colitis/pancolitis
Sepsis present on admission.
Septic shock with hypotension responding to IV
fluids
Atrial fibrillation with rapid ventricular
response
Protein calorie malnutrition with mild
hypoalbuminemia, mild
Conditions prior to admission
Aspiration syndrome
Recent hospitalization with recurrent aspiration
pneumonia 10/02 - 10/07/2024
Paroxysmal atrial fibrillation
Anticoagulation with Eliquis
History of asthma/COPD. Chronic hypoxic
respiratory insufficiency intermittently on
Home O2 at 1-2L
Hypertension
Dyslipidemia
Steroid-induced diabetes
Hypothyroidism on replacement
Iatrogenic adrenal insufficiency on steroid
maintenance prednisone 5 mg
Polyneuropathy, chronic pain
Lymphedema
Diet Regular
Instructions:
Stand-Alone Forms:
Changes to Home Medications: Yes
Discharge Medications:
DC Medications w/original date entered in [facility]
acetaminophen 325 mg tablet (Tylenol) 650 mg PO Q4HPRN PRN mild pain/fever>100.4 03/24/22
apixaban 5 mg tablet (Eliquis) 5 mg PO BID Blood Clot Prevention/Tx 03/24/22
atorvastatin 10 mg tablet (Lipitor) 10 mg PO [id number]@1830 High Cholesterol 03/24/22
coQ10 (ubiquinol) 200 mg capsule 200 mg PO DAILY Supplement 03/24/22
diclofenac sodium 1 % topical gel 2 g topical Q8H both knees 03/24/22
levothyroxine 25 mcg tablet 25 mcg PO DAILY Thyroid 03/24/22
magnesium hydroxide 400 mg/5 mL oral suspension (Milk of Magnesia) 2,400 mg PO HSPRN PRN constipation 03/24/22
guaifenesin 600 mg tablet, extended release 12 hr (Mucinex) 600 mg PO [id number] PRN cough 05/22/22
budesonide 0.5 mg/2 mL suspension for nebulization 0.5 mg inhalation R BID Lung/Breathing Issues 12/19/23
potassium chloride 10 mEq capsule,extended release 10 meq PO DAILY Electrolyte Repletion 12/19/23
pregabalin 50 mg capsule 50 mg PO HS neuropathic pain 12/19/23
pregabalin 75 mg capsule 75 mg PO DAILY neuropathic pain 12/19/23
albuterol sulfate 90 mcg/actuation aerosol inhaler 2 puff inhalation R TIDPRN PRN sob 07/02/24
calcium carbonate 600 mg PO DAILY Supplement 07/02/24
cholecalciferol (vitamin D3) 1,250 mcg (50,000 unit) tablet 1,250 mcg PO QMONTH Supplement 07/02/24
ipratropium 0.5 mg-albuterol 3 mg (2.5 mg base)/3 mL nebulization soln 3 ml inhalation R QID Lung/Breathing Issues 07/02/24
sodium chloride 1,000 mg soluble tablet 1,000 mg PO DAILY Electrolyte Repletion 07/02/24
vitamin B complex 1 tab PO DAILY Supplement 07/02/24
diltiazem HCl 120 mg capsule,extended release 24 hr 120 mg PO DAILY #0 caps 07/09/24
oxybutynin chloride 5 mg tablet 7.5 mg (1.5 x 5 mg) PO BID #0 tabs 07/09/24
furosemide 20 mg tablet 20 mg PO DAILYPRN PRN weight gain greater then 5pds 10/02/24
furosemide 20 mg tablet (Lasix) 20 mg PO DAILY edema 10/02/24
bisacodyl 10 mg rectal suppository (Dulcolax (bisacodyl)) 10 mg VA [id number] PRN IF NO BM AFTR MOM 10/10/24
Saccharomyces boulardii 250 mg capsule 250 mg PO BID #60 caps 10/13/24
amiodarone 200 mg tablet 200 mg PO BID #60 tabs 10/13/24
fidaxomicin 200 mg tablet (Dificid) 200 mg PO BID #14 tabs 10/13/24
prednisone 5 mg tablet 5 mg PO DAILY #30 tabs 10/13/24
Home Medication Changes
Dificid to complete total of 10-day course of therapy
Amiodarone added for poorly controlled A-fib rate
Prednisone tapered down to maintenance dose of 5 mg
Pending Results: No
[2024-10-13] MEDS: KCL 40 MEQ PO (17:23)
== END 2024-10-13 18:42 | DRG 871 ==
LOC: 4 WEST ACU 13:34
PROVIDERS: Clinical Nurse Specialist Family Health; ADMITTING PHYSICIAN Internal Medicine; ATTENDING PHYSICIAN Internal Medicine; EMERGENCY PHYSICIAN Student in an Organized Health Care Education/Training Program; FAMILY PHYSICIAN Student in an Organized Health Care Education/Training Program; OTHER PHYSICIAN Internal Medicine Cardiovascular Disease
DX: A41.4 Sepsis due to anaerobes (principal); R65.21 Severe sepsis with septic shock; A04.72 Enterocolitis due to Clostridium difficile, not specified as recurrent; E44.0 Moderate protein-calorie malnutrition; E27.3 Drug-induced adrenocortical insufficiency; J98.11 Atelectasis; I48.0 Paroxysmal atrial fibrillation; Z68.29 Body mass index [BMI] 29.0-29.9, adult; J44.9 Chronic obstructive pulmonary disease, unspecified; E09.9 Drug or chemical induced diabetes mellitus without complications; T38.0X5A Adverse effect of glucocorticoids and synthetic analogues, initial encounter; E03.9 Hypothyroidism, unspecified; Z79.52 Long term (current) use of systemic steroids; G89.29 Other chronic pain; I89.0 Lymphedema, not elsewhere classified; I10 Essential (primary) hypertension; E88.09 Other disorders of plasma-protein metabolism, not elsewhere classified; Z87.891 Personal history of nicotine dependence; Z88.0 Allergy status to penicillin; Z88.2 Allergy status to sulfonamides; Z87.01 Personal history of pneumonia (recurrent); Z87.440 Personal history of urinary (tract) infections; Z79.01 Long term (current) use of anticoagulants; Z79.890 Hormone replacement therapy; Z79.51 Long term (current) use of inhaled steroids; Z79.899 Other long term (current) drug therapy; Z79.84 Long term (current) use of oral hypoglycemic drugs; Z66 Do not resuscitate; E04.1 Nontoxic single thyroid nodule; E78.00 Pure hypercholesterolemia, unspecified; E86.0 Dehydration; F32.A Depression, unspecified; F41.9 Anxiety disorder, unspecified; I95.89 Other hypotension; K21.9 Gastro-esophageal reflux disease without esophagitis; M48.00 Spinal stenosis, site unspecified; R13.10 Dysphagia, unspecified; E09.42 Drug or chemical induced diabetes mellitus with neurological complications with diabetic polyneuropathy
CPT/HCPCS: 71045; 74177; 80053; 83605; 85025; 87040; 87045; 87046; 87070; 87077; 87147; 87324; 87427; 87449; 92526; 92610; 93005; 94640; 96361; 96374; 97163; 97530; 99285; Q9967

== ENCOUNTER → 2024-10-16 12:30 | Outpatient (REF) | payer OTHER, MEDICARE, SELFPAY ==
[2024-10-16 13:03] LABS: Hematocrit 33.9 % (37.0-47.0); Hemoglobin 11.1 g/dL (12.0-16.0); Mean Corp Hgb Conc. 32.7 g/dL (33.0-37.0); Mean Corpuscular Volume 89.2 fL (81.0-99.0); Nucleated Red Blood Cells % 0 %; Platelet Count 324 10^3/uL (130-400); Red Cell Dist. Width 14.8 % (11.5-14.5)
[2024-10-16 13:30] LABS: ALT (SGPT) 19 U/L (0-35); AST (SGOT) 16 U/L (14-36); Albumin 2.6 g/dl (3.5-5.0); Alkaline Phosphatase 48 U/L (38-126); Blood Urea Nitrogen 14 mg/dl (7-17); Calcium 8.6 mg/dl (8.4-10.2); Carbon Dioxide 30 mmol/L (22-30); Chloride 104 mmol/L (98-107); Glucose 86 mg/dl (70-99); Magnesium 2.2 mg/dl (1.6-2.3); Potassium 4.3 mmol/L (3.5-5.1); Sodium 135 mmol/L (135-145); Total Protein 4.8 g/dl (6.3-8.2); eGFR > 60.00
== END ==
LOC: OLABN 12:30
PROVIDERS: ATTENDING PHYSICIAN Student in an Organized Health Care Education/Training Program
DX: J44.9 Chronic obstructive pulmonary disease, unspecified (principal)
CPT/HCPCS: 36415; 80053; 83735; 85025

== ENCOUNTER → 2024-11-02 11:40 | Outpatient (REF) | payer OTHER, MEDICARE, SELFPAY ==
[2024-11-02 13:18] LABS: HDL Cholesterol 53 mg/dl; LDL Cholesterol, Calculated 53 mg/dl; Very Low Density Lipoprotein 10 mg/dl (0-30)
== END ==
LOC: OLABN 11:40
PROVIDERS: ATTENDING PHYSICIAN Student in an Organized Health Care Education/Training Program
DX: E78.5 Hyperlipidemia, unspecified (principal)
CPT/HCPCS: 36415; 80061

== ENCOUNTER → 2024-11-07 11:06 | Outpatient (REF) | payer OTHER, MEDICARE, SELFPAY ==
[2024-11-07 12:41] LABS: TSH 0.58 uIU/ml (0.47-4.68)
== END ==
LOC: OLABN 11:06
PROVIDERS: ATTENDING PHYSICIAN Student in an Organized Health Care Education/Training Program
DX: E03.9 Hypothyroidism, unspecified (principal)
CPT/HCPCS: 36415; 84436; 84443; 86376

== ENCOUNTER → 2024-11-10 09:55 | Outpatient (REF) | payer OTHER, MEDICARE, SELFPAY ==
[2024-11-10 12:28] LABS: Blood Urea Nitrogen 15 mg/dl (7-17); Calcium 8.1 mg/dl (8.4-10.2); Carbon Dioxide 31 mmol/L (22-30); Chloride 104 mmol/L (98-107); Glucose 66 mg/dl (70-99); Potassium 3.9 mmol/L (3.5-5.1); Sodium 136 mmol/L (135-145); eGFR > 60.00
== END ==
LOC: OLABN 09:55
PROVIDERS: ATTENDING PHYSICIAN Student in an Organized Health Care Education/Training Program
DX: I10 Essential (primary) hypertension (principal); I50.32 Chronic diastolic (congestive) heart failure
CPT/HCPCS: 36415; 80048

== ENCOUNTER 2024-11-21 17:31 | Emergency (ER) | payer MEDICARE, OTHER, SELFPAY ==
[2024-11-21 17:34] VITALS: BP 138/74
[2024-11-21 17:50] VITALS: BMI 28.1
[2024-11-21 18:40] LABS: Hematocrit 33.9 % (37.0-47.0); Hemoglobin 11.2 g/dL (12.0-16.0); Mean Corp Hgb Conc. 33.0 g/dL (33.0-37.0); Mean Corpuscular Volume 85.8 fL (81.0-99.0); Nucleated Red Blood Cells % 0 %; Platelet Count 336 10^3/uL (130-400); Red Cell Dist. Width 15.2 % (11.5-14.5)
[2024-11-21 18:47] LABS: Urine Character Slightly Cloudy (Clear)
--- NOTE | 2024-11-21 18:56 | ED.MUSCINJ ---
HPI-Injury
General
Chief Complaint: Fall
Source: patient, ambulance crew and detention records
Exam Limitations: none
Time Seen by Provider: 11/21/24 18:04
Nursing documentation reviewed up to this point in time: agreed with
History of Present Illness-Injury
Initial Injury comments:
84-year-old female presents from [facility] via EMS after a fall in her bathroom. She states she was standing at the commode holding onto a rail when her hand slipped and she fell onto her left side. She denies hitting her head. She denies
any injury. She denies pain in her arms or legs or back or neck. She reportedly had a fall last week also and staff at the detention are requesting a head CT. She is not anticoagulated, she denies headache. She is typically nonambulatory and
is supposed to have assistance for transfer from wheelchair to bed or wheelchair to toilet and this time she did not have any assistance.
Past History
Past History
ED Past Medical History: Asthma, COPD, HTN, Hypercholesterolemia, NIDDM, Hypothyroidism, Psychiatric (anxiety/depression) and Other (frequent UTI)
ED Past Surgical History: Orthopedic
Social History
Tobacco: Former smoker
Alcohol: None
Drug: None
Personal:
Living: assisted living
Review of Systems
Review of Systems
Allergies reviewed?: Yes
All Other Systems: ROS reviewed and negative except as documented in HPI and ROS
Constitutional: Denies fever
Cardiac: Denies syncope
Musculoskeletal: Reports edema; Denies neck pain or back pain
Skin: Reports no symptoms
Neurological: Denies headache
Phy Exam
Physical Exam
Physical Exam:
GENERAL: No acute distress. A&Ox3.
CONSTITUTIONAL: Afebrile.
EYES: clear, conjunctivae normal
ENMT: moist mucus membranes, Pharynx nl
RESPIRATORY: Regular respirations, nonlabored, lungs clear.
CARDIOVASCULAR: Regular rate and rhythm, no murmurs, no rubs.
GI: Soft, nontender, normal BS
MUSCULOSKELETAL: No spinal bony tenderness. Moves with ease. Well perfused.
SKIN: Warm, dry, pink. Redness and two 5 mm areas of mild skin breakdown sacrum.
PSYCH: Normal mood and affect. Well kept, interactive and appropriate
NEUROLOGIC: Awake, alert and oriented. Speech clear. No focal neurological deficits. Strength equal throughout.
Injury Course
Orders/Labs/Results
Orders:
Orders
11/21/24 18:05
CT Head W/o Iv Contrast Urgent
Comment:
Reason For Exam: falls, on eliquis
11/21/24 18:33
Complete Blood Count/With Diff Urgent
Comprehensive Metabolic Panel Urgent
11/21/24 18:41
Urinalysis Reflex To Culture Urgent
Date Specimen was Collected: 11/21/24
Time Specimen was Collected: 18:40
Urine Microscopic Reflex Cult Urgent
Urine Culture Urgent
MERCED Source: U
Specimen Description:
Date Specimen was Collected: 11/21/24
Time Specimen was Collected: 18:40
11/21/24 19:43
Fosfomycin [Monurol] 3 gm PO ONCE ONE
Abnormal Lab Results
11/21/24 11/21/24
18:33 18:41
RBC 3.95 L 10^6/uL
(4.20-5.40)
Hgb 11.2 L g/dL
(12.0-16.0)
Hct 33.9 L %
(37.0-47.0)
RDW 15.2 H %
(11.5-14.5)
Abs Immat Gran (auto) 0.1 H 10^3/uL
(0-0.05)
Absolute Neuts (auto) 7.0 H 10^3/uL
(1.4-6.5)
Neutrophils % 76.4 H %
(42.2-75.2)
Lymphocytes % 16.0 L %
(20.5-51.1)
Sodium 134 L mmol/L
(135-145)
Carbon Dioxide 31 H mmol/L
(22-30)
Calcium 8.2 L mg/dl
(8.4-10.2)
Total Protein 5.2 L g/dl
(6.3-8.2)
Albumin 2.6 L g/dl
(3.5-5.0)
Ur Occult Blood Reflex 2+ A
(Negative)
Urine Nitrite (Reflex) Positive A
(Negative)
Leukocyte Esterase Rfl 2+ A
(Negative)
Urine WBC (Reflex) 26-30 A /HPF
(0-5)
Urine Bacteria (Reflex) Many A
(Negative)
Urine Albumin (Reflex) 1+ A
(Neg - Trace)
11/21/24 18:33
11/21/24 18:33
MDM/Problems Addressed
Differential Diagnosis Includes:
Dehydration, UTI
MDM/Problems Addressed:
84-year-old female presents from [facility] falls via EMS after a fall in her bathroom. She states she was standing at the commode holding onto a rail when her hand slipped and she fell onto her left side. She denies hitting her head. She denies
any injury. She denies pain in her arms or legs or back or neck. She reportedly had a fall last week also and staff at the detention are requesting a head CT. She is not anticoagulated, she denies headache. She is typically nonambulatory and
is supposed to have assistance for transfer from wheelchair to bed or wheelchair to toilet and this time she did not have any assistance.
No bony tenderness, no imaging indicated
CT Head neg
CBC with no clinically significant abnormality
CMP with no clinically significant abnormality
U/A: 2+ occult blood, positive nitrites, positive leukocytes, 26-30 WBC, many bacteria
Treat with Monurol. Urine culture pending.
*Pulse Oximetry
SaO2: 96
Oxygen Mode of Delivery: Room air
Patient hypoxic: not evaluated
*Critical Care Note
Total Time (30-74mins, 75-104mins- exclusive of procedures): Not Applicable
ED Attending Note
-
Portions of this chart may have been created with voice recognition software.� Occasional wrong word or��sound alike� substitutions may have occurred due to the inherent limitations of voice recognition software.
Discharge Plan
Departure
Patient Disposition: Home (Routine Discharge)
Date of Disposition: 11/21/24
Time of Disposition: 19:55
Patient with high blood pressure during this ER visit?: No
Condition: Good
Discharge Problem:
Fall from slip, trip, or stumble, Acute UTI
Instructions: Preventing falls in adults, Urinary tract infection (DC)
Prescriptions:
No Action
acetaminophen [Tylenol] 325 mg Tablet
650 mg PO Q4HPRN PRN (Reason: mild pain/fever>100.4)
atorvastatin [Lipitor] 10 mg Tablet
10 mg PO GENAO@1830
levothyroxine 25 mcg Tablet
25 mcg PO DAILY
magnesium hydroxide [Milk of Magnesia] 400 mg/5 mL Suspension
2,400 mg PO HSPRN PRN (Reason: constipation)
coQ10 (ubiquinol) 200 mg Capsule
200 mg PO DAILY
Eliquis 5 mg Tablet
5 mg PO BID
diclofenac sodium 1 % Gel
2 g TOPICAL Q8H
guaifenesin [Mucinex] 600 mg tablet extended release 12hr
600 mg PO [id number] PRN (Reason: cough)
potassium chloride 10 mEq Capsule, Extended Release
10 meq PO DAILY
budesonide 0.5 mg/2 mL Suspension For Nebulization
0.5 mg INHALATION R BID
pregabalin 50 mg Capsule
50 mg PO HS
pregabalin 75 mg Capsule
75 mg PO DAILY
cholecalciferol (vitamin D3) 1,250 mcg (50,000 unit) Tablet
1,250 mcg PO QMONTH
Rx Instructions:
Wednesday of each month
vitamin B complex Tablet
1 tab PO DAILY
ipratropium-albuterol 0.5 mg-3 mg(2.5 mg base)/3 mL Solution For Nebulization
3 ml INHALATION R QID
albuterol sulfate 90 mcg/actuation Hfa Aerosol Inhaler
2 puff INHALATION R TIDPRN PRN (Reason: sob)
calcium carbonate 600 mg calcium (1,500 mg) Tablet
600 mg PO DAILY
sodium chloride 1,000 mg Tablet,Soluble
1,000 mg PO DAILY
diltiazem HCl 120 mg Capsule,Extended Release 24hr
120 mg PO DAILY Qty: 0 0RF
oxybutynin chloride 5 mg Tablet
7.5 mg PO BID Qty: 0 0RF
furosemide [Lasix] 20 mg Tablet
20 mg PO DAILY
furosemide 20 mg tablet
20 mg PO DAILYPRN PRN (Reason: weight gain greater then 5pds)
bisacodyl [Dulcolax (bisacodyl)] 10 mg Suppository
10 mg ME [id number] PRN (Reason: IF NO BM AFTR MOM)
Saccharomyces boulardii 250 mg Capsule
250 mg PO BID Qty: 60 0RF
Dificid 200 mg Tablet
200 mg PO BID Qty: 14 0RF
amiodarone 200 mg Tablet
200 mg PO BID Qty: 60 0RF
prednisone 5 mg tablet
5 mg PO DAILY Qty: 30 0RF
Referrals:
Archie Mullen DO [Family Provider, Family Practice] - As needed
Activity Restrictions/Additional Instructions:
Ms. Rome was evaluated here, her head CT is negative her blood work shows nothing significant
Her urine shows she has an early urinary tract infection; her urine cultures are pending
She was given a dose of Monurol here for her urinary tract infection.
Interventions
Interventions:
*Risk Screen - Suicide Last Done: 11/21/24 17:41
*General Assessment Last Done: 11/21/24 17:41
*Neglect/Abuse Screening Last Done: 11/21/24 17:41
*ED- Fall Risk Assessment Last Done: 11/21/24 17:41
*ED COVID-19 Vaccine History Last Done: 11/21/24 17:41
ED-Musculoskeletal Assessment Last Done: 11/21/24 17:41
ED- Neurological Assessment Last Done: 11/21/24 17:41
ED-Skin Assessment Last Done: 11/21/24 17:41
Discharge Date and Time
Print Language: OCCITAN
[2024-11-21 18:57] LABS: Urine Red Blood Cell 0-2 /HPF (0-2); Urine White Cell 26-30 /HPF (0-5)
[2024-11-21 19:44] LABS: ALT (SGPT) 23 U/L (0-35); AST (SGOT) 22 U/L (14-36); Albumin 2.6 g/dl (3.5-5.0); Alkaline Phosphatase 83 U/L (38-126); Blood Urea Nitrogen 15 mg/dl (7-17); Calcium 8.2 mg/dl (8.4-10.2); Carbon Dioxide 31 mmol/L (22-30); Chloride 103 mmol/L (98-107); Estimated Creatinine Clearance 54 ml/min; Glucose 97 mg/dl (70-99); Potassium 4.2 mmol/L (3.5-5.1); Sodium 134 mmol/L (135-145); Total Protein 5.2 g/dl (6.3-8.2); eGFR > 60.00
[2024-11-21] MEDS: MONUROL 3 GM PO (19:56)
[2024-11-21 20:29] VITALS: BP 105/75
== END 2024-11-21 21:55 ==
LOC: EMR 17:31
PROVIDERS: Registered Nurse; EMERGENCY PHYSICIAN Emergency Medicine; FAMILY PHYSICIAN Student in an Organized Health Care Education/Training Program
DX: N39.0 Urinary tract infection, site not specified (principal); E11.9 Type 2 diabetes mellitus without complications; I10 Essential (primary) hypertension; E78.00 Pure hypercholesterolemia, unspecified; J44.89 Other specified chronic obstructive pulmonary disease; E03.9 Hypothyroidism, unspecified; F41.9 Anxiety disorder, unspecified; F32.A Depression, unspecified; Z79.01 Long term (current) use of anticoagulants; Z87.440 Personal history of urinary (tract) infections; Z87.891 Personal history of nicotine dependence; W01.0XXA Fall on same level from slipping, tripping and stumbling without subsequent striking against object, initial encounter; Y92.121 Bathroom in nursing home as the place of occurrence of the external cause
CPT/HCPCS: 99284; 70450; 80053; 81003; 81015; 85025; 87086

== ENCOUNTER → 2024-12-26 08:43 | Outpatient (REF) | payer MEDICARE, OTHER, SELFPAY ==
[2024-12-26 09:48] LABS: Hematocrit 31.8 % (37.0-47.0); Hemoglobin 10.4 g/dL (12.0-16.0); Mean Corp Hgb Conc. 32.7 g/dL (33.0-37.0); Mean Corpuscular Volume 88.6 fL (81.0-99.0); Platelet Count 232 10^3/uL (130-400); Red Cell Dist. Width 16.8 % (11.5-14.5)
[2024-12-26 10:04] LABS: Blood Urea Nitrogen 21 mg/dl (7-17); Calcium 8.1 mg/dl (8.4-10.2); Carbon Dioxide 28 mmol/L (22-30); Chloride 106 mmol/L (98-107); Glucose 81 mg/dl (70-99); Potassium 3.7 mmol/L (3.5-5.1); Sodium 136 mmol/L (135-145); eGFR > 60.00
== END ==
LOC: OLABN 08:43
PROVIDERS: ATTENDING PHYSICIAN Student in an Organized Health Care Education/Training Program
DX: J44.9 Chronic obstructive pulmonary disease, unspecified (principal); I10 Essential (primary) hypertension
CPT/HCPCS: 36415; 80048; 85027

== ENCOUNTER 2025-01-16 12:54 | Emergency (ER) | payer MEDICARE, OTHER, SELFPAY ==
[2025-01-16 12:56] VITALS: BP 95/51
[2025-01-16 15:30] VITALS: BMI 28.7
[2025-01-16 15:45] VITALS: BP 141/103
[2025-01-16 17:00] VITALS: BP 141/100
[2025-01-16] MEDS: TYLENOL 1000 MG PO (17:29)
--- NOTE | 2025-01-16 17:46 | ED.GENMED ---
History of Present Illness
General
Chief Complaint: Fall
Time Seen by Provider: 01/16/25 16:07
History of Present Illness
History of Present Illness:
FOCUSED PAST MEDICAL HISTORY
- The patient is nonambulatory at baseline, history of A-fib
REVIEW OF OLD RECORDS
-
Note:
CHIEF COMPLAINT(S)
Fall from bed, left hip pain, and difficulty with mobility.
HISTORY OF PRESENT ILLNESS
The patient is an 84-year-old female who presented to the emergency department following a fall from her bed. According to the patients daughter, the patient fell out of bed in the morning while reaching for water, as she could not reach her call
santiago. The incident occurred at [facility], where the patient resides in an assisted living facility. The patient has been hospitalized three times in the last year due to weakness and an aspiration syndrome that previously resulted in a pneumonia
diagnosis.
The patient was unable to walk prior to the injury due to significant weakness, and she has more difficulty using her left hip following the fall. The patient reports mild tenderness when the buttocks are palpated and some pain in the left hip area.
There is noticeable bruising that is believed to have developed from the fall.
[employer] AFFECTING HE[employer]
The patient resides in [facility] in assisted living. Her daughter is involved in her care and is her Power of Embedded Software Design Engineer (P-O-A).
PHYSICAL EXAM
General: Alert, appears somewhat uncomfortable related to pain at the left hip
Skin: Warm, dry; bruising present on the left lower extremity.
Neck: Supple, trachea midline.
Eye, Ears, Nose, Mouth, and Throat: Oral mucosa moist.
Cardiovascular: Normal peripheral perfusion, no edema.
Respiratory: Respirations are non-labored.
Gastrointestinal: Abdomen nondistended.
Back: Normal range of motion, normal alignment.
Musculoskeletal: Decreased active range of motion in left lower extremities; mild tenderness to palpation of the buttocks; no significant pain on passive rotation of the left hip.
Neurological: Alert and oriented to person, place, time, and situation; no focal neurological deficit observed. The patient appears chronically weak and is nonambulatory at baseline
Psychiatric: Cooperative, appropriate mood & affect.
PLAN
Obtain X-rays to assess potential injuries to the left hip.
DIFFERENTIAL DIAGNOSIS
The Differential Diagnosis includes, in no particular order and is not limited to:
1. Hip fracture
2. Sacral or pelvic fracture
3. Contusion or soft tissue injury
4. Bursitis
5. Dislocation
6. Osteoarthritis exacerbation
7. Weakness secondary to deconditioning
8. Osteoporosis-related injury
9. Neuropathy-related issues
10. Spinal pathology affecting mobility.
Disposition:
SUMMARY OF ENCOUNTER
The patient, an 84-year-old female, presented to the emergency department following a fall from her bed at an assisted living facility. She reported left hip pain and difficulty with mobility. An examination and initial assessment were carried out,
and although decreased active range of motion and mild tenderness in the left hip and buttocks were noted, no fractures were suspected or observed on examination. Therefore, surgical intervention was not deemed necessary at this time.
PLAN
The plan is to provide contact information for Dr. Sosa, an orthopedic doctor, for any future orthopedic concerns. The patient or her caregivers are advised to seek further evaluation if there is an increase in pain or if the situation does not
improve. Arrangements will be made to transport the patient back to her residence at [facility].
PATIENT EDUCATION AND COUNSELING
The patient and her daughter were counseled on recognizing signs of complication, such as increasing pain or worsening symptoms, and advised to follow up with Dr. Sosa if needed. They were also instructed to return to the emergency department if
there are significant concerns.
FOLLOW-UP INSTRUCTIONS
Patients or caregivers were advised to contact Dr. Sosa if concerns arise or if symptoms worsen. They should also return to the emergency department if necessary.
MEDICAL DECISION MAKING
- Number and Complexity of Problems Addressed: Chronic conditions affecting care include weakness, aspiration syndrome, pneumonia, and mobility issues.
- Data:
Category 1
- Lab tests and imaging not explicitly mentioned, but no fracture seen on assessment.
Category 2
- Clinical information obtained from the patients daughter as an independent historian.
Category 3
- No management discussion with other physicians explicitly mentioned during the encounter.
- Risk:
- Despite the lack of immediate concerns warranting admission or surgery, the complexity and risk of the patients conditions and potential morbidity were considered for follow-up management.
DIAGNOSIS
- Hip Pain (M25.55)
- Contusion (unspecified location) (S00.93XA)
- Weakness (M62.81)
RADIOLOGY
- X-ray showed no clear sign of fracture
Past History
Past History
ED Past Medical History: Asthma, COPD, HTN, Hypercholesterolemia, NIDDM, Hypothyroidism, Psychiatric (anxiety/depression) and Other (frequent UTI)
ED Past Surgical History: Orthopedic
Social History
Tobacco: Former smoker
Alcohol: None
Drug: None
Personal:
Living: assisted living
Phy Exam
Physical Exam
Physical Exam:
See HPI
Course
Orders/Labs/Results
Orders:
Orders
01/16/25 15:35
CR Hip - LT w/wo Pel 2-3 Vw* Urgent
Comment:
Reason For Exam: pain
Include a pelvis x-ray?: Yes
01/16/25 17:24
Acetaminophen [Tylenol] 1,000 mg PO NOW STA
Vital Signs
Initial and Last Documented VS:
Initial Vital Signs
Temp Pulse Resp BP Pulse Ox
36.6 C 71 16 95/51 97
01/16/25 12:56 01/16/25 12:56 01/16/25 12:56 01/16/25 12:56 01/16/25 12:56
Last Documented Vital Signs
Temp Pulse Resp BP Pulse Ox
36.6 C 82 18 141/100 97
01/16/25 12:56 01/16/25 17:00 01/16/25 17:00 01/16/25 17:00 01/16/25 17:47
*Pulse Oximetry
SaO2: 97
Oxygen Mode of Delivery: Room air
Patient hypoxic: no
*Critical Care Note
Total Time (30-74mins, 75-104mins- exclusive of procedures): Not Applicable
ED Attending Note
-
Portions of this chart may have been created with voice recognition software.� Occasional wrong word or��sound alike� substitutions may have occurred due to the inherent limitations of voice recognition software.
Discharge Plan
Departure
Patient Disposition: Home (Routine Discharge)
Date of Disposition: 01/16/25
Time of Disposition: 17:40
Patient with high blood pressure during this ER visit?: Yes
Discharge Problem:
Contusion of hip, left
Instructions: Hip pain - ED (DC), BLOOD PRESSURE
Prescriptions:
No Action
acetaminophen [Tylenol] 325 mg Tablet
650 mg PO Q4HPRN PRN (Reason: mild pain/fever>100.4)
atorvastatin [Lipitor] 10 mg Tablet
10 mg PO GENAO@1830
levothyroxine 25 mcg Tablet
25 mcg PO DAILY
magnesium hydroxide [Milk of Magnesia] 400 mg/5 mL Suspension
2,400 mg PO HSPRN PRN (Reason: constipation)
coQ10 (ubiquinol) 200 mg Capsule
200 mg PO DAILY
Eliquis 5 mg Tablet
5 mg PO BID
diclofenac sodium 1 % Gel
2 g TOPICAL Q8H
guaifenesin [Mucinex] 600 mg tablet extended release 12hr
600 mg PO [id number] PRN (Reason: cough)
potassium chloride 10 mEq Capsule, Extended Release
10 meq PO DAILY
budesonide 0.5 mg/2 mL Suspension For Nebulization
0.5 mg INHALATION R BID
pregabalin 50 mg Capsule
50 mg PO HS
pregabalin 75 mg Capsule
75 mg PO DAILY
cholecalciferol (vitamin D3) 1,250 mcg (50,000 unit) Tablet
1,250 mcg PO QMONTH
Rx Instructions:
Wednesday of each month
vitamin B complex Tablet
1 tab PO DAILY
ipratropium-albuterol 0.5 mg-3 mg(2.5 mg base)/3 mL Solution For Nebulization
3 ml INHALATION R QID
albuterol sulfate 90 mcg/actuation Hfa Aerosol Inhaler
2 puff INHALATION R TIDPRN PRN (Reason: sob)
calcium carbonate 600 mg calcium (1,500 mg) Tablet
600 mg PO DAILY
sodium chloride 1,000 mg Tablet,Soluble
1,000 mg PO DAILY
diltiazem HCl 120 mg Capsule,Extended Release 24hr
120 mg PO DAILY Qty: 0 0RF
oxybutynin chloride 5 mg Tablet
7.5 mg PO BID Qty: 0 0RF
furosemide [Lasix] 20 mg Tablet
20 mg PO DAILY
furosemide 20 mg tablet
20 mg PO DAILYPRN PRN (Reason: weight gain greater then 5pds)
bisacodyl [Dulcolax (bisacodyl)] 10 mg Suppository
10 mg MA [id number] PRN (Reason: IF NO BM AFTR MOM)
Saccharomyces boulardii 250 mg Capsule
250 mg PO BID Qty: 60 0RF
Dificid 200 mg Tablet
200 mg PO BID Qty: 14 0RF
amiodarone 200 mg Tablet
200 mg PO BID Qty: 60 0RF
prednisone 5 mg tablet
5 mg PO DAILY Qty: 30 0RF
Referrals:
Agustin Sosa MD [Active, Orthopedics]
Archie Mullen DO [Family Provider, Family Practice]
Activity Restrictions/Additional Instructions:
The radiologist sees no sign of fracture of the pelvis or left hip. Tylenol would be safest for pain. Return here if worse or other concerns. He do not have an orthopedist I have given you the contact information for Dr. Sosa that you could
follow-up with if you have ongoing concerns.
Interventions
Interventions:
*Risk Screen - Suicide Last Done: 01/16/25 12:58
*General Assessment Last Done: 01/16/25 15:15
*Neglect/Abuse Screening Last Done: 01/16/25 12:58
*ED- Fall Risk Assessment Last Done: 01/16/25 15:15
*ED COVID-19 Vaccine History Last Done: 01/16/25 15:15
*ED Influenza Vaccine History Last Done: 01/16/25 15:15
ED-Musculoskeletal Assessment Last Done: 01/16/25 15:15
ED- Neurological Assessment Last Done: 01/16/25 15:15
ED-Skin Assessment Last Done: 01/16/25 15:15
Discharge Date and Time
Print Language: SYRIAC
--- NOTE | 2025-01-16 18:40 | EDRN ---
Report given to JOO Soto at [facility].
[2025-01-16 18:58] VITALS: BP 146/94
== END 2025-01-16 18:59 | disposition home or self-care (01) ==
LOC: EMR 12:54
PROVIDERS: EMERGENCY PHYSICIAN Emergency Medicine; FAMILY PHYSICIAN Student in an Organized Health Care Education/Training Program
DX: S70.02XA Contusion of left hip, initial encounter (principal); W06.XXXA Fall from bed, initial encounter; E78.00 Pure hypercholesterolemia, unspecified; I10 Essential (primary) hypertension; I48.91 Unspecified atrial fibrillation; J44.89 Other specified chronic obstructive pulmonary disease; Z87.891 Personal history of nicotine dependence; E03.9 Hypothyroidism, unspecified; E11.9 Type 2 diabetes mellitus without complications
CPT/HCPCS: 99283; 73502

== ENCOUNTER → 2025-01-17 22:00 | Outpatient (REF) | payer OTHER, MEDICARE, SELFPAY ==
[2025-01-18 11:13] LABS: Urine Character Slightly Cloudy (Clear)
[2025-01-18 13:10] LABS: Urine Squamous Cell >30 /LPF (Few)
[2025-01-18 13:12] LABS: Urine White Cell 40-50 /HPF (0-5)
== END ==
LOC: OLABN 22:00
PROVIDERS: ATTENDING PHYSICIAN Student in an Organized Health Care Education/Training Program
DX: R19.7 Diarrhea, unspecified (principal); R19.5 Other fecal abnormalities; R35.0 Frequency of micturition
CPT/HCPCS: 81003; 81015; 87077; 87086; 87186; 87324; 87449

== ENCOUNTER → 2025-01-18 12:04 | Outpatient (REF) | payer OTHER, MEDICARE, SELFPAY ==
[2025-01-18 12:43] LABS: ALT (SGPT) 27 U/L (0-35); AST (SGOT) 21 U/L (14-36); Albumin 2.1 g/dl (3.5-5.0); Alkaline Phosphatase 109 U/L (38-126); Blood Urea Nitrogen 45 mg/dl (7-17); Calcium 7.9 mg/dl (8.4-10.2); Carbon Dioxide 27 mmol/L (22-30); Chloride 104 mmol/L (98-107); Glucose 48 mg/dl (70-99); Magnesium 2.1 mg/dl (1.6-2.3); Potassium 4.7 mmol/L (3.5-5.1); Sodium 137 mmol/L (135-145); Total Protein 4.5 g/dl (6.3-8.2)
[2025-01-18 12:44] LABS: Hematocrit 41.7 % (37.0-47.0); Hemoglobin 13.0 g/dL (12.0-16.0); Mean Corp Hgb Conc. 31.2 g/dL (33.0-37.0); Mean Corpuscular Volume 90.1 fL (81.0-99.0); Platelet Count 388 10^3/uL (130-400); Red Cell Dist. Width 17.1 % (11.5-14.5)
[2025-01-18 12:50] LABS: eGFR 25.40
== END ==
LOC: OLABN 12:04
PROVIDERS: ATTENDING PHYSICIAN Student in an Organized Health Care Education/Training Program
DX: I50.9 Heart failure, unspecified (principal); G62.9 Polyneuropathy, unspecified
CPT/HCPCS: 36415; 80053; 83735; 85027

== ENCOUNTER 2025-01-18 19:55 | Inpatient (IN) | payer MEDICARE, OTHER, SELFPAY ==
[2025-01-18] VITALS (42 sets, daily range): BP systolic 74–125; BP diastolic 32–98; BMI 27.9
--- NOTE | 2025-01-18 16:25 | ED.GENMED ---
History of Present Illness
General
Chief Complaint: Abdominal Symptoms
Source: patient
Exam Limitations: none
Time Seen by Provider: 01/18/25 16:10
Nursing documentation reviewed up to this point in time: agreed with
History of Present Illness
History of Present Illness:
Note:
CHIEF COMPLAINT(S)
Diarrhea and abdominal pain.
HISTORY OF PRESENT ILLNESS
The patient is an 84-year-old female presenting with diarrhea and abdominal pain. She mentions the diarrhea started recently, and a test was conducted yesterday. She reports that her stools appeared dark, which concerned her. In addition to this,
the patient complains of some abdominal tenderness, especially on the left side, though there is no rebound tenderness noted. The patient also reports a dry mouth. She notes that her symptoms recently caused her to fall, but no serious injuries were
found upon initial medical evaluation.
PHYSICAL EXAM
General: Alert, oriented but experiencing discomfort. hypotensive
Skin: Warm, dry.
Head: Normocephalic, atraumatic.
Neck: Supple, trachea midline.
Eye Ears, nose, mouth and throat: Dry oral mucosa.
Cardiovascular: Normal peripheral perfusion, no edema.
Respiratory: Respirations are non-labored.
Gastrointestinal: Abdomen is a little tender, especially on the left side; no rebound tenderness noted.
Back: Normal range of motion, normal alignment.
Musculoskeletal: Normal ROM, normal strength.
Neurological: Alert and oriented to person, place, time, and situation, no focal neurological deficit observed.
Psychiatric: Cooperative, appropriate mood & affect.
PLAN
- Monitor blood pressure closely due to observed fluctuations.
- Obtain a comprehensive stool test to investigate the cause of diarrhea.
- Consider hydration therapy to address dry oral mucosa.
- Evaluate abdominal pain and tenderness further to rule out underlying gastrointestinal issues.
DIFFERENTIAL DIAGNOSIS
The Differential Diagnosis includes, in no particular order and is not limited to:
1. Infectious gastroenteritis
2. Gastrointestinal bleeding
3. Clostridium difficile colitis
4. Ischemic colitis
5. Diverticulitis
6. Irritable bowel syndrome
7. Medication-induced diarrhea
8. Inflammatory bowel disease
9. Malabsorption syndrome
10. Pseudomembranous colitis
CARE-UPDATE
01/18/25 - 18:19
CT scan reveals reese colitis and LLL pneumonia. Laboratory results indicate a urinary tract infection (UTI). Communication initiated with hospitalists for admission and with infectious disease specialists for antibiotic management recommendations.
Disposition:
SUMMARY OF ENCOUNTER
The 84-year-old female patient was seen in the emergency department for diarrhea, abdominal pain, and a dry mouth. Examination and CT scan results led to a diagnosis of reese colitis and left lower lobe pneumonia. Laboratory tests revealed a urinary
tract infection. Given the complexity and the presence of multiple infections, it was determined to manage her with intravenous miripenem and metronidazole, along with oral vancomycin, specifically targeting Clostridium difficile colitis.
MANAGEMENT OF THE PATIENTS CARE WAS DISCUSSED WITH
The management of the patients care was discussed with infectious disease specialists, and updates were communicated to hospitalists via text message.
PLAN
- Initiate treatment for Clostridium difficile colitis with oral vancomycin.
- Administer intravenous miripenem and metronidazole to target the infections.
- Monitor vital signs closely, particularly due to potential sepsis.
- Admit the patient for further management and monitoring due to the complexity of her condition.
MEDICAL DECISION MAKING
Complexity of Data Reviewed: Chronic conditions affecting care. Differential diagnoses considered include:
1. Infectious gastroenteritis
2. Gastrointestinal bleeding
3. Clostridium difficile colitis
4. Ischemic colitis
5. Diverticulitis
6. Irritable bowel syndrome
7. Medication-induced diarrhea
8. Inflammatory bowel disease
9. Malabsorption syndrome
10. Pseudomembranous colitis
Data:
Category 1
- Reviewed lab results showing signs of urinary tract infection.
- CT scan revealing reese colitis and left lower lobe pneumonia.
Category 3
- Discussion of management with infectious disease specialists and communication initiation with hospitalists.
DIAGNOSIS
- Reese colitis due to Clostridium difficile colitis (ICD-10: A04.72)
- Left lower lobe pneumonia (ICD-10: J18.1)
- Urinary tract infection (ICD-10: N39.0)
Past History
Past History
ED Past Medical History: Asthma, COPD, HTN, Hypercholesterolemia, NIDDM, Hypothyroidism, Psychiatric (anxiety/depression) and Other (frequent UTI)
ED Past Surgical History: Orthopedic
Social History
Tobacco: Former smoker
Alcohol: None
Drug: None
Personal:
Living: assisted living
Phy Exam
Physical Exam
Physical Exam:
.
Sepsis
Sepsis Screening
Sepsis Assessment: Severe Sepsis
Sepsis Screening: Hypotension and ARF-Creatinine >2.0
Sepsis Screen
Sepsis Screen: Severe Sepsis
Date: 01/18/25
Time: 23:22
Course
Orders/Labs/Results
Orders:
Orders
01/18/25 Lunch
Regular
At Your Request: Limited Participation
01/18/25 16:09
Electrocardiogram (*1) Urgent
Reason for Study: Other
Other Reason for Exam: Possible Sepsis
Cardiac Monitoring- Treatment ONCE
EKG- Treatment ONCE
IV Insert/Care/Rem.- Treatment PRN
Straight cath- Treatment ONCE
01/18/25 16:10
Complete Blood Count/With Diff Urgent
Comprehensive Metabolic Panel Urgent
Lactic Acid Q4H
Comment: ON ICE, CANCEL 2ND ORDER IF FIRST LACTIC ACID LEVEL <2
Magnesium Urgent
Comment: ADD ON
Manual Differential Urgent
Phosphorus Urgent
Comment: ADD ON
Urinalysis Reflex To Culture Urgent
Date Specimen was Collected: 01/18/25
Time Specimen was Collected: 16:09
Urine Microscopic Reflex Cult Urgent
Blood Culture Q20M
MERCED Source: Blood/Venous
Specimen Description:
Comment: Urgent from separate sites. If patient screens positive for possible sepsis
Blood Culture Q20M
MERCED Source: Blood/Venous
Specimen Description:
Comment: Urgent from separate sites. If patient screens positive for possible sepsis
Urine Culture Urgent
MERCED Source: U
Specimen Description:
Date Specimen was Collected: 01/18/25
Time Specimen was Collected: 16:09
01/18/25 16:19
IV Insert/Care/Rem.- Treatment PRN
01/18/25 16:25
CT Abd/pel Without Iv Or Oral Urgent
Reason For Exam: LLQ pain, cdiff, diarrhea. no IV contrast- GFR
01/18/25 16:33
0.9% Sodium Chloride 1000 ml [Nss] 2,400 ml IV NOW STA
01/18/25 18:16
Acetaminophen [Tylenol] 650 mg PO NOW STA
01/18/25 18:25
Meropenem [Merrem] 500 mg IV NOW STA
MetroNIDAZOLE 500 MG/100 ML [Flagyl 500 mg] 100 ml IV NOW
01/18/25 19:08
Sterile Water [Sterile Water For Injection] 10 ml .ROUTE .STK-MED ONE
01/18/25 19:16
Admit/Transfer Patient As Directed
Co-Sign Provider:
Level of Care: Inpatient admission
Assign to:: ICU
Physician / Group: Meryl Nelson
Diagnosis: sepsis, UTI, c.diff, pancolitis, PNA, ROGE
Reason for Hospitalization: sepsis, UTI, c.diff, pancolitis, PNA, ROGE
Expected length of stay greater than two midnights?: Yes
ELOS- Estimated Length of Stay in days: 3
I certify the patient meets the requirements for IP care: Yes
PRN Pain Medication Management As Directed
May give lesser potent ordered pain med per pt: Yes
preference::
Protocol:: Medication orders for pain may be administered in a
manner that supports deferring to patient preference
when the pt is:
- Requesting an ordered lesser potent pain medication.
Least to most potent pain medications are defined
as: acetaminophen < NSAID < tramadol < opioids
(morphine, oxycodone, hydromorphone).
- Requesting a lesser dose of the same medication IF
ORDERED.
- Requesting a less intrusive route of administration
if both routes are prescribed by the provider (PO <
IV).
01/18/25 19:18
Code Status As Directed
Resuscitation Status: Do not resuscitate
Reached after discussion with pt or family/Healthcare POA: Yes
Decision communicated with: patient and daughter
01/18/25 19:19
DNR Bracelet Application ONCE
01/18/25 19:20
Vancomycin HCl [Firvanq] 500 mg PO NOW STA
01/18/25 19:30
NORepinephrine 4 MG/250 ML [Levophed] 4 mg in 250 ml IV PER PROTOCOL
Initial dose in mcg/min, then titrate:: 2
Titrate to keep:: MAP > 65 mmHg
Titrate by mcg/min:: 1-2 mcg/min
Frequency of titrations (minutes):: 5
Maximum dose in ICU in mcg/min:: 30
Maximum dose in IMU in mcg/min:: 8
Maximum dose in IVU in mcg/min:: 4
Begin to taper infusion when:: Remained at goal for 4hrs
Taper by mcg/min:: 1-2 mcg/min
Frequency of taper (minutes) if patient maintains goal:: 30
Taper to off?: Yes
If infusion off & no longer maintaining goal:: Contact Provider
01/18/25 20:00
Flush (0.9% Sodium Chloride) [Flush (Nss)] See Dose Instructions IV PER PROTOCOL
01/18/25 20:30
0.9% Sodium Chloride 1000 ml [Nss] 1,000 ml IV 100 mls/hr
Acetaminophen [Tylenol] 650 mg PO Q4HPRN PRN mild pain/fever>100.4
Apixaban [Eliquis] 5 mg PO BID
Bisacodyl [Dulcolax] 10 mg RECTAL [id number] PRN
Budesonide [Pulmicort] 0.5 mg INH R BID
Docusate W/Senna [Senokot-S] 1 tablet PO BIDPRN PRN
Guaifenesin [Mucinex] 600 mg PO [id number] PRN cough
Ipratropium/Albuterol Sulfate [Duoneb] 3 ml INH R QID
Oxybutynin Chloride [Ditropan] 7.5 mg PO BID
Polyethylene Glycol Powder [Miralax] 17 grams PO DAILYPRN PRN
Saccharomyces Boulardii [Florastor] 250 mg PO BID
01/18/25 20:30
Electrocardiogram (*1) Urgent
Reason for Study: Other
Other Reason for Exam: baseline ICU
Comment: upon arrival to ICU (if not done in ED or in last 24 hours)
INFECTIOUS DISEASE CONSULT Routine
Consulting Provider: Baldemar Healy
Was physician already notified: Yes
[employer] Consult Urgent
Consulting Provider: Richard Carias
Was physician already notified: Yes
Activity As Directed
Activity Level: As Tolerated
Bedside Glucose Monitoring-ONCE As Directed
Comment: upon arrival to ICU
Intake/ Output As Directed
Frequency: Per unit guidelines
Notify MD As Directed
Notify physician if: While in ICU level of care:
glucose greater than or equal to 180 mg/dL once, contact provider to initiate Critical
Care Glycemic Protocol Target Range 140-180 mg/dL.
Vital Signs As Directed
Frequency: Per unit guidelines
Weight As Directed
Frequency: Once
Comment: on admission
CR Chest Portable - 1 View Urgent
Comment: upon ICU arrival if not done in ED or in last 24hr
Reason For Exam: baseline ICU
Reason Study Needs to be Portable: Patient Unstable
O2 Therapy [RESP] Routine
Titrate/Wean O2 to maintain O2 sat greater than (%): 93
Pulse Ox/spot Check [RESP] Routine
Quantity: 1
Ot Eval And Treat Routine
Pt Eval And Treat Routine
Activity Level: With Assistance
Speech Therapy Eval & Treat Routine
01/18/25 22:00
Pregabalin [Lyrica] 50 mg PO HS
01/18/25 22:16
Protime/PTT Urgent
Comment: upon arrival to ICU (if not done in ED or in last 24 hours)
01/19/25 00:00
Vancomycin HCl [Firvanq] 500 mg PO Q6
01/19/25 02:00
MetroNIDAZOLE 500 MG/100 ML [Flagyl 500 mg] 100 ml IV Q8H
01/19/25 06:00
Basic Metabolic Panel IN AM
Complete Blood Count/No Diff IN AM
Levothyroxine [Synthroid] 25 mcg PO DAILY@0600
01/19/25 08:00
Meropenem [Merrem] 500 mg IV Q12H
Potassium Chloride [KCl] 10 meq PO DAILY
Prednisone [Deltasone] 5 mg PO DAILY
Pregabalin [Lyrica] 75 mg PO DAILY
Sodium Chloride 1 gram PO DAILY
01/21/25 18:30
Atorvastatin [Lipitor] 10 mg PO GENAO@1830
Abnormal Lab Results
01/18/25
16:10
WBC 26.1 H 10^3/uL
(4.8-10.8)
MCHC 32.8 L g/dL
(33.0-37.0)
RDW 17.1 H %
(11.5-14.5)
MPV 11.0 H fL
(7.4-10.4)
Abs Neuts (Manual) 23.2 H 10^3/uL
(1.4-6.5)
Segmented Neutrophils 78 H %
(42-75)
Band Neutrophils 11 H %
(0-3)
Lymphocytes (Manual) 3 L %
(20-51)
Sodium 134 L mmol/L
(135-145)
BUN 52 H mg/dl
(7-17)
Creatinine 2.3 H mg/dL
(0.6-1.0)
Calcium 8.1 L mg/dl
(8.4-10.2)
Phosphorus 5.8 H mg/dl
(2.5-4.5)
Total Protein 4.7 L g/dl
(6.3-8.2)
Albumin 2.1 L g/dl
(3.5-5.0)
Urine Ketones 1+ A
(Negative)
Ur Occult Blood Reflex 2+ A
(Negative)
Urine Nitrite (Reflex) Positive A
(Negative)
Urine Bilirubin 2+ A
(Negative)
Urine Urobilinogen 2+ A
(Neg - 1+)
Leukocyte Esterase Rfl 2+ A
(Negative)
Urine WBC (Reflex) 21-25 A /HPF
(0-5)
Urine Bacteria (Reflex) Many A
(Negative)
Urine Albumin (Reflex) 2+ A
(Neg - Trace)
01/18/25 16:10
01/18/25 16:10
Vital Signs
Initial and Last Documented VS:
Initial Vital Signs
BP Pulse Ox
92/58 92
01/18/25 15:43 01/18/25 15:43
Last Documented Vital Signs
Temp Pulse Resp BP Pulse Ox
99.5 F 94 16 125/98 93
01/18/25 16:16 01/18/25 22:45 01/18/25 22:45 01/18/25 22:45 01/18/25 22:45
*Pulse Oximetry
SaO2: 96
Nasal Cannula flow liters per minute: 2
Patient hypoxic: no
*Critical Care Note
Total Time (30-74mins, 75-104mins- exclusive of procedures): 32
comment:
Critical care statement: A total of 32 minutes of critical care time was provided for this patient. This includes management of unstable vital signs, evaluation of the patient at bedside, reviewing the patient's pertinent medical records,
discussion with consultants, review of old EKGs and review of pertinent medical records. This time with separate from time utilized to perform the aforementioned documented procedures
ED Attending Note
-
Portions of this chart may have been created with voice recognition software.� Occasional wrong word or��sound alike� substitutions may have occurred due to the inherent limitations of voice recognition software.
Discharge Plan
Departure
Patient Disposition: Admit
Date of Disposition: 01/18/25
Time of Disposition: 18:13
Admit to: ICU
Presentation/result/management discussed w/ accepting MD/DO: Hospitalist
Patient with high blood pressure during this ER visit?: No
Condition: Fair
Discharge Problem:
C. difficile colitis, Pneumonia, Acute UTI, Septic shock
Interventions
Interventions:
*Risk Screen - Suicide Last Done: 01/18/25 16:25
*General Assessment Last Done: 01/18/25 16:25
*Neglect/Abuse Screening Last Done: 01/18/25 16:25
*ED- Fall Risk Assessment Last Done: 01/18/25 19:21
*ED COVID-19 Vaccine History Last Done: 01/18/25 19:21
*ED Influenza Vaccine History Last Done: 01/18/25 19:21
*Nursing Disposition Last Done: 01/18/25 20:50
BR-Jayutz-Fslvvngvme Assessment Last Done: 01/18/25 17:09
Discharge Date and Time
Discharge Date/Time: 01/18/25 20:51
[2025-01-18] MEDS: NSS 2400 ML IV (16:48)
[2025-01-18 16:52] LABS: ALT (SGPT) 30 U/L (0-35); AST (SGOT) 23 U/L (14-36); Albumin 2.1 g/dl (3.5-5.0); Alkaline Phosphatase 122 U/L (38-126); Blood Urea Nitrogen 52 mg/dl (7-17); Calcium 8.1 mg/dl (8.4-10.2); Carbon Dioxide 26 mmol/L (22-30); Chloride 104 mmol/L (98-107); Glucose 72 mg/dl (70-99); Potassium 4.6 mmol/L (3.5-5.1); Sodium 134 mmol/L (135-145); Total Protein 4.7 g/dl (6.3-8.2)
[2025-01-18 17:04] LABS: Estimated Creatinine Clearance 19 ml/min; eGFR 20.19
[2025-01-18 17:13] LABS: Urine Character Slightly Cloudy (Clear)
[2025-01-18 17:16] LABS: Hematocrit 42.1 % (37.0-47.0); Hemoglobin 13.8 g/dL (12.0-16.0); Mean Corp Hgb Conc. 32.8 g/dL (33.0-37.0); Mean Corpuscular Volume 87.9 fL (81.0-99.0); Platelet Count 398 10^3/uL (130-400); Red Cell Dist. Width 17.1 % (11.5-14.5)
[2025-01-18 17:52] LABS: Urine Squamous Cell >30 /LPF (Few)
[2025-01-18 17:53] LABS: Urine Red Blood Cell 0-2 /HPF (0-2); Urine White Cell 21-25 /HPF (0-5)
--- NOTE | 2025-01-18 18:20 | HPS.HSE ---
Addendum entered and electronically signed by Meryl Nelson MD 01/18/25 19:37:
Attending addendum:
I saw and evaluated the patient. I reviewed the DATA ENTRY SPECIALIST�s note and agree with findings and plan as documented in the DATA ENTRY SPECIALIST�s note.
Patient is 84 years old with history of previous C.diff, A-fib, recurrent aspiration pneumonia, who came to the ER with abdominal pain, and diarrhea, tested positive for C. difficile, blood pressure low in the ER, leukocytosis, admitted to the ICU
for septic shock, received IV fluid but blood pressure was still low started on Levophed, ID/ICU consulted, ID recommending meropenem and Vanco oral.
Discussed with daughter at bedside, patient is DNI/DNR. Okay with pressors.
Physical exam:
GENERAL : lethergic
HEENT: Nonicteric sclerae, PERRLA, EOMI. Oropharynx clear. Moist mucous membranes. Conjunctivae appear well perfused.
CHEST: Chest wall is nontender.
HEART: Regular rate and rhythm without murmurs.
LUNGS: Clear to auscultation bilaterally.
ABDOMEN: Soft, positive bowel sounds, tender, no organomegaly.
RECTAL: Deferred.
MUSCLES/EXTREMITIES: No abnormal range of motion, no swelling.SKIN: No rash, no excessive bruising, petechiae, or purpura.
NEUROLOGIC:lethergic
Assessment/plan:
Septic shock secondary to C. difficile colitis.
Start Levophed.
Vancomycin oral.
Infectious disease/ICU consult.
UTI.
Meropenem recommend by infectious disease
Acute renal failure
Avoid nephrotoxins
Hold Lasix
Continue to follow BMP
Paroxysmal A-fib.
Currently sinus rhythm and rate controlled.
Continue Eliquis and amiodarone
CODE STATUS: DNI/DNR
DVT prophylaxis: Lovenox
Diet: Regular diet-patient with history of aspiration pneumonia but family refused modified diet-speech consult
Family communication: Discussed with daughter at bedside
Disposition: Admit to the ICU
Total time spent on today�s encounter was 74 minutes which included time spent in counseling the patient/family regarding diagnosis and treatment plan as listed above, goals of care, and symptom management. Case was discussed with nursing staff,
specialists, and care coordinators/case management. All labs and imaging personally reviewed by me. Remainder the time spent in detailed review of previous records, lab data, imaging, and other medical provider documentation.
Original Note:
Family Physician
<DONNA Galaviz - Last Filed: 01/18/25 19:26>
-
Family Physician: Archie Mullen DO
Chief Complaint
<DONNA Galaviz - Last Filed: 01/18/25 19:26>
-
abdominal pain and diarrhea
History of Present Illness
Patient is a 84-year-old female with past medical history significant for hypertension, hyperlipidemia, atrial fibrillation, asthma, COPD 4 L nasal cannula dependent, hypothyroidism, diabetes and anxiety and depression who presented to [facility] ED for
evaluation of abdominal pain and diarrhea. Patient and daughter assisted in HPI. Patient was here Wednesday for evaluation s/p fall, unremarkable workup and discharged back to facility. Today patient arrives for workup after complaint of abdominal
pain, diarrhea and abnormal out patient labs. Patient is positive for c. diff at facility. Reports diarrhea. Denies any fever, chills, cough, shortness of breath, chest pain, nausea or vomiting.
Medical History
<DONNA Galaviz - Last Filed: 01/18/25 19:26>
Past Medical History
Past Medical History: Reports Other
Additional Past Medical History:
Chronic back pain
polyneuropathy neuropathy
asthma
COPD 4 L nasal cannula dependent
recurrent pneumonia
atrial fibrillation
hypertension
hyperlipidemia
chronic dysphagia
spinal stenosis
hypothyroidism
diabetes
anxiety and depression
lymphedema
peripheral vascular
Past Surgical History: Reports Other
Additional Past Surgical History:
Surgery for varicose veins
carpal tunnel
cataracts
appendectomy
tonsillectomy
Social History
Tobacco: Former Smoker
Alcohol: None
Drug: None
Personal: Single
Living: Residential
Employment: Retired
Family History
Family History: Not pertinent
Allergies / Home Medications
Allergies reflects when Allergies were last updated in [employer].
Home Medications with original date entered in [employer]
Allergy/Medication List:
Allergies
Allergy/AdvReac Type Severity Reaction Status Date / Time
cefuroxime Allergy Anaphylaxis Verified 01/18/25 16:27
gabapentin Allergy Itching/swelling Verified 01/18/25 16:27
of hands
meloxicam Allergy Unknown Verified 01/18/25 16:27
Penicillins Allergy Nausea / Verified 01/18/25 16:27
Vomiting
Sulfa (Sulfonamide Allergy Hives Verified 01/18/25 16:27
Antibiotics)
tetanus toxoid, adsorbed Allergy Hives Verified 01/18/25 16:27
Home Medications
acetaminophen 325 mg tablet (Tylenol) 650 mg PO Q4HPRN PRN mild pain/fever>100.4 03/24/22
apixaban 5 mg tablet (Eliquis) 5 mg PO BID Blood Clot Prevention/Tx 03/24/22
atorvastatin 10 mg tablet (Lipitor) 10 mg PO [id number]@1830 High Cholesterol 03/24/22
coQ10 (ubiquinol) 200 mg capsule 200 mg PO DAILY Supplement 03/24/22
diclofenac sodium 1 % topical gel 2 g topical Q8H both knees 03/24/22
levothyroxine 25 mcg tablet 25 mcg PO DAILY Thyroid 03/24/22
guaifenesin 600 mg tablet, extended release 12 hr (Mucinex) 600 mg PO [id number] PRN cough 05/22/22
budesonide 0.5 mg/2 mL suspension for nebulization 0.5 mg inhalation R BID Lung/Breathing Issues 12/19/23
potassium chloride 10 mEq capsule,extended release 10 meq PO DAILY Electrolyte Repletion 12/19/23
pregabalin 50 mg capsule 50 mg PO HS neuropathic pain 12/19/23
pregabalin 75 mg capsule 75 mg PO DAILY neuropathic pain 12/19/23
albuterol sulfate 90 mcg/actuation aerosol inhaler 2 puff inhalation R TIDPRN PRN sob 07/02/24
calcium carbonate 600 mg PO DAILY Supplement 07/02/24
cholecalciferol (vitamin D3) 1,250 mcg (50,000 unit) tablet 1,250 mcg PO QMONTH Supplement 07/02/24
ipratropium 0.5 mg-albuterol 3 mg (2.5 mg base)/3 mL nebulization soln 3 ml inhalation R QID Lung/Breathing Issues 07/02/24
sodium chloride 1,000 mg soluble tablet 1,000 mg PO DAILY Electrolyte Repletion 07/02/24
vitamin B complex 1 tab PO DAILY Supplement 07/02/24
oxybutynin chloride 5 mg tablet 7.5 mg (1.5 x 5 mg) PO BID #0 tabs 07/09/24
furosemide 20 mg tablet 20 mg PO DAILYPRN PRN weight gain greater then 5pds 10/02/24
furosemide 20 mg tablet (Lasix) 20 mg PO DAILY edema 10/02/24
bisacodyl 10 mg rectal suppository (Dulcolax (bisacodyl)) 10 mg AK [id number] PRN IF NO BM AFTR MOM 10/10/24
Saccharomyces boulardii 250 mg capsule 250 mg PO BID #60 caps 10/13/24
amiodarone 200 mg tablet 200 mg PO BID #60 tabs 10/13/24
prednisone 5 mg tablet 5 mg PO DAILY #30 tabs 10/13/24
Review of Systems
Genolt;DONNA Galaviz - Last Filed: 01/18/25 19:26>
-
History Source: Patient and Family
Constitutional: Denies Fever or Chills
EENT: Denies Sore Throat
Respiratory: Denies Cough or Trouble Breathing
Cardiac: Denies Chest Pain, Diaphoresis, Palpitations or Syncope
Abdomen/GI: Reports Abdominal Pain and Diarrhea; Denies Nausea or Vomiting
: Denies Dysuria, Frequency or Urgency
Musculoskeletal: Denies Joint Pain
Skin: Denies Rash
Neurological: Denies Dizzy, Headache, Weakness or Numbness
Endocrine: Denies Polyuria or Polydipsia
Hematologic/Lymphatic: Denies Bleeding
Physical Exam
<DONNA Galaviz - Last Filed: 01/18/25 19:26>
Vital Signs
Vital Signs
Temp Pulse Resp BP Pulse Ox
99.5 F 92 22 86/48 96
01/18/25 16:16 01/18/25 16:20 01/18/25 16:20 01/18/25 16:20 01/18/25 16:27
Physical Exam
General: Well Developed, Well Nourished, No Apparent Distress and Obese
HEENT: NormoCephalic, Moist mucous membranes, PERRLA, Nose Appears Normal and Ears Appear Normal
Respiratory: Clear and Decreased Breath Sounds; No Non Labored Respirations
Cardiac: S1/S2 and Regular Rhythm; No Peripheral Edema
GI: Soft, Non Distended, Normal Bowel Sounds and Tender
Musculoskeletal: No Clubbing and No Cyanosis
Skin: Warm and IV/Catheter Site
Neuro: Awake
Psych: Calm
Laboratory Results
<DONNA Galaviz - Last Filed: 01/18/25 19:26>
-
01/18/25 16:10
01/18/25 16:10
Laboratory Results
Lactic Acid Cancelled 01/18/25 20:15
Total Bilirubin 1.2 mg/dl (0.2-1.3) 01/18/25 16:10
AST 23 U/L (14-36) 01/18/25 16:10
ALT 30 U/L (0-35) 01/18/25 16:10
Alkaline Phosphatase 122 U/L (38-126) 01/18/25 16:10
Data Reviewed
<DONNA Galaviz - Last Filed: 01/18/25 19:26>
-
CT Scan: Report Reviewed by me (Abd/Pel: 1. SEVERE ACUTE C. DIFFICILE PANCOLITIS. 2. SEVERE LEFT LOWER LOBE PNEUMONIA. 3. Small volume ascites. 4. Moderate chronic bilateral renal disease. 5. Severely distended gallbladder. 6. Severe
calcific atherosclerotic plaque in the abdominal aorta, SMA, and renal arteries. 7. )
Lab Data: Labs Reviewed by me (WBC 26.1, BUN 52, Creat 2.3, est CrCl 19, eGFR 20.19)
Impression/Plan
<DONNA Galaviz - Last Filed: 01/18/25 19:26>
-
IMPRESSION/PLAN:
#abdominal pain and diarrhea 2/2 c. diff vs. gastritis vs. pancolitis
#sepsis 2/2 c. diff pancolitis, pneumonia, UTI
WBC 26.1
EKG: NORMAL SINUS RHYTHM
LOW VOLTAGE QRS
abnormal R wave progression
NONSPECIFIC ST AND T WAVE ABNORMALITY
Blood Cx: pending
UA: indicative of UTI
Urine Cx: pending
Abd/Pel CT: 1. SEVERE ACUTE C. DIFFICILE PANCOLITIS.
2. SEVERE LEFT LOWER LOBE PNEUMONIA.
3. Small volume ascites.
4. Moderate chronic bilateral renal disease.
5. Severely distended gallbladder.
6. Severe calcific atherosclerotic plaque in the abdominal aorta, SMA, and renal arteries.
7. Severe pelvic floor prolapse.
8. 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
9. Moderate to severe right convex curvature of the upper lumbar spine.
- Admit to ICU
- Consult ID
- Consult Lead Simulation Modeling Engineer
- start IV meropenem and Flagyl
- start PO vanco
- supportive care
#acute kidney injury
BUN 52, Creat 2.3, est CrCl 19, eGFR 20.19
- IVF
- monitor BMP
#hyperlipidemia
- continue atorvastatin
#atrial fibrillation
- continue amiodarone and Eliquis
#asthma
#COPD
4 L nasal cannula dependent
- continue albuterol, budesonide, guaifenesin, DuoNebs and prednisone
#hypothyroidism
- continue levothyroxine
#diabetes
#hypertension
#anxiety and depression
Code status: DNR
DVT prophylaxis: Eliquis
<Meryl Nelson MD - Last Filed: 01/18/25 19:28>
-
IMPRESSION/PLAN:
#abdominal pain and diarrhea 2/2 c. diff vs. gastritis vs. pancolitis
#septic shock 2/2 c. diff pancolitis, pneumonia, UTI
WBC 26.1
EKG: NORMAL SINUS RHYTHM
LOW VOLTAGE QRS
abnormal R wave progression
NONSPECIFIC ST AND T WAVE ABNORMALITY
Blood Cx: pending
UA: indicative of UTI
Urine Cx: pending
Abd/Pel CT: 1. SEVERE ACUTE C. DIFFICILE PANCOLITIS.
2. SEVERE LEFT LOWER LOBE PNEUMONIA.
3. Small volume ascites.
4. Moderate chronic bilateral renal disease.
5. Severely distended gallbladder.
6. Severe calcific atherosclerotic plaque in the abdominal aorta, SMA, and renal arteries.
7. Severe pelvic floor prolapse.
8. 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
9. Moderate to severe right convex curvature of the upper lumbar spine.
- Admit to ICU
- Consult ID
- Consult Lead Simulation Modeling Engineer
- start IV meropenem and Flagyl
- start PO vanco
- supportive care
#acute kidney injury
BUN 52, Creat 2.3, est CrCl 19, eGFR 20.19
- IVF
- monitor BMP
#hyperlipidemia
- continue atorvastatin
#atrial fibrillation
- continue amiodarone and Eliquis
#asthma
#COPD
4 L nasal cannula dependent
- continue albuterol, budesonide, guaifenesin, DuoNebs and prednisone
#hypothyroidism
- continue levothyroxine
#diabetes
#hypertension
#anxiety and depression
Code status: DNR
DVT prophylaxis: Eliquis
[2025-01-18 19:10] LABS: Absolute Neutrophils -Man Diff 23.2 10^3/uL (1.4-6.5)
[2025-01-18] MEDS: MERREM 500 MG IV (19:10)
[2025-01-18] MEDS: FLAGYL 500 MG 100 IV (19:10)
[2025-01-18 19:12] LABS: Acanthocytes 1+; Normal RBC Morphology No; Platelets Checked Yes; Poikilocytosis 1+; Total Cells Counted 100
[2025-01-18] MEDS: LEVOPHED 250 IV (19:29)
[2025-01-18] MEDS: FIRVANQ 500 MG PO (19:54)
[2025-01-18] MEDS: NSS 1000 IV (20:58)
[2025-01-18 21:00] LABS: Glucose - Point of Care 72 mg/dl (70-99)
[2025-01-18] MEDS: PULMICORT INH (21:28)
[2025-01-18] MEDS: DUONEB INH (21:28)
[2025-01-18] MEDS: LYRICA 50 MG PO (22:00)
[2025-01-18] MEDS: FLORASTOR 250 MG PO (22:00)
[2025-01-18] MEDS: ELIQUIS 5 MG PO (22:00)
[2025-01-18] MEDS: DITROPAN 7.5 MG PO (22:00)
[2025-01-18 22:14] LABS: Magnesium 2.1 mg/dl (1.6-2.3)
[2025-01-18 22:35] LABS: INR 1.83; PT 21.7 Sec (11.4-14.6)
[2025-01-18 22:36] LABS: APTT 33.3 Sec (23.4-35.0)
--- NOTE | 2025-01-18 23:25 | PTCARENOTE ---
Received patient from the ED around 2100. On 4 mcg levophed to maintain maps above 65 and IVF. Daughter at bedside and staying overnight. Patient Cdiff + and found to have multiple stage 2/3 wounds. Rectal pouch placed to protect skin. Wound
consult placed. Normal sinus on the monitor.
[2025-01-19] VITALS (52 sets, daily range): BP systolic 58–132; BP diastolic 32–90; BMI 28.3
[2025-01-19] MEDS: FIRVANQ 500 MG PO ×2 (00:18→05:01)
[2025-01-19] MEDS: FLAGYL 500 MG 100 IV ×2 (02:06→09:42)
[2025-01-19] MEDS: NSS 500 IV (02:32)
--- NOTE | 2025-01-19 03:00 | PTCARENOTE ---
No changes from previous assessment. Patient with no urine output so far this shift. Last urine output was when she was straight cathed in the ED around 1600. Bladder scanned for 90 ml at 0200. On normal saline at 100 mls/hr. ICU HEARING OFFICER made aware and
ordered 500 ml NS bolus. Calcium also repleted. Remains on levophed 4mcg for MAP of 65.
[2025-01-19] MEDS: CALCIUM GLUCONATE 100 IV (03:41)
[2025-01-19] MEDS: TYLENOL 650 MG PO ×2 (05:00→09:40)
[2025-01-19] MEDS: SYNTHROID 25 MCG PO (05:00)
[2025-01-19 06:04] LABS: Hematocrit 41.0 % (37.0-47.0); Hemoglobin 13.4 g/dL (12.0-16.0); Mean Corp Hgb Conc. 32.7 g/dL (33.0-37.0); Mean Corpuscular Volume 89.1 fL (81.0-99.0); Platelet Count 283 10^3/uL (130-400); Red Cell Dist. Width 17.3 % (11.5-14.5)
[2025-01-19] MEDS: NSS 1000 IV (06:39)
[2025-01-19 07:17] LABS: Blood Urea Nitrogen 53 mg/dl (7-17); Calcium 8.0 mg/dl (8.4-10.2); Carbon Dioxide 23 mmol/L (22-30); Chloride 111 mmol/L (98-107); Glucose 65 mg/dl (70-99); Potassium 4.4 mmol/L (3.5-5.1); Sodium 136 mmol/L (135-145)
[2025-01-19] MEDS: DUONEB 3 ML INH (07:20)
[2025-01-19] MEDS: PULMICORT 0.5 MG INH (07:20)
[2025-01-19 07:27] LABS: Estimated Creatinine Clearance 18 ml/min; eGFR 19.19
--- NOTE | 2025-01-19 08:30 | CON.ID ---
Addendum entered and electronically signed by Flower Dawn MD 01/19/25 13:01:
I personally performed a history and physical exam of the patient and discussed management with the resident. I reviewed the resident's note and agree with the documented findings and plan of care HPI/CC.
Preforming provider of the initial note is Mandi Guzman
Ms Rome is an 84 year old female with history of previous C difficile, rectal prolapse, recurrent aspiration pneumonia who presented here for abdominal pain and diarrhea. Unknown how frequently. No known antibiotics since september. No fevers or
chills. No cough, shortness of breath, chest pain, nausea or vomiting. She has been on prednisone 5 mg PO qday - unclear indication to me. History is limited due to the condition of the patient, history obtained by chart review and discussion
with adult daughter
Since arrival here she has been afebrile, bp hypotensive requiring pressors currently on levophed 4 mcg/min, HR 90s, wbc initially 26 now 24, hgb 12.8, plt 398, Cr 2.3 from a baseline of 0.7, Na 134, t bili 1.2, ast 23, alt 30, alk phos 122, UA with
20-25 wbc/hpf, CT a/p severe acute pancolitis, severe LLL pneumonia, urine culture in progress, blood cultures in progress. She is currently on oral vancomycin and meropenem.
reviewed histories
Physical Exam
General: No Apparent Distress
Respiratory: Clear and Decreased Breath Sounds; Non Labored Respirations
Cardiac: S1/S2 and Regular Rhythm; No Peripheral Edema
GI: Soft, Non Distended, Normal Bowel Sounds and Tender
Skin: Warm
Neuro: Awake
Psych: Calm
reviewed labs
A&P
C difficile diarrhea - fulminant
Septic shock
Rectal prolapse
- agree with oral vancomycin at 500 mg PO QID and metronidazole 500 mg IV TID
- imaging did not show a megacolon
- was on REAMING MACHINE TENDER probiotics and these were continued
Pneumonia - suspect aspiration
UTI
Anaphylaxis with cefuroxime, hives with sulfa
- follow up urine culture
- sputum culture if able to obtain one
- agree with meropenem based on allergy history
Stage 3 sacral decubitus wound
infra labial wound
- wound care
- barrier dressing to attempt to avoid fecal contamination
AW
Original Note:
Documented by User: Mandi Guzman MD, Resident 01/19/25 12:44
Consultation
-
Date/Time Consultation Requested: 01/18/2025 at 20:30
Date/Time Consultation Performed: 01/19/2025 at 8:30 AM
Requesting Provider: Delaney Meyers
Performing Provider: Flower Dawn
Chief Complaint / Past History
Chief Complaint
Diarrhea and abdominal pain
History of Present Illness
Patient is an 84-year-old female who presented to the emergency department with complaints of diarrhea and abdominal pain. �She has a past medical history significant for hypertension, hyperlipidemia, atrial fibrillation, asthma, COPD with 4 L nasal
cannula oxygen requirement, hypothyroidism, diabetes, anxiety, and depression.� Patient is a resident of [facility] and lives a mostly sedentary life.� Normally, she is able to participate in conversation with others and has waxing and waning
mentation.� She usually ambulates using a wheelchair but with PT she does occasionally use a walker.� A few days prior to her presentation to the emergency department for diarrhea, she presented to the emergency department after falling from her bed
while reaching for water.� At that point she had been hospitalized 3 times in the past year due to weakness and pneumonia secondary to aspiration.� X-ray was done in the emergency department which showed no clear sign of fracture and was
discharged.� Unfortunately 2 days later she returned with diarrhea and abdominal pain with abnormal outpatient labs.� She tested positive for C. difficile at [facility] which prompted them to bring her to the emergency department for further
evaluation and treatment.� In the emergency department she had leukocytosis with a white blood cell count of 26.1. �She had an elevated creatinine of 2.3, and urine analysis was positive for nitrites, 2+ leukocyte esterase, 21-25 urine white blood
cell count, with many bacteria. �She tested positive for C. difficile antigen and toxins from stool sample collected in the emergency department.
Past History
Additional Past Medical History:
Chronic back pain
polyneuropathy neuropathy
asthma
COPD with 4 L nasal cannula requirement
recurrent pneumonia
atrial fibrillation
hypertension
hyperlipidemia
chronic dysphagia
spinal stenosis
hypothyroidism
diabetes
anxiety
depression
lymphedema
Additional Past Surgical History:
Surgery for varicose veins
carpal tunnel
cataracts
appendectomy
tonsillectomy
Allergy History:
cefuroxime Allergy (Verified 01/18/25 16:27)
Anaphylaxis
gabapentin Allergy (Verified 01/18/25 16:27)
Itching/swelling of hands
meloxicam Allergy (Verified 01/18/25 16:27)
Unknown
Penicillins Allergy (Verified 01/18/25 16:27)
Nausea / Vomiting
Sulfa (Sulfonamide Antibiotics) Allergy (Verified 01/18/25 16:27)
Hives
tetanus toxoid, adsorbed Allergy (Verified 01/18/25 16:27)
Hives
Social History
Tobacco: Former Smoker
Alcohol: None
Drug: None
Personal: (less than 1 yr)
Living: Custodial ([facility])
Review of Systems
Review of Systems
Unable to obtain due to patient acuity
Vital Signs
Temp Pulse Resp BP Pulse Ox
98.6 F 98 19 90/54 98
01/19/25 09:03 01/19/25 09:30 01/19/25 09:30 01/19/25 09:30 01/19/25 09:17
Physical Exam
Physical Exam
Constitutional: Chronically Ill and Obese
Head: Normocephalic
Eyes: Pupils Equal
Pharynx: Benign
Cardiovascular: Regular Rate and S1/S2; Negative Murmur or Rub
Pulmonary: Clear, Symmetric, Non Labored and Other (Diminished breath sounds bilaterally); Negative Wheezes, Rales, Rhonchi or Coarse
Gastrointestinal: Soft, Non Tender, Non Distended and Other (Rectal prolapse)
Skin: Other
SKIN:
Skin with bilateral heel wounds stage I
Sacrum stage III ulcer 1 x 1
Right buttock ulcer stage III
Wound near right groin near right labial fold which is unstageable 1 time 0.5 which is tunneled 1.1 cm -tip of Q-tip can be inserted completely
Lab / Diagnostic Study Results
01/19/25 05:29
01/19/25 06:41
Total Counted 100 01/18/25 16:10
Abs Neuts (Manual) 23.2 10^3/uL (1.4-6.5) H 01/18/25 16:10
Segmented Neutrophils 78 % (42-75) H 01/18/25 16:10
Band Neutrophils 11 % (0-3) H 01/18/25 16:10
Lymphocytes (Manual) 3 % (20-51) L 01/18/25 16:10
PT 21.7 Sec (11.4-14.6) H 01/18/25 22:16
INR 1.83 01/18/25 22:16
Lactic Acid Cancelled 01/18/25 20:15
Ur Squamous Epith Cells >30 /LPF (Few) 01/18/25 16:10
Microbiology Results
Micro:
01/18/25 22:16 MRSA Screen - Pending
Nose
01/18/25 16:10 Urine Culture - Pending
Urine
01/18/25 16:10 Blood Culture - Pending
Blood/Venous
01/18/25 16:10 Blood Culture - Pending
Blood/Venous
Assessment / Plan
Assessment/Plan:
-C. difficile diarrhea: Unresolved
-Septic shock secondary to C. difficile: Unresolved
-Rectal prolapse secondary to severe pelvic floor prolapse: Unresolved
CT abdomen and pelvis without IV or oral contrast showed severe acute C. difficile pancolitis, small volume ascites, severely distended gallbladder, severe pelvic floor prolapse -no toxic megacolon
Continue oral vancomycin 500 mg p.o. 4 times daily and metronidazole 500 mg IV every 8 hours
- Pneumonia secondary to aspiration: Unresolved
- Urinary tract infection: Unresolved
CT abdomen and pelvis showed severe left lower lobe pneumonia -confirmed on CXR
Sputum culture ordered
Patient is allergic cefuroxime, penicillins, and sulfa
Recommended patient remain on meropenem as it has adequate coverage and due to allergy history
Urine culture was positive for nitrites, 2+ leukocyte esterase, 21-25 urine white blood cell count, many bacteria�follow urine culture
-Sacral decubitus ulcer stage III: Unresolved
-Right buttock ulcer stage III: Unresolved
-Right labial fold wound: Unresolved
Continue wound care
Maintain clean dressing to avoid cross-contamination with fecal matter
Consideration of rectal trumpet in the setting of frequent loose stools

Documented by User: Flower Dawn MD 01/19/25 12:59
Consultation
-
Performing Provider: Mandi Guzman
--- NOTE | 2025-01-19 08:59 | CON.INTV ---
Consultation
Consultation Request
Date/Time Consultation Requested: 01/18/2025
Date/Time Consultation Performed: 01/19/2025
Medical History
-
Chief Complaint: Diarrhea
History of Present Illness:
This is an 84 y/o female with pmhx of essential hypertension paroxysmal atrial fibrillation, recurrent aspiration pneumonia with chronic dysphagia. She had previously been present in the ED on 01/16 after experiencing a fall. Workup at that time was
unremarkable so she was discharged back to [facility]. She began to experience abdominal pain and diarrhea, however, and a C. Diff test on 01/17 was positive so she returned to the ED on 01/18 for treatment. Of note, she was diagnosed and
treated for C. diff in September of this year. By her daughter's report, this is her only prior episode of C. Diff
In the ED, vital signs revealed low blood pressures of 74/49, heart rate > 90. Her WBC was elevated at 26.1, Sodium 134, creatinine 2.3. UA was contaminated by >[address] Scan of the Abdomen/Pelvis revealed severe acute c. Diff reese
colitis, severe left lower lobe pneumonia, small volume ascites, moderate chronic bilateral renal disease. Chest X-ray showed Severe left lower lobe pneumonia, severe calcific atherosclerosic plaque in the coronary arteries and thoracic aorta,
osteoporosis. Infectious Disease was consulted and she was admitted to the ICU for further treatment including IV fluids, oral Vancomycin, IV Metronidazole, Meropenem, and Levophed.
In the room, patient was moaning and generally not responsive, only saying 'don't move me'. History was gathered from daughter. Her daughter reports that patient's symptoms began on 01/17. This is also when she began speaking less, and speaking
garbled words that her daughter could not understand. At baseline, patient speaks quietly and clearly. Her daughter also reported some visual hallucinations while she was in the ED. Both of her daughters present state they have noticed a decline in
their mother recently, as she has experienced profound weakness and can no longer walk on her own. They state after their father (patient's ) passed 1 year ago, patient expressed a strong desire to avoid aggressive treatments and would never
want anything like an NG tube, or Intubation. They would like time for their other sister to arrive, then move towards comfort measures only.
Past Medical History
Past Medical History: Arrhythmias, Asthma, COPD, HTN, Hypercholesterolemia, Hypothyroidism and Other (Recurrent Aspiration Pneumonia with Dysphagia, Paroxysmal Atrial Fibrillation, Neuropathy, Chronic Back Pain)
Social History
Tobacco: Former Smoker
Alcohol: None
Drug: None
Personal:
Living: Residential
Employment: Retired
Family History
Family History: Reviewed & Not Pertinent
Allergies / Home Medications
Allergies
Allergy/AdvReac Type Severity Reaction Status Date / Time
cefuroxime Allergy Anaphylaxis Verified 01/18/25 16:27
gabapentin Allergy Itching/swelling Verified 01/18/25 16:27
of hands
meloxicam Allergy Unknown Verified 01/18/25 16:27
Penicillins Allergy Nausea / Verified 01/18/25 16:27
Vomiting
Sulfa (Sulfonamide Allergy Hives Verified 01/18/25 16:27
Antibiotics)
tetanus toxoid, adsorbed Allergy Hives Verified 01/18/25 16:27
Home Medications
�Medication �Instructions �Recorded �Confirmed �Last Taken �Type
acetaminophen 325 mg tablet 650 mg PO Q4HPRN PRN mild 03/24/22 01/18/25 10/10/24 History
(Tylenol) pain/fever>100.4
apixaban 5 mg tablet (Eliquis) 5 mg PO BID Blood Clot 03/24/22 01/18/25 10/10/24 History
Prevention/Tx
atorvastatin 10 mg tablet (Lipitor) 10 mg PO GENAO@1830 High Cholesterol 03/24/22 01/18/25 10/08/24 History
coQ10 (ubiquinol) 200 mg capsule 200 mg PO DAILY Supplement 03/24/22 01/18/25 10/10/24 History
diclofenac sodium 1 % topical gel 2 g topical Q8H both knees 03/24/22 01/18/2510/10/25 History
levothyroxine 25 mcg tablet 25 mcg PO DAILY Thyroid 03/24/22 01/18/25 10/10/24 History
guaifenesin 600 mg tablet, 600 mg PO [id number] PRN cough 05/22/22 01/18/25 Unknown History
extended release 12 hr (Mucinex)
budesonide 0.5 mg/2 mL suspension 0.5 mg inhalation R BID 12/19/23 01/18/25 10/10/24 History
for nebulization Lung/Breathing Issues
potassium chloride 10 mEq 10 meq PO DAILY Electrolyte 12/19/23 01/18/25 10/10/24 History
capsule,extended release Repletion
pregabalin 50 mg capsule 50 mg PO HS neuropathic pain 12/19/23 01/18/25 10/09/24 History
pregabalin 75 mg capsule 75 mg PO DAILY neuropathic pain 12/19/23 01/18/25 10/10/24 History
albuterol sulfate 90 mcg/actuation 2 puff inhalation R TIDPRN PRN sob 07/02/24 01/18/25 10/08/24 History
aerosol inhaler
calcium carbonate 600 mg PO DAILY Supplement 07/02/24 01/18/25 10/10/24 History
cholecalciferol (vitamin D3) 1,250 1,250 mcg PO QMONTH Supplement 07/02/24 01/18/25 Unknown History
mcg (50,000 unit) tablet
ipratropium 0.5 mg-albuterol 3 mg 3 ml inhalation R QID 07/02/24 01/18/25 10/10/24 History
(2.5 mg base)/3 mL nebulization Lung/Breathing Issues
soln
sodium chloride 1,000 mg soluble 1,000 mg PO DAILY Electrolyte 07/02/24 01/18/25 10/10/24 History
tablet Repletion
vitamin B complex 1 tab PO DAILY Supplement 07/02/24 01/18/25 10/10/24 History
oxybutynin chloride 5 mg tablet 7.5 mg (1.5 x 5 mg) PO BID #0 tabs 07/09/24 01/18/25 10/10/24 Rx
furosemide 20 mg tablet 20 mg PO DAILYPRN PRN weight gain 10/02/24 01/18/25 Unknown History
greater then 5pds
furosemide 20 mg tablet (Lasix) 20 mg PO DAILY edema 10/02/24 01/18/25 10/10/24 History
bisacodyl 10 mg rectal suppository 10 mg FL [id number] PRN IF NO BM AFTR 10/10/24 01/18/25 Unknown History
(Dulcolax (bisacodyl)) MOM
Saccharomyces boulardii 250 mg 250 mg PO BID #60 caps 10/13/24 01/18/25 Unknown Rx
capsule
amiodarone 200 mg tablet 200 mg PO BID #60 tabs 10/13/24 01/18/25 Unknown Rx
prednisone 5 mg tablet 5 mg PO DAILY #30 tabs 10/13/24 01/18/25 Unknown Rx
Review of Systems
-
Unable to Obtain full review of systems at this time due to: Acuity
History Source: Patient and Family
Abdomen/GI: Abdominal Pain, Diarrhea and Pain
Vitals / Labs / Diagnostic Testing
Vital Signs
Temp Pulse Resp BP Pulse Ox
98.9 F 94 18 114/65 97
01/19/25 08:16 01/19/25 07:25 01/19/25 07:25 01/19/25 04:30 01/19/25 07:25
Lab Data
01/19/25 05:29
01/19/25 06:41
Laboratory Results
01/18/25
22:16
PT 21.7 H
INR 1.83
APTT 33.3
Diagnostic Testing:
Physical Exam
-
HEENT: Normocephalic and Anicteric
Cardiovascular: S1/S2 and Regular Rhythm
Respiratory: Wheeze (Left mid and lower lobe) and Non-Labored Respirations
GI: Other (Rectal Prolapse with small dots present on mucosa, large bandage overlying sacral area, incontinence with watery diarrhea )
Neurology: Awake and Other (Patient awake but moaning, only able to say a few words while I was in the room. She was unable to follow verbal commands)
Skin: Warm and Dry
General: Pain
Exam:
Genitourinary: There is a tunneling wound of the right labia with associated cysts.
Assessment
-
Assessment:
Plan:
Septic Shock secondary to C. diff colitis
Septic Shock secondary to Left Lower Lobe Pneumonia, likely Aspiration
-Leukocytosis, tachycardia and hypotension present upon admission. Adequate fluid repletion for her size is 2385mL, she received 2400mL in the ED. Has been requring continued Levophed, with nursing staff recently increasing dosage from 4 to 5.
-Patient with C. Diff reese colitis and left lower lobe pneumonia noted on imaging on admission
-Extensive discussion with patient's two daughters. At this time, they would like to move forward with comfort care, as they have noticed a decline in their mother and she has vocalized her desires extensively including not wanting any aggressive
treatments including NG tubes or intubation. At this time they are waiting for their other sister to arrive, but have already contacted their family members in preparation for comfort care
-Will consult hospice
-Updated CM, updated Healthcare Receptionist services
-Will help coordinate for delivering of last rites
-Will focus on pain management and preserving the patient's dignity, comfort and hygiene.
Acute Renal Failure
-Creatinine 2.3 on admission, 2.4 on 01/19
-HOLD Lasix
-Avoid nephrotoxic agents
-No further blood draws, moving to comfort care today
Abnormal Urinalysis Findings
-Urinalysis showed >30 squamous cells, contaminate.
-Would consider a repeat, clean-catch UA before diagnosis of UTI, though patient is moving to comfort care today
Paroxysmal Atrial Fibrillation
-Will stop Eliquis, Amiodarone with transition to comfort care
Hyperlipidemia
-Stop atorvastatin with transition to comfort care
COPD
-On 4L Nasal cannula at baseline
Hypothyroidism
Essential Hypertension
Diabetes Mellitus
--- NOTE | 2025-01-19 09:37 | WOUNDNOTE ---
LABIA/GROIN CREASE
[2025-01-19] MEDS: MERREM 500 MG IV (09:38)
--- NOTE | 2025-01-19 09:39 | WOUNDNOTE ---
L CALF/ANKLE (LATERAL POSTERIOR)
[2025-01-19] MEDS: DELTASONE 5 MG PO (09:40)
--- NOTE | 2025-01-19 09:40 | WOUNDNOTE ---
R THIGH (UPPER POSTERIOR)
[2025-01-19] MEDS: DITROPAN 7.5 MG PO (09:41)
[2025-01-19] MEDS: FLORASTOR 250 MG PO (09:41)
[2025-01-19] MEDS: SODIUM CHLORIDE 1 GRAM PO (09:41)
[2025-01-19] MEDS: ELIQUIS 5 MG PO (09:41)
[2025-01-19] MEDS: LYRICA 75 MG PO (09:41)
--- NOTE | 2025-01-19 09:42 | WOUNDNOTE ---
[facility] RN note: Patient admitted with sepsis, UTI, C diff, pancolitis, acute renal failure. Patient's daughter present. Patient resides at [facility]. Daughter confirmed patient has an air mattress at [facility].
See H&P for complete history.
PMH: C diff, a fib (Eliquis), recurrent aspiration pneumonia, chronic back pain, neuropathy, asthma, COPD (on o2 4L), HTN, chronic dysphagia, spinal stenosis, DM, anxiety/depression, lymphedema, varicose veins, obesity.
Wound Location and type/assessment: Patient admitted with: small unstageable sacral pressure injury, coccyx stage 2 pressure injury vs MASD. Rectal prolapse. Perineal MASD. R posterior upper thigh MASD. R groin/labia crease full thickness open cyst
with necrotic spencer moist tissue. R arm bruise with small dermal skin tear. Heels blanchable red. L posterior lateral ankle skin mottled (blanchable dull purple areas).
Appetite: on regular diet.
Pressure redistribution devices in place: Centrella Max air bed. Patient cannot turn herself in bed.
Plan: Patient seen with Dr. Dawn who evaluated patient and her skin. Dr. Dawn approved daily packing of groin cyst wound with 1/4 inch iodoform gauze. Patient incontinent of brown liquid stool. JOO Jean Baptiste and Keaton provided bruno care and
turned patient. Sacral silicone border foam changed. Calazime ointment applied to perianal skin. Protective foam dressing changed on heels. Heels off bed with pillow. t/c SPD and ordered bariatric air chair cushion, 1/4 inch iodoform packing.
Will confirm orders with Dr. Dowd or resident and discussed with JOO Jean Baptiste and Keaton.
Care plan to be updated and will follow as needed.
--- NOTE | 2025-01-19 10:25 | PTOTSP ---
Speech Language Pathology
Pt seen for clinical bedside swallow evaluation. RN had attempted meds this morning with pocketing noted. When MONITOR AND STORAGE BIN TENDER entered room, pt with eyes closed and oral cavity wide open. Ice chip attempted. Minimal labial movement in response to ice to
lips. When asked pt if she could stick out her tongue to the ice, she shook head yes, but minimal lingual movement noted. Further P.O. trials deferred.
Recommend:
(1) Strict NPO
(2) Oral care 4x/day with suctioning as needed
(3) Not appropriate for Aspiration Risk Hydration Protocol (ARHP) at this time
(4) Non-oral meds
(5) MONITOR AND STORAGE BIN TENDER to continue to follow
[2025-01-19] MEDS: DUONEB INH (11:19)
--- NOTE | 2025-01-19 11:47 | W.PN.UPDATE ---
Update Note
Progress Note Update
I spoke with the patient's daughters. Candida and Chelsey. They would like to transition to hospice/comfort care. Pt has poor quality of life and is now NPO as she is a high aspiration risk, and the family knows that Blanca is miserable, and
is suffering, and they do not want her to suffer any longer. They want last rights - we will contact pastoral services. I will stop all medications unless tailored for comfort, and will consult hospice to evaluate the patient. The pt is currently
on levophed at 5mcg/min, and this will be stopped once the family is ready to TRX to comfort. Bedside RN and FM resident both present during this conversation. Hospitalist made aware of change in plan.
--- NOTE | 2025-01-19 11:48 | W.PN.HOSP.TC ---
Today's Communication/Plan
-
Comfort care measures only
Assessment / Plan
Assessment / Plan
Septic Shock secondary to C. diff colitis
Septic Shock secondary to Left Lower Lobe Pneumonia, likely Aspiration
- Appreciate credit reporter and hospice input, family agreed to comfort care measures 01/19
- Comfort care measures initiated, stopped IV antibiotics, IV pressors
Acute Renal Failure
Abnormal Urinalysis Findings
Paroxysmal Atrial Fibrillation
Hyperlipidemia
COPD-On 4L Nasal cannula at baseline
Hypothyroidism
Essential Hypertension
Diabetes Mellitus
Updated family at bedside 01/19
Total time spent to see the patient on the floor, examine the patient, review data and lab results, discuss treatment plan with patient, nursing staff around 35 minutes.
Physical Exam
General: Nonresponsive
HEENT: Normocephalic, Atraumatic, EOMI, DMM
Respiratory: Coarse breath sounds diffusely
Cardiac: Normal S1/S2, Regular Rate and Rhythm
GI: Soft, Nontender, Nondistended, Normal Bowel Sounds
Extremities: No Clubbing, Cyanosis
Diffuse anasarca
Neuro: Nonresponsive
Anticipated Discharge: Within 24 hours
Subjective/Interval History
-
Date of Service: January 19, 2025
Patient nonresponsive.
Objective Data
-
Labs:
Laboratory Results
01/18/25 01/19/25 01/19/25
22:16 05:29 06:41
WBC 23.9 H
Hgb 13.4
Hct 41.0
Plt Count 283 D
PT 21.7 H
INR 1.83
APTT 33.3
Sodium Cancelled 136
Potassium Cancelled 4.4
Chloride Cancelled 111 H
Carbon Dioxide Cancelled 23
BUN Cancelled 53 H
Creatinine Cancelled 2.4 H
Glucose Cancelled 65 L
Calcium Cancelled 8.0 L
Vital Signs:
Vital Signs
Temp Pulse Resp BP Pulse Ox
98.6 F 94 18 114/65 97
01/19/25 09:03 01/19/25 07:25 01/19/25 07:25 01/19/25 04:30 01/19/25 07:25
I&O
01/18/25 01/19/25 01/20/25
06:59 06:59 06:59
Intake Total 1734 115 / 115
Output Total 0 / 0
Balance 1734 115 / 115
--- NOTE | 2025-01-19 12:15 | HOSPNOTE ---
Spoke with family and they would like to stop all medications and focus on comfort. The patient is moaning and needs IV pain medications and also IV medications for agitation. I texted the Attending Dr Dowd and she will write orders. We will follow
and if the patient does not pass we will admit tomorrow onto inpatient hospice. The patient may pass quickly since the patient is on blood pressure support IV medications.
--- NOTE | 2025-01-19 12:33 | CM ---
Initial Assessment Completed By Beverley. Patient lives at [facility] and uses a wheelchair to get around there.
PCP: Dr. Archie Mullen
Pharmacy: [facility]
Patient is doing poorly so the ICU team spoke to the daughter about comfort care/ hospice in which this will be discussed. [facility] PLAN: [facility] Hospice
[2025-01-19] MEDS: LEVOPHED 250 IV (12:55)
[2025-01-19] MEDS: MORPHINE SULFATE 4 MG IV (12:57)
[2025-01-19] MEDS: VALIUM INJECTION 5 MG IV (12:58)
[2025-01-19] MEDS: FIRVANQ PO (13:22)
--- NOTE | 2025-01-19 13:23 | PTCARENOTE ---
Decision to transition patient to comfort care. Candida and Cristiana Bolaños (daughters) at bedside. Patient and family stating pt is in pain. Morphine and Valium given. More family plan to visit. Daughters want to wait until family gets here to stop all
drips. Requesting Tree Care Foreman; notified. Support provided.
Educated on hand hygiene and isolation as patient is C-Diff positive.
[2025-01-19] MEDS: DILAUDID 0.5 MG IV (16:05)
--- NOTE | 2025-01-19 17:44 | PTCARENOTE ---
Family at bedside, thankful for care. Patient remains on comfort care. Provided comfort care snack tray. Rounding q1 hour.
--- NOTE | 2025-01-19 19:30 | PTCARENOTE ---
Patient appears to be comfortable, no signs of distress, family at bed side. Q2 turns with pillows.
--- NOTE | 2025-01-20 05:13 | W.PN.DEATH ---
Pronouncement of
-
Called to see patient to pronounce.
No spontaneous heart tones or respirations noted.
Patient not responsive to verbal stimuli.
Patient is pronounced .
Time of : 05:10
Date of : 01/20/25
Cause of : Multiple system failure due to septic shock
Family Notified: Yes
--- NOTE | 2025-01-20 05:25 | PTCARENOTE ---
Patient passed peacefully with daughter at her bedside.
--- NOTE | 2025-01-20 07:56 | W.DCSUMMARY ---
Discharge Summary
Discharge Data
Date of Admission: 01/18/25
Date of Discharge: 01/20/25
-
Pending Results: No
Hospital Course
Discharge diagnosis:
Septic Shock
Severe Clostridium difficile colitis
Severe Left Lower Lobe Pneumonia, likely Aspiration
Acute Renal Failure
Abnormal Urinalysis Findings
Paroxysmal Atrial Fibrillation
Hyperlipidemia
Chronic obstructive pulmonary disease on 4 L nasal cannula at baseline
Hypothyroidism
Essential Hypertension
Diabetes Mellitus
Consults: Cylinder Inspector And Tester, GI
CT abdomen and pelvis:
1. SEVERE ACUTE C. DIFFICILE PANCOLITIS.
2. SEVERE LEFT LOWER LOBE PNEUMONIA.
3. Small volume ascites.
4. Moderate chronic bilateral renal disease.
5. Severely distended gallbladder.
6. Severe calcific atherosclerotic plaque in the abdominal aorta, SMA, and renal arteries.
7. Severe pelvic floor prolapse.
8. 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
9. Moderate to severe right convex curvature of the upper lumbar spine.
Hospital course:
84-year-old female with a past medical history of class III COPD, severe restrictive lung defect, spinal stenosis, DM type II complicated by diabetic neuropathy, lymphedema, hypothyroidism, paroxysmal A-fib on Eliquis, history of asthma,
hypertension, history of hyponatremia, vitamin D deficiency, history of recurrent UTI, history of C. difficile, GERD, and history of pneumonia who presented from [facility] with low blood pressure and altered mental status. Patient was found
to have septic shock from severe C. difficile colitis and severe left lower lobe pneumonia. Patient was seen in conjunction with the physician's aide. She was treated with pressors, IV antibiotics.
Due to patient's multiple comorbidities, patient has a very poor prognosis. She was seen in conjunction with the hospice nurse. Family agreed to transition her to comfort care measures only on 01/19/2025. Patient peacefully on 01/20/2025
at 05:10. Family was notified, condolences were offered.
Discharge Plan
-
Patient Disposition:
Date/Time
Date/Time: 01/20/25 05:10
Discharge Date and Time
Discharge Date/Time: 01/20/25 08:20
Print Language: [place]
--- NOTE | 2025-01-20 08:20 | PTCARENOTE ---
Post Mortem care completed. [facility] notified. Pts belongings sent with daughter. [place] [facility] [place]
== END 2025-01-20 08:20 | disposition expired | DRG 871 ==
LOC: ICU 19:55
PROVIDERS: Nurse Practitioner Family; ADMITTING PHYSICIAN General Practice; ATTENDING PHYSICIAN Family Medicine; CONSULT PHYSICIAN Internal Medicine Critical Care Medicine; EMERGENCY PHYSICIAN Emergency Medicine; FAMILY PHYSICIAN Student in an Organized Health Care Education/Training Program; OTHER PHYSICIAN Student in an Organized Health Care Education/Training Program
DX: A41.4 Sepsis due to anaerobes (principal); J18.9 Pneumonia, unspecified organism; L89.153 Pressure ulcer of sacral region, stage 3; L89.313 Pressure ulcer of right buttock, stage 3; J69.0 Pneumonitis due to inhalation of food and vomit; R65.21 Severe sepsis with septic shock; A04.72 Enterocolitis due to Clostridium difficile, not specified as recurrent; N17.9 Acute kidney failure, unspecified; J44.0 Chronic obstructive pulmonary disease with (acute) lower respiratory infection; N39.0 Urinary tract infection, site not specified; K55.9 Vascular disorder of intestine, unspecified; R18.8 Other ascites; E87.1 Hypo-osmolality and hyponatremia; I48.0 Paroxysmal atrial fibrillation; E78.00 Pure hypercholesterolemia, unspecified; E03.9 Hypothyroidism, unspecified; I10 Essential (primary) hypertension; E11.40 Type 2 diabetes mellitus with diabetic neuropathy, unspecified; M47.819 Spondylosis without myelopathy or radiculopathy, site unspecified; Z79.01 Long term (current) use of anticoagulants; Z66 Do not resuscitate; Z87.01 Personal history of pneumonia (recurrent); G89.29 Other chronic pain; F32.A Depression, unspecified; F41.9 Anxiety disorder, unspecified; I89.0 Lymphedema, not elsewhere classified; Z87.891 Personal history of nicotine dependence; Z88.0 Allergy status to penicillin; Z88.2 Allergy status to sulfonamides; Z88.8 Allergy status to other drugs, medicaments and biological substances; Z79.899 Other long term (current) drug therapy; Z79.890 Hormone replacement therapy; K58.9 Irritable bowel syndrome, unspecified; E11.649 Type 2 diabetes mellitus with hypoglycemia without coma; I25.10 Atherosclerotic heart disease of native coronary artery without angina pectoris; K82.8 Other specified diseases of gallbladder; N81.89 Other female genital prolapse; K62.3 Rectal prolapse; M81.0 Age-related osteoporosis without current pathological fracture; Z79.51 Long term (current) use of inhaled steroids; Z79.84 Long term (current) use of oral hypoglycemic drugs; Z87.440 Personal history of urinary (tract) infections; K21.9 Gastro-esophageal reflux disease without esophagitis
CPT/HCPCS: 71045; 73502; 74176; 80048; 80053; 81003; 81015; 82962; 83605; 83735; 84100; 85025; 85027; 85610; 85730; 87040; 87070; 87086; 92610; 93005; 94640; 96365; 96367; 96375; 99291